=== PATIENT | male | born 1940 | race Caucasian/White ===

== ENCOUNTER 2017-12-06 09:16 | Inpatient (IN) ==
[2017-12-06 09:54] LABS: INR 1.4; Prothrombin Time 15.5 Seconds (9.4-12.1)
[2017-12-06] MEDS: 0.9 % Sodium Chloride 1,000 ML IVC SCH ×2 (10:05→17:21)
[2017-12-06] MEDS ORDERED: ISOVUE-370 200 ML INFUS..BTL IV ONE (11:38)
[2017-12-06] MEDS ORDERED: 0.9 % Sodium Chloride 1,000 ML ONE (11:38)
[2017-12-06] MEDS ORDERED: *HR* Heparin 10,000 UNIT/10 ML VIAL ONE (11:38)
[2017-12-06] MEDS ORDERED: Heparin 1,000 UNITS/500 mL 500 ML ONE (11:38)
[2017-12-06] MEDS ORDERED: Nitroglycerin 1,000 MCG/10 ML VIAL IV ONE (11:38)
--- NOTE | 2017-12-06 11:45 | Pre-Sedation Evaluation ---
Pre-sedation evaluation - Pre-sedation checklist Date of procedure: 12/06/17 Procedure: [facility] Recent Vitals: Last Vital Signs Temp 97.2 F L 12/06/17 09:53 Pulse 62 12/06/17 09:53 Resp 18 12/06/17 09:53 BP 158/85 12/06/17 09:53 Pulse Ox 96 12/06/17 09:53 H&P (including ROS) documented in medical record: No (NEEDS LOCKED) Previous reaction to sedatives/anesthetics: No Dietary Status: NPO after Midnight Airway Assessment: Patient can open mouth completely, TMJ function normal, Micrognathia (under-bite, receding chin) absent, Neck with adequate range of motion Dentition: No loose teeth or bridges Possible difficult airway: No ASA Classification *see protocol: CLASS II-Mild systemic disease Plan of Care: Pt appropriate candidate for procedure/moderate/conscious sedation , Risks/benefits of procedure/sedation discussed w/ patient/family
--- NOTE | 2017-12-06 11:46 | History & Physical Report ---
Date of Encounter: 12/06/17 Time of Encounter: 11:45 24 Hour HP Update - Instructions Instructions: If the History and Physical is less than 30 days old and was completed prior to A.M. admission and or procedure and has NOT been updated on calendar day of procedure please complete this update prior to performing procedure. - Update Patient reports changes in Medical Condition: No Changes in examination, assessment, or condition: No Changes in Medication: No Preop tests/diagnostics Reviewed: Yes Surgery Remains Indicated: Yes Consent for Planned Operative Procedure(s) Verified: Yes - Pre-Operative Checklist Preoperative Checklist Indicated: No Prophylactic Antibiotic Ordered: No Home Medications Include Beta Isai: Yes Beta Isai Taken Today (Day of Surgery): Yes Beta Isai Taken Yesterday (Day Prior to Surgery): Yes Is VTE Prophylaxis Indicated?: NO
[2017-12-06] MEDS ORDERED: *HR* Midazolam HCl 2 MG/2 ML VIAL ONE (12:03)
[2017-12-06] MEDS ORDERED: *HR* FentaNYL (PF) 100 MCG/2 ML VIAL ONE (12:04)
--- NOTE | 2017-12-06 12:42 | Discharge Summary ---
Outpatient Proc Discharge Plan - Plan Additional Instructions: RISK FACTORS: STOP SMOKING: If you smoke, STOP. Smoking or tobacco use significantly increases your risk of heart disease because nicotine causes the arteries to narrow or constrict. It also causes fats to stick to the artery. Your chances of having a heart attack are greatly increased if you continue to smoke. For more information, call the education line for smoking cessation 0-176-CPHYQZU EAT A LOW FAT/CHOLESTEROL/SODIUM DIET: This diet may help reduce your chances of having a heart attack. LIFTING: Avoid lifting anything more than 10 pounds for 5-7 days Prior to straining, laughing, sneezing and/or coughing, apply manual pressure directly over insertion site. ACTIVITY: You may walk or climb stairs as tolerated You can resume sexual activity as tolerated In general, you are encouraged to engage in a minimum of 30 minutes or more of moderate intensity physical activity, such as brisk walking, daily or at least 3 -4 times weekly BATHING Do not submerge the site into water (bath tub, hot tub, swimming pool) for 1 week. This can be a source for infection into the blood stream. You may shower after 24 hours SITE CARE: After 24 hours, you may remove the dressing and leave the site open to air. Keep the site clean and dry. Clean gently and pat dry. You can expect bruising and tenderness that gradually resolve within a week or two. Return to work as instructed per your physician Resume driving as instructed per physician Keep all scheduled follow up appointments Resume medications as instructed IMPORTANT: If prescribed a Platelet Aggregation Inhibitor such as, Plavix, Brilinta or Effient: Duration of therapy is minimum one year These medications are often used in combination with Aspirin in prevention of future heart attacks Never discontinue unless consult with your Children'S Book Author STROKE (CVA) Risk factors for a stroke are: Age, cigarette smoking, diabetes, excessive alcohol consumption, family history, high blood pressure, overweight, physical inactivity, prior stroke, heart attack, diagnosis of carotid artery stenosis or other artery disease. Warning signs: Sudden numbness or weakness of the face, arm or leg; especially on one side of the body, sudden confusion, trouble speaking or understanding, sudden trouble seeing in one or both eyes, sudden trouble walking, dizziness, loss of balance or coordination, sudden severe headache with no cause. Call 911 or go to the Emergency Room. CONGESTIVE HEART FAILURE: If you have been diagnosed with Congestive Heart Failure (CHF) and your symptoms return, make an appointment with your physician Weigh yourself daily. Notify your physician if you have a weight gain of two or more pounds in one day or five or more pounds in one week. If you experience any difficulty breathing, please call 911 BLEEDING: Although the risk of bleeding is minimal, it can happen. If you have any bleeding from the site, apply firm pressure above the puncture site for 10-15 minutes. If the bleeding does not stop, continue manual pressure and call 911 Contact your physician if: You develop a fever greater than 101 degrees Fahrenheit Your site becomes reddened or has any drainage You have an increase in pain or burning at the site or if a large knot forms at the site. If you experience chest pain, shortness of breath, dizziness, or extreme tiredness, stop the activity and rest. Please notify your physicians office if you experience any of these symptoms and they are not relieved by rest please call 911! Restart coumadin tonight if no bleeding at cardiac catheterization site. Home Medications: Amlodipine Besylate 10 mg PO 12/06/17 [History] Aspirin [Ecotrin] 325 mg PO DAILY 12/06/17 [History] Atenolol [Tenormin] 25 mg PO DAILY 12/06/17 [History] Isosorbide MONOnitrate (24 HR) [Imdur] 30 mg PO DAILY 12/06/17 [History] Lisinopril [Zestril] 20 mg PO DAILY 12/06/17 [History] Nitroglycerin [Nitrostat] 0.4 mg SL DAILY PRN 12/06/17 [History] Omeprazole [PriLOSEC] 20 mg PO DAILY 12/06/17 [History] Simvastatin [Zocor] 40 mg PO HS 12/06/17 [History] Warfarin [Coumadin] 2 mg PO 1800 12/06/17 [History]
[2017-12-06] MEDS ORDERED: *HR* Phytonadione 10 MG/ML AMPUL SQ ONE ×2 (14:02→19:45)
--- NOTE | 2017-12-06 14:09 | Cardiothoracic Consult Note ---
Date of Encounter: 12/06/17 Time of Encounter: 14:04 Assessment and Plan (1) Afib Current Visit: No Status: Acute The assessment and plan as outlined above was discussed with the patient and/or family members who expressed understanding and agreement. All questions were answered. The patient has significant left main disease with triple-vessel disease. He is a candidate for coronary artery bypass grafting. We could bypass his circumflex and LAD. The right coronary artery may or may not be bypassable. He is in chronic A. fib of unknown duration. We would attempt to perform modified Maze procedure and left atrial appendage stapling. The effectiveness of this would depend on the duration of A. fib. The patient will most likely require a permanent pacemaker in the postoperative period. The risks of surgery include , infection, bleeding, myocardial infarction, clots around the heart, renal or respiratory failure, acute or chronic graft closure, phrenic nerve injury, sternal dehiscence and recurrent or continued atrial fibrillation. The procedure, its risks, benefits and alternatives were explained and he does wish to proceed. We will tentatively schedule him for tomorrow. At this point the patient and his family have no questions. Operative consent was obtained. Qualifiers: Atrial fibrillation type: chronic Qualified Code(s): I48.2 - Chronic atrial fibrillation - History of Present Illness History of present illness: Mr. Quintana is a 77 year old male The patient is a 77-year-old gentleman who has had chest heaviness and shortness of breath with exertion. He had a positive stress test. 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 He also has a history of atrial fibrillation and takes Coumadin for this. He has been off Coumadin since Tuesday. He will require a permanent pacemaker prior to discharge. Echocardiogram done in August 2017 revealed mild to moderate mitral regurgitation, no other significant valve disease. Past medical history is noted for a stroke in 2002. This resulted in a left hemiplegia. He does walk with a walker, but has weakness in his left leg and arm. He also has some numbness and tingling in the arm and leg. Carotid duplex done in August 2017 revealed that the right carotid was 40-59%. The left carotid was 60-79%. Past medical history is also noted for hypertension and hypercholesterolemia. No history of diabetes. No recent strokes or TIA. He has no known allergies. His medications include aspirin and Coumadin. He has been off Coumadin since Tuesday. Social history. He lives in [place]. He is retired from [employer]. He used to smoke, but quit 47 years ago. Rarely drinks alcohol. Family history is positive for hypertension. Review of systems is negative for saphenous vein varicosities or strippings. Past Med Surg Social Fam HX - Past Medical History Medical history: atrial fibrillation, CVA, hyperlipidemia, hypertension, renal disease Psychiatric history: no psych history - Social History Smoking Status: Never smoker Alcohol use: none Drug use: none Medications and Allergies Amlodipine Besylate 10 mg PO 12/06/17 [History] Aspirin [Ecotrin] 325 mg PO DAILY 12/06/17 [History] Atenolol [Tenormin] 25 mg PO DAILY 12/06/17 [History] Isosorbide MONOnitrate (24 HR) [Imdur] 30 mg PO DAILY 12/06/17 [History] Lisinopril [Zestril] 20 mg PO DAILY 12/06/17 [History] Nitroglycerin [Nitrostat] 0.4 mg SL DAILY PRN 12/06/17 [History] Omeprazole [PriLOSEC] 20 mg PO DAILY 12/06/17 [History] Simvastatin [Zocor] 40 mg PO HS 12/06/17 [History] Warfarin [Coumadin] 2 mg PO 1800 12/06/17 [History] 3 Allergy/AdvReac Type Severity Reaction Status Date / Time No Known Allergies Allergy Unverified 09/21/17 10:23 All Systems Review: The remainder of the systems were reviewed and are negative Physical Examination He has bilateral redness to his eyes. He is missing his upper teeth, his lower teeth are in poor repair. Neck is supple. Trachea in the midline. No thyromegaly or carotid bruits. Lungs are clear to percussion and auscultation. Heart is in an irregular rate and rhythm. No murmurs, gallops or rubs. Abdomen is benign. No tenderness, rebound or guarding. He does have 1-2+ pitting edema over his left lower extremity. No saphenous vein varicosities or strippings. Cranial nerves intact. He does have weakness of his left leg, left arm and hand. He also has paresthesias and numbness over his left leg, left arm and hand. Results Lab Results, Last 24 hours 12/06/17 09:42 INR 1.4 Consult Discharge Plan - Plan Additional Instructions: RISK FACTORS: STOP SMOKING: If you smoke, STOP. Smoking or tobacco use significantly increases your risk of heart disease because nicotine causes the arteries to narrow or constrict. It also causes fats to stick to the artery. Your chances of having a heart attack are greatly increased if you continue to smoke. For more information, call the education line for smoking cessation 6-846-JEZFFVX EAT A LOW FAT/CHOLESTEROL/SODIUM DIET: This diet may help reduce your chances of having a heart attack. LIFTING: Avoid lifting anything more than 10 pounds for 5-7 days Prior to straining, laughing, sneezing and/or coughing, apply manual pressure directly over insertion site. ACTIVITY: You may walk or climb stairs as tolerated You can resume sexual activity as tolerated In general, you are encouraged to engage in a minimum of 30 minutes or more of moderate intensity physical activity, such as brisk walking, daily or at least 3 -4 times weekly BATHING Do not submerge the site into water (bath tub, hot tub, swimming pool) for 1 week. This can be a source for infection into the blood stream. You may shower after 24 hours SITE CARE: After 24 hours, you may remove the dressing and leave the site open to air. Keep the site clean and dry. Clean gently and pat dry. You can expect bruising and tenderness that gradually resolve within a week or two. Return to work as instructed per your physician Resume driving as instructed per physician Keep all scheduled follow up appointments Resume medications as instructed IMPORTANT: If prescribed a Platelet Aggregation Inhibitor such as, Plavix, Brilinta or Effient: Duration of therapy is minimum one year These medications are often used in combination with Aspirin in prevention of future heart attacks Never discontinue unless consult with your Medicinal Plant Picker STROKE (CVA) Risk factors for a stroke are: Age, cigarette smoking, diabetes, excessive alcohol consumption, family history, high blood pressure, overweight, physical inactivity, prior stroke, heart attack, diagnosis of carotid artery stenosis or other artery disease. Warning signs: Sudden numbness or weakness of the face, arm or leg; especially on one side of the body, sudden confusion, trouble speaking or understanding, sudden trouble seeing in one or both eyes, sudden trouble walking, dizziness, loss of balance or coordination, sudden severe headache with no cause. Call 911 or go to the Emergency Room. CONGESTIVE HEART FAILURE: If you have been diagnosed with Congestive Heart Failure (CHF) and your symptoms return, make an appointment with your physician Weigh yourself daily. Notify your physician if you have a weight gain of two or more pounds in one day or five or more pounds in one week. If you experience any difficulty breathing, please call 911 BLEEDING: Although the risk of bleeding is minimal, it can happen. If you have any bleeding from the site, apply firm pressure above the puncture site for 10-15 minutes. If the bleeding does not stop, continue manual pressure and call 911 Contact your physician if: You develop a fever greater than 101 degrees Fahrenheit Your site becomes reddened or has any drainage You have an increase in pain or burning at the site or if a large knot forms at the site. If you experience chest pain, shortness of breath, dizziness, or extreme tiredness, stop the activity and rest. Please notify your physicians office if you experience any of these symptoms and they are not relieved by rest please call 911! Restart coumadin tonight if no bleeding at cardiac catheterization site. Referrals: Kailee Keating MD [Partnered Physician] - 12/23/17 10:30 am (Follow up with Dr. Keating in the [place] office. ) George Hobbs DO [Primary Care Provider] -
[2017-12-06 17:37] LABS: Basophils # 0.1 K/mcL (0.0-0.2); Basophils % 0.9 %; Eosinophils # 0.4 K/mcL (0.0-0.6); Eosinophils % 6.3 %; Hematocrit 39.4 % (37.5-50.1); Immature Granulocytes % 0.3 % (0-4); Lymphocytes # 1.6 K/mcL (0.6-4.6); Lymphocytes % 25.6 %; Mean Corpuscular Hemoglobin 29.7 pg (28.0-33.3); Mean Corpuscular Volume 90.2 fL (83.0-100.0); Mean Platelet Volume 10.9 fL (9.4-12.4); Monocytes # 0.8 K/mcL (0.0-1.3); Monocytes % 11.9 %; Neutrophils # 3.5 K/mcL (1.6-8.9); Platelet Count 243 K/mcL (140-400); Red Blood Count 4.37 M/mcL (4.19-5.50); Red Cell Distribution Width 13.3 % (11.5-14.5)
[2017-12-06 17:42] LABS: INR 1.5; Prothrombin Time 15.8 Seconds (9.4-12.1)
[2017-12-06 17:45] LABS: Activated Partial Thrombo Time 30.4 Seconds (26.0-36.0)
[2017-12-06 17:59] LABS: BUN/Creatinine Ratio 25 (6-26); Blood Urea Nitrogen 28 mg/dL (8-23); Calcium 9.6 mg/dL (8.6-10.3); Carbon Dioxide 24 mEq/L (23-29); Chloride 106 mEq/L (98-107); Chol/HDL Ratio 2.8 (0-4.9); Cholesterol 161 mg/dL (< 200); Glucose 151 mg/dL (70-105); HDL Cholesterol 57 mg/dL (40-59); LDL Cholesterol,Calculated 92 mg/dL (0-99); Osmolality,Calculated 290 (280-300); Potassium 4.1 mEq/L (3.5-5.1); Sodium 136 mEq/L (136-145); Triglycerides 61 mg/dL (< 150); eGFR For African Americans > 60 (> 60); eGFR For Non-African Americans > 60 (> 60)
[2017-12-06] MEDS ORDERED: Chlorhexidine Rinse 15 ML MOUTHWASH MM SCH (21:00)
[2017-12-06] MEDS ORDERED: amLODIPine 5 MG TABLET PO ONE (23:18)
[2017-12-07] MEDS: 0.9 % Sodium Chloride 1,000 ML IVC SCH ×2 (03:20→17:54)
[2017-12-07] MEDS ORDERED: Lisinopril 20 MG TABLET PO ONE (04:00)
[2017-12-07 04:10] LABS: Bilirubin,Urine Negative (Negative); Blood,Urine Negative (Negative); Clarity,Urine Clear (Clear); Color,Urine Yellow (Yellow); Glucose,Urine (UA) Normal (Normal); Ketones,Urine Negative (Negative); Leukocyte Esterase,Urine Negative (Negative); Nitrite,Urine Negative (Negative); Protein,Urine Negative (Neg-Trace); Urobilinogen,Urine Normal (Normal)
[2017-12-07] MEDS ORDERED: CeFAZolin Syr 2,000MG/20 ML 2,000 MG/20 ML SYRINGE IVPB ONE (06:00)
--- NOTE | 2017-12-07 09:00 | Cardiothoracic Progress Note ---
Date of Encounter: 12/07/17 Time of Encounter: 08:59 - Assessment and plan (1) Afib Current Visit: No Status: Acute The patient is scheduled for surgery tomorrow. Operative consent was obtained. He has no questions. Qualifiers: Atrial fibrillation type: chronic Qualified Code(s): I48.2 - Chronic atrial fibrillation - Subjective Interval history: The patient had no angina or chest pain last night. He has no questions concerning tomorrow's surgery. Vital Signs, Last 4 Hours Temp Pulse Resp BP Pulse Ox 12/07/17 07:49 98.2 F 87 16 168/90 97 Clinical Data, last 8 Hours Output, Urine Amount 375 Output, Urine Amount 200 Weight 12/05/17 12/06/17 12/07/17 23:59 23:59 23:59 Weight 85.488 kg 82.4 kg Lungs are clear to percussion and auscultation. Heart is in a irregular rate and rhythm. - Labs 12/06/17 16:51 12/06/17 16:51 Lab Results, Last 24 hours 12/06/17 12/06/17 12/06/17 09:42 16:51 16:51 WBC 6.4 Hgb 13.0 Hct 39.4 Plt Count 243 INR 1.4 1.5 APTT 30.4 Sodium Potassium Chloride Carbon Dioxide BUN Creatinine Glucose Calcium 12/06/17 16:51 WBC Hgb Hct Plt Count INR APTT Sodium 136 Potassium 4.1 Chloride 106 Carbon Dioxide 24 BUN 28 H Creatinine 1.14 Glucose 151 H Calcium 9.6 Consult Discharge Plan - Plan Additional Instructions: RISK FACTORS: STOP SMOKING: If you smoke, STOP. Smoking or tobacco use significantly increases your risk of heart disease because nicotine causes the arteries to narrow or constrict. It also causes fats to stick to the artery. Your chances of having a heart attack are greatly increased if you continue to smoke. For more information, call the education line for smoking cessation 6-975-WKBEXPA EAT A LOW FAT/CHOLESTEROL/SODIUM DIET: This diet may help reduce your chances of having a heart attack. LIFTING: Avoid lifting anything more than 10 pounds for 5-7 days Prior to straining, laughing, sneezing and/or coughing, apply manual pressure directly over insertion site. ACTIVITY: You may walk or climb stairs as tolerated You can resume sexual activity as tolerated In general, you are encouraged to engage in a minimum of 30 minutes or more of moderate intensity physical activity, such as brisk walking, daily or at least 3 -4 times weekly BATHING Do not submerge the site into water (bath tub, hot tub, swimming pool) for 1 week. This can be a source for infection into the blood stream. You may shower after 24 hours SITE CARE: After 24 hours, you may remove the dressing and leave the site open to air. Keep the site clean and dry. Clean gently and pat dry. You can expect bruising and tenderness that gradually resolve within a week or two. Return to work as instructed per your physician Resume driving as instructed per physician Keep all scheduled follow up appointments Resume medications as instructed IMPORTANT: If prescribed a Platelet Aggregation Inhibitor such as, Plavix, Brilinta or Effient: Duration of therapy is minimum one year These medications are often used in combination with Aspirin in prevention of future heart attacks Never discontinue unless consult with your Piece Dye Worker STROKE (CVA) Risk factors for a stroke are: Age, cigarette smoking, diabetes, excessive alcohol consumption, family history, high blood pressure, overweight, physical inactivity, prior stroke, heart attack, diagnosis of carotid artery stenosis or other artery disease. Warning signs: Sudden numbness or weakness of the face, arm or leg; especially on one side of the body, sudden confusion, trouble speaking or understanding, sudden trouble seeing in one or both eyes, sudden trouble walking, dizziness, loss of balance or coordination, sudden severe headache with no cause. Call 911 or go to the Emergency Room. CONGESTIVE HEART FAILURE: If you have been diagnosed with Congestive Heart Failure (CHF) and your symptoms return, make an appointment with your physician Weigh yourself daily. Notify your physician if you have a weight gain of two or more pounds in one day or five or more pounds in one week. If you experience any difficulty breathing, please call 911 BLEEDING: Although the risk of bleeding is minimal, it can happen. If you have any bleeding from the site, apply firm pressure above the puncture site for 10-15 minutes. If the bleeding does not stop, continue manual pressure and call 911 Contact your physician if: You develop a fever greater than 101 degrees Fahrenheit Your site becomes reddened or has any drainage You have an increase in pain or burning at the site or if a large knot forms at the site. If you experience chest pain, shortness of breath, dizziness, or extreme tiredness, stop the activity and rest. Please notify your physicians office if you experience any of these symptoms and they are not relieved by rest please call 911! Restart coumadin tonight if no bleeding at cardiac catheterization site. Referrals: Kailee Keating MD [Partnered Physician] - 12/23/17 10:30 am (Follow up with Dr. Keating in the [place] office. ) George Hobbs DO [Primary Care Provider] -
[2017-12-07] MEDS ORDERED: *HR* Phytonadione 10 MG/ML AMPUL SQ ONE (09:03)
--- NOTE | 2017-12-07 09:08 | Anesthesia Evaluation PreOp ---
Date of Encounter: 12/08/17 Time of Encounter: 07:28 - Past History Planned Operation: CABG,modified MAZE Cardiac History: Angina, HTN, Hyperlipidemia, Arrhythmia (a-fib), Other (CAD with 100% RCA, 80% left main, 90% prox LAD, 85% Cx. PAD with carotid stenosis) Pulmonary History: Denies Any Significant HX STRATEGY INTERN History: CVA (2002 with residual left UE/LE weakness) Other Medical History: Renal (CKD) Anesthesia History: No Prior Anesthetic Complications, Past Anesthesia Alcohol Use: none Drug use: none Medications and Allergies Amlodipine Besylate 10 mg PO DAILY 12/06/17 [History] Atenolol [Tenormin] 25 mg PO DAILY 12/06/17 [History] Isosorbide MONOnitrate (24 HR) [Imdur] 30 mg PO DAILY 12/06/17 [History] Lisinopril [Zestril] 20 mg PO DAILY 12/06/17 [History] Nitroglycerin [Nitrostat] 0.4 mg SL DAILY PRN 12/06/17 [History] Omeprazole [PriLOSEC] 20 mg PO DAILY 12/06/17 [History] Simvastatin [Zocor] 40 mg PO HS 12/06/17 [History] Warfarin [Coumadin] 2 mg PO DAILY 12/06/17 [History] Aspirin [Lo-Dose Aspirin EC] 81 mg PO DAILY 12/07/17 [History] 3 Allergy/AdvReac Type Severity Reaction Status Date / Time No Known Allergies Allergy Unverified 09/21/17 10:23 - Meds/Allergy Pre-op Review Medications Reviewed: Yes Allergies Reviewed: Yes Beta Blockers on Current Med List: No Anesthesia Results - Labs 12/08/17 00:21 12/08/17 00:21 - Imaging Additional studies: cath: Impressions: There is severe three vessel coronary artery disease. The left ventricle is normal and has normal contractility EF 60% AGENT TICKETING GATE of proximal RCA. Stress test: Impression: There is a moderate intensity primarily fixed perfusion defect involving the basal-mid inferior wall with normal wall motion suggesting the presence of artifact. However, with stress, there is worsening of perfusion in the basal inferior and inferoseptum in which ischemia cannot be excluded. Pharmacologic stress ECG is non diagnostic for ischemia due to baseline non-specific ST and T changes. Patient had 7/10 chest pressure during stage I of pharmacologic stress. There is transient ischemic dilatation. Gated EF = 64%. Atrial fibrillation, HR 90 to 120's during testing. Abnormal findings communicated to ordering provider. Echo: Impressions: LVEF 50-55%. Normal LV chamber size, wall thickness and function. Indeterminate diastolic function. Normal right ventricular structure and function. Mild-moderate mitral regurgitation. Mild tricuspid regurgitation. No pulmonary hypertension. Anesthesia Exam Selected Entries 12/07/17 07:49 Temperature 98.2 F Pulse Rate 87 Respiratory Rate 16 Blood Pressure 168/90 O2 Sat by Pulse Oximetry 97 Weight: 82kg - HEENT Pupil (Motor): EOMI Mallampati: II Teeth: Missing, Edentulous (upper) Oral Opening: Greater than 3 - STRATEGY INTERN LOC: Oriented STRATEGY INTERN Motor: Normal RUE, Normal RLE, Normal Face, Deficit LUE, Deficit LLE STRATEGY INTERN Sensory: Normal: RUE, RLE, Face, Deficit: LUE, LLE - Cardiac Rhythm: Irregular (a-fib) Murmur: None - Pulmonary Breath Sounds: bilateral Clear Respiratory Effort: Symmetrical Anesthesia Assess/Plan ASA Score: 4 Modified [place] Scale for Level of Consciousness: Cooperative, oriented, and tranquil Anesthetic Plan: General Monitoring Plan: Standard Monitors, A-Line, PAC, DAWOOD Recovery Plan: ICU (discussed GA, lines, DAWOOD and blood products. Agrees to proceed)
--- NOTE | 2017-12-07 09:16 | Cardiology Progress Note ---
Date of Encounter: 12/07/17 Time of Encounter: 09:10 Assessment and Plan (1) CAD (coronary artery disease) Current Visit: Yes Status: Acute Outpatient [facility] on 12/06/17 for abnormal stress test, unstable angina. [facility] 12/06/17: severe 3v CAD, recommend CABG evaluation (see full report below). CT surgery consulted, Dr. Diaz following. Plan for CABG on 12/08/17. Continue asa, statin, nitrates, betablocker. ACEi held. Patient denies chest pain or discomfort. Follow-up with Dr. Kailee Keating as scheduled s/p discharge. Anticipate sign-off on 12/08/17, defer further mgmt to CT surgery. [facility] Report: Left Main Coronary Artery There is a 80% stenosis in the LMCA. The lesion has severe calcification noted. * Left Anterior Descending There is a 80% stenosis in the Proximal LAD. There is a 30% stenosis in the Mid LAD. There is a 50% stenosis in the 1st Diagonal. * Circumflex There is a 80% stenosis in the Proximal Circumflex. The lesion has moderate calcification noted. There is a 90% stenosis in the 1st Marginal. 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 R PDA fills via L to R collateral Qualifiers: Coronary Disease-Associated Artery/Lesion type: [place] artery [place] vs. transplanted heart: [place] heart Associated angina: with unstable angina Qualified Code(s): I25.110 - Atherosclerotic heart disease of [place] coronary artery with unstable angina pectoris (2) Afib Current Visit: No Status: Acute Hx of chronic atrial fibrillation on betablockade for rate control. Coumadin has been held in preparation for CABG. Would recommend restarting Coumadin, (goal INR 2-3), at discretion of CT surgery in the post-operative setting. Qualifiers: Atrial fibrillation type: chronic Qualified Code(s): I48.2 - Chronic atrial fibrillation (3) Essential hypertension Current Visit: Yes Status: Acute Uncontrolled this AM upon exam. Will resume home medications including nitrates, betablocker, and CCB. Hold ACEi prior to CABG. Discussion w patient/family: The assessment and plan as outlined above was discussed with the patient and/or family members who expressed understanding and agreement. All questions were answered. Thank you for involving us in the care of your patient. Please call with any questions. The patient was discussed and reviewed with Dr. Roy. Objective Vital Signs, Last 4 Hours Temp Pulse Resp BP Pulse Ox 12/07/17 07:49 98.2 F 87 16 168/90 97 Results 12/06/17 16:51 12/06/17 16:51 Lab Results 12/06/17 12/06/17 12/06/17 09:42 16:51 16:51 WBC 6.4 Hgb 13.0 Hct 39.4 Plt Count 243 INR 1.4 1.5 APTT 30.4 Sodium Potassium Chloride Carbon Dioxide BUN Creatinine Glucose Calcium 12/06/17 16:51 WBC Hgb Hct Plt Count INR APTT Sodium 136 Potassium 4.1 Chloride 106 Carbon Dioxide 24 BUN 28 H Creatinine 1.14 Glucose 151 H Calcium 9.6 Consult Discharge Plan - Plan Additional Instructions: RISK FACTORS: STOP SMOKING: If you smoke, STOP. Smoking or tobacco use significantly increases your risk of heart disease because nicotine causes the arteries to narrow or constrict. It also causes fats to stick to the artery. Your chances of having a heart attack are greatly increased if you continue to smoke. For more information, call the education line for smoking cessation 7-186-MJHJQBW EAT A LOW FAT/CHOLESTEROL/SODIUM DIET: This diet may help reduce your chances of having a heart attack. LIFTING: Avoid lifting anything more than 10 pounds for 5-7 days Prior to straining, laughing, sneezing and/or coughing, apply manual pressure directly over insertion site. ACTIVITY: You may walk or climb stairs as tolerated You can resume sexual activity as tolerated In general, you are encouraged to engage in a minimum of 30 minutes or more of moderate intensity physical activity, such as brisk walking, daily or at least 3 -4 times weekly BATHING Do not submerge the site into water (bath tub, hot tub, swimming pool) for 1 week. This can be a source for infection into the blood stream. You may shower after 24 hours SITE CARE: After 24 hours, you may remove the dressing and leave the site open to air. Keep the site clean and dry. Clean gently and pat dry. You can expect bruising and tenderness that gradually resolve within a week or two. Return to work as instructed per your physician Resume driving as instructed per physician Keep all scheduled follow up appointments Resume medications as instructed IMPORTANT: If prescribed a Platelet Aggregation Inhibitor such as, Plavix, Brilinta or Effient: Duration of therapy is minimum one year These medications are often used in combination with Aspirin in prevention of future heart attacks Never discontinue unless consult with your Montessori Preschool Teacher STROKE (CVA) Risk factors for a stroke are: Age, cigarette smoking, diabetes, excessive alcohol consumption, family history, high blood pressure, overweight, physical inactivity, prior stroke, heart attack, diagnosis of carotid artery stenosis or other artery disease. Warning signs: Sudden numbness or weakness of the face, arm or leg; especially on one side of the body, sudden confusion, trouble speaking or understanding, sudden trouble seeing in one or both eyes, sudden trouble walking, dizziness, loss of balance or coordination, sudden severe headache with no cause. Call 911 or go to the Emergency Room. CONGESTIVE HEART FAILURE: If you have been diagnosed with Congestive Heart Failure (CHF) and your symptoms return, make an appointment with your physician Weigh yourself daily. Notify your physician if you have a weight gain of two or more pounds in one day or five or more pounds in one week. If you experience any difficulty breathing, please call 911 BLEEDING: Although the risk of bleeding is minimal, it can happen. If you have any bleeding from the site, apply firm pressure above the puncture site for 10-15 minutes. If the bleeding does not stop, continue manual pressure and call 911 Contact your physician if: You develop a fever greater than 101 degrees Fahrenheit Your site becomes reddened or has any drainage You have an increase in pain or burning at the site or if a large knot forms at the site. If you experience chest pain, shortness of breath, dizziness, or extreme tiredness, stop the activity and rest. Please notify your physicians office if you experience any of these symptoms and they are not relieved by rest please call 911! Restart coumadin tonight if no bleeding at cardiac catheterization site. Referrals: Kailee Keating MD [Partnered Physician] - 12/23/17 10:30 am (Follow up with Dr. Keating in the [place] office. ) George Hobbs, [Primary Care Provider] -
[2017-12-07] MEDS ORDERED: Nitroglycerin 0.4 MG TAB.SUBL SL PRN (09:17)
[2017-12-07] MEDS: amLODIPine 5 MG TABLET PO SCH (09:41)
[2017-12-07] MEDS: Isosorbide MONOnitrate (24 HR) 30 MG TAB.ER.24H PO SCH (09:41)
[2017-12-07 11:07] LABS: INR 1.3; Prothrombin Time 13.9 Seconds (9.4-12.1)
[2017-12-07 12:14] LABS: Hemoglobin A1C 5.8 %
[2017-12-07] MEDS: Chlorhexidine Rinse 15 ML MOUTHWASH MM SCH (19:45)
[2017-12-07] MEDS ORDERED: amLODIPine 5 MG TABLET PO ONE (23:18)
[2017-12-08 00:48] LABS: Basophils # 0.1 K/mcL (0.0-0.2); Basophils % 0.8 %; Eosinophils # 0.4 K/mcL (0.0-0.6); Eosinophils % 5.2 %; Hemoglobin 13.1 g/dL (12.9-16.9); Immature Granulocytes % 0.3 % (0-4); Lymphocytes # 1.9 K/mcL (0.6-4.6); Lymphocytes % 26.5 %; Mean Corpuscular HGB Conc 34.5 g/dL (31.6-35.5); Mean Corpuscular Hemoglobin 30.7 pg (28.0-33.3); Monocytes # 0.8 K/mcL (0.0-1.3); Monocytes % 11.7 %; Platelet Count 218 K/mcL (140-400); Red Blood Count 4.27 M/mcL (4.19-5.50); Red Cell Distribution Width 13.5 % (11.5-14.5); Segmented Neutrophils % 55.5 %
[2017-12-08 00:54] LABS: INR 1.2; Prothrombin Time 12.8 Seconds (9.4-12.1)
[2017-12-08 00:57] LABS: Activated Partial Thrombo Time 28.7 Seconds (26.0-36.0)
[2017-12-08 01:18] LABS: BUN/Creatinine Ratio 21 (6-26); Blood Urea Nitrogen 22 mg/dL (8-23); Calcium 9.3 mg/dL (8.6-10.3); Carbon Dioxide 23 mEq/L (23-29); Chloride 107 mEq/L (98-107); Glucose 99 mg/dL (70-105); Osmolality,Calculated 289 (280-300); Potassium 3.8 mEq/L (3.5-5.1); Sodium 138 mEq/L (136-145); eGFR For African Americans > 60 (> 60); eGFR For Non-African Americans > 60 (> 60)
[2017-12-08] MEDS: Chlorhexidine Rinse 15 ML MOUTHWASH MM SCH ×2 (05:05→21:06)
[2017-12-08] MEDS ORDERED: Heparin 15,000 UNIT in 0.9 % Sodium Chloride 500 ML IV SCH (06:00)
[2017-12-08] MEDS ORDERED: Dextrose 50 % in Water (Vial) 30 ML, Sodium Bicarbonate 20 MEQ, Potassium Chloride 15 M... TH ONE (06:00)
[2017-12-08] MEDS ORDERED: CeFAZolin Syr 2,000MG/20 ML 2,000 MG/20 ML SYRINGE IVPB ONE (06:00)
[2017-12-08] MEDS ORDERED: Insulin Human Regular 100 UNIT in 0.9 % Sodium Chloride 100 ML IV PRN (06:00)
[2017-12-08] MEDS ORDERED: Dextrose 50 % in Water (Vial) 30 ML, Sodium Bicarbonate 20 MEQ, Lidocaine 1% 5 ML, Insu... TH SCH (06:00)
[2017-12-08] MEDS ORDERED: Nitroglycerin 25 MG/250 ML INFUS..BTL IVC ONE ×2 (06:49→08:56)
[2017-12-08] MEDS ORDERED: NiCARdipine 2.5 MG/10 ML Syringe IVPB ONE (06:49)
[2017-12-08] MEDS ORDERED: Verapamil 5 MG/2 ML VIAL ONE (06:53)
[2017-12-08] MEDS ORDERED: *HR* Rocuronium Bromide 50 MG/5 ML VIAL ONE (06:57)
[2017-12-08] MEDS ORDERED: *HR* PHENYLEPHRINE 1,000 MCG/10 ML SYRINGE IVP ONE (06:57)
[2017-12-08] MEDS ORDERED: *HR* Etomidate 20 MG/10 ML AMPUL IVP ONE (06:58)
[2017-12-08] MEDS ORDERED: Famotidine 20 MG/2 ML VIAL ONE (06:58)
[2017-12-08] MEDS ORDERED: Protamine Sulfate 250 MG/25 ML VIAL IVP ONE (06:58)
[2017-12-08] MEDS ORDERED: Tranexamic Acid 1,000 MG/10 ML VIAL ONE (06:58)
[2017-12-08] MEDS ORDERED: *HR* Midazolam HCl 5 MG/5 ML VIAL IVP ONE (07:02)
[2017-12-08] MEDS ORDERED: *HR* FentaNYL (PF) 1,000 MCG/20 ML VIAL ONE (07:03)
[2017-12-08 07:59] LABS: ABG Base Excess -4 mEq/L (-2 to 3); ABG Chloride 109 mEq/L (98-107); ABG Glucose 97 mg/dL (60-95); ABG HCO3 22 mEq/L (21-27); ABG Ionized Calcium 0.98 mmol/L (1.15-1.35); ABG Oxygen Saturation 100 % (95-98); ABG PCO2 39 mmHg (35-45); ABG PH 7.35 pH Units (7.32-7.45); ABG PO2 175 mmHg (85-104); ABG TCO2 23 mEq/L (20-26)
[2017-12-08] MEDS ORDERED: Norepinephrine 4 MG in D5% in Water 250 ML IVC PRN (08:00)
[2017-12-08] MEDS ORDERED: Albumin Human 5% 50.0 GM/1,000 ML VIAL ONE (08:57)
[2017-12-08 09:16] LABS: ABG Base Excess -6 mEq/L (-2 to 3); ABG Chloride 113 mEq/L (98-107); ABG Glucose 116 mg/dL (60-95); ABG HCO3 19 mEq/L (21-27); ABG Ionized Calcium 0.91 mmol/L (1.15-1.35); ABG Oxygen Saturation 99 % (95-98); ABG PCO2 36 mmHg (35-45); ABG PH 7.33 pH Units (7.32-7.45); ABG PO2 122 mmHg (85-104); ABG TCO2 20 mEq/L (20-26)
--- NOTE | 2017-12-08 09:38 | Anesthesia Procedures ---
Date of Encounter: 12/08/17 Time of Encounter: 07:50 Procedures: Anesthesia - Arterial Line Consent obtained: written consent Time out performed: Yes Sedation: Versed (mg): 1 Sedation: Fentanyl (mcg): 50 Supplemental Oxygen via Nasal Cannula (L/min): 2 Local Anesthetic: Lidocaine 1% Amount of Anesthetic used (mls): 1 Size (Gauge): 20 Length (inches): 5 Technique Used: sterile prep, guide wire technique, direct puncture technique Post-Procedure: line taped into place, dry sterile dressing placed Patient tolerated procedure: well, no complications Complications: none Site: Radial L (attempt x 1) - Central Line Placement Right IJ Consent obtained: written consent Time out performed: Yes Patient placed on monitor/pulse ox: Yes prep: mask, gown, gloves Central line prep: Chlorhexidine scrub Ultrasound used for placement: Yes Technique: Seldinger Lumen Inserted: Introducer Post procedure: sutured in place, good blood return, all ports aspirated, flushed, capped, sterile dressing applied Patient tolerated procedure: well, no complications Complications: none Comments: introducer placed easily. [place] passed without arrythmias, wedge approx 58cm
[2017-12-08 10:02] LABS: ABG Base Excess -1 mEq/L (-2 to 3); ABG Chloride 101 mEq/L (98-107); ABG Glucose 219 mg/dL (60-95); ABG HCO3 23 mEq/L (21-27); ABG Ionized Calcium 0.97 mmol/L (1.15-1.35); ABG Oxygen Saturation 100 % (95-98); ABG PCO2 34 mmHg (35-45); ABG PH 7.44 pH Units (7.32-7.45); ABG PO2 488 mmHg (85-104); ABG TCO2 24 mEq/L (20-26)
[2017-12-08 10:22] LABS: ABG Base Excess -1 mEq/L (-2 to 3); ABG Chloride 98 mEq/L (98-107); ABG Glucose 216 mg/dL (60-95); ABG HCO3 23 mEq/L (21-27); ABG Oxygen Saturation 100 % (95-98); ABG PCO2 34 mmHg (35-45); ABG PH 7.43 pH Units (7.32-7.45); ABG PO2 517 mmHg (85-104); ABG TCO2 24 mEq/L (20-26)
[2017-12-08 10:38] LABS: ABG Base Excess 1 mEq/L (-2 to 3); ABG Chloride 100 mEq/L (98-107); ABG Glucose 182 mg/dL (60-95); ABG HCO3 25 mEq/L (21-27); ABG Ionized Calcium 1.01 mmol/L (1.15-1.35); ABG Oxygen Saturation 100 % (95-98); ABG PCO2 38 mmHg (35-45); ABG PH 7.43 pH Units (7.32-7.45); ABG PO2 526 mmHg (85-104); ABG TCO2 26 mEq/L (20-26)
[2017-12-08] MEDS ORDERED: *HR* Amiodarone 150 MG/3 ML VIAL IVPB ONE (10:50)
[2017-12-08] MEDS ORDERED: Amiodarone Premix 360 MG/200 ML BAG IVC ONE ×2 (10:57→11:43)
[2017-12-08 11:19] LABS: ABG Base Excess -3 mEq/L (-2 to 3); ABG Chloride 105 mEq/L (98-107); ABG Glucose 123 mg/dL (60-95); ABG HCO3 22 mEq/L (21-27); ABG Ionized Calcium 1.16 mmol/L (1.15-1.35); ABG Oxygen Saturation 97 % (95-98); ABG PCO2 40 mmHg (35-45); ABG PH 7.35 pH Units (7.32-7.45); ABG PO2 93 mmHg (85-104); ABG TCO2 23 mEq/L (20-26)
[2017-12-08] MEDS ORDERED: *HR* Dextrose 50 % in Water (Syg) 50 ML SYRINGE IVP PRN (11:43)
[2017-12-08] MEDS ORDERED: Potassium Chloride 40 MEQ/200 ML BAG IVPB PRN (11:43)
[2017-12-08] MEDS ORDERED: Insulin Regular, Human 100 UNIT/ML IV PRN (11:43)
[2017-12-08] MEDS ORDERED: *HR* Promethazine 25 MG/ML VIAL IVP PRN (11:43)
[2017-12-08] MEDS ORDERED: Naloxone 0.4 MG/ML INJ IVP PRN (11:43)
[2017-12-08] MEDS ORDERED: Ondansetron 4 MG/2 ML VIAL IVP PRN (11:43)
[2017-12-08 12:05] LABS: Hematocrit 27.7 % (37.5-50.1); Immature Granulocytes % 0.4 % (0-4); Mean Corpuscular HGB Conc 33.6 g/dL (31.6-35.5)
[2017-12-08 12:06] LABS: INR 1.6
[2017-12-08 12:07] LABS: Basophils # 0.1 K/mcL (0.0-0.2); Basophils % 0.5 %; Eosinophils # 0.2 K/mcL (0.0-0.6); Hemoglobin 9.3 g/dL (12.9-16.9); Immature Platelets 2.9 % (1.1-6.1); Lymphocytes # 1.8 K/mcL (0.6-4.6); Lymphocytes % 16.6 %; Mean Corpuscular Hemoglobin 29.9 pg (28.0-33.3); Mean Corpuscular Volume 89.1 fL (83.0-100.0); Mean Platelet Volume 9.6 fL (9.4-12.4); Monocytes # 0.7 K/mcL (0.0-1.3); Monocytes % 6.4 %; Platelet Count 108 K/mcL (140-400); Red Blood Count 3.11 M/mcL (4.19-5.50); Red Cell Distribution Width 13.2 % (11.5-14.5); Segmented Neutrophils % 74.1 %
[2017-12-08 12:09] LABS: Activated Partial Thrombo Time 39.5 Seconds (26.0-36.0); Neutrophils # 7.9 K/mcL (1.6-8.9)
[2017-12-08 12:12] LABS: Prothrombin Time 17.7 Seconds (9.4-12.1)
[2017-12-08 12:20] LABS: BUN/Creatinine Ratio 16 (6-26); Blood Urea Nitrogen 15 mg/dL (8-23); Calcium 8.4 mg/dL (8.6-10.3); Carbon Dioxide 25 mEq/L (23-29); Chloride 107 mEq/L (98-107); Glucose 114 mg/dL (70-105); Magnesium 2.3 mg/dL (1.6-2.6); Osmolality,Calculated 290 (280-300); Potassium 3.4 mEq/L (3.5-5.1); Sodium 139 mEq/L (136-145); eGFR For African Americans > 60 (> 60); eGFR For Non-African Americans > 60 (> 60)
--- NOTE | 2017-12-08 12:22 | Operative Note ---
Date of procedure: 12/08/17 Was there an bookkeeping assistant present: Yes Package Crimper: Markell Isbell Estimated blood loss (cc): 500 Specimen: none Condition: critical Disposition: ICU Procedure in Detail: Preoperative diagnosis. Coronary artery disease and atrial fibrillation. Postoperative diagnosis. Same. Procedures. Coronary artery bypass grafting 2 with the left internal mammary artery to the LAD in the aorta to the obtuse marginal branch of the circumflex with saphenous vein. Also modified Maze procedure with isolation of the bilateral pulmonary veins and left atrial appendage stapling. Surgeon. Dr. Jairo Diaz. Asst. Markell Isbell. Anesthesia. Dr. Reggie Chin. The patient is a 77-year-old gentleman who had a stroke in 2002. This resulted in a left-sided hemiplegia. He walks with a walker. He presented with coronary artery disease. Cardiac catheterization revealed left main disease with triple-vessel disease. He also had atrial fibrillation of unknown duration. He has symptomatic bradycardia with a heart rate around 50 preoperatively. He will require a permanent pacemaker prior to discharge. The patient was brought to the operating room where he is prepped and draped in standard fashion. The right greater saphenous vein was harvested from the right knee to the right groin. This was done through 2 small incisions using the scope. These incisions were subsequently closed with a deep layer of 0 Vicryl and a 2-0 Vicryl subcuticular stitch. Standard median sternotomy was performed. The left internal mammary artery retractor was inserted and the left internal mammary artery was harvested in standard fashion using the Bovie electrocoagulation. The mammary retractor was removed and the standard sternal customs port director was inserted. Pericardium was opened in the midline and suspended with 2-0 silk stay sutures. A double pursestring of 20 [place] was placed in the aorta for the aortic cannulation site a pursestring of 20 [place] was placed in the right atrial appendage for the venous uptake. The patient was heparinized. The aorta was cannulated without difficulty. 2 stage venous uptake cannula was inserted through the right atrial appendage. A purse string of 4-0 silk was placed in the aorta and the cardioplegia needle was inserted through here. This was also used as an active and passive aortic vent. Patient was placed on cardio pony bypass and cooled to 35.3 degrees. We first performed the modified Maze procedure. The right superior and inferior pulmonary veins were encircled with a finger followed by a clamp and a red rubber catheter. The Medtronic bipolar device was placed in the veins were isolated using radiofrequency ablation. Next, we isolated the left superior and inferior pulmonary veins with a finger. This was followed by a clamp and a red rubber catheter. The device was placed and the veins were isolated with radiofrequency ablation. Finally, we stapled the left atrial appendage. This was done with the DEWAYNE stapler without a knife. At this point the aorta was crossclamped and a liter of antegrade cardioplegia was given. Topical cooling with iced saline slush was also done. Attention was first turned to the right coronary artery. The main right coronary artery and its posterior descending branches were too small and diffusely diseased for grafting. Attention was turned to the circumflex. The obtuse marginal branch was dissected free with the [place] blade and opened with a [place] blade and the [place] scissors. This had a lumen of 1-1/2 mm with mild diffuse disease. A standard end-to-side anastomosis was constructed using the saphenous vein in a 5-0 Prolene. At this point, the patient received an additional dose of antegrade cardioplegia. Mammary pedicle was harvested. Tonsil clamp was placed distally and was divided with the Metzenbaum scissors. Distal end was tied off with a 2-0 silk suture. Proximal end was trimmed and brought into the wound. The LAD was dissected free with the [place] blade and opened with a [place] blade and the [place] scissors. This had a lumen of 1-1/2 mm with moderate disease throughout. A standard end-to-side anastomosis was constructed using the mammary artery and a 7-0 Prolene. When this was completed, the previously placed bulldog clamp was removed. Distal anastomoses were inspected and found to be hemostatic. Cross-clamp was removed and rewarming was begun. Total cross- clamp time 34 minutes. A side-biting clamp was placed on the aorta in the cardioplegia needle was removed. A hole was made in the aorta using a [place] blade and the 4.5 mm aortic punch. A standard proximal anastomosis was constructed in end-to-side fashion using the saphenous vein in a 5-0 Prolene. When this is completed, the side-biting clamp was removed. The graft was de- aired using a #25-gauge needle and the previously placed bulldog clamp was removed. Distal anastomoses were inspected and found to be hemostatic. I did place some FloSeal around the MORSE distal anastomosis and the proximal anastomosis. A pair of atrial and ventricular pacing wires were left. The patient was paced in the DDD mode. A total of 4 chest tubes were left. A 32 right angle chest tube to the left pleural space. A 32 right angle chest tube to the pericardial well. A 40 mediastinal chest tube. The patient was weaned from bypass requiring no pressors for support. He was decannulated and the protamine was given. Hemostasis was good and the hemodynamics were good. Pericardium was loosely closed with interrupted 2-0 silk sutures. We did use platelet rich and platelet poor plasma to the sternum and subcutaneous tissues. The sternum was closed with #7 sternal wires in simple and mptzyc-di-ftuft fashion. The fascia was run with #1 Vicryl. The subcutaneous tissues with a 2- 0 Vicryl. The skin was closed with a 3-0 Vicryl subcuticular stitch. The patient tolerated the procedure well and was returned to intensive care unit in satisfactory and stable condition. Total bypass time 78 minutes. Total cross- clamp time 34 minutes. He had been cooled to 35.3 degrees.
[2017-12-08 12:29] LABS: ABG Base Excess -1 mEq/L (-2 to 3); ABG HCO3 24 mEq/L (21-27); ABG Oxygen Saturation 100 % (95-98); ABG PCO2 39 mmHg (35-45); ABG PH 7.39 pH Units (7.32-7.45); ABG PO2 172 mmHg (85-104); ABG TCO2 25 mEq/L (20-26)
[2017-12-08] MEDS: Ringers Solution, Lactated 1,000 ML IVC SCH (12:43)
[2017-12-08] MEDS: Insulin Human Regular 100 UNIT in 0.9 % Sodium Chloride 100 ML IVC SCH (15:00)
[2017-12-08 15:35] LABS: ABG Base Excess 0 mEq/L (-2 to 3); ABG HCO3 25 mEq/L (21-27); ABG Oxygen Saturation 99 % (95-98); ABG PCO2 41 mmHg (35-45); ABG PH 7.39 pH Units (7.32-7.45); ABG PO2 115 mmHg (85-104); ABG TCO2 26 mEq/L (20-26); Blood Gas PEEP 5 cm H2O; Blood Gas Respiration Rate 12; Blood Gas VT 600 cc
[2017-12-08] MEDS: CeFAZolin Premix DUPLEX 2,000 MG/50 ML BAG IVPB SCH ×2 (16:16→23:27)
[2017-12-08] MEDS: Amiodarone Premix 360 MG/200 ML BAG IVC SCH (17:01)
[2017-12-08] MEDS: *HR* FentaNYL (PF) 100 MCG/2 ML VIAL IVP PRN ×2 (17:33→23:39)
[2017-12-08] MEDS: *HR* OxyCODONE/APAP 5/325 TABLET PO PRN (17:33)
[2017-12-08] MEDS: Nitroglycerin 25 MG/250 ML INFUS..BTL IVC SCH (19:20)
[2017-12-08] MEDS: amLODIPine 5 MG TABLET PO SCH (19:41)
[2017-12-08] MEDS: Isosorbide MONOnitrate (24 HR) 30 MG TAB.ER.24H PO SCH (19:41)
[2017-12-08] MEDS: niCARdipine 40 MG/200 ML MLS IVC SCH ×2 (19:42→19:54)
[2017-12-08] MEDS: Norepinephrine 4 MG in D5% in Water 250 ML IVC SCH (19:42)
[2017-12-08 20:12] LABS: ABG Base Excess 1 mEq/L (-2 to 3); ABG HCO3 25 mEq/L (21-27); ABG Oxygen Saturation 99 % (95-98); ABG PCO2 38 mmHg (35-45); ABG PH 7.43 pH Units (7.32-7.45); ABG PO2 129 mmHg (85-104); ABG TCO2 26 mEq/L (20-26)
[2017-12-08 23:10] LABS: ABG Base Excess 2 mEq/L (-2 to 3); ABG HCO3 26 mEq/L (21-27); ABG Oxygen Saturation 99 % (95-98); ABG PCO2 39 mmHg (35-45); ABG PH 7.43 pH Units (7.32-7.45); ABG PO2 123 mmHg (85-104); ABG TCO2 27 mEq/L (20-26)
[2017-12-09] MEDS: niCARdipine 40 MG/200 ML MLS IVC SCH ×3 (00:10→17:19)
[2017-12-09] MEDS: *HR* OxyCODONE/APAP 5/325 TABLET PO PRN ×4 (02:02→11:58)
[2017-12-09] MEDS: Ringers Solution, Lactated 1,000 ML IVC SCH ×2 (02:10→14:02)
[2017-12-09] MEDS: Amiodarone Premix 360 MG/200 ML BAG IVC SCH (02:11)
[2017-12-09] MEDS: *HR* FentaNYL (PF) 100 MCG/2 ML VIAL IVP PRN (02:47)
[2017-12-09 05:15] LABS: Basophils % 0.4 %; Eosinophils % 0.1 %; Hematocrit 26.6 % (37.5-50.1); Immature Granulocytes % 0.3 % (0-4); Lymphocytes # 0.8 K/mcL (0.6-4.6); Lymphocytes % 8.9 %; Mean Corpuscular HGB Conc 33.8 g/dL (31.6-35.5); Mean Corpuscular Volume 88.7 fL (83.0-100.0); Mean Platelet Volume 10.7 fL (9.4-12.4); Monocytes # 1.3 K/mcL (0.0-1.3); Monocytes % 14.6 %; Neutrophils # 6.9 K/mcL (1.6-8.9); Platelet Count 149 K/mcL (140-400); Red Cell Distribution Width 13.6 % (11.5-14.5); Segmented Neutrophils % 75.7 %
[2017-12-09 05:24] LABS: INR 1.3; Prothrombin Time 13.6 Seconds (9.4-12.1)
[2017-12-09 05:27] LABS: Activated Partial Thrombo Time 26.8 Seconds (26.0-36.0)
[2017-12-09 05:33] LABS: Calcium 8.5 mg/dL (8.6-10.3); Magnesium 1.9 mg/dL (1.6-2.6); Potassium 3.9 mEq/L (3.5-5.1)
[2017-12-09] MEDS: Nitroglycerin 25 MG/250 ML INFUS..BTL IVC SCH ×3 (06:18→17:19)
--- NOTE | 2017-12-09 07:30 | Cardiothoracic Progress Note ---
Date of Encounter: 12/09/17 Time of Encounter: 07:28 - Assessment and plan (1) Afib Current Visit: No Status: Acute We we will discontinue the [place] catheter. I will stop the amiodarone drip at noon and placed the patient on by mouth amiodarone. His creatinine has risen to 1.7, so we will continue his IV fluids for now. Qualifiers: Atrial fibrillation type: chronic Qualified Code(s): I48.2 - Chronic atrial fibrillation - Subjective Interval history: The patient is extubated. He complains of some left hip pain which is due to an old injury. Vital Signs, Last 4 Hours Temp Pulse Resp BP Pulse Ox 12/09/17 07:00 77 16 138/57 93 12/09/17 06:00 82 18 132/57 96 12/09/17 05:00 82 16 142/65 97 12/09/17 04:06 16 96 12/09/17 04:00 98.6 F 80 12 142/64 96 Oxgyen Flow Rate Oxygen Flow Rate (LPM) 4 Clinical Data, last 8 Hours Output, Chest Tube Drainage 0 Amount [Mediastinal #1] Output, Chest Tube Drainage 0 Amount [Mediastinal #1] Output, Chest Tube Drainage 10 Amount [Mediastinal #1] Output, Chest Tube Drainage 0 Amount [Mediastinal #1] Output, Chest Tube Drainage 0 Amount [Mediastinal #1] Output, Chest Tube Drainage 0 Amount [Mediastinal #1] Output, Chest Tube Drainage 0 Amount [Mediastinal #1] Output, Chest Tube Drainage 0 Amount [Mediastinal #1] Output, Chest Tube Drainage 0 Amount [Mediastinal #2] Output, Chest Tube Drainage 0 Amount [Mediastinal #2] Output, Chest Tube Drainage 20 Amount [Mediastinal #2] Output, Chest Tube Drainage 0 Amount [Mediastinal #2] Output, Chest Tube Drainage 0 Amount [Mediastinal #2] Output, Chest Tube Drainage 15 Amount [Mediastinal #2] Output, Chest Tube Drainage 0 Amount [Mediastinal #2] Output, Chest Tube Drainage 10 Amount [Mediastinal #2] Output, Chest Tube Drainage 0 Amount [Mediastinal #3] Output, Chest Tube Drainage 0 Amount [Mediastinal #3] Output, Chest Tube Drainage 30 Amount [Mediastinal #3] Output, Chest Tube Drainage 20 Amount [Mediastinal #3] Output, Chest Tube Drainage 0 Amount [Mediastinal #3] Output, Chest Tube Drainage 10 Amount [Mediastinal #3] Output, Chest Tube Drainage 0 Amount [Mediastinal #3] Output, Chest Tube Drainage 20 Amount [Mediastinal #3] Weight 12/07/17 12/08/17 12/09/17 23:59 23:59 23:59 Weight 82.4 kg 81.5 kg Lungs are clear to percussion and auscultation. The pacemaker was turned off and the patient is in a normal sinus rhythm with a rate of 82. All incisions are healing well without signs of infection and the sternum is stable. Chest tube drainage is minimal and there is no air leak. - Labs 12/09/17 04:50 12/09/17 04:50 Lab Results, Last 24 hours 12/08/17 12/08/17 12/08/17 11:50 11:50 11:50 WBC 10.6 Hgb 9.3 L D Hct 27.7 L Plt Count 108 L D INR 1.6 APTT 39.5 H Sodium 139 Potassium 3.4 L Chloride 107 Carbon Dioxide 25 BUN 15 Creatinine 0.96 Glucose 114 H Calcium 8.4 L Magnesium 2.3 12/09/17 12/09/17 12/09/17 04:50 04:50 04:50 WBC 9.1 Hgb 9.0 L Hct 26.6 L Plt Count 149 INR 1.3 APTT 26.8 Sodium 137 Potassium 3.9 Chloride 105 Carbon Dioxide 23 BUN 21 Creatinine 1.78 H Glucose 135 H Calcium 8.5 L Magnesium 1.9 - VTE Documentation of Mechanical Device: Graduated compression elastic hosiery Consult Discharge Plan - Plan Additional Instructions: RISK FACTORS: STOP SMOKING: If you smoke, STOP. Smoking or tobacco use significantly increases your risk of heart disease because nicotine causes the arteries to narrow or constrict. It also causes fats to stick to the artery. Your chances of having a heart attack are greatly increased if you continue to smoke. For more information, call the education line for smoking cessation 7-942-TXNJQDL EAT A LOW FAT/CHOLESTEROL/SODIUM DIET: This diet may help reduce your chances of having a heart attack. LIFTING: Avoid lifting anything more than 10 pounds for 5-7 days Prior to straining, laughing, sneezing and/or coughing, apply manual pressure directly over insertion site. ACTIVITY: You may walk or climb stairs as tolerated You can resume sexual activity as tolerated In general, you are encouraged to engage in a minimum of 30 minutes or more of moderate intensity physical activity, such as brisk walking, daily or at least 3 -4 times weekly BATHING Do not submerge the site into water (bath tub, hot tub, swimming pool) for 1 week. This can be a source for infection into the blood stream. You may shower after 24 hours SITE CARE: After 24 hours, you may remove the dressing and leave the site open to air. Keep the site clean and dry. Clean gently and pat dry. You can expect bruising and tenderness that gradually resolve within a week or two. Return to work as instructed per your physician Resume driving as instructed per physician Keep all scheduled follow up appointments Resume medications as instructed IMPORTANT: If prescribed a Platelet Aggregation Inhibitor such as, Plavix, Brilinta or Effient: Duration of therapy is minimum one year These medications are often used in combination with Aspirin in prevention of future heart attacks Never discontinue unless consult with your Frame Bender STROKE (CVA) Risk factors for a stroke are: Age, cigarette smoking, diabetes, excessive alcohol consumption, family history, high blood pressure, overweight, physical inactivity, prior stroke, heart attack, diagnosis of carotid artery stenosis or other artery disease. Warning signs: Sudden numbness or weakness of the face, arm or leg; especially on one side of the body, sudden confusion, trouble speaking or understanding, sudden trouble seeing in one or both eyes, sudden trouble walking, dizziness, loss of balance or coordination, sudden severe headache with no cause. Call 911 or go to the Emergency Room. CONGESTIVE HEART FAILURE: If you have been diagnosed with Congestive Heart Failure (CHF) and your symptoms return, make an appointment with your physician Weigh yourself daily. Notify your physician if you have a weight gain of two or more pounds in one day or five or more pounds in one week. If you experience any difficulty breathing, please call 911 BLEEDING: Although the risk of bleeding is minimal, it can happen. If you have any bleeding from the site, apply firm pressure above the puncture site for 10-15 minutes. If the bleeding does not stop, continue manual pressure and call 911 Contact your physician if: You develop a fever greater than 101 degrees Fahrenheit Your site becomes reddened or has any drainage You have an increase in pain or burning at the site or if a large knot forms at the site. If you experience chest pain, shortness of breath, dizziness, or extreme tiredness, stop the activity and rest. Please notify your physicians office if you experience any of these symptoms and they are not relieved by rest please call 911! Restart coumadin tonight if no bleeding at cardiac catheterization site. Referrals: Kailee Keating MD [Partnered Physician] - 12/23/17 10:30 am (Follow up with Dr. Keating in the [place] office. ) George Hobbs DO [Primary Care Provider] -
[2017-12-09] MEDS: Isosorbide MONOnitrate (24 HR) 30 MG TAB.ER.24H PO SCH (08:31)
[2017-12-09] MEDS: *HR* Amiodarone 200 MG TABLET PO SCH ×2 (08:32→20:33)
[2017-12-09] MEDS: amLODIPine 5 MG TABLET PO SCH (08:32)
[2017-12-09] MEDS: Chlorhexidine Rinse 15 ML MOUTHWASH MM SCH ×2 (08:32→20:33)
[2017-12-09] MEDS ORDERED: Mannitol 25% vial 12.5 GM/50 ML VIAL IVP ONE (08:34)
[2017-12-09] MEDS ORDERED: Sodium Bicarbonate 50 MEQ/50 ML VIAL IVC ONE (08:34)
[2017-12-09] MEDS ORDERED: *HR* Phenylephrine 10 MG/ML VIAL IVC ONE (08:34)
[2017-12-09] MEDS ORDERED: *HR* Heparin 10,000 UNIT/10 ML VIAL IV ONE (08:34)
[2017-12-09] MEDS ORDERED: Albumin Human 25% 25 GM/100 ML IV.SOLN IV ONE (08:34)
[2017-12-09] MEDS ORDERED: *HR* Magnesium Sulfate 2 GM/50 ML PIGGYBACK IVPB ONE (08:34)
[2017-12-09] MEDS ORDERED: Lidocaine 2% Syringe 100 MG/5 ML IV ONE (08:34)
--- NOTE | 2017-12-09 10:23 | Electrocardiograph Report ---
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
[2017-12-09] MEDS ORDERED: *HR* Dextrose 50 % in Water (Syg) 50 ML SYRINGE IVP PRN (11:11)
[2017-12-09] MEDS ORDERED: Dextrose Gel 15 GM/37.5 ML TUBE PO PRN ×2 (11:11)
[2017-12-09] MEDS ORDERED: D5% in Water 1,000 ML IVC PRN (11:11)
[2017-12-09] MEDS: Insulin Human Regular 100 UNIT in 0.9 % Sodium Chloride 100 ML IVC SCH (11:54)
[2017-12-09] MEDS: Norepinephrine 4 MG in D5% in Water 250 ML IVC SCH (11:54)
[2017-12-09] MEDS: Insulin LISPRO 300 UNITS/3 ML VIAL SQ SCH ×3 (11:55→20:34)
--- NOTE | 2017-12-09 13:38 | Anesthesia Evaluation Post Op ---
Date of Encounter: 12/09/17 Time of Encounter: 13:36 - Vital Signs Vital Signs: Selected Entries 12/09/17 10:00 12/09/17 12:00 12/09/17 12:14 Temperature 98.1 F Pulse Rate 68 Respiratory Rate 12 Blood Pressure 143/56 O2 Sat by Pulse Oximetry 97 Oxygen Flow Rate (LPM) 4 Oxygen Delivery Method Nasal Cannula - Lungs Lungs: Clear Ascult./Percussion - Airway Airway: Non-obstructed - Cardiovascular Regular Rate - Mental Status Mental Status: Alert & Oriented, Answers Appropriately - Pain Pain Scale: 4 Pain Scale used: Numeric (1 - 10) - Nausea Vomiting Nausea Vomiting: Not Present - Hydration Hydration: Tolerates oral liquids, Parrish catheter (no apparent anesthesia issues post op. Off Amiodarone iv. Remains in NSR)
[2017-12-09] MEDS: *HR* Heparin 5,000 UNIT/ML VIAL SQ SCH (17:18)
--- NOTE | 2017-12-09 20:22 | Electrocardiograph Report ---
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
[2017-12-10] MEDS: niCARdipine 40 MG/200 ML MLS IVC SCH ×4 (00:43→23:36)
[2017-12-10] MEDS: Nitroglycerin 25 MG/250 ML INFUS..BTL IVC SCH ×3 (04:13→23:36)
[2017-12-10] MEDS: *HR* OxyCODONE/APAP 5/325 TABLET PO PRN ×3 (04:17→23:38)
[2017-12-10 04:48] LABS: Basophils % 0.3 %; Eosinophils % 0.2 %; Hematocrit 25.2 % (37.5-50.1); Hemoglobin 8.6 g/dL (12.9-16.9); Immature Granulocytes % 0.4 % (0-4); Lymphocytes # 1.5 K/mcL (0.6-4.6); Lymphocytes % 12.7 %; Mean Corpuscular HGB Conc 34.1 g/dL (31.6-35.5); Mean Corpuscular Hemoglobin 30.5 pg (28.0-33.3); Mean Corpuscular Volume 89.4 fL (83.0-100.0); Mean Platelet Volume 10.9 fL (9.4-12.4); Monocytes # 1.4 K/mcL (0.0-1.3); Monocytes % 11.8 %; Neutrophils # 8.7 K/mcL (1.6-8.9); Platelet Count 157 K/mcL (140-400); Red Blood Count 2.82 M/mcL (4.19-5.50); Red Cell Distribution Width 13.6 % (11.5-14.5); Segmented Neutrophils % 74.6 %
[2017-12-10 05:01] LABS: Calcium 8.3 mg/dL (8.6-10.3)
[2017-12-10] MEDS: Ringers Solution, Lactated 1,000 ML IVC SCH (05:25)
[2017-12-10] MEDS: *HR* Heparin 5,000 UNIT/ML VIAL SQ SCH ×2 (05:26→18:09)
[2017-12-10] MEDS: Chlorhexidine Rinse 15 ML MOUTHWASH MM SCH ×2 (08:19→20:22)
[2017-12-10] MEDS: Insulin LISPRO 300 UNITS/3 ML VIAL SQ SCH ×4 (08:24→19:49)
[2017-12-10] MEDS: amLODIPine 5 MG TABLET PO SCH (08:24)
[2017-12-10] MEDS: Isosorbide MONOnitrate (24 HR) 30 MG TAB.ER.24H PO SCH (08:24)
[2017-12-10] MEDS: Norepinephrine 4 MG in D5% in Water 250 ML IVC SCH (08:25)
[2017-12-10] MEDS: Insulin Human Regular 100 UNIT in 0.9 % Sodium Chloride 100 ML IVC SCH (08:25)
[2017-12-10] MEDS: *HR* Amiodarone 200 MG TABLET PO SCH ×2 (08:25→20:22)
[2017-12-10] MEDS ORDERED: 0.9 % Sodium Chloride 1,000 ML ONE (08:49)
[2017-12-10] MEDS: 0.9 % Sodium Chloride 1,000 ML IVC SCH (09:45)
--- NOTE | 2017-12-10 13:18 | Cardiothoracic Progress Note ---
Date of Encounter: 12/10/17 Time of Encounter: 13:15 - Subjective Procedure(s) Performed: Patient seen and examined. Lying in bed initially comfortable with no complaints other than some tiredness and incisional pain. Discussed with nursing at bedside events of night patient has been stable. Currently on nitroglycerin drip with vital signs stable in sinus rhythm. Atenolol was started this morning by report. Patient had history of bradycardia and plans for potential pacemaker discussed. Wires are still in place. Chest tube drainage been relatively minimal except for one chest tube therefore it was sinus at the patient up in chair before removing tubes. He was set up in chair and doing well. Discuss plans for removing chest tubes. Discuss plans for leaving the patient in the unit given concerns regarding bradycardia and starting beta de. We will leave pacing wires in place. Vital Signs, Last 4 Hours Pulse Resp BP Pulse Ox 12/10/17 12:00 73 12/10/17 11:27 16 92 12/10/17 11:00 75 20 139/71 91 12/10/17 10:00 75 24 121/40 89 Oxgyen Flow Rate Oxygen Flow Rate (LPM) 6 Clinical Data, last 8 Hours Output, Chest Tube Drainage 10 Amount [Mediastinal #1] Output, Chest Tube Drainage 20 Amount [Mediastinal #1] Output, Chest Tube Drainage 10 Amount [Mediastinal #2] Output, Chest Tube Drainage 10 Amount [Mediastinal #2] Output, Chest Tube Drainage 90 Amount [Mediastinal #3] Output, Chest Tube Drainage 100 Amount [Mediastinal #3] Weight 12/08/17 12/09/17 12/10/17 23:59 23:59 23:59 Weight 81.5 kg 87.4 kg - Physical Examination Incision: Other (Dressings clean dry and intact) Sternum: Other (Sternal wound, dressing in place, stable with cough) Chest tubes: Other (Chest tubes in place, no air leak on suction, serous drainage) Pacing Wires: In place - Labs 12/10/17 04:00 12/10/17 00:01 Lab Results, Last 24 hours 12/10/17 12/10/17 00:01 04:00 WBC 11.7 H Hgb 8.6 L Hct 25.2 L Plt Count 157 Sodium 132 L Potassium 4.0 Chloride 100 Carbon Dioxide 22 L BUN 30 H Creatinine 1.70 H Glucose 153 H Calcium 8.3 L - VTE Documentation of Mechanical Device: Graduated compression elastic hosiery Consult Discharge Plan - Plan Additional Instructions: RISK FACTORS: STOP SMOKING: If you smoke, STOP. Smoking or tobacco use significantly increases your risk of heart disease because nicotine causes the arteries to narrow or constrict. It also causes fats to stick to the artery. Your chances of having a heart attack are greatly increased if you continue to smoke. For more information, call the education line for smoking cessation 1-759-HIODDJO EAT A LOW FAT/CHOLESTEROL/SODIUM DIET: This diet may help reduce your chances of having a heart attack. LIFTING: Avoid lifting anything more than 10 pounds for 5-7 days Prior to straining, laughing, sneezing and/or coughing, apply manual pressure directly over insertion site. ACTIVITY: You may walk or climb stairs as tolerated You can resume sexual activity as tolerated In general, you are encouraged to engage in a minimum of 30 minutes or more of moderate intensity physical activity, such as brisk walking, daily or at least 3 -4 times weekly BATHING Do not submerge the site into water (bath tub, hot tub, swimming pool) for 1 week. This can be a source for infection into the blood stream. You may shower after 24 hours SITE CARE: After 24 hours, you may remove the dressing and leave the site open to air. Keep the site clean and dry. Clean gently and pat dry. You can expect bruising and tenderness that gradually resolve within a week or two. Return to work as instructed per your physician Resume driving as instructed per physician Keep all scheduled follow up appointments Resume medications as instructed IMPORTANT: If prescribed a Platelet Aggregation Inhibitor such as, Plavix, Brilinta or Effient: Duration of therapy is minimum one year These medications are often used in combination with Aspirin in prevention of future heart attacks Never discontinue unless consult with your Lens Edger STROKE (CVA) Risk factors for a stroke are: Age, cigarette smoking, diabetes, excessive alcohol consumption, family history, high blood pressure, overweight, physical inactivity, prior stroke, heart attack, diagnosis of carotid artery stenosis or other artery disease. Warning signs: Sudden numbness or weakness of the face, arm or leg; especially on one side of the body, sudden confusion, trouble speaking or understanding, sudden trouble seeing in one or both eyes, sudden trouble walking, dizziness, loss of balance or coordination, sudden severe headache with no cause. Call 911 or go to the Emergency Room. CONGESTIVE HEART FAILURE: If you have been diagnosed with Congestive Heart Failure (CHF) and your symptoms return, make an appointment with your physician Weigh yourself daily. Notify your physician if you have a weight gain of two or more pounds in one day or five or more pounds in one week. If you experience any difficulty breathing, please call 911 BLEEDING: Although the risk of bleeding is minimal, it can happen. If you have any bleeding from the site, apply firm pressure above the puncture site for 10-15 minutes. If the bleeding does not stop, continue manual pressure and call 911 Contact your physician if: You develop a fever greater than 101 degrees Fahrenheit Your site becomes reddened or has any drainage You have an increase in pain or burning at the site or if a large knot forms at the site. If you experience chest pain, shortness of breath, dizziness, or extreme tiredness, stop the activity and rest. Please notify your physicians office if you experience any of these symptoms and they are not relieved by rest please call 911! Restart coumadin tonight if no bleeding at cardiac catheterization site. Referrals: Kailee Keating MD [Partnered Physician] - 12/23/17 10:30 am (Follow up with Dr. Keating in the [place] office. ) George Hobbs DO [Primary Care Provider] -
[2017-12-11] MEDS: *HR* Heparin 5,000 UNIT/ML VIAL SQ SCH ×2 (06:17→20:51)
[2017-12-11] MEDS: Insulin LISPRO 300 UNITS/3 ML VIAL SQ SCH ×4 (07:43→22:25)
[2017-12-11] MEDS: amLODIPine 5 MG TABLET PO SCH (08:12)
[2017-12-11] MEDS: Isosorbide MONOnitrate (24 HR) 30 MG TAB.ER.24H PO SCH (08:12)
[2017-12-11] MEDS: *HR* Amiodarone 200 MG TABLET PO SCH ×2 (08:12→20:46)
[2017-12-11] MEDS: Chlorhexidine Rinse 15 ML MOUTHWASH MM SCH ×2 (08:12→20:48)
--- NOTE | 2017-12-11 08:41 | Cardiothoracic Progress Note ---
Date of Encounter: 12/11/17 Time of Encounter: 08:40 Discussion with patient/family: Discussed plan with patient and nursing to administer IV Lasix, work on coughing deep breathing, will check BMPs to determine if there is need for supplemental potassium. We will leave patient and unit work on pulmonary toilet and monitor patient's rhythm - Subjective Procedure(s) Performed: Patient seen and examined. He had his chest tubes removed yesterday and is feeling better today by his report. Nursing reports no acute events overnight however the patient has had increased oxygen requirements to. His rhythm has remained in sinus and he has had no significant episodes of bradycardia. Notably his patient wires were left in place as was felt he may need a pacemaker. He is requiring increased oxygen and is currently at 10 L high flow nasal cannula discussed with patient and the nursing importance of pulmonary toilet and we will administer 20 of IV Lasix and obtain a BMP to assess his potassium and creatinine. Notably, Rosalinda, radiology regarding chest x-ray following removal of chest tubes. Therefore a stat portable chest x-rays obtained this morning which I reviewed appears stable by my review with no evidence of pneumothorax or significant effusions. Vital Signs, Last 4 Hours Temp Pulse Resp BP Pulse Ox 12/11/17 08:15 79 20 153/68 95 12/11/17 08:13 98.3 F 12/11/17 07:49 68 12/11/17 07:43 18 95 12/11/17 07:00 68 20 136/63 97 12/11/17 06:00 72 20 141/79 95 12/11/17 05:00 80 20 155/67 94 Oxgyen Flow Rate Oxygen Flow Rate (LPM) 10 Clinical Data, last 8 Hours Output, Urine Amount 0 Output, Urine Amount 200 Weight 12/09/17 12/10/17 12/11/17 23:59 23:59 23:59 Weight 87.4 kg 88.4 kg - Physical Examination General: Other (Awake, alert, lying in bed, cooperative, no acute distress) Cardiac: Other (Sinus rhythm per telemetry) Incision: Other (Dressing in place wounds clean and dry) Sternum: Other (Sternum intact without evidence of click on cough) Chest tubes: Other (Chest tube sites, dressing intact chest tube removed yesterday) Pacing Wires: In place Lungs: Other (Breath sounds were diminished in bases with somewhat marginal inspiratory effort and faint crackles noted) - Labs 12/10/17 04:00 12/10/17 00:01 - Imaging Chest Xray: other (Chest x-ray reviewed appears stable without evidence of pneumothorax by my review) - VTE Documentation of Mechanical Device: Graduated compression elastic hosiery Consult Discharge Plan - Plan Additional Instructions: RISK FACTORS: STOP SMOKING: If you smoke, STOP. Smoking or tobacco use significantly increases your risk of heart disease because nicotine causes the arteries to narrow or constrict. It also causes fats to stick to the artery. Your chances of having a heart attack are greatly increased if you continue to smoke. For more information, call the education line for smoking cessation 4-225-EMFDMSF EAT A LOW FAT/CHOLESTEROL/SODIUM DIET: This diet may help reduce your chances of having a heart attack. LIFTING: Avoid lifting anything more than 10 pounds for 5-7 days Prior to straining, laughing, sneezing and/or coughing, apply manual pressure directly over insertion site. ACTIVITY: You may walk or climb stairs as tolerated You can resume sexual activity as tolerated In general, you are encouraged to engage in a minimum of 30 minutes or more of moderate intensity physical activity, such as brisk walking, daily or at least 3 -4 times weekly BATHING Do not submerge the site into water (bath tub, hot tub, swimming pool) for 1 week. This can be a source for infection into the blood stream. You may shower after 24 hours SITE CARE: After 24 hours, you may remove the dressing and leave the site open to air. Keep the site clean and dry. Clean gently and pat dry. You can expect bruising and tenderness that gradually resolve within a week or two. Return to work as instructed per your physician Resume driving as instructed per physician Keep all scheduled follow up appointments Resume medications as instructed IMPORTANT: If prescribed a Platelet Aggregation Inhibitor such as, Plavix, Brilinta or Effient: Duration of therapy is minimum one year These medications are often used in combination with Aspirin in prevention of future heart attacks Never discontinue unless consult with your Dealer Account Manager STROKE (CVA) Risk factors for a stroke are: Age, cigarette smoking, diabetes, excessive alcohol consumption, family history, high blood pressure, overweight, physical inactivity, prior stroke, heart attack, diagnosis of carotid artery stenosis or other artery disease. Warning signs: Sudden numbness or weakness of the face, arm or leg; especially on one side of the body, sudden confusion, trouble speaking or understanding, sudden trouble seeing in one or both eyes, sudden trouble walking, dizziness, loss of balance or coordination, sudden severe headache with no cause. Call 911 or go to the Emergency Room. CONGESTIVE HEART FAILURE: If you have been diagnosed with Congestive Heart Failure (CHF) and your symptoms return, make an appointment with your physician Weigh yourself daily. Notify your physician if you have a weight gain of two or more pounds in one day or five or more pounds in one week. If you experience any difficulty breathing, please call 911 BLEEDING: Although the risk of bleeding is minimal, it can happen. If you have any bleeding from the site, apply firm pressure above the puncture site for 10-15 minutes. If the bleeding does not stop, continue manual pressure and call 911 Contact your physician if: You develop a fever greater than 101 degrees Fahrenheit Your site becomes reddened or has any drainage You have an increase in pain or burning at the site or if a large knot forms at the site. If you experience chest pain, shortness of breath, dizziness, or extreme tiredness, stop the activity and rest. Please notify your physicians office if you experience any of these symptoms and they are not relieved by rest please call 911! Restart coumadin tonight if no bleeding at cardiac catheterization site. Referrals: Kailee Keating MD [Partnered Physician] - 12/23/17 10:30 am (Follow up with Dr. Ketaing in the [place] office. ) George Hobbs DO [Primary Care Provider] -
[2017-12-11] MEDS ORDERED: Furosemide 20 MG/2 ML VIAL IVP ONE (08:44)
--- NOTE | 2017-12-11 08:54 | Pulmonology Consult Note ---
<Deven Weber W - Last Filed: 12/11/17 09:42> Date of Encounter: 12/11/17 Medications and Allergies Amlodipine Besylate 10 mg PO DAILY 12/06/17 [History] Atenolol [Tenormin] 25 mg PO DAILY 12/06/17 [History] Isosorbide MONOnitrate (24 HR) [Imdur] 30 mg PO DAILY 12/06/17 [History] Lisinopril [Zestril] 20 mg PO DAILY 12/06/17 [History] Nitroglycerin [Nitrostat] 0.4 mg SL DAILY PRN 12/06/17 [History] Omeprazole [PriLOSEC] 20 mg PO DAILY 12/06/17 [History] Simvastatin [Zocor] 40 mg PO HS 12/06/17 [History] Warfarin [Coumadin] 2 mg PO DAILY 12/06/17 [History] Aspirin [Lo-Dose Aspirin EC] 81 mg PO DAILY 12/07/17 [History] 3 Allergy/AdvReac Type Severity Reaction Status Date / Time No Known Allergies Allergy Unverified 09/21/17 10:23 All Systems: The remainder of the systems were reviewed and are negative Physical Examination Vital Signs: Vital Signs, Last 4 Hours Temp Pulse Resp BP Pulse Ox 12/11/17 09:00 77 14 132/65 94 12/11/17 08:15 79 20 153/68 95 12/11/17 08:13 98.3 F 12/11/17 07:49 68 12/11/17 07:43 18 95 12/11/17 07:00 68 20 136/63 97 12/11/17 06:00 72 20 141/79 95 Results - Laboratory Findings CBC and BMP: 12/10/17 04:00 12/11/17 08:44 ABG ABG pH 7.43 pH Units (7.32-7.45) 12/08/17 23:07 ABG pCO2 39 mmHg (35-45) 12/08/17 23:07 ABG pO2 123 mmHg (85-104) H 12/08/17 23:07 ABG O2 Saturation 99 % (95-98) H 12/08/17 23:07 PT/INR, D-dimer PT 13.6 Seconds (9.4-12.1) H 12/09/17 04:50 Abnormal lab findings: Abnormal lab results WBC 11.7 K/mcL (4.3-11.1) H 12/10/17 04:00 RBC 2.82 M/mcL (4.19-5.50) L 12/10/17 04:00 Hgb 8.6 g/dL (12.9-16.9) L 12/10/17 04:00 Hct 25.2 % (37.5-50.1) L 12/10/17 04:00 Monocytes # 1.4 K/mcL (0.0-1.3) H 12/10/17 04:00 PT 13.6 Seconds (9.4-12.1) H 12/09/17 04:50 ABG pO2 123 mmHg (85-104) H 12/08/17 23:07 ABG Total CO2 27 mEq/L (20-26) H 12/08/17 23:07 ABG O2 Saturation 99 % (95-98) H 12/08/17 23:07 ABG Hematocrit 22.0 % (37.5-50.1) L 12/08/17 11:14 Glucose 123 mg/dL (60-95) H 12/08/17 11:14 Sodium 129 mEq/L (136-145) L 12/11/17 08:44 BUN 38 mg/dL (8-23) H 12/11/17 08:44 Creatinine 1.43 mg/dL (0.70-1.30) H 12/11/17 08:44 Est GFR ( Amer) 58 (> 60) L 12/11/17 08:44 Est GFR (Non-Af Amer) 48 (> 60) L 12/11/17 08:44 BUN/Creatinine Ratio 27 (6-26) H 12/11/17 08:44 Glucose 130 mg/dL (70-105) H 12/11/17 08:44 POC Glucose 121 (58-89) H 12/11/17 07:20 Hemoglobin A1c 5.8 % (-5.6) H 12/06/17 16:51 Calculated Osmolality 279 (280-300) L 12/11/17 08:44 Calcium 8.3 mg/dL (8.6-10.3) L 12/11/17 08:44 - Clinical Findings Intake & Output: Intake & Output 12/10/17 12/11/17 12/11/17 23:59 07:59 15:59 Intake Total 360 / 360 100 / 100 Output Total 250 / 250 200 / 200 0 / 0 Balance 110 / 110 -100 / -100 0 / 0 Weight 88.4 kg Consult Discharge Plan - Plan Additional Instructions: RISK FACTORS: STOP SMOKING: If you smoke, STOP. Smoking or tobacco use significantly increases your risk of heart disease because nicotine causes the arteries to narrow or constrict. It also causes fats to stick to the artery. Your chances of having a heart attack are greatly increased if you continue to smoke. For more information, call the education line for smoking cessation 7-472-AGSMWLT EAT A LOW FAT/CHOLESTEROL/SODIUM DIET: This diet may help reduce your chances of having a heart attack. LIFTING: Avoid lifting anything more than 10 pounds for 5-7 days Prior to straining, laughing, sneezing and/or coughing, apply manual pressure directly over insertion site. ACTIVITY: You may walk or climb stairs as tolerated You can resume sexual activity as tolerated In general, you are encouraged to engage in a minimum of 30 minutes or more of moderate intensity physical activity, such as brisk walking, daily or at least 3 -4 times weekly BATHING Do not submerge the site into water (bath tub, hot tub, swimming pool) for 1 week. This can be a source for infection into the blood stream. You may shower after 24 hours SITE CARE: After 24 hours, you may remove the dressing and leave the site open to air. Keep the site clean and dry. Clean gently and pat dry. You can expect bruising and tenderness that gradually resolve within a week or two. Return to work as instructed per your physician Resume driving as instructed per physician Keep all scheduled follow up appointments Resume medications as instructed IMPORTANT: If prescribed a Platelet Aggregation Inhibitor such as, Plavix, Brilinta or Effient: Duration of therapy is minimum one year These medications are often used in combination with Aspirin in prevention of future heart attacks Never discontinue unless consult with your Surgery Technician STROKE (CVA) Risk factors for a stroke are: Age, cigarette smoking, diabetes, excessive alcohol consumption, family history, high blood pressure, overweight, physical inactivity, prior stroke, heart attack, diagnosis of carotid artery stenosis or other artery disease. Warning signs: Sudden numbness or weakness of the face, arm or leg; especially on one side of the body, sudden confusion, trouble speaking or understanding, sudden trouble seeing in one or both eyes, sudden trouble walking, dizziness, loss of balance or coordination, sudden severe headache with no cause. Call 911 or go to the Emergency Room. CONGESTIVE HEART FAILURE: If you have been diagnosed with Congestive Heart Failure (CHF) and your symptoms return, make an appointment with your physician Weigh yourself daily. Notify your physician if you have a weight gain of two or more pounds in one day or five or more pounds in one week. If you experience any difficulty breathing, please call 911 BLEEDING: Although the risk of bleeding is minimal, it can happen. If you have any bleeding from the site, apply firm pressure above the puncture site for 10-15 minutes. If the bleeding does not stop, continue manual pressure and call 911 Contact your physician if: You develop a fever greater than 101 degrees Fahrenheit Your site becomes reddened or has any drainage You have an increase in pain or burning at the site or if a large knot forms at the site. If you experience chest pain, shortness of breath, dizziness, or extreme tiredness, stop the activity and rest. Please notify your physicians office if you experience any of these symptoms and they are not relieved by rest please call 911! Restart coumadin tonight if no bleeding at cardiac catheterization site. Referrals: Kailee Keating MD [Partnered Physician] - 12/23/17 10:30 am (Follow up with Dr. Keating in the [facility] office. ) George Hobbs DO [Primary Care Provider] - - Attending Attestation I examined this patient and my medical decision-making was reviewed with the Resident Physician. I agree with the documented findings, disposition and treatment plan as described except to the extent set forth below. We independently had [id number] contact with the patient Patient seen and examined at bedside Labs, radiology, chart personally reviewed. Management was reviewed during multidisciplinary critical care rounds. Impression: 1. Acute hypoxic respiratory failure. This is likely secondary to postoperative atelectasis leading to V/Q mismatch complicated by hydrostatic pulmonary edema cannot exclude fully possibility of pneumonia although clinically do not think this is the case. He is actually low risk category for PE based upon Wells' criteria score and given renal dysfunction and. CTA relatively ocntraindicated, s/t to BHARATI; V/Q Scan not possible today and empiric treatment with heparin also poses risk in posteroperative period if not clear to clinical indication so advise against empiric treatment. 2. Coronary artery disease status postop day 2 from CABG with modified MAZE: This is being managed by the cardiothoracic surgery team as well as cardiology appears stable chest tubes have been removed 3. ? Underlying lung disease which can be evaluated as an outpatient basis he has had work exposures and previous smoking history that would put him at risk for obstructive lung disease but at this time no clear evidence of intrinsic lung disease Recs: -Agree with gentle diuresis while closely monitoring kidney function -Send BNP and cont to trend renal function and electrolytes along with strict I/ Os -Aggressive bronchopulmonary toileting including out of bed to chair early ambulation and incentive spirometry which I have personally counseled on how to use and have recommended increased frequency and rate -Send CBC today if WBC count increased from consider empiric antimicrobial coverage after sending blood cultures and sputum culture and would further characterize underlying lung parenchyma with CT thorax (noncontrasted study) <Dudley Abdalla - Last Filed: 12/11/17 20:20> Date of Encounter: 12/11/17 Time of Encounter: 10:00 Assessment and Plan (1) Acute respiratory failure with hypoxia Current Visit: Yes Status: Acute Post operative hypoxemia requiring supplemental oxygen. No history of COPD, supplemental oxygen use at home, bronchodilators at home. Remote smoking history. Likely post-operative atelectasis. Also potentially secondary to pneumonia ( HCAP) or pulmonary edema. PE less likely: Wells PE score low. Incentive spirometry Encourage up to chair and activity as tolerated Empiric antibiotics Vancomycin Levaquin Microbiology Respiratory infectious panel pending Gently diurese as tolerated by renal function Hold on CTA chest at this time given low risk PE per Wells and elevared Cr. AM chest x-ray Continue to closely monitor. Blood culture peripheral (2) CAD (coronary artery disease) Current Visit: Yes Status: Acute Day 3 s/p CABG x2 with modified MAZE Day 5 s/p LHC Currently stable. Chest tubes removed 12/11. Followed by cardiothoracic surgery. Qualifiers: Coronary Disease-Associated Artery/Lesion type: [place] artery [place] vs. transplanted heart: [place] heart Associated angina: with unstable angina Qualified Code(s): I25.110 - Atherosclerotic heart disease of [place] coronary artery with unstable angina pectoris History of Present Illness Consult date: 12/11/17 Requesting physician: Evelio Lincoln Reason for consult: hypoxemia Chief complaint: Chest pain History of present illness: Mr. Quintana, a 77yo male, is post op day 5 C, post-op day 3 CABG x2 with modified Maze procedure. Overall, patient is doing well. He has, however required increased supplemental oxygen. Initially 2L post-op, now 10L NC. Concern for potential PE or infectious cause of the patient's marked increase in supplemental oxygen demand. On evaluation, lauryn is awake, alert, conversive, cooperative. He is in no pain. He is ssaturating well in 10L NC. No history of COPD, quit smoking 40+ years ago, does not use home supplemental oxygen or any breathing treatments. He notes the breathing treatments here in the hospital do help. He has incentive spirometry bedside; we discussed in detail its use - specifically effort and frequency. We encouraged him to sit upright in bed as well as to get up to bedside chair. Though he is recently post-op, overall patient is low risk for PE with Wells PE score of 1.5 (low risk). D-dimer would likely be elevated post-op. Given his renal function and low probability, will hold on CTA chest at this time. CXR shows no pneumotnorax. There is, however, some bibasilar atelectasis vs pneumonia. He is afebrile with no leukocytosis. Even so, he has been in the hospital 5 days now; will empirocally cover for healthcare associated pneumonia and de-escilate pending cultures. Will provide bronchodilators, encourage incentive spirometry, and encourage movement to maximize respiratory excursion. Past Med Surg Social Fam HX - Past Medical History Medical history: atrial fibrillation, CVA, hyperlipidemia, hypertension, renal disease Psychiatric history: no psych history - Social History Smoking Status: Never smoker Alcohol use: none Drug use: none All Systems: The remainder of the systems were reviewed and are negative - Constitutional Constitutional: no chills, no fatigue, no fever(s), no headache(s) - Cardiovascular Cardiovascular: dyspnea, no chest pain at rest, no irregular heart rhythm, no lightheadedness, no pedal edema - Respiratory Respiratory: no cough, no hemoptysis - Gastrointestinal Gastrointestinal: no abdominal pain, no diarrhea, no hematochezia, no melena, no nausea, no vomiting - Musculoskeletal Musculoskeletal: no back pain, no myalgias Physical Examination Vital Signs: Vital Signs, Last 4 Hours Temp Pulse Resp BP Pulse Ox 12/11/17 08:15 79 20 153/68 95 12/11/17 08:13 98.3 F 12/11/17 07:49 68 12/11/17 07:43 18 95 12/11/17 07:00 68 20 136/63 97 12/11/17 06:00 72 20 141/79 95 12/11/17 05:00 80 20 155/67 94 General appearance: no acute distress, alert Eyes: nonicteric ENT: oropharynx moist Neck: supple Effort: normal Inspection: normal Auscultation: bilateral: diminished breath sounds, wheezes (faint, scattered) Cardiovascular: regular rate and rhythm Gastrointestinal: normoactive bowel sounds, soft, non-tender, non-distended Integumentary: normal Extremities: no cyanosis, no edema, no clubbing, pink and warm, pulses normal, no ischemia or petechiae Musculoskeletal: no deformities normal mental status, non-focal exam, pupils equal and round mood appropriate Results - Laboratory Findings CBC and BMP: 12/11/17 09:51 12/11/17 08:44 ABG ABG pH 7.43 pH Units (7.32-7.45) 12/08/17 23:07 ABG pCO2 39 mmHg (35-45) 12/08/17 23:07 ABG pO2 123 mmHg (85-104) H 12/08/17 23:07 ABG O2 Saturation 99 % (95-98) H 12/08/17 23:07 PT/INR, D-dimer PT 13.6 Seconds (9.4-12.1) H 12/09/17 04:50 Abnormal lab findings: Abnormal lab results WBC 11.7 K/mcL (4.3-11.1) H 12/10/17 04:00 RBC 2.82 M/mcL (4.19-5.50) L 12/10/17 04:00 Hgb 8.6 g/dL (12.9-16.9) L 12/10/17 04:00 Hct 25.2 % (37.5-50.1) L 12/10/17 04:00 Monocytes # 1.4 K/mcL (0.0-1.3) H 12/10/17 04:00 PT 13.6 Seconds (9.4-12.1) H 12/09/17 04:50 ABG pO2 123 mmHg (85-104) H 12/08/17 23:07 ABG Total CO2 27 mEq/L (20-26) H 12/08/17 23:07 ABG O2 Saturation 99 % (95-98) H 12/08/17 23:07 ABG Hematocrit 22.0 % (37.5-50.1) L 12/08/17 11:14 Glucose 123 mg/dL (60-95) H 12/08/17 11:14 Sodium 132 mEq/L (136-145) L 12/10/17 00:01 Carbon Dioxide 22 mEq/L (23-29) L 12/10/17 00:01 BUN 30 mg/dL (8-23) H 12/10/17 00:01 Creatinine 1.70 mg/dL (0.70-1.30) H 12/10/17 00:01 Est GFR ( Amer) 47 (> 60) L 12/10/17 00:01 Est GFR (Non-Af Amer) 39 (> 60) L 12/10/17 00:01 Glucose 153 mg/dL (70-105) H 12/10/17 00:01 POC Glucose 121 (58-89) H 12/11/17 07:20 Hemoglobin A1c 5.8 % (-5.6) H 12/06/17 16:51 Calcium 8.3 mg/dL (8.6-10.3) L 12/10/17 00:01 - Clinical Findings Intake & Output: Intake & Output 12/10/17 12/11/17 12/11/17 23:59 07:59 15:59 Intake Total 360 / 360 100 / 100 Output Total 250 / 250 200 / 200 0 / 0 Balance 110 / 110 -100 / -100 0 / 0 Weight 88.4 kg
[2017-12-11 09:24] LABS: Calcium 8.3 mg/dL (8.6-10.3); Potassium 3.9 mEq/L (3.5-5.1)
[2017-12-11 10:47] LABS: Basophils % 0.3 %; Eosinophils % 0.2 %; Hematocrit 24.6 % (37.5-50.1); Hemoglobin 8.1 g/dL (12.9-16.9); Immature Granulocytes % 0.5 % (0-4); Lymphocytes # 0.8 K/mcL (0.6-4.6); Lymphocytes % 7.1 %; Mean Corpuscular HGB Conc 32.9 g/dL (31.6-35.5); Mean Corpuscular Hemoglobin 29.7 pg (28.0-33.3); Mean Corpuscular Volume 90.1 fL (83.0-100.0); Mean Platelet Volume 11.1 fL (9.4-12.4); Monocytes # 1.5 K/mcL (0.0-1.3); Monocytes % 13.3 %; Neutrophils # 8.6 K/mcL (1.6-8.9); Platelet Count 172 K/mcL (140-400); Red Blood Count 2.73 M/mcL (4.19-5.50); Red Cell Distribution Width 13.3 % (11.5-14.5); Segmented Neutrophils % 78.6 %
[2017-12-11] MEDS: Ipratropium/Albuterol Neb 3 ML IH SCH ×3 (11:49→19:35)
[2017-12-11] MEDS: *HR* OxyCODONE/APAP 5/325 TABLET PO PRN ×2 (15:46→20:47)
[2017-12-12] MEDS: Ipratropium/Albuterol Neb 3 ML IH SCH ×7 (00:33→23:50)
[2017-12-12] MEDS: *HR* OxyCODONE/APAP 5/325 TABLET PO PRN ×4 (03:32→20:21)
[2017-12-12 04:46] LABS: Basophils % 0.3 %; Eosinophils # 0.2 K/mcL (0.0-0.6); Eosinophils % 2.5 %; Hematocrit 23.2 % (37.5-50.1); Hemoglobin 7.8 g/dL (12.9-16.9); Immature Granulocytes % 0.4 % (0-4); Lymphocytes # 1.4 K/mcL (0.6-4.6); Lymphocytes % 14.8 %; Mean Corpuscular HGB Conc 33.6 g/dL (31.6-35.5); Mean Corpuscular Volume 89.2 fL (83.0-100.0); Mean Platelet Volume 10.6 fL (9.4-12.4); Monocytes # 1.3 K/mcL (0.0-1.3); Monocytes % 13.8 %; Neutrophils # 6.2 K/mcL (1.6-8.9); Platelet Count 184 K/mcL (140-400); Red Cell Distribution Width 13.3 % (11.5-14.5); Segmented Neutrophils % 68.2 %
[2017-12-12 04:52] LABS: BUN/Creatinine Ratio 29 (6-26); Blood Urea Nitrogen 36 mg/dL (8-23); Calcium 8.3 mg/dL (8.6-10.3); Carbon Dioxide 24 mEq/L (23-29); Chloride 97 mEq/L (98-107); Glucose 104 mg/dL (70-105); Osmolality,Calculated 279 (280-300); Potassium 3.4 mEq/L (3.5-5.1); Sodium 130 mEq/L (136-145); eGFR For African Americans > 60 (> 60); eGFR For Non-African Americans 56 (> 60)
[2017-12-12 05:20] LABS: ABG Base Excess 2 mEq/L (-2 to 3); ABG HCO3 25 mEq/L (21-27); ABG Oxygen Saturation 98 % (95-98); ABG PCO2 34 mmHg (35-45); ABG PH 7.48 pH Units (7.32-7.45); ABG PO2 93 mmHg (85-104); ABG TCO2 26 mEq/L (20-26)
[2017-12-12] MEDS: *HR* Heparin 5,000 UNIT/ML VIAL SQ SCH ×2 (06:52→17:45)
--- NOTE | 2017-12-12 08:01 | Cardiothoracic Progress Note ---
Date of Encounter: 12/12/17 Time of Encounter: 07:54 - Assessment and plan (1) CAD (coronary artery disease) Current Visit: Yes Status: Acute The patient is recovering well from his CABG2, modified Maze procedure, and left atrial appendage stapling. He remains in normal sinus rhythm. He did require increased supplemental oxygen for a transient hypoxic event; however, this is improving. The patient will be monitored in the ICU today to closely observe his oxygen requirements. He expresses some difficulty sleeping and Benadryl be ordered for as a hypnotic this evening. The assessment and plan as outlined above was discussed with the patient and/or family members who expressed understanding and agreement. All questions were answered. Qualifiers: Coronary Disease-Associated Artery/Lesion type: [place] artery [place] vs. transplanted heart: [place] heart Associated angina: with unstable angina Qualified Code(s): I25.110 - Atherosclerotic heart disease of [place] coronary artery with unstable angina pectoris - Subjective Procedure(s) Performed: POD#4 S/P CABG2, modified Maze procedure Interval history: The patient remained hemodynamic stable overnight. His oxygen saturation has remained adequate with high flow supplemental oxygen. He has no complaints. Vital Signs, Last 4 Hours Resp Pulse Ox 12/12/17 07:50 18 98 Oxgy[place] Flow Rate Oxygen Flow Rate (LPM) 10 Clinical Data, last 8 Hours Output, Urine Amount 325 Output, Urine Amount 150 Weight 12/10/17 12/11/17 12/12/17 23:59 23:59 23:59 Weight 87.4 kg 88.4 kg 88.6 kg - Physical Examination General: Conversant, No Apparent Distress Neck: No JVD, Normal carotid pulses Cardiac: Reg Rate and Rhythm, Normal S1 and S2, No Murmur Incision: No signs of infection, Dry/intact dressing Sternum: Stable Lungs: Normal Breath Sounds, No Wheeze, Rales, Rhonchi Neuro: Alert and responsive, No focal deficits noted Vascular: Normal capillary refill Extremities: No Clubbing, No Cyanosis, No Edema - Labs 12/12/17 04:18 12/12/17 04:18 Lab Results, Last 24 hours 12/11/17 12/11/17 12/12/17 08:44 09:51 04:18 WBC 10.9 9.1 Hgb 8.1 L 7.8 L Hct 24.6 L 23.2 L Plt Count 172 184 Sodium 129 L Potassium 3.9 Chloride 98 Carbon Dioxide 23 BUN 38 H Creatinine 1.43 H Glucose 130 H Calcium 8.3 L 12/12/17 04:18 WBC Hgb Hct Plt Count Sodium 130 L Potassium 3.4 L Chloride 97 L Carbon Dioxide 24 BUN 36 H Creatinine 1.25 Glucose 104 Calcium 8.3 L - Imaging Chest Xray: image reviewed (No pneumothorax. Small bilateral pleural effusions. Bibasilar atelectasis.) - VTE Documentation of Mechanical Device: Intermittent pneumatic compression device Consult Discharge Plan - Plan Additional Instructions: RISK FACTORS: STOP SMOKING: If you smoke, STOP. Smoking or tobacco use significantly increases your risk of heart disease because nicotine causes the arteries to narrow or constrict. It also causes fats to stick to the artery. Your chances of having a heart attack are greatly increased if you continue to smoke. For more information, call the education line for smoking cessation 7-680-XBJYXGH EAT A LOW FAT/CHOLESTEROL/SODIUM DIET: This diet may help reduce your chances of having a heart attack. LIFTING: Avoid lifting anything more than 10 pounds for 5-7 days Prior to straining, laughing, sneezing and/or coughing, apply manual pressure directly over insertion site. ACTIVITY: You may walk or climb stairs as tolerated You can resume sexual activity as tolerated In general, you are encouraged to engage in a minimum of 30 minutes or more of moderate intensity physical activity, such as brisk walking, daily or at least 3 -4 times weekly BATHING Do not submerge the site into water (bath tub, hot tub, swimming pool) for 1 week. This can be a source for infection into the blood stream. You may shower after 24 hours SITE CARE: After 24 hours, you may remove the dressing and leave the site open to air. Keep the site clean and dry. Clean gently and pat dry. You can expect bruising and tenderness that gradually resolve within a week or two. Return to work as instructed per your physician Resume driving as instructed per physician Keep all scheduled follow up appointments Resume medications as instructed IMPORTANT: If prescribed a Platelet Aggregation Inhibitor such as, Plavix, Brilinta or Effient: Duration of therapy is minimum one year These medications are often used in combination with Aspirin in prevention of future heart attacks Never discontinue unless consult with your Operator Command Support Systems STROKE (CVA) Risk factors for a stroke are: Age, cigarette smoking, diabetes, excessive alcohol consumption, family history, high blood pressure, overweight, physical inactivity, prior stroke, heart attack, diagnosis of carotid artery stenosis or other artery disease. Warning signs: Sudden numbness or weakness of the face, arm or leg; especially on one side of the body, sudden confusion, trouble speaking or understanding, sudden trouble seeing in one or both eyes, sudden trouble walking, dizziness, loss of balance or coordination, sudden severe headache with no cause. Call 911 or go to the Emergency Room. CONGESTIVE HEART FAILURE: If you have been diagnosed with Congestive Heart Failure (CHF) and your symptoms return, make an appointment with your physician Weigh yourself daily. Notify your physician if you have a weight gain of two or more pounds in one day or five or more pounds in one week. If you experience any difficulty breathing, please call 911 BLEEDING: Although the risk of bleeding is minimal, it can happen. If you have any bleeding from the site, apply firm pressure above the puncture site for 10-15 minutes. If the bleeding does not stop, continue manual pressure and call 911 Contact your physician if: You develop a fever greater than 101 degrees Fahrenheit Your site becomes reddened or has any drainage You have an increase in pain or burning at the site or if a large knot forms at the site. If you experience chest pain, shortness of breath, dizziness, or extreme tiredness, stop the activity and rest. Please notify your physicians office if you experience any of these symptoms and they are not relieved by rest please call 911! Restart coumadin tonight if no bleeding at cardiac catheterization site. Referrals: Kailee Keating MD [Partnered Physician] - 12/23/17 10:30 am (Follow up with Dr. Keating in the [place] office. ) George Hobbs DO [Primary Care Provider] -
[2017-12-12] MEDS: amLODIPine 5 MG TABLET PO SCH (08:14)
[2017-12-12] MEDS: *HR* Amiodarone 200 MG TABLET PO SCH ×2 (08:14→20:21)
[2017-12-12] MEDS: Chlorhexidine Rinse 15 ML MOUTHWASH MM SCH ×2 (08:14→20:20)
[2017-12-12] MEDS: Isosorbide MONOnitrate (24 HR) 30 MG TAB.ER.24H PO SCH (08:14)
--- NOTE | 2017-12-12 08:20 | Pulmonology Progress Note ---
<Ru Aguero - Last Filed: 12/12/17 15:49> Date of Encounter: 12/12/17 Time of Encounter: 07:50 Assessment and Plan (1) Acute respiratory failure with hypoxia Current Visit: Yes Status: Acute Interval hx: CABG 12/08 Consulted 12/11 for hypoxemia req supp O2 at 10L high flow NC Uses 2L nasal cannula at home, remote smoke hx Titrated to 6L high flow today 12/12 Likely post-op atelectasis vs PNA vs PE, less likely Plan: PE unlikely, pending venous doppler bilateral LE Continuing pulmonary toilet Mucinex, incentive spirometry, Continuing abx: vanc/levaquin (2) CAD (coronary artery disease) Current Visit: Yes Status: Acute 12/08: s/p CABG x2 with modified MAZE 12/06: s/p LHC Currently stable. Chest tubes removed 12/11. Followed by cardiothoracic surgery. Qualifiers: Coronary Disease-Associated Artery/Lesion type: [place] artery [place] vs. transplanted heart: [place] heart Associated angina: with unstable angina Qualified Code(s): I25.110 - Atherosclerotic heart disease of [place] coronary artery with unstable angina pectoris (3) DVT prophylaxis Current Visit: Yes Status: Acute SQ Heparin Subjective Principal diagnosis: acute respiratory failure with hypoxia Interval history: Patient is tolerating 6L NC and incentive spirometry. Conversant, no acute changes. Objective PUL Vital signs: Last Vital Signs Temp 97.3 F L 12/12/17 01:41 Pulse 74 12/12/17 07:53 Resp 20 12/12/17 07:53 BP 144/67 12/12/17 07:53 Pulse Ox 98 12/12/17 07:53 General appearance: no acute distress Eyes: nonicteric ENT: oropharynx moist Neck: supple Effort: normal Auscultation: bilateral: diminished breath sounds Cardiovascular: regular rate and rhythm Gastrointestinal: soft, non-distended Integumentary: normal Extremities: no cyanosis Musculoskeletal: no deformities non-focal exam affect normal Results - Laboratory Findings CBC and BMP: 12/12/17 04:18 12/12/17 04:18 ABG ABG pH 7.48 pH Units (7.32-7.45) H 12/12/17 05:15 ABG pCO2 34 mmHg (35-45) L 12/12/17 05:15 ABG pO2 93 mmHg (85-104) 12/12/17 05:15 ABG O2 Saturation 98 % (95-98) 12/12/17 05:15 PT/INR, D-dimer PT 13.6 Seconds (9.4-12.1) H 12/09/17 04:50 Abnormal lab findings: Abnormal lab results RBC 2.60 M/mcL (4.19-5.50) L 12/12/17 04:18 Hgb 7.8 g/dL (12.9-16.9) L 12/12/17 04:18 Hct 23.2 % (37.5-50.1) L 12/12/17 04:18 PT 13.6 Seconds (9.4-12.1) H 12/09/17 04:50 ABG pH 7.48 pH Units (7.32-7.45) H 12/12/17 05:15 ABG pCO2 34 mmHg (35-45) L 12/12/17 05:15 ABG Hematocrit 22.0 % (37.5-50.1) L 12/08/17 11:14 Glucose 123 mg/dL (60-95) H 12/08/17 11:14 Sodium 130 mEq/L (136-145) L 12/12/17 04:18 Potassium 3.4 mEq/L (3.5-5.1) L 12/12/17 04:18 Chloride 97 mEq/L (98-107) L 12/12/17 04:18 BUN 36 mg/dL (8-23) H 12/12/17 04:18 Est GFR (Non-Af Amer) 56 (> 60) L 12/12/17 04:18 BUN/Creatinine Ratio 29 (6-26) H 12/12/17 04:18 POC Glucose 105 (58-89) H 12/12/17 07:31 Hemoglobin A1c 5.8 % (-5.6) H 12/06/17 16:51 Calculated Osmolality 279 (280-300) L 12/12/17 04:18 Calcium 8.3 mg/dL (8.6-10.3) L 12/12/17 04:18 - Clinical Findings Intake & Output: Intake & Output 12/11/17 12/12/17 12/12/17 23:59 07:59 15:59 Output Total 475 / 475 Balance -475 / -475 Weight 88.6 kg - VTE Documentation of Mechanical Device: Intermittent pneumatic compression device Consult Discharge Plan - Plan Additional Instructions: RISK FACTORS: STOP SMOKING: If you smoke, STOP. Smoking or tobacco use significantly increases your risk of heart disease because nicotine causes the arteries to narrow or constrict. It also causes fats to stick to the artery. Your chances of having a heart attack are greatly increased if you continue to smoke. For more information, call the education line for smoking cessation 9-686-RSLALHK EAT A LOW FAT/CHOLESTEROL/SODIUM DIET: This diet may help reduce your chances of having a heart attack. LIFTING: Avoid lifting anything more than 10 pounds for 5-7 days Prior to straining, laughing, sneezing and/or coughing, apply manual pressure directly over insertion site. ACTIVITY: You may walk or climb stairs as tolerated You can resume sexual activity as tolerated In general, you are encouraged to engage in a minimum of 30 minutes or more of moderate intensity physical activity, such as brisk walking, daily or at least 3 -4 times weekly BATHING Do not submerge the site into water (bath tub, hot tub, swimming pool) for 1 week. This can be a source for infection into the blood stream. You may shower after 24 hours SITE CARE: After 24 hours, you may remove the dressing and leave the site open to air. Keep the site clean and dry. Clean gently and pat dry. You can expect bruising and tenderness that gradually resolve within a week or two. Return to work as instructed per your physician Resume driving as instructed per physician Keep all scheduled follow up appointments Resume medications as instructed IMPORTANT: If prescribed a Platelet Aggregation Inhibitor such as, Plavix, Brilinta or Effient: Duration of therapy is minimum one year These medications are often used in combination with Aspirin in prevention of future heart attacks Never discontinue unless consult with your Logging Crew Foreman STROKE (CVA) Risk factors for a stroke are: Age, cigarette smoking, diabetes, excessive alcohol consumption, family history, high blood pressure, overweight, physical inactivity, prior stroke, heart attack, diagnosis of carotid artery stenosis or other artery disease. Warning signs: Sudden numbness or weakness of the face, arm or leg; especially on one side of the body, sudden confusion, trouble speaking or understanding, sudden trouble seeing in one or both eyes, sudden trouble walking, dizziness, loss of balance or coordination, sudden severe headache with no cause. Call 911 or go to the Emergency Room. CONGESTIVE HEART FAILURE: If you have been diagnosed with Congestive Heart Failure (CHF) and your symptoms return, make an appointment with your physician Weigh yourself daily. Notify your physician if you have a weight gain of two or more pounds in one day or five or more pounds in one week. If you experience any difficulty breathing, please call 911 BLEEDING: Although the risk of bleeding is minimal, it can happen. If you have any bleeding from the site, apply firm pressure above the puncture site for 10-15 minutes. If the bleeding does not stop, continue manual pressure and call 911 Contact your physician if: You develop a fever greater than 101 degrees Fahrenheit Your site becomes reddened or has any drainage You have an increase in pain or burning at the site or if a large knot forms at the site. If you experience chest pain, shortness of breath, dizziness, or extreme tiredness, stop the activity and rest. Please notify your physicians office if you experience any of these symptoms and they are not relieved by rest please call 911! Restart coumadin tonight if no bleeding at cardiac catheterization site. Referrals: Kailee Keating MD [Partnered Physician] - 12/23/17 10:30 am (Follow up with Dr. Keating in the [place] office. ) George Hobbs DO [Primary Care Provider] - <Marci Vazquez S - Last Filed: 12/12/17 23:05> Date of Encounter: 12/12/17 Objective PUL Vital signs: Last Vital Signs Temp 97.8 F 12/12/17 19:00 Pulse 70 12/12/17 22:09 Resp 14 12/12/17 22:09 BP 146/72 12/12/17 22:09 Pulse Ox 94 12/12/17 22:09 Results - Laboratory Findings CBC and BMP: 12/12/17 04:18 12/12/17 04:18 ABG ABG pH 7.48 pH Units (7.32-7.45) H 12/12/17 05:15 ABG pCO2 34 mmHg (35-45) L 12/12/17 05:15 ABG pO2 93 mmHg (85-104) 12/12/17 05:15 ABG O2 Saturation 98 % (95-98) 12/12/17 05:15 PT/INR, D-dimer PT 13.6 Seconds (9.4-12.1) H 12/09/17 04:50 Abnormal lab findings: Abnormal lab results RBC 2.60 M/mcL (4.19-5.50) L 12/12/17 04:18 Hgb 7.8 g/dL (12.9-16.9) L 12/12/17 04:18 Hct 23.2 % (37.5-50.1) L 12/12/17 04:18 PT 13.6 Seconds (9.4-12.1) H 12/09/17 04:50 ABG pH 7.48 pH Units (7.32-7.45) H 12/12/17 05:15 ABG pCO2 34 mmHg (35-45) L 12/12/17 05:15 ABG Hematocrit 22.0 % (37.5-50.1) L 12/08/17 11:14 Glucose 123 mg/dL (60-95) H 12/08/17 11:14 Sodium 130 mEq/L (136-145) L 12/12/17 04:18 Potassium 3.4 mEq/L (3.5-5.1) L 12/12/17 04:18 Chloride 97 mEq/L (98-107) L 12/12/17 04:18 BUN 36 mg/dL (8-23) H 12/12/17 04:18 Est GFR (Non-Af Amer) 56 (> 60) L 12/12/17 04:18 BUN/Creatinine Ratio 29 (6-26) H 12/12/17 04:18 POC Glucose 122 (58-89) H 12/12/17 20:24 Hemoglobin A1c 5.8 % (-5.6) H 12/06/17 16:51 Calculated Osmolality 279 (280-300) L 12/12/17 04:18 Calcium 8.3 mg/dL (8.6-10.3) L 12/12/17 04:18 - Clinical Findings Intake & Output: Intake & Output 12/12/17 12/12/17 12/12/17 07:59 15:59 23:59 Intake Total 600 / 600 410 / 410 Output Total 475 / 475 825 / 825 725 / 725 Balance -475 / -475 -225 / -225 -315 / -315 Weight 88.6 kg 88.7 kg - Attending Attestation I saw and evaluated this patient and my medical decision-making was reviewed with the Resident Physician. I agree with the documented findings, disposition and treatment plan as described except to the extent set forth below. We independently had [id number] contact with the patient Patient seen and examined at bedside Labs, radiology, chart personally reviewed. Management was reviewed during multidisciplinary critical care rounds. 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 To continue broad spectrum antibiotics and diuresis . Cards:CAD s/p CABG hemodynamically stable hemodynamically stable will continue gentle diuresis as tolerated FEN-GI: Diet as per dietary Renal:Labs and output reviewed ID:Patient is on broad spectrum antibiotics Heme/Onc:Labs reviewed DVT scan for clots were negative but the prelim read showed some superficial DVT Endo: Glucose Monitored Integ/MSK: Skin Care per routine ICU Nursing Protocol to prevent ulcers. Lines: All lines examined without evidence of infection : Dispo: Patient has high chance of respiratory failure CODE:Full Code
[2017-12-12] MEDS: Norepinephrine 4 MG in D5% in Water 250 ML IVC SCH ×2 (08:56→12:19)
[2017-12-12] MEDS: Nitroglycerin 25 MG/250 ML INFUS..BTL IVC SCH ×5 (08:56→20:33)
[2017-12-12] MEDS: niCARdipine 40 MG/200 ML MLS IVC SCH ×6 (08:57→20:33)
[2017-12-12] MEDS: Insulin Human Regular 100 UNIT in 0.9 % Sodium Chloride 100 ML IVC SCH ×2 (08:58→12:19)
[2017-12-12] MEDS: Insulin LISPRO 300 UNITS/3 ML VIAL SQ SCH ×4 (09:00→20:32)
[2017-12-12] MEDS ORDERED: Furosemide 40 MG/4 ML VIAL IVP ONE (09:35)
[2017-12-13] MEDS: Ipratropium/Albuterol Neb 3 ML IH SCH ×6 (03:38→23:47)
[2017-12-13 03:50] LABS: Basophils % 0.4 %; Eosinophils # 0.4 K/mcL (0.0-0.6); Eosinophils % 4.5 %; Hematocrit 23.8 % (37.5-50.1); Immature Granulocytes % 0.5 % (0-4); Lymphocytes # 1.5 K/mcL (0.6-4.6); Lymphocytes % 15.8 %; Mean Corpuscular HGB Conc 33.6 g/dL (31.6-35.5); Mean Corpuscular Hemoglobin 30.4 pg (28.0-33.3); Mean Corpuscular Volume 90.5 fL (83.0-100.0); Mean Platelet Volume 9.8 fL (9.4-12.4); Monocytes # 1.5 K/mcL (0.0-1.3); Neutrophils # 5.8 K/mcL (1.6-8.9); Nucleated Red Blood Cells 0.2 /100 WBC (0); Platelet Count 229 K/mcL (140-400); Red Blood Count 2.63 M/mcL (4.19-5.50); Red Cell Distribution Width 13.2 % (11.5-14.5); Segmented Neutrophils % 62.8 %
[2017-12-13 04:15] LABS: BUN/Creatinine Ratio 32 (6-26); Blood Urea Nitrogen 37 mg/dL (8-23); Calcium 8.6 mg/dL (8.6-10.3); Carbon Dioxide 27 mEq/L (23-29); Chloride 97 mEq/L (98-107); Glucose 107 mg/dL (70-105); Osmolality,Calculated 281 (280-300); Potassium 3.6 mEq/L (3.5-5.1); Sodium 131 mEq/L (136-145); eGFR For African Americans > 60 (> 60); eGFR For Non-African Americans > 60 (> 60)
[2017-12-13] MEDS: *HR* OxyCODONE/APAP 5/325 TABLET PO PRN ×5 (04:41→23:22)
[2017-12-13] MEDS: *HR* Heparin 5,000 UNIT/ML VIAL SQ SCH ×2 (06:08→18:09)
--- NOTE | 2017-12-13 07:39 | Pulmonology Progress Note ---
<Ru Aguero - Last Filed: 12/13/17 11:09> Date of Encounter: 12/13/17 Time of Encounter: 07:30 Assessment and Plan (1) Acute respiratory failure with hypoxia Current Visit: Yes Status: Acute Interval hx: CABG 12/08 Consulted 12/11 for hypoxemia req supp O2 at 10L high flow NC Uses 2L nasal cannula at home, remote smoke hx Titrated to 6L high flow since 12/12 Likely post-op atelectasis vs PNA vs PE, less likely Plan: PE unlikely, 12/12 venous doppler bilateral LE shows svt, pt is heparanized SQ Continuing pulmonary toilet Mucinex, incentive spirometry Continuing diuresis based on fluid balance (maintaining mild negative) (2) CAD (coronary artery disease) Current Visit: Yes Status: Acute 12/08: s/p CABG x2 with modified MAZE 12/06: s/p LHC Currently stable. Chest tubes removed 12/11. Followed by cardiothoracic surgery. Qualifiers: Coronary Disease-Associated Artery/Lesion type: [place] artery [place] vs. transplanted heart: [place] heart Associated angina: with unstable angina Qualified Code(s): I25.110 - Atherosclerotic heart disease of [place] coronary artery with unstable angina pectoris (3) DVT prophylaxis Current Visit: Yes Status: Acute SQ Heparin Subjective Principal diagnosis: acute respiratory failure with hypoxia Interval history: Patient is tolerating 6L NC and incentive spirometry. Conversant, no acute changes. Baseline needs assistance going from chair to bed. Objective PUL Vital signs: Last Vital Signs Temp 97.8 F 12/13/17 04:01 Pulse 75 12/13/17 06:06 Resp 16 12/13/17 07:27 BP 146/72 12/13/17 06:06 Pulse Ox 96 12/13/17 07:27 General appearance: no acute distress Eyes: nonicteric ENT: oropharynx moist Neck: supple Effort: normal Auscultation: bilateral: diminished breath sounds Cardiovascular: regular rate and rhythm Gastrointestinal: soft, non-distended Integumentary: normal Extremities: no cyanosis Musculoskeletal: no deformities non-focal exam affect normal Results - Laboratory Findings CBC and BMP: 12/13/17 03:45 12/13/17 03:45 ABG ABG pH 7.48 pH Units (7.32-7.45) H 12/12/17 05:15 ABG pCO2 34 mmHg (35-45) L 12/12/17 05:15 ABG pO2 93 mmHg (85-104) 12/12/17 05:15 ABG O2 Saturation 98 % (95-98) 12/12/17 05:15 PT/INR, D-dimer PT 13.6 Seconds (9.4-12.1) H 12/09/17 04:50 Abnormal lab findings: Abnormal lab results RBC 2.63 M/mcL (4.19-5.50) L 12/13/17 03:45 Hgb 8.0 g/dL (12.9-16.9) L 12/13/17 03:45 Hct 23.8 % (37.5-50.1) L 12/13/17 03:45 Monocytes # 1.5 K/mcL (0.0-1.3) H 12/13/17 03:45 Nucleated RBCs/100 WBC 0.2 /100 WBC (0) H 12/13/17 03:45 PT 13.6 Seconds (9.4-12.1) H 12/09/17 04:50 ABG pH 7.48 pH Units (7.32-7.45) H 12/12/17 05:15 ABG pCO2 34 mmHg (35-45) L 12/12/17 05:15 ABG Hematocrit 22.0 % (37.5-50.1) L 12/08/17 11:14 Glucose 123 mg/dL (60-95) H 12/08/17 11:14 Sodium 131 mEq/L (136-145) L 12/13/17 03:45 Chloride 97 mEq/L (98-107) L 12/13/17 03:45 BUN 37 mg/dL (8-23) H 12/13/17 03:45 BUN/Creatinine Ratio 32 (6-26) H 12/13/17 03:45 Glucose 107 mg/dL (70-105) H 12/13/17 03:45 POC Glucose 122 (58-89) H 12/12/17 20:24 Hemoglobin A1c 5.8 % (-5.6) H 12/06/17 16:51 - Clinical Findings Intake & Output: Intake & Output 12/12/17 12/12/17 12/13/17 15:59 23:59 07:59 Intake Total 600 / 600 410 / 410 50 / 50 Output Total 825 / 825 725 / 725 100 / 100 Balance -225 / -225 -315 / -315 -50 / -50 Weight 88.7 kg - VTE Documentation of Mechanical Device: Graduated compression elastic hosiery Consult Discharge Plan - Plan Additional Instructions: RISK FACTORS: STOP SMOKING: If you smoke, STOP. Smoking or tobacco use significantly increases your risk of heart disease because nicotine causes the arteries to narrow or constrict. It also causes fats to stick to the artery. Your chances of having a heart attack are greatly increased if you continue to smoke. For more information, call the education line for smoking cessation 5-255-ZYRXJJJ EAT A LOW FAT/CHOLESTEROL/SODIUM DIET: This diet may help reduce your chances of having a heart attack. LIFTING: Avoid lifting anything more than 10 pounds for 5-7 days Prior to straining, laughing, sneezing and/or coughing, apply manual pressure directly over insertion site. ACTIVITY: You may walk or climb stairs as tolerated You can resume sexual activity as tolerated In general, you are encouraged to engage in a minimum of 30 minutes or more of moderate intensity physical activity, such as brisk walking, daily or at least 3 -4 times weekly BATHING Do not submerge the site into water (bath tub, hot tub, swimming pool) for 1 week. This can be a source for infection into the blood stream. You may shower after 24 hours SITE CARE: After 24 hours, you may remove the dressing and leave the site open to air. Keep the site clean and dry. Clean gently and pat dry. You can expect bruising and tenderness that gradually resolve within a week or two. Return to work as instructed per your physician Resume driving as instructed per physician Keep all scheduled follow up appointments Resume medications as instructed IMPORTANT: If prescribed a Platelet Aggregation Inhibitor such as, Plavix, Brilinta or Effient: Duration of therapy is minimum one year These medications are often used in combination with Aspirin in prevention of future heart attacks Never discontinue unless consult with your Press Operator Carbon Blocks STROKE (CVA) Risk factors for a stroke are: Age, cigarette smoking, diabetes, excessive alcohol consumption, family history, high blood pressure, overweight, physical inactivity, prior stroke, heart attack, diagnosis of carotid artery stenosis or other artery disease. Warning signs: Sudden numbness or weakness of the face, arm or leg; especially on one side of the body, sudden confusion, trouble speaking or understanding, sudden trouble seeing in one or both eyes, sudden trouble walking, dizziness, loss of balance or coordination, sudden severe headache with no cause. Call 911 or go to the Emergency Room. CONGESTIVE HEART FAILURE: If you have been diagnosed with Congestive Heart Failure (CHF) and your symptoms return, make an appointment with your physician Weigh yourself daily. Notify your physician if you have a weight gain of two or more pounds in one day or five or more pounds in one week. If you experience any difficulty breathing, please call 911 BLEEDING: Although the risk of bleeding is minimal, it can happen. If you have any bleeding from the site, apply firm pressure above the puncture site for 10-15 minutes. If the bleeding does not stop, continue manual pressure and call 911 Contact your physician if: You develop a fever greater than 101 degrees Fahrenheit Your site becomes reddened or has any drainage You have an increase in pain or burning at the site or if a large knot forms at the site. If you experience chest pain, shortness of breath, dizziness, or extreme tiredness, stop the activity and rest. Please notify your physicians office if you experience any of these symptoms and they are not relieved by rest please call 911! Restart coumadin tonight if no bleeding at cardiac catheterization site. Referrals: Kailee Keating MD [Partnered Physician] - 12/23/17 10:30 am (Follow up with Dr. Keating in the [place] office. ) George Hobbs DO [Primary Care Provider] - <Marci Vazquez - Last Filed: 12/13/17 22:29> Date of Encounter: 12/13/17 Objective PUL Vital signs: Last Vital Signs Temp 98.3 F 12/13/17 20:27 Pulse 72 12/13/17 21:00 Resp 16 12/13/17 21:00 BP 118/63 12/13/17 21:00 Pulse Ox 94 12/13/17 21:00 Results - Laboratory Findings CBC and BMP: 12/13/17 03:45 12/13/17 03:45 ABG ABG pH 7.48 pH Units (7.32-7.45) H 12/12/17 05:15 ABG pCO2 34 mmHg (35-45) L 12/12/17 05:15 ABG pO2 93 mmHg (85-104) 12/12/17 05:15 ABG O2 Saturation 98 % (95-98) 12/12/17 05:15 PT/INR, D-dimer PT 13.6 Seconds (9.4-12.1) H 12/09/17 04:50 Abnormal lab findings: Abnormal lab results RBC 2.63 M/mcL (4.19-5.50) L 12/13/17 03:45 Hgb 8.0 g/dL (12.9-16.9) L 12/13/17 03:45 Hct 23.8 % (37.5-50.1) L 12/13/17 03:45 Monocytes # 1.5 K/mcL (0.0-1.3) H 12/13/17 03:45 Nucleated RBCs/100 WBC 0.2 /100 WBC (0) H 12/13/17 03:45 PT 13.6 Seconds (9.4-12.1) H 12/09/17 04:50 ABG pH 7.48 pH Units (7.32-7.45) H 12/12/17 05:15 ABG pCO2 34 mmHg (35-45) L 12/12/17 05:15 ABG Hematocrit 22.0 % (37.5-50.1) L 12/08/17 11:14 Glucose 123 mg/dL (60-95) H 12/08/17 11:14 Sodium 131 mEq/L (136-145) L 12/13/17 03:45 Chloride 97 mEq/L (98-107) L 12/13/17 03:45 BUN 37 mg/dL (8-23) H 12/13/17 03:45 BUN/Creatinine Ratio 32 (6-26) H 12/13/17 03:45 Glucose 107 mg/dL (70-105) H 12/13/17 03:45 POC Glucose 115 (58-89) H 12/13/17 19:51 Hemoglobin A1c 5.8 % (-5.6) H 12/06/17 16:51 - Clinical Findings Intake & Output: Intake & Output 12/13/17 12/13/17 12/13/17 07:59 15:59 23:59 Intake Total 50 / 50 1080 / 1080 Output Total 100 / 100 1125 / 1125 Balance -50 / -50 -45 / -45 - Attending Attestation - Attending Attestation I saw and evaluated this patient and my medical decision-making was reviewed with the Resident Physician. I agree with the documented findings, disposition and treatment plan as described except to the extent set forth below. We independently had [id number] contact with the patient Patient seen and examined at bedside Labs, radiology, chart personally reviewed. Management was reviewed during multidisciplinary critical care rounds. 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 To continue broad spectrum antibiotics and diuresis . 3/6 Patient Oxygen requirements are coming down the left side good air entry good diuresis . Cards:CAD s/p CABG hemodynamically stable will continue gentle diuresis as tolerated FEN-GI: Diet as per dietary Renal:Labs and output reviewed ID:Patient is on broad spectrum antibiotics Heme/Onc:Labs reviewed DVT scan for clots were negative but the prelim read showed some superficial DVT Endo: Glucose Monitored Integ/MSK: Skin Care per routine ICU Nursing Protocol to prevent ulcers. Lines: All lines examined without evidence of infection Dispo: Patient has high chance of respiratory failure CODE:Full Code
[2017-12-13] MEDS: Insulin LISPRO 300 UNITS/3 ML VIAL SQ SCH ×4 (08:37→23:22)
[2017-12-13] MEDS: *HR* Amiodarone 200 MG TABLET PO SCH ×2 (08:39→20:32)
[2017-12-13] MEDS: amLODIPine 5 MG TABLET PO SCH (08:39)
[2017-12-13] MEDS: Isosorbide MONOnitrate (24 HR) 30 MG TAB.ER.24H PO SCH (08:39)
[2017-12-13] MEDS: Chlorhexidine Rinse 15 ML MOUTHWASH MM SCH ×2 (08:40→20:32)
--- NOTE | 2017-12-13 09:01 | Cardiothoracic Progress Note ---
Date of Encounter: 12/13/17 Time of Encounter: 08:57 - Assessment and plan (1) CAD (coronary artery disease) Current Visit: Yes Status: Acute The patient is recovering well from his CABG2, modified Maze procedure, and left atrial appendage stapling. He remains in normal sinus rhythm. His supplemental oxygen requirement is decreasing with improved oxygen saturations. The patient will be monitored in the ICU today to closely observe his oxygen requirements. He was able to sleep for approximately 6 hours last night after taking Benadryl. The assessment and plan as outlined above was discussed with the patient and/or family members who expressed understanding and agreement. All questions were answered. Qualifiers: Coronary Disease-Associated Artery/Lesion type: [place] artery [place] vs. transplanted heart: [place] heart Associated angina: with unstable angina Qualified Code(s): I25.110 - Atherosclerotic heart disease of [place] coronary artery with unstable angina pectoris - Subjective Procedure(s) Performed: POD#5 S/P CABG2, modified Maze procedure Interval history: The patient remained hemodynamic stable overnight. His oxygen saturation has remained adequate with supplemental oxygen. He has no complaints. Vital Signs, Last 4 Hours Pulse Resp BP Pulse Ox 12/13/17 08:00 74 18 151/68 96 12/13/17 07:27 16 96 12/13/17 07:00 69 20 156/73 97 12/13/17 06:06 75 19 146/72 97 12/13/17 05:00 74 17 143/68 95 Oxgyen Flow Rate Oxygen Flow Rate (LPM) 6 Clinical Data, last 8 Hours Output, Urine Amount 100 Weight 12/11/17 12/12/17 12/13/17 23:59 23:59 23:59 Weight 88.4 kg 88.7 kg - Physical Examination General: Conversant, No Apparent Distress Neck: No JVD, Normal carotid pulses Cardiac: Reg Rate and Rhythm, Normal S1 and S2, No Murmur Incision: No signs of infection, Dry/intact dressing Sternum: Stable Lungs: Normal Breath Sounds, No Wheeze, Rales, Rhonchi Neuro: Alert and responsive, No focal deficits noted Vascular: Normal capillary refill Extremities: No Clubbing, No Cyanosis, No Edema - Labs 12/13/17 03:45 12/13/17 03:45 Lab Results, Last 24 hours 12/13/17 12/13/17 03:45 03:45 WBC 9.3 Hgb 8.0 L Hct 23.8 L Plt Count 229 Sodium 131 L Potassium 3.6 Chloride 97 L Carbon Dioxide 27 BUN 37 H Creatinine 1.17 Glucose 107 H Calcium 8.6 - Imaging Chest Xray: image reviewed (No pneumothorax. Small left pleural effusion, unchanged. Proved aeration and left lung cifuentes.) - VTE Documentation of Mechanical Device: Graduated compression elastic hosiery Consult Discharge Plan - Plan Additional Instructions: RISK FACTORS: STOP SMOKING: If you smoke, STOP. Smoking or tobacco use significantly increases your risk of heart disease because nicotine causes the arteries to narrow or constrict. It also causes fats to stick to the artery. Your chances of having a heart attack are greatly increased if you continue to smoke. For more information, call the education line for smoking cessation 2-249-IVUALQK EAT A LOW FAT/CHOLESTEROL/SODIUM DIET: This diet may help reduce your chances of having a heart attack. LIFTING: Avoid lifting anything more than 10 pounds for 5-7 days Prior to straining, laughing, sneezing and/or coughing, apply manual pressure directly over insertion site. ACTIVITY: You may walk or climb stairs as tolerated You can resume sexual activity as tolerated In general, you are encouraged to engage in a minimum of 30 minutes or more of moderate intensity physical activity, such as brisk walking, daily or at least 3 -4 times weekly BATHING Do not submerge the site into water (bath tub, hot tub, swimming pool) for 1 week. This can be a source for infection into the blood stream. You may shower after 24 hours SITE CARE: After 24 hours, you may remove the dressing and leave the site open to air. Keep the site clean and dry. Clean gently and pat dry. You can expect bruising and tenderness that gradually resolve within a week or two. Return to work as instructed per your physician Resume driving as instructed per physician Keep all scheduled follow up appointments Resume medications as instructed IMPORTANT: If prescribed a Platelet Aggregation Inhibitor such as, Plavix, Brilinta or Effient: Duration of therapy is minimum one year These medications are often used in combination with Aspirin in prevention of future heart attacks Never discontinue unless consult with your Car Ferry Captain STROKE (CVA) Risk factors for a stroke are: Age, cigarette smoking, diabetes, excessive alcohol consumption, family history, high blood pressure, overweight, physical inactivity, prior stroke, heart attack, diagnosis of carotid artery stenosis or other artery disease. Warning signs: Sudden numbness or weakness of the face, arm or leg; especially on one side of the body, sudden confusion, trouble speaking or understanding, sudden trouble seeing in one or both eyes, sudden trouble walking, dizziness, loss of balance or coordination, sudden severe headache with no cause. Call 911 or go to the Emergency Room. CONGESTIVE HEART FAILURE: If you have been diagnosed with Congestive Heart Failure (CHF) and your symptoms return, make an appointment with your physician Weigh yourself daily. Notify your physician if you have a weight gain of two or more pounds in one day or five or more pounds in one week. If you experience any difficulty breathing, please call 911 BLEEDING: Although the risk of bleeding is minimal, it can happen. If you have any bleeding from the site, apply firm pressure above the puncture site for 10-15 minutes. If the bleeding does not stop, continue manual pressure and call 911 Contact your physician if: You develop a fever greater than 101 degrees Fahrenheit Your site becomes reddened or has any drainage You have an increase in pain or burning at the site or if a large knot forms at the site. If you experience chest pain, shortness of breath, dizziness, or extreme tiredness, stop the activity and rest. Please notify your physicians office if you experience any of these symptoms and they are not relieved by rest please call 911! Restart coumadin tonight if no bleeding at cardiac catheterization site. Referrals: Kailee Keating MD [Partnered Physician] - 12/23/17 10:30 am (Follow up with Dr. Keating in the [place] office. ) George Hobbs DO [Primary Care Provider] -
[2017-12-13] MEDS ORDERED: Furosemide 40 MG/4 ML VIAL IVP ONE (09:41)
[2017-12-13] MEDS: niCARdipine 40 MG/200 ML MLS IVC SCH ×3 (12:55→23:23)
[2017-12-13] MEDS: Norepinephrine 4 MG in D5% in Water 250 ML IVC SCH (12:55)
[2017-12-13] MEDS: Nitroglycerin 25 MG/250 ML INFUS..BTL IVC SCH ×2 (16:22→23:22)
[2017-12-14] MEDS: *HR* OxyCODONE/APAP 5/325 TABLET PO PRN ×3 (03:24→22:38)
[2017-12-14] MEDS: Ipratropium/Albuterol Neb 3 ML IH SCH ×6 (03:54→23:15)
[2017-12-14 04:01] LABS: Basophils # 0.1 K/mcL (0.0-0.2); Basophils % 0.6 %; Eosinophils # 0.5 K/mcL (0.0-0.6); Eosinophils % 5.4 %; Hematocrit 23.3 % (37.5-50.1); Hemoglobin 7.7 g/dL (12.9-16.9); Immature Granulocytes % 0.4 % (0-4); Lymphocytes # 1.8 K/mcL (0.6-4.6); Mean Corpuscular Volume 90.7 fL (83.0-100.0); Mean Platelet Volume 10.2 fL (9.4-12.4); Monocytes # 1.4 K/mcL (0.0-1.3); Monocytes % 15.6 %; Neutrophils # 5.2 K/mcL (1.6-8.9); Platelet Count 273 K/mcL (140-400); Red Blood Count 2.57 M/mcL (4.19-5.50); Red Cell Distribution Width 13.3 % (11.5-14.5)
[2017-12-14 04:15] LABS: BUN/Creatinine Ratio 31 (6-26); Blood Urea Nitrogen 37 mg/dL (8-23); Calcium 8.5 mg/dL (8.6-10.3); Carbon Dioxide 25 mEq/L (23-29); Chloride 97 mEq/L (98-107); Glucose 102 mg/dL (70-105); Osmolality,Calculated 279 (280-300); Potassium 3.5 mEq/L (3.5-5.1); Sodium 130 mEq/L (136-145); eGFR For African Americans > 60 (> 60); eGFR For Non-African Americans 58 (> 60)
[2017-12-14] MEDS: *HR* Heparin 5,000 UNIT/ML VIAL SQ SCH ×2 (05:32→17:19)
--- NOTE | 2017-12-14 08:13 | Cardiothoracic Progress Note ---
Date of Encounter: 12/14/17 Time of Encounter: 08:11 - Assessment and plan (1) CAD (coronary artery disease) Current Visit: Yes Status: Acute The patient is recovering well from his CABG2, modified Maze procedure, and left atrial appendage stapling. He remains in normal sinus rhythm and will not require permanent pacemaker placement at this time. His supplemental oxygen requirement is decreasing with improved oxygen saturations. He will be transferred to the stepdown unit when a bed is available. The assessment and plan as outlined above was discussed with the patient and/or family members who expressed understanding and agreement. All questions were answered. Qualifiers: Coronary Disease-Associated Artery/Lesion type: [place] artery [place] vs. transplanted heart: [place] heart Associated angina: with unstable angina Qualified Code(s): I25.110 - Atherosclerotic heart disease of [place] coronary artery with unstable angina pectoris - Subjective Procedure(s) Performed: POD#6 S/P CABG2, modified Maze procedure Interval history: The patient remained hemodynamic stable overnight. He has no complaints. Vital Signs, Last 4 Hours Temp Pulse Resp BP Pulse Ox 12/14/17 07:44 98.5 F 12/14/17 06:00 68 18 138/102 94 12/14/17 05:00 69 18 121/70 96 Oxgyen Flow Rate Oxygen Flow Rate (LPM) 4 Weight 12/12/17 12/13/17 12/14/17 23:59 23:59 23:59 Weight 88.7 kg 88.2 kg - Physical Examination General: Conversant, No Apparent Distress Neck: No JVD, Normal carotid pulses Cardiac: Reg Rate and Rhythm, Normal S1 and S2, No Murmur Incision: No signs of infection, Dry/intact dressing Sternum: Stable Pacing Wires: In place Lungs: Normal Breath Sounds, No Wheeze, Rales, Rhonchi Neuro: Alert and responsive, No focal deficits noted Vascular: Normal capillary refill Extremities: No Clubbing, No Cyanosis, No Edema - Labs 12/14/17 03:20 12/14/17 03:20 Lab Results, Last 24 hours 12/14/17 12/14/17 03:20 03:20 WBC 9.0 Hgb 7.7 L Hct 23.3 L Plt Count 273 Sodium 130 L Potassium 3.5 Chloride 97 L Carbon Dioxide 25 BUN 37 H Creatinine 1.20 Glucose 102 Calcium 8.5 L - VTE Documentation of Mechanical Device: Graduated compression elastic hosiery Consult Discharge Plan - Plan Additional Instructions: RISK FACTORS: STOP SMOKING: If you smoke, STOP. Smoking or tobacco use significantly increases your risk of heart disease because nicotine causes the arteries to narrow or constrict. It also causes fats to stick to the artery. Your chances of having a heart attack are greatly increased if you continue to smoke. For more information, call the education line for smoking cessation 2-093-NHQYWTC EAT A LOW FAT/CHOLESTEROL/SODIUM DIET: This diet may help reduce your chances of having a heart attack. LIFTING: Avoid lifting anything more than 10 pounds for 5-7 days Prior to straining, laughing, sneezing and/or coughing, apply manual pressure directly over insertion site. ACTIVITY: You may walk or climb stairs as tolerated You can resume sexual activity as tolerated In general, you are encouraged to engage in a minimum of 30 minutes or more of moderate intensity physical activity, such as brisk walking, daily or at least 3 -4 times weekly BATHING Do not submerge the site into water (bath tub, hot tub, swimming pool) for 1 week. This can be a source for infection into the blood stream. You may shower after 24 hours SITE CARE: After 24 hours, you may remove the dressing and leave the site open to air. Keep the site clean and dry. Clean gently and pat dry. You can expect bruising and tenderness that gradually resolve within a week or two. Return to work as instructed per your physician Resume driving as instructed per physician Keep all scheduled follow up appointments Resume medications as instructed IMPORTANT: If prescribed a Platelet Aggregation Inhibitor such as, Plavix, Brilinta or Effient: Duration of therapy is minimum one year These medications are often used in combination with Aspirin in prevention of future heart attacks Never discontinue unless consult with your Coder STROKE (CVA) Risk factors for a stroke are: Age, cigarette smoking, diabetes, excessive alcohol consumption, family history, high blood pressure, overweight, physical inactivity, prior stroke, heart attack, diagnosis of carotid artery stenosis or other artery disease. Warning signs: Sudden numbness or weakness of the face, arm or leg; especially on one side of the body, sudden confusion, trouble speaking or understanding, sudden trouble seeing in one or both eyes, sudden trouble walking, dizziness, loss of balance or coordination, sudden severe headache with no cause. Call 911 or go to the Emergency Room. CONGESTIVE HEART FAILURE: If you have been diagnosed with Congestive Heart Failure (CHF) and your symptoms return, make an appointment with your physician Weigh yourself daily. Notify your physician if you have a weight gain of two or more pounds in one day or five or more pounds in one week. If you experience any difficulty breathing, please call 911 BLEEDING: Although the risk of bleeding is minimal, it can happen. If you have any bleeding from the site, apply firm pressure above the puncture site for 10-15 minutes. If the bleeding does not stop, continue manual pressure and call 911 Contact your physician if: You develop a fever greater than 101 degrees Fahrenheit Your site becomes reddened or has any drainage You have an increase in pain or burning at the site or if a large knot forms at the site. If you experience chest pain, shortness of breath, dizziness, or extreme tiredness, stop the activity and rest. Please notify your physicians office if you experience any of these symptoms and they are not relieved by rest please call 911! Restart coumadin tonight if no bleeding at cardiac catheterization site. Referrals: Kailee Keating MD [Partnered Physician] - 12/23/17 10:30 am (Follow up with Dr. Keating in the [place] office. ) George Hobbs DO [Primary Care Provider] -
[2017-12-14] MEDS: Insulin LISPRO 300 UNITS/3 ML VIAL SQ SCH ×3 (08:20→16:52)
[2017-12-14] MEDS: Chlorhexidine Rinse 15 ML MOUTHWASH MM SCH ×2 (08:24→20:48)
[2017-12-14] MEDS: *HR* Amiodarone 200 MG TABLET PO SCH ×2 (08:24→20:47)
[2017-12-14] MEDS: Isosorbide MONOnitrate (24 HR) 30 MG TAB.ER.24H PO SCH (08:24)
[2017-12-14] MEDS: amLODIPine 5 MG TABLET PO SCH (08:24)
--- NOTE | 2017-12-14 08:54 | Pulmonology Progress Note ---
<Ru Aguero - Last Filed: 12/14/17 11:51> Date of Encounter: 12/14/17 Time of Encounter: 08:00 Assessment and Plan (1) Acute respiratory failure with hypoxia Current Visit: Yes Status: Acute Interval hx: CABG 12/08 Consulted 12/11 for hypoxemia req supp O2 at 10L high flow NC Uses 2L nasal cannula at home, remote smoke hx Titrated to 6L high flow 12/12; down to 4L Likely post-op atelectasis vs PNA vs PE, less likely Plan: PE unlikely, 12/12 venous doppler bilateral LE shows svt, pt is heparanized SQ Continuing pulmonary toilet Mucinex, incentive spirometry Holding off on diuresis today 12/14; will have fluid restriction to 1.5L Patient being transfers to step-down per CT; pulmonary to sign-off, continuing to encourage incentive spirometry in setting of post-op atelectasis. (2) CAD (coronary artery disease) Current Visit: Yes Status: Acute 12/08: s/p CABG x2 with modified MAZE 12/06: s/p LHC Currently stable. Chest tubes removed 12/11. Followed by cardiothoracic surgery. Qualifiers: Coronary Disease-Associated Artery/Lesion type: [place] artery [place] vs. transplanted heart: [place] heart Associated angina: with unstable angina Qualified Code(s): I25.110 - Atherosclerotic heart disease of [place] coronary artery with unstable angina pectoris (3) DVT prophylaxis Current Visit: Yes Status: Acute SQ Heparin Subjective Principal diagnosis: acute respiratory failure with hypoxia Interval history: Patient is demonstrating continued improvement. No complaints. Objective PUL Vital signs: Last Vital Signs Temp 98.5 F 12/14/17 07:44 Pulse 68 12/14/17 06:00 Resp 18 12/14/17 06:00 BP 138/102 12/14/17 06:00 Pulse Ox 94 12/14/17 06:00 General appearance: no acute distress Eyes: nonicteric ENT: oropharynx moist Neck: supple Auscultation: bilateral: clear Cardiovascular: regular rate and rhythm Gastrointestinal: soft, non-tender Extremities: no cyanosis Musculoskeletal: no deformities Gait: poor gait (baseline) Results - Laboratory Findings CBC and BMP: 12/14/17 03:20 12/14/17 03:20 ABG ABG pH 7.48 pH Units (7.32-7.45) H 12/12/17 05:15 ABG pCO2 34 mmHg (35-45) L 12/12/17 05:15 ABG pO2 93 mmHg (85-104) 12/12/17 05:15 ABG O2 Saturation 98 % (95-98) 12/12/17 05:15 PT/INR, D-dimer PT 13.6 Seconds (9.4-12.1) H 12/09/17 04:50 Abnormal lab findings: Abnormal lab results RBC 2.57 M/mcL (4.19-5.50) L 12/14/17 03:20 Hgb 7.7 g/dL (12.9-16.9) L 12/14/17 03:20 Hct 23.3 % (37.5-50.1) L 12/14/17 03:20 Monocytes # 1.4 K/mcL (0.0-1.3) H 12/14/17 03:20 Nucleated RBCs/100 WBC 0.2 /100 WBC (0) H 12/13/17 03:45 PT 13.6 Seconds (9.4-12.1) H 12/09/17 04:50 ABG pH 7.48 pH Units (7.32-7.45) H 12/12/17 05:15 ABG pCO2 34 mmHg (35-45) L 12/12/17 05:15 ABG Hematocrit 22.0 % (37.5-50.1) L 12/08/17 11:14 Glucose 123 mg/dL (60-95) H 12/08/17 11:14 Sodium 130 mEq/L (136-145) L 12/14/17 03:20 Chloride 97 mEq/L (98-107) L 12/14/17 03:20 BUN 37 mg/dL (8-23) H 12/14/17 03:20 Est GFR (Non-Af Amer) 58 (> 60) L 12/14/17 03:20 BUN/Creatinine Ratio 31 (6-26) H 12/14/17 03:20 POC Glucose 116 (58-89) H 12/14/17 07:14 Hemoglobin A1c 5.8 % (-5.6) H 12/06/17 16:51 Calculated Osmolality 279 (280-300) L 12/14/17 03:20 Calcium 8.5 mg/dL (8.6-10.3) L 12/14/17 03:20 - Clinical Findings Intake & Output: Intake & Output 12/13/17 12/14/17 12/14/17 23:59 07:59 15:59 Output Total 200 / 200 Balance -200 / -200 Weight 88.2 kg - VTE Documentation of Mechanical Device: Graduated compression elastic hosiery Consult Discharge Plan - Plan Additional Instructions: RISK FACTORS: STOP SMOKING: If you smoke, STOP. Smoking or tobacco use significantly increases your risk of heart disease because nicotine causes the arteries to narrow or constrict. It also causes fats to stick to the artery. Your chances of having a heart attack are greatly increased if you continue to smoke. For more information, call the education line for smoking cessation 3-241-MRQZMCH EAT A LOW FAT/CHOLESTEROL/SODIUM DIET: This diet may help reduce your chances of having a heart attack. LIFTING: Avoid lifting anything more than 10 pounds for 5-7 days Prior to straining, laughing, sneezing and/or coughing, apply manual pressure directly over insertion site. ACTIVITY: You may walk or climb stairs as tolerated You can resume sexual activity as tolerated In general, you are encouraged to engage in a minimum of 30 minutes or more of moderate intensity physical activity, such as brisk walking, daily or at least 3 -4 times weekly BATHING Do not submerge the site into water (bath tub, hot tub, swimming pool) for 1 week. This can be a source for infection into the blood stream. You may shower after 24 hours SITE CARE: After 24 hours, you may remove the dressing and leave the site open to air. Keep the site clean and dry. Clean gently and pat dry. You can expect bruising and tenderness that gradually resolve within a week or two. Return to work as instructed per your physician Resume driving as instructed per physician Keep all scheduled follow up appointments Resume medications as instructed IMPORTANT: If prescribed a Platelet Aggregation Inhibitor such as, Plavix, Brilinta or Effient: Duration of therapy is minimum one year These medications are often used in combination with Aspirin in prevention of future heart attacks Never discontinue unless consult with your Freezer Assistant STROKE (CVA) Risk factors for a stroke are: Age, cigarette smoking, diabetes, excessive alcohol consumption, family history, high blood pressure, overweight, physical inactivity, prior stroke, heart attack, diagnosis of carotid artery stenosis or other artery disease. Warning signs: Sudden numbness or weakness of the face, arm or leg; especially on one side of the body, sudden confusion, trouble speaking or understanding, sudden trouble seeing in one or both eyes, sudden trouble walking, dizziness, loss of balance or coordination, sudden severe headache with no cause. Call 911 or go to the Emergency Room. CONGESTIVE HEART FAILURE: If you have been diagnosed with Congestive Heart Failure (CHF) and your symptoms return, make an appointment with your physician Weigh yourself daily. Notify your physician if you have a weight gain of two or more pounds in one day or five or more pounds in one week. If you experience any difficulty breathing, please call 911 BLEEDING: Although the risk of bleeding is minimal, it can happen. If you have any bleeding from the site, apply firm pressure above the puncture site for 10-15 minutes. If the bleeding does not stop, continue manual pressure and call 911 Contact your physician if: You develop a fever greater than 101 degrees Fahrenheit Your site becomes reddened or has any drainage You have an increase in pain or burning at the site or if a large knot forms at the site. If you experience chest pain, shortness of breath, dizziness, or extreme tiredness, stop the activity and rest. Please notify your physicians office if you experience any of these symptoms and they are not relieved by rest please call 911! Restart coumadin tonight if no bleeding at cardiac catheterization site. Referrals: Kailee Keating MD [Partnered Physician] - 12/23/17 10:30 am (Follow up with Dr. Keating in the [place] office. ) Yanira Mathias CNP [Advanced Practice Nurse] - 12/21/17 1:00 am Jairo Diaz MD [Partnered Physician] - 01/05/18 1:15 am <Marci Vazquez - Last Filed: 12/14/17 20:59> Date of Encounter: 12/14/17 Objective PUL Vital signs: Last Vital Signs Temp 97.9 F 12/14/17 19:03 Pulse 83 12/14/17 19:03 Resp 20 12/14/17 20:19 BP 115/61 12/14/17 20:19 Pulse Ox 94 12/14/17 20:19 Results - Laboratory Findings CBC and BMP: 12/14/17 03:20 12/14/17 03:20 ABG ABG pH 7.48 pH Units (7.32-7.45) H 12/12/17 05:15 ABG pCO2 34 mmHg (35-45) L 12/12/17 05:15 ABG pO2 93 mmHg (85-104) 12/12/17 05:15 ABG O2 Saturation 98 % (95-98) 12/12/17 05:15 PT/INR, D-dimer PT 13.6 Seconds (9.4-12.1) H 12/09/17 04:50 Abnormal lab findings: Abnormal lab results RBC 2.57 M/mcL (4.19-5.50) L 12/14/17 03:20 Hgb 7.7 g/dL (12.9-16.9) L 12/14/17 03:20 Hct 23.3 % (37.5-50.1) L 12/14/17 03:20 Monocytes # 1.4 K/mcL (0.0-1.3) H 12/14/17 03:20 Nucleated RBCs/100 WBC 0.2 /100 WBC (0) H 12/13/17 03:45 PT 13.6 Seconds (9.4-12.1) H 12/09/17 04:50 ABG pH 7.48 pH Units (7.32-7.45) H 12/12/17 05:15 ABG pCO2 34 mmHg (35-45) L 12/12/17 05:15 ABG Hematocrit 22.0 % (37.5-50.1) L 12/08/17 11:14 Glucose 123 mg/dL (60-95) H 12/08/17 11:14 Sodium 130 mEq/L (136-145) L 12/14/17 03:20 Chloride 97 mEq/L (98-107) L 12/14/17 03:20 BUN 37 mg/dL (8-23) H 12/14/17 03:20 Est GFR (Non-Af Amer) 58 (> 60) L 12/14/17 03:20 BUN/Creatinine Ratio 31 (6-26) H 12/14/17 03:20 POC Glucose 147 (58-89) H 12/14/17 11:17 Hemoglobin A1c 5.8 % (-5.6) H 12/06/17 16:51 Calculated Osmolality 279 (280-300) L 12/14/17 03:20 Calcium 8.5 mg/dL (8.6-10.3) L 12/14/17 03:20 - Clinical Findings Intake & Output: Intake & Output 12/14/17 12/14/17 12/14/17 07:59 15:59 23:59 Intake Total 480 / 480 200 / 200 Output Total 0 / 0 180 / 180 Balance 480 / 480 20 / 20 Weight 88.2 kg - Attending Attestation - Attending Attestation I saw and evaluated this patient and my medical decision-making was reviewed with the Resident Physician. I agree with the documented findings, disposition and treatment plan as described except to the extent set forth below. We independently had [id number] contact with the patient Patient seen and examined at bedside Labs, radiology, chart personally reviewed. Management was reviewed during multidisciplinary critical care rounds. LANDSCAPE ACCOUNT MANAGER:Patient is conscious oriented x 3 . Pulm: Patient has V/Q mismatch requiring O2 supplementation much better to continue with incentive spirometry 3/6 Patient Oxygen requirements are coming down the left side good air entry good diuresis . Cards:CAD s/p CABG hemodynamically stable patient is nearing euvolemia FEN-GI: Diet as per dietary Renal:Labs and output reviewed ID:No active issues Heme/Onc:Labs reviewed DVT scan for clots were negative but the prelim read showed some superficial DVT Endo: Glucose Monitored Integ/MSK: Skin Care per routine ICU Nursing Protocol to prevent ulcers. Lines: All lines examined without evidence of infection Dispo: Patient is for step down transfer . CODE:Full Code
[2017-12-14] MEDS ORDERED: Sulfamethoxazole/Trimeth Oral Soln 400-80mg/10 ML UDC PO SCH (09:00)
[2017-12-14] MEDS: Nitroglycerin 25 MG/250 ML INFUS..BTL IVC SCH (10:09)
[2017-12-14] MEDS: Norepinephrine 4 MG in D5% in Water 250 ML IVC SCH (10:09)
[2017-12-14] MEDS: niCARdipine 40 MG/200 ML MLS IVC SCH (10:09)
[2017-12-14] MEDS ORDERED: Dextrose Gel 15 GM/37.5 ML TUBE PO PRN ×2 (10:18)
[2017-12-14] MEDS ORDERED: *HR* Dextrose 50 % in Water (Syg) 50 ML SYRINGE IVP PRN (10:18)
[2017-12-14] MEDS ORDERED: Naloxone 0.4 MG/ML INJ IVP PRN (10:18)
[2017-12-14] MEDS ORDERED: Lisinopril 20 MG TABLET PO SCH (10:18)
[2017-12-14] MEDS ORDERED: *HR* OxyCODONE/APAP 5/325 TABLET PO PRN (10:18)
[2017-12-14] MEDS ORDERED: Ondansetron 4 MG/2 ML VIAL IVP PRN (10:18)
[2017-12-14] MEDS ORDERED: Insulin Regular, Human 100 UNIT/ML IV PRN (10:18)
[2017-12-14] MEDS ORDERED: Nitroglycerin 0.4 MG TAB.SUBL SL PRN (10:18)
[2017-12-14] MEDS: Aspirin Enteric Coated 81 MG Tablet PO SCH (11:07)
[2017-12-14] MEDS ORDERED: Insulin LISPRO 300 UNITS/3 ML VIAL SQ SCH (21:00)
[2017-12-15] MEDS: Ipratropium/Albuterol Neb 3 ML IH SCH ×6 (04:31→23:29)
[2017-12-15] MEDS: *HR* Heparin 5,000 UNIT/ML VIAL SQ SCH ×2 (05:54→17:15)
--- NOTE | 2017-12-15 07:13 | Cardiothoracic Progress Note ---
Date of Encounter: 12/15/17 Time of Encounter: 07:11 - Assessment and plan (1) CAD (coronary artery disease) Current Visit: Yes Status: Acute The patient is recovering well from his CABG2, modified Maze procedure, and left atrial appendage stapling. His heart rhythm deteriorated to atrial fibrillation last evening. He will continue with his amiodarone and beta de medical management for his atrial fibrillation. His supplemental oxygen requirement is decreasing with improved oxygen saturations. He will be transferred to the stepdown unit when a bed is available. The assessment and plan as outlined above was discussed with the patient and/or family members who expressed understanding and agreement. All questions were answered. Qualifiers: Coronary Disease-Associated Artery/Lesion type: [place] artery [place] vs. transplanted heart: [place] heart Associated angina: with unstable angina Qualified Code(s): I25.110 - Atherosclerotic heart disease of [place] coronary artery with unstable angina pectoris - Subjective Procedure(s) Performed: POD#7 S/P CABG2, modified Maze procedure Interval history: The patient remained hemodynamic stable overnight. He has no complaints. Vital Signs, Last 4 Hours Temp Pulse Resp BP Pulse Ox 12/15/17 04:37 98.1 F 79 21 103/59 94 12/15/17 04:32 17 91 Oxgyen Flow Rate Oxygen Flow Rate (LPM) 3 Weight 12/13/17 12/14/17 12/15/17 23:59 23:59 23:59 Weight 88.2 kg - Physical Examination General: Conversant, No Apparent Distress Neck: No JVD, Normal carotid pulses Cardiac: Normal S1 and S2, No Murmur, Other (Irregular rate and rhythm (atrial fibrillation)) Incision: No signs of infection, Dry/intact dressing Sternum: Stable Pacing Wires: In place Lungs: Normal Breath Sounds, No Wheeze, Rales, Rhonchi Neuro: Alert and responsive, No focal deficits noted Vascular: Normal capillary refill Musculoskeletal: No Chest Wall Tenderness Extremities: No Clubbing, No Cyanosis, No Edema - Labs 12/14/17 03:20 12/14/17 03:20 - VTE Documentation of Mechanical Device: Graduated compression elastic hosiery Consult Discharge Plan - Plan Additional Instructions: RISK FACTORS: STOP SMOKING: If you smoke, STOP. Smoking or tobacco use significantly increases your risk of heart disease because nicotine causes the arteries to narrow or constrict. It also causes fats to stick to the artery. Your chances of having a heart attack are greatly increased if you continue to smoke. For more information, call the education line for smoking cessation 2-540-HGYFFRA EAT A LOW FAT/CHOLESTEROL/SODIUM DIET: This diet may help reduce your chances of having a heart attack. LIFTING: Avoid lifting anything more than 10 pounds for 5-7 days Prior to straining, laughing, sneezing and/or coughing, apply manual pressure directly over insertion site. ACTIVITY: You may walk or climb stairs as tolerated You can resume sexual activity as tolerated In general, you are encouraged to engage in a minimum of 30 minutes or more of moderate intensity physical activity, such as brisk walking, daily or at least 3 -4 times weekly BATHING Do not submerge the site into water (bath tub, hot tub, swimming pool) for 1 week. This can be a source for infection into the blood stream. You may shower after 24 hours SITE CARE: After 24 hours, you may remove the dressing and leave the site open to air. Keep the site clean and dry. Clean gently and pat dry. You can expect bruising and tenderness that gradually resolve within a week or two. Return to work as instructed per your physician Resume driving as instructed per physician Keep all scheduled follow up appointments Resume medications as instructed IMPORTANT: If prescribed a Platelet Aggregation Inhibitor such as, Plavix, Brilinta or Effient: Duration of therapy is minimum one year These medications are often used in combination with Aspirin in prevention of future heart attacks Never discontinue unless consult with your Professor Of Counseling STROKE (CVA) Risk factors for a stroke are: Age, cigarette smoking, diabetes, excessive alcohol consumption, family history, high blood pressure, overweight, physical inactivity, prior stroke, heart attack, diagnosis of carotid artery stenosis or other artery disease. Warning signs: Sudden numbness or weakness of the face, arm or leg; especially on one side of the body, sudden confusion, trouble speaking or understanding, sudden trouble seeing in one or both eyes, sudden trouble walking, dizziness, loss of balance or coordination, sudden severe headache with no cause. Call 911 or go to the Emergency Room. CONGESTIVE HEART FAILURE: If you have been diagnosed with Congestive Heart Failure (CHF) and your symptoms return, make an appointment with your physician Weigh yourself daily. Notify your physician if you have a weight gain of two or more pounds in one day or five or more pounds in one week. If you experience any difficulty breathing, please call 911 BLEEDING: Although the risk of bleeding is minimal, it can happen. If you have any bleeding from the site, apply firm pressure above the puncture site for 10-15 minutes. If the bleeding does not stop, continue manual pressure and call 911 Contact your physician if: You develop a fever greater than 101 degrees Fahrenheit Your site becomes reddened or has any drainage You have an increase in pain or burning at the site or if a large knot forms at the site. If you experience chest pain, shortness of breath, dizziness, or extreme tiredness, stop the activity and rest. Please notify your physicians office if you experience any of these symptoms and they are not relieved by rest please call 911! Restart coumadin tonight if no bleeding at cardiac catheterization site. Referrals: Kailee Keating MD [Partnered Physician] - 12/23/17 10:30 am (Follow up with Dr. Keating in the [place] office. ) Yanira Mathias CNP [Advanced Practice Nurse] - 12/21/17 1:00 am Jairo Diaz MD [Partnered Physician] - 01/05/18 1:15 am
[2017-12-15] MEDS: Aspirin Enteric Coated 81 MG Tablet PO SCH (08:04)
[2017-12-15] MEDS: *HR* Amiodarone 200 MG TABLET PO SCH ×2 (08:04→19:59)
[2017-12-15] MEDS: Chlorhexidine Rinse 15 ML MOUTHWASH MM SCH ×2 (08:04→20:00)
[2017-12-15] MEDS: amLODIPine 5 MG TABLET PO SCH (08:05)
[2017-12-15] MEDS: Insulin LISPRO 300 UNITS/3 ML VIAL SQ SCH ×2 (08:06→11:25)
[2017-12-15] MEDS ORDERED: amLODIPine 5 MG TABLET PO SCH (09:00)
[2017-12-15] MEDS: *HR* OxyCODONE/APAP 5/325 TABLET PO PRN ×3 (09:39→22:46)
[2017-12-16] MEDS: Ipratropium/Albuterol Neb 3 ML IH SCH ×5 (03:43→20:19)
[2017-12-16] MEDS: *HR* Heparin 5,000 UNIT/ML VIAL SQ SCH ×2 (06:14→17:12)
[2017-12-16] MEDS: amLODIPine 5 MG TABLET PO SCH (08:23)
[2017-12-16] MEDS: Aspirin Enteric Coated 81 MG Tablet PO SCH (08:23)
[2017-12-16] MEDS: *HR* Amiodarone 200 MG TABLET PO SCH ×2 (08:24→20:41)
[2017-12-16] MEDS: Chlorhexidine Rinse 15 ML MOUTHWASH MM SCH ×2 (08:24→20:41)
--- NOTE | 2017-12-16 09:32 | Cardiothoracic Progress Note ---
Date of Encounter: 12/16/17 Time of Encounter: 09:30 - Assessment and plan (1) CAD (coronary artery disease) Current Visit: Yes Status: Acute The patient is recovering well from his CABG2, modified Maze procedure, and left atrial appendage stapling. He remains in atrial fibrillation with a controlled rate. He will continue with his amiodarone and beta de medical management for his atrial fibrillation. His supplemental oxygen requirement is decreasing with improved oxygen saturations. He began ambulating in the room yesterday, though he states that he has very weak. I believe that the patient will require temporary inpatient rehabilitation as a bridge to home. The assessment and plan as outlined above was discussed with the patient and/or family members who expressed understanding and agreement. All questions were answered. Qualifiers: Coronary Disease-Associated Artery/Lesion type: [place] artery [place] vs. transplanted heart: [place] heart Associated angina: with unstable angina Qualified Code(s): I25.110 - Atherosclerotic heart disease of [place] coronary artery with unstable angina pectoris - Subjective Procedure(s) Performed: POD#8 S/P CABG2, modified Maze procedure Interval history: The patient remained hemodynamic stable overnight. He has no complaints. Vital Signs, Last 4 Hours Temp Pulse Resp BP Pulse Ox 12/16/17 08:27 82 12/16/17 07:32 18 93 12/16/17 07:06 97.9 F 87 20 100/65 92 Oxgyen Flow Rate Oxygen Flow Rate (LPM) 2 Clinical Data, last 8 Hours Output, Urine Amount 125 Weight 12/14/17 12/15/17 12/16/17 23:59 23:59 23:59 Weight 88.2 kg 87.5 kg - Physical Examination General: Conversant, No Apparent Distress Neck: No JVD, Normal carotid pulses Cardiac: Normal S1 and S2, No Murmur, Other (Irregular rate and rhythm (atrial fibrillation)) Incision: No signs of infection, Dry/intact dressing Sternum: Stable Pacing Wires: In place Lungs: Normal Breath Sounds, No Wheeze, Rales, Rhonchi Neuro: Alert and responsive, No focal deficits noted Vascular: Normal capillary refill Musculoskeletal: No Chest Wall Tenderness Extremities: No Clubbing, No Cyanosis, No Edema - Labs 12/14/17 03:20 12/14/17 03:20 - VTE Documentation of Mechanical Device: Graduated compression elastic hosiery Consult Discharge Plan - Plan Additional Instructions: RISK FACTORS: STOP SMOKING: If you smoke, STOP. Smoking or tobacco use significantly increases your risk of heart disease because nicotine causes the arteries to narrow or constrict. It also causes fats to stick to the artery. Your chances of having a heart attack are greatly increased if you continue to smoke. For more information, call the education line for smoking cessation 5-845-ANMDHVQ EAT A LOW FAT/CHOLESTEROL/SODIUM DIET: This diet may help reduce your chances of having a heart attack. LIFTING: Avoid lifting anything more than 10 pounds for 5-7 days Prior to straining, laughing, sneezing and/or coughing, apply manual pressure directly over insertion site. ACTIVITY: You may walk or climb stairs as tolerated You can resume sexual activity as tolerated In general, you are encouraged to engage in a minimum of 30 minutes or more of moderate intensity physical activity, such as brisk walking, daily or at least 3 -4 times weekly BATHING Do not submerge the site into water (bath tub, hot tub, swimming pool) for 1 week. This can be a source for infection into the blood stream. You may shower after 24 hours SITE CARE: After 24 hours, you may remove the dressing and leave the site open to air. Keep the site clean and dry. Clean gently and pat dry. You can expect bruising and tenderness that gradually resolve within a week or two. Return to work as instructed per your physician Resume driving as instructed per physician Keep all scheduled follow up appointments Resume medications as instructed IMPORTANT: If prescribed a Platelet Aggregation Inhibitor such as, Plavix, Brilinta or Effient: Duration of therapy is minimum one year These medications are often used in combination with Aspirin in prevention of future heart attacks Never discontinue unless consult with your Communication Consultant STROKE (CVA) Risk factors for a stroke are: Age, cigarette smoking, diabetes, excessive alcohol consumption, family history, high blood pressure, overweight, physical inactivity, prior stroke, heart attack, diagnosis of carotid artery stenosis or other artery disease. Warning signs: Sudden numbness or weakness of the face, arm or leg; especially on one side of the body, sudden confusion, trouble speaking or understanding, sudden trouble seeing in one or both eyes, sudden trouble walking, dizziness, loss of balance or coordination, sudden severe headache with no cause. Call 911 or go to the Emergency Room. CONGESTIVE HEART FAILURE: If you have been diagnosed with Congestive Heart Failure (CHF) and your symptoms return, make an appointment with your physician Weigh yourself daily. Notify your physician if you have a weight gain of two or more pounds in one day or five or more pounds in one week. If you experience any difficulty breathing, please call 911 BLEEDING: Although the risk of bleeding is minimal, it can happen. If you have any bleeding from the site, apply firm pressure above the puncture site for 10-15 minutes. If the bleeding does not stop, continue manual pressure and call 911 Contact your physician if: You develop a fever greater than 101 degrees Fahrenheit Your site becomes reddened or has any drainage You have an increase in pain or burning at the site or if a large knot forms at the site. If you experience chest pain, shortness of breath, dizziness, or extreme tiredness, stop the activity and rest. Please notify your physicians office if you experience any of these symptoms and they are not relieved by rest please call 911! Restart coumadin tonight if no bleeding at cardiac catheterization site. Referrals: Kailee Keating MD [Partnered Physician] - 12/23/17 10:30 am (Follow up with Dr. Keating in the [place] office. ) Yanira Mathias CNP [Advanced Practice Nurse] - 12/21/17 1:00 am Jairo Diaz MD [Partnered Physician] - 01/05/18 1:15 am
[2017-12-16] MEDS: *HR* OxyCODONE/APAP 5/325 TABLET PO PRN ×3 (10:37→22:42)
[2017-12-17] MEDS: Ipratropium/Albuterol Neb 3 ML IH SCH ×7 (00:18→23:54)
[2017-12-17] MEDS: *HR* Heparin 5,000 UNIT/ML VIAL SQ SCH ×2 (04:53→17:13)
[2017-12-17] MEDS: *HR* OxyCODONE/APAP 5/325 TABLET PO PRN ×3 (06:11→22:24)
[2017-12-17] MEDS: amLODIPine 5 MG TABLET PO SCH (07:39)
[2017-12-17] MEDS: Aspirin Enteric Coated 81 MG Tablet PO SCH (07:40)
[2017-12-17] MEDS: Chlorhexidine Rinse 15 ML MOUTHWASH MM SCH ×2 (07:40→20:29)
[2017-12-17] MEDS: *HR* Amiodarone 200 MG TABLET PO SCH ×2 (07:40→20:29)
--- NOTE | 2017-12-17 09:00 | Cardiothoracic Progress Note ---
Date of Encounter: 12/17/17 Time of Encounter: 08:58 - Assessment and plan (1) CAD (coronary artery disease) Current Visit: Yes Status: Acute The patient is recovering well from his CABG2, modified Maze procedure, and left atrial appendage stapling. He remains in atrial fibrillation with a controlled rate. He will continue with his amiodarone and beta de medical management for his atrial fibrillation. He ambulated in the room yesterday, though he states that he has very weak. Will be discharged to an inpatient rehabilitation as a bridge to home on Tuesday or Tuesday next week. The assessment and plan as outlined above was discussed with the patient and/or family members who expressed understanding and agreement. All questions were answered. Qualifiers: Coronary Disease-Associated Artery/Lesion type: [place] artery [place] vs. transplanted heart: [place] heart Associated angina: with unstable angina Qualified Code(s): I25.110 - Atherosclerotic heart disease of [place] coronary artery with unstable angina pectoris - Subjective Procedure(s) Performed: POD#9 S/P CABG2, modified Maze procedure Interval history: The patient remained hemodynamically stable overnight. He has no complaints. Vital Signs, Last 4 Hours Temp Pulse Resp BP Pulse Ox 12/17/17 08:15 18 94 12/17/17 07:35 95 12/17/17 07:00 98.1 F 81 17 130/64 90 Oxgyen Flow Rate Oxygen Flow Rate (LPM) 2 Clinical Data, last 8 Hours Output, Urine Amount 100 Output, Urine Amount 80 Output, Urine Amount 150 Weight 12/15/17 12/16/17 12/17/17 23:59 23:59 23:59 Weight 87.5 kg 88 kg - Physical Examination General: Conversant, No Apparent Distress Neck: No JVD, Normal carotid pulses Cardiac: Normal S1 and S2, No Murmur, Other (Irregular rate and rhythm (atrial fibrillation)) Incision: No signs of infection, Dry/intact dressing Sternum: Stable Lungs: Normal Breath Sounds Neuro: Alert and responsive, No focal deficits noted Vascular: Normal capillary refill Musculoskeletal: No Chest Wall Tenderness Extremities: No Clubbing, No Cyanosis, No Edema - Labs 12/14/17 03:20 12/14/17 03:20 - VTE Documentation of Mechanical Device: Graduated compression elastic hosiery Consult Discharge Plan - Plan Additional Instructions: RISK FACTORS: STOP SMOKING: If you smoke, STOP. Smoking or tobacco use significantly increases your risk of heart disease because nicotine causes the arteries to narrow or constrict. It also causes fats to stick to the artery. Your chances of having a heart attack are greatly increased if you continue to smoke. For more information, call the education line for smoking cessation 9-214-JIURGXK EAT A LOW FAT/CHOLESTEROL/SODIUM DIET: This diet may help reduce your chances of having a heart attack. LIFTING: Avoid lifting anything more than 10 pounds for 5-7 days Prior to straining, laughing, sneezing and/or coughing, apply manual pressure directly over insertion site. ACTIVITY: You may walk or climb stairs as tolerated You can resume sexual activity as tolerated In general, you are encouraged to engage in a minimum of 30 minutes or more of moderate intensity physical activity, such as brisk walking, daily or at least 3 -4 times weekly BATHING Do not submerge the site into water (bath tub, hot tub, swimming pool) for 1 week. This can be a source for infection into the blood stream. You may shower after 24 hours SITE CARE: After 24 hours, you may remove the dressing and leave the site open to air. Keep the site clean and dry. Clean gently and pat dry. You can expect bruising and tenderness that gradually resolve within a week or two. Return to work as instructed per your physician Resume driving as instructed per physician Keep all scheduled follow up appointments Resume medications as instructed IMPORTANT: If prescribed a Platelet Aggregation Inhibitor such as, Plavix, Brilinta or Effient: Duration of therapy is minimum one year These medications are often used in combination with Aspirin in prevention of future heart attacks Never discontinue unless consult with your Welt Stitch Cleaner STROKE (CVA) Risk factors for a stroke are: Age, cigarette smoking, diabetes, excessive alcohol consumption, family history, high blood pressure, overweight, physical inactivity, prior stroke, heart attack, diagnosis of carotid artery stenosis or other artery disease. Warning signs: Sudden numbness or weakness of the face, arm or leg; especially on one side of the body, sudden confusion, trouble speaking or understanding, sudden trouble seeing in one or both eyes, sudden trouble walking, dizziness, loss of balance or coordination, sudden severe headache with no cause. Call 911 or go to the Emergency Room. CONGESTIVE HEART FAILURE: If you have been diagnosed with Congestive Heart Failure (CHF) and your symptoms return, make an appointment with your physician Weigh yourself daily. Notify your physician if you have a weight gain of two or more pounds in one day or five or more pounds in one week. If you experience any difficulty breathing, please call 911 BLEEDING: Although the risk of bleeding is minimal, it can happen. If you have any bleeding from the site, apply firm pressure above the puncture site for 10-15 minutes. If the bleeding does not stop, continue manual pressure and call 911 Contact your physician if: You develop a fever greater than 101 degrees Fahrenheit Your site becomes reddened or has any drainage You have an increase in pain or burning at the site or if a large knot forms at the site. If you experience chest pain, shortness of breath, dizziness, or extreme tiredness, stop the activity and rest. Please notify your physicians office if you experience any of these symptoms and they are not relieved by rest please call 911! Restart coumadin tonight if no bleeding at cardiac catheterization site. Referrals: Kailee Keating MD [Partnered Physician] - 12/23/17 10:30 am (Follow up with Dr. Keating in the [place] office. ) Yanira Mathias CNP [Advanced Practice Nurse] - 12/21/17 1:00 am Jairo Diaz MD [Partnered Physician] - 01/05/18 1:15 am
[2017-12-17] MEDS: *HR* Warfarin 2 MG TABLET PO SCH (17:12)
[2017-12-18] MEDS: *HR* OxyCODONE/APAP 5/325 TABLET PO PRN ×2 (03:35→20:04)
[2017-12-18] MEDS: Ipratropium/Albuterol Neb 3 ML IH SCH ×5 (03:54→20:24)
[2017-12-18] MEDS: *HR* Heparin 5,000 UNIT/ML VIAL SQ SCH ×2 (05:28→17:15)
[2017-12-18 06:01] LABS: INR 1.1; Prothrombin Time 12.2 Seconds (9.4-12.1)
[2017-12-18] MEDS ORDERED: MOM Conc 10 ML UD.LIQ PO PRN (07:18)
--- NOTE | 2017-12-18 07:41 | Cardiothoracic Progress Note ---
Date of Encounter: 12/18/17 Time of Encounter: 07:39 - Assessment and plan (1) CAD (coronary artery disease) Current Visit: Yes Status: Acute The patient is recovering well from his CABG2, modified Maze procedure, and left atrial appendage stapling. He remains in atrial fibrillation with a controlled rate. He will continue with his amiodarone and beta de medical management for his atrial fibrillation. He ambulated in the room yesterday, though he states that he has very weak. Will be discharged to an inpatient rehabilitation as a bridge to home on Tuesday or Tuesday this week. The assessment and plan as outlined above was discussed with the patient and/or family members who expressed understanding and agreement. All questions were answered. Qualifiers: Coronary Disease-Associated Artery/Lesion type: [place] artery [place] vs. transplanted heart: [place] heart Associated angina: with unstable angina Qualified Code(s): I25.110 - Atherosclerotic heart disease of [place] coronary artery with unstable angina pectoris - Subjective Procedure(s) Performed: POD#10 S/P CABG2, modified Maze procedure Interval history: The patient remained hemodynamically stable overnight. He has no complaints. Vital Signs, Last 4 Hours Temp Pulse Resp BP Pulse Ox 12/18/17 07:24 97.6 F 78 18 100/69 97 12/18/17 03:55 18 93 Oxgyen Flow Rate Oxygen Flow Rate (LPM) 2 Weight 12/16/17 12/17/17 12/19/17 23:59 23:59 00:59 Weight 87.5 kg 88 kg 89.1 kg - Physical Examination General: Conversant, No Apparent Distress Neck: No JVD, Normal carotid pulses Cardiac: Normal S1 and S2, No Murmur, Other (Irregular rate and rhythm (atrial fibrillation)) Incision: No signs of infection, Dry/intact dressing Sternum: Stable Lungs: Normal Breath Sounds Neuro: Alert and responsive, No focal deficits noted Vascular: Normal capillary refill Musculoskeletal: No Chest Wall Tenderness Extremities: No Clubbing, No Cyanosis, No Edema - Labs 12/14/17 03:20 12/14/17 03:20 Lab Results, Last 24 hours 12/18/17 04:00 INR 1.1 - VTE Documentation of Mechanical Device: Graduated compression elastic hosiery Consult Discharge Plan - Plan Additional Instructions: RISK FACTORS: STOP SMOKING: If you smoke, STOP. Smoking or tobacco use significantly increases your risk of heart disease because nicotine causes the arteries to narrow or constrict. It also causes fats to stick to the artery. Your chances of having a heart attack are greatly increased if you continue to smoke. For more information, call the education line for smoking cessation 3-313-WQNFSNA EAT A LOW FAT/CHOLESTEROL/SODIUM DIET: This diet may help reduce your chances of having a heart attack. LIFTING: Avoid lifting anything more than 10 pounds for 5-7 days Prior to straining, laughing, sneezing and/or coughing, apply manual pressure directly over insertion site. ACTIVITY: You may walk or climb stairs as tolerated You can resume sexual activity as tolerated In general, you are encouraged to engage in a minimum of 30 minutes or more of moderate intensity physical activity, such as brisk walking, daily or at least 3 -4 times weekly BATHING Do not submerge the site into water (bath tub, hot tub, swimming pool) for 1 week. This can be a source for infection into the blood stream. You may shower after 24 hours SITE CARE: After 24 hours, you may remove the dressing and leave the site open to air. Keep the site clean and dry. Clean gently and pat dry. You can expect bruising and tenderness that gradually resolve within a week or two. Return to work as instructed per your physician Resume driving as instructed per physician Keep all scheduled follow up appointments Resume medications as instructed IMPORTANT: If prescribed a Platelet Aggregation Inhibitor such as, Plavix, Brilinta or Effient: Duration of therapy is minimum one year These medications are often used in combination with Aspirin in prevention of future heart attacks Never discontinue unless consult with your Meat Specialist STROKE (CVA) Risk factors for a stroke are: Age, cigarette smoking, diabetes, excessive alcohol consumption, family history, high blood pressure, overweight, physical inactivity, prior stroke, heart attack, diagnosis of carotid artery stenosis or other artery disease. Warning signs: Sudden numbness or weakness of the face, arm or leg; especially on one side of the body, sudden confusion, trouble speaking or understanding, sudden trouble seeing in one or both eyes, sudden trouble walking, dizziness, loss of balance or coordination, sudden severe headache with no cause. Call 911 or go to the Emergency Room. CONGESTIVE HEART FAILURE: If you have been diagnosed with Congestive Heart Failure (CHF) and your symptoms return, make an appointment with your physician Weigh yourself daily. Notify your physician if you have a weight gain of two or more pounds in one day or five or more pounds in one week. If you experience any difficulty breathing, please call 911 BLEEDING: Although the risk of bleeding is minimal, it can happen. If you have any bleeding from the site, apply firm pressure above the puncture site for 10-15 minutes. If the bleeding does not stop, continue manual pressure and call 911 Contact your physician if: You develop a fever greater than 101 degrees Fahrenheit Your site becomes reddened or has any drainage You have an increase in pain or burning at the site or if a large knot forms at the site. If you experience chest pain, shortness of breath, dizziness, or extreme tiredness, stop the activity and rest. Please notify your physicians office if you experience any of these symptoms and they are not relieved by rest please call 911! Restart coumadin tonight if no bleeding at cardiac catheterization site. Referrals: Kailee Keating MD [Partnered Physician] - 12/23/17 10:30 am (Follow up with Dr. Keating in the [place] office. ) Yanira Mathias CNP [Advanced Practice Nurse] - 12/21/17 1:00 am Jairo Diaz MD [Partnered Physician] - 01/05/18 1:15 am
[2017-12-18] MEDS: Aspirin Enteric Coated 81 MG Tablet PO SCH (08:14)
[2017-12-18] MEDS: amLODIPine 5 MG TABLET PO SCH (08:14)
[2017-12-18] MEDS: *HR* Amiodarone 200 MG TABLET PO SCH ×2 (08:14→20:54)
[2017-12-18] MEDS: Chlorhexidine Rinse 15 ML MOUTHWASH MM SCH ×2 (08:14→20:55)
[2017-12-18] MEDS: *HR* Warfarin 2 MG TABLET PO SCH (17:15)
[2017-12-18 17:57] LABS: Bilirubin,Urine Small (Negative); Blood,Urine Negative (Negative); Clarity,Urine Clear (Clear); Color,Urine Dark Yellow (Yellow); Glucose,Urine (UA) Normal (Normal); Ketones,Urine Negative (Negative); Leukocyte Esterase,Urine Negative (Negative); Nitrite,Urine Negative (Negative); PH,Urine 5.5 pH Units (5.0-8.0); Protein,Urine Trace mg/dL (Neg-Trace); Specific Gravity,Urine 1.024 (1.010-1.025); Urobilinogen,Urine Normal (Normal)
[2017-12-18 17:59] LABS: Bacteria,Urine None Seen per hpf (None-Few); Hyaline Casts,Urine None Seen per lpf (None-Few); Squamous Epithelial Cell,Urine Many per lpf (None-Few); WBC,Urine 0-3 per hpf (0-3)
[2017-12-18 18:38] LABS: Basophils # 0.1 K/mcL (0.0-0.2); Basophils % 0.5 %; Eosinophils # 0.1 K/mcL (0.0-0.6); Eosinophils % 1.3 %; Hematocrit 23.5 % (37.5-50.1); Hemoglobin 7.7 g/dL (12.9-16.9); Immature Granulocytes % 0.7 % (0-4); Lymphocytes # 1.1 K/mcL (0.6-4.6); Lymphocytes % 11.4 %; Mean Corpuscular HGB Conc 32.8 g/dL (31.6-35.5); Mean Corpuscular Hemoglobin 29.6 pg (28.0-33.3); Mean Corpuscular Volume 90.4 fL (83.0-100.0); Mean Platelet Volume 9.3 fL (9.4-12.4); Monocytes # 0.9 K/mcL (0.0-1.3); Monocytes % 9.2 %; Neutrophils # 7.7 K/mcL (1.6-8.9); Platelet Count 450 K/mcL (140-400); Red Cell Distribution Width 13.6 % (11.5-14.5); Segmented Neutrophils % 76.9 %
[2017-12-18 19:01] LABS: Albumin 3.4 g/dL (3.5-5.7); Albumin/Globulin Ratio 1.2 (1.1-2.2); Bilirubin,Total 0.9 mg/dL (0.3-1.0); Calcium 8.6 mg/dL (8.6-10.3); Globulin 2.8 g/dL (2.4-3.5); Potassium 4.6 mEq/L (3.5-5.1); Total Protein 6.2 g/dL (6.4-8.9)
--- NOTE | 2017-12-18 20:30 | Internal Medicine Consult Note ---
Date of Encounter: 12/18/17 Time of Encounter: 19:50 - Assessment and Plan (1) Acute metabolic encephalopathy Current Visit: Yes Status: Acute Assessment and plan: 1. Minimize sedating medications, although he's only on Percocet and taking it minimally. 2. I requested nursing staff keep blinds open and allow natural daylight through during daylight hours and lights/TV off during night hours. 3. Try to avoid night time awakenings unless absolutely necessary. 4. Will order CXR and KUB to evaluate lungs and abdominal findings. Suspect distension secondary to constipation and/or ileus. (2) Obstructive uropathy Current Visit: Yes Status: Acute Assessment and plan: 1. Will place Parrish and monitor I/O closely. 2. Will order Renal Ultrasound be done in the morning. 3. Will order PSA. 4. May need to consult Urology this admission as well. (3) Acute renal failure Current Visit: Yes Status: Acute Assessment and plan: 1. Likely due to dehydration and urinary retention/obstruction. 2. Will hydrate with IVF overnight, monitor renal function, and consult nephrology. 3. Discussed with Dr. Tobias. Qualifiers: Acute renal failure type: unspecified Qualified Code(s): N17.9 - Acute kidney failure, unspecified Internal Medicine - CN: HPI - Data of Consult Consult date: 12/18/17 Requesting Physician: Gonzalez Zhao - Consult Narrative Reason for consult: altered mental status History of present illness: Mr. Quintana is a 77 year old male who is several days postop from coronary artery bypass grafting. We were asked to see patient in consultation for concerns of altered mental status. We requested some labs be drawn and then I saw him shortly thereafter. Upon my assessment of the patient in his room, he is somnolent but easily arousable. He seems a little groggy, but he is oriented 3. He was able to answer all my questions appropriately. He looks intravascularly dry and complained of constipation and difficulty with urination. Per nursing report, he was just straight cathed for urine and had over one thousand milliliters of urine output with 1 straight catheterization. He also had his first bowel movement today in 11 days. He states he feels much better after urinating and defecating. He's had no fevers, no vomiting, and obviously no diarrhea. He states he has had some difficulty urinating since his surgery. Prior to surgery, he has never had any difficulty urinating and denies any prostate problems. His labs indicate acute renal failure and hyponatremia. He is not on any diuretics. He also has had very little oral intake lately according to nursing staff. I called Dr. Zhao and discussed the case with him. I recommend placing a Parrish catheter tonight, hydrating him with IV fluids, holding his lisinopril for now, and consulting nephrology for ongoing assistance regarding his kidney failure. Additionally, I would like to order chest x-ray and KUB to evaluate his lungs and possible ileus. Dr. Zhao was in agreement with my medical recommendations. Of note, his lung exam is fairly benign and negative and his abdominal exam shows some mild abdominal distention and hyperactive bowel sounds. After I discussed with Dr. Zhao, I called Dr. Tobias from nephrology requesting consultation with him as well. Past Med Surg Social Fam HX - Past Medical History Attestation: Yes The following information was validated with the patient. Source: patient, old records reviewed Medical history: atrial fibrillation, CVA, hyperlipidemia, hypertension, renal disease Psychiatric history: no psych history - Past Surgical History Surgical History: coronary bypass (CABG) - Social History Smoking Status: Never smoker Alcohol use: none Drug use: none Current living situation: Home Activity Level: Independent ambulation - Family History Mother History Unknown: Yes Father History Unknown: Yes - Constitutional Constitutional: no chills, no fever(s), no night sweats - EENT Eyes: no blurry vision, no change in vision Ears: no ear pain, no tinnitus Nose, mouth and throat: no nasal congestion, no sore throat - Cardiovascular Cardiovascular ROS IM: no chest pain, no dyspnea Additional comments: + typical post-op pain, otherwise negative - Respiratory Respiratory: no cough, no dyspnea, no hemoptysis, no chest congestion, no excessive phlegm production - Gastrointestinal Gastrointestinal: bloating, constipation, no hematemesis, no hematochezia, no melena, no nausea, no vomiting - Genitourinary Genitourinary ROS male: difficulty urinating, no dysuria, no flank pain, no hematuria - Musculoskeletal Musculoskeletal ROS IM: no arthralgias, no back pain - Integumentary Integumentary IM: no rash, no jaundice - Neurological Neurological ROS: confusion, no dizziness, no focal weakness, no frequent falls , no headache(s) - Psychiatric Psychiatric: confusion, no anxiety, no depression - Endocrine Endocrine IM: no polydipsia, no polyuria - Allergic/Immunologic Allergic/Immunologic: no GI upset with certain foods Internal Medicine - CN: Meds Amlodipine Besylate 10 mg PO DAILY 12/06/17 [History] Atenolol [Tenormin] 25 mg PO DAILY 12/06/17 [History] Isosorbide MONOnitrate (24 HR) [Imdur] 30 mg PO DAILY 12/06/17 [History] Lisinopril [Zestril] 20 mg PO DAILY 12/06/17 [History] Nitroglycerin [Nitrostat] 0.4 mg SL DAILY PRN 12/06/17 [History] Omeprazole [PriLOSEC] 20 mg PO DAILY 12/06/17 [History] Simvastatin [Zocor] 40 mg PO HS 12/06/17 [History] Warfarin [Coumadin] 2 mg PO DAILY 12/06/17 [History] Aspirin [Lo-Dose Aspirin EC] 81 mg PO DAILY 12/07/17 [History] 3 Allergy/AdvReac Type Severity Reaction Status Date / Time No Known Allergies Allergy Unverified 09/21/17 10:23 Internal Medicine - CN: Exam - Constitutional Vitals: Temp Pulse Resp BP Pulse Ox 97.8 F 95 20 103/53 93 12/18/17 19:16 12/18/17 19:16 12/18/17 19:16 12/18/17 19:16 12/18/17 19:16 General appearance IM: Present: cooperative, A&O X 3, pleasant, no acute distress, answers questions appropriately Exam: looks dry/dehydrated - Head Head exam: Present: normal inspection - Eye Eye exam: Present: EOMI, normal appearance, PERRL. Absent: scleral icterus Pupils: Present: normal accommodation - ENT ENT exam: Present: mucous membranes dry, normal exam - Neck Neck exam general surgery: Present: full ROM, supple. Absent: lymphadenopathy, tenderness - Respiratory Respiratory exam: Present: chest wall tenderness (post-op pain), CTAB (other than rare scattered rhonchi, lungs are clear), rhonchi. Absent: accessory muscle use, rales, respiratory distress, wheezes - Cardiovascular Cardiovascular exam IM: Present: distant heart sounds, +S1, +S2. Absent: diastolic murmur, systolic murmur - GI/Abdominal GI/Abdominal exam IM: Present: distended, hyperactive bowel sounds, soft. Absent: hepatomegaly, mass, splenomegaly, tenderness - Extremities Exam Extremities exam IM: Present: normal capillary refill, warm, radial pulses palpable and symmetrical. Absent: calf tenderness, joint swelling, pedal edema , tenderness - Back Exam Back exam: Absent: CVA tenderness (L), CVA tenderness (R) - Neurological Exam Neurological exam: Present: alert, CN II-XII intact, oriented X3, no focal deficits - Psychiatric Psychiatric exam: Present: normal affect, normal mood - Skin Skin exam IM: Present: dry, warm Internal Medicine - CN: Reslt - Labs CBC & Chem 7: 12/18/17 18:25 12/18/17 18:25 Labs: Short CBC 12/18/17 Range/Units 18:25 WBC 10.0 (4.3-11.1) K/mcL Hgb 7.7 L (12.9-16.9) g/dL Hct 23.5 L (37.5-50.1) % Plt Count 450 H D (140-400) K/mcL Neutrophils # 7.7 (1.6-8.9) K/mcL BMP 12/18/17 18:25 Sodium 123 L Potassium 4.6 Chloride 91 L Carbon Dioxide 22 L BUN 48 H Creatinine 2.10 H Glucose 109 H Calcium 8.6 Liver Function 12/18/17 Range/Units 18:25 Total Bilirubin 0.9 (0.3-1.0) mg/dL AST 21 (13-39) Units/L ALT 15 (7-52) Units/L Alkaline Phosphatase 100 (34-104) Units/L Albumin 3.4 L (3.5-5.7) g/dL Urine 12/18/17 Range/Units 17:45 Urine Color Dark Yellow (Yellow) Urine Clarity Clear (Clear) Urine pH 5.5 (5.0-8.0) pH Units Ur Specific Lotus 1.024 (1.010-1.025) Urine Protein Trace (Neg-Trace) mg/dL Urine Glucose (UA) Normal (Normal) mg/dL - ABG Interpretation ABG results: ABG ABG pH 7.48 pH Units (7.32-7.45) H 12/12/17 05:15 ABG pCO2 34 mmHg (35-45) L 12/12/17 05:15 ABG pO2 93 mmHg (85-104) 12/12/17 05:15 ABG O2 Saturation 98 % (95-98) 12/12/17 05:15 PT/INR, D-dimer PT 12.2 Seconds (9.4-12.1) H 12/18/17 04:00 Consult Discharge Plan - Plan Additional Instructions: RISK FACTORS: STOP SMOKING: If you smoke, STOP. Smoking or tobacco use significantly increases your risk of heart disease because nicotine causes the arteries to narrow or constrict. It also causes fats to stick to the artery. Your chances of having a heart attack are greatly increased if you continue to smoke. For more information, call the education line for smoking cessation 7-260-YNHDJCL EAT A LOW FAT/CHOLESTEROL/SODIUM DIET: This diet may help reduce your chances of having a heart attack. LIFTING: Avoid lifting anything more than 10 pounds for 5-7 days Prior to straining, laughing, sneezing and/or coughing, apply manual pressure directly over insertion site. ACTIVITY: You may walk or climb stairs as tolerated You can resume sexual activity as tolerated In general, you are encouraged to engage in a minimum of 30 minutes or more of moderate intensity physical activity, such as brisk walking, daily or at least 3 -4 times weekly BATHING Do not submerge the site into water (bath tub, hot tub, swimming pool) for 1 week. This can be a source for infection into the blood stream. You may shower after 24 hours SITE CARE: After 24 hours, you may remove the dressing and leave the site open to air. Keep the site clean and dry. Clean gently and pat dry. You can expect bruising and tenderness that gradually resolve within a week or two. Return to work as instructed per your physician Resume driving as instructed per physician Keep all scheduled follow up appointments Resume medications as instructed IMPORTANT: If prescribed a Platelet Aggregation Inhibitor such as, Plavix, Brilinta or Effient: Duration of therapy is minimum one year These medications are often used in combination with Aspirin in prevention of future heart attacks Never discontinue unless consult with your Three Dimensional Map Modeler STROKE (CVA) Risk factors for a stroke are: Age, cigarette smoking, diabetes, excessive alcohol consumption, family history, high blood pressure, overweight, physical inactivity, prior stroke, heart attack, diagnosis of carotid artery stenosis or other artery disease. Warning signs: Sudden numbness or weakness of the face, arm or leg; especially on one side of the body, sudden confusion, trouble speaking or understanding, sudden trouble seeing in one or both eyes, sudden trouble walking, dizziness, loss of balance or coordination, sudden severe headache with no cause. Call 911 or go to the Emergency Room. CONGESTIVE HEART FAILURE: If you have been diagnosed with Congestive Heart Failure (CHF) and your symptoms return, make an appointment with your physician Weigh yourself daily. Notify your physician if you have a weight gain of two or more pounds in one day or five or more pounds in one week. If you experience any difficulty breathing, please call 911 BLEEDING: Although the risk of bleeding is minimal, it can happen. If you have any bleeding from the site, apply firm pressure above the puncture site for 10-15 minutes. If the bleeding does not stop, continue manual pressure and call 911 Contact your physician if: You develop a fever greater than 101 degrees Fahrenheit Your site becomes reddened or has any drainage You have an increase in pain or burning at the site or if a large knot forms at the site. If you experience chest pain, shortness of breath, dizziness, or extreme tiredness, stop the activity and rest. Please notify your physicians office if you experience any of these symptoms and they are not relieved by rest please call 911! Restart coumadin tonight if no bleeding at cardiac catheterization site. Referrals: Kailee Keating MD [Partnered Physician] - 12/23/17 10:30 am (Follow up with Dr. Keating in the [place] office. ) Yanira Mathias CNP [Advanced Practice Nurse] - 12/21/17 1:00 am Jairo Diaz MD [Partnered Physician] - 01/05/18 1:15 am
[2017-12-18] MEDS: 0.9 % Sodium Chloride 1,000 ML IVC SCH (20:59)
[2017-12-19] MEDS: Ipratropium/Albuterol Neb 3 ML IH SCH ×7 (00:03→23:59)
[2017-12-19] MEDS: *HR* OxyCODONE/APAP 5/325 TABLET PO PRN ×4 (00:11→22:38)
[2017-12-19 04:22] LABS: Albumin 3.3 g/dL (3.5-5.7); Albumin/Globulin Ratio 1.3 (1.1-2.2); Bilirubin,Total 0.8 mg/dL (0.3-1.0); Calcium 8.4 mg/dL (8.6-10.3); Globulin 2.5 g/dL (2.4-3.5); Magnesium 2.8 mg/dL (1.6-2.6); Potassium 4.4 mEq/L (3.5-5.1); Total Protein 5.8 g/dL (6.4-8.9)
[2017-12-19] MEDS: *HR* Heparin 5,000 UNIT/ML VIAL SQ SCH ×2 (05:50→16:16)
[2017-12-19] MEDS: 0.9 % Sodium Chloride 1,000 ML IVC SCH ×2 (06:46→16:20)
--- NOTE | 2017-12-19 07:45 | Cardiothoracic Progress Note ---
Date of Encounter: 12/19/17 Time of Encounter: 07:43 - Assessment and plan (1) CAD (coronary artery disease) Current Visit: Yes Status: Acute The patient is recovering well from his CABG2, modified Maze procedure, and left atrial appendage stapling. He remains in atrial fibrillation with a controlled rate. He will continue with his amiodarone and beta de medical management for his atrial fibrillation. He ambulated in the room yesterday, though he states that he has very weak. The patient was discovered to have urinary retention and abnormal renal function last evening. Both nephrology and urology been consulted to help manage the patient's bladder/renal function. The assessment and plan as outlined above was discussed with the patient and/or family members who expressed understanding and agreement. All questions were answered. Qualifiers: Coronary Disease-Associated Artery/Lesion type: [place] artery [place] vs. transplanted heart: [place] heart Associated angina: with unstable angina Qualified Code(s): I25.110 - Atherosclerotic heart disease of [place] coronary artery with unstable angina pectoris - Subjective Procedure(s) Performed: POD#11 S/P CABG2, modified Maze procedure Interval history: The patient remained hemodynamically stable overnight. He has no complaints. Vital Signs, Last 4 Hours Temp Pulse Resp BP Pulse Ox 12/19/17 07:22 20 92 12/19/17 07:09 98.7 F 68 20 115/65 92 12/19/17 04:14 18 94 12/19/17 03:54 98 F 81 18 105/66 93 Oxgyen Flow Rate Oxygen Flow Rate (LPM) 2 Weight 12/17/17 12/18/17 12/19/17 22:59 23:59 23:59 Weight 90.4 kg - Physical Examination General: Conversant, No Apparent Distress Neck: No JVD, Normal carotid pulses Cardiac: Normal S1 and S2, No Murmur, Other (Irregular rate and rhythm (atrial fibrillation)) Incision: No signs of infection, Dry/intact dressing Sternum: Stable Lungs: Normal Breath Sounds, No Wheeze, Rales, Rhonchi Neuro: Alert and responsive, No focal deficits noted Vascular: Normal capillary refill Abdomen: Soft, Non-tender Musculoskeletal: No Chest Wall Tenderness Extremities: No Clubbing, No Cyanosis, No Edema - Labs 12/18/17 18:25 12/19/17 03:43 Lab Results, Last 24 hours 12/18/17 12/18/1718 18:25 18:25 03:43 WBC 10.0 Hgb 7.7 L Hct 23.5 L Plt Count 450 H D Sodium 123 L 123 L Potassium 4.6 4.4 Chloride 91 L 93 L Carbon Dioxide 22 L 21 L BUN 48 H 50 H Creatinine 2.10 H 2.07 H Glucose 109 H 98 Calcium 8.6 8.4 L Magnesium 2.8 H Total Bilirubin 0.9 0.8 AST 21 20 ALT 15 14 Alkaline Phosphatase 100 91 - VTE Documentation of Mechanical Device: Graduated compression elastic hosiery Consult Discharge Plan - Plan Additional Instructions: RISK FACTORS: STOP SMOKING: If you smoke, STOP. Smoking or tobacco use significantly increases your risk of heart disease because nicotine causes the arteries to narrow or constrict. It also causes fats to stick to the artery. Your chances of having a heart attack are greatly increased if you continue to smoke. For more information, call the education line for smoking cessation 1-441-EXXSLQW EAT A LOW FAT/CHOLESTEROL/SODIUM DIET: This diet may help reduce your chances of having a heart attack. LIFTING: Avoid lifting anything more than 10 pounds for 5-7 days Prior to straining, laughing, sneezing and/or coughing, apply manual pressure directly over insertion site. ACTIVITY: You may walk or climb stairs as tolerated You can resume sexual activity as tolerated In general, you are encouraged to engage in a minimum of 30 minutes or more of moderate intensity physical activity, such as brisk walking, daily or at least 3 -4 times weekly BATHING Do not submerge the site into water (bath tub, hot tub, swimming pool) for 1 week. This can be a source for infection into the blood stream. You may shower after 24 hours SITE CARE: After 24 hours, you may remove the dressing and leave the site open to air. Keep the site clean and dry. Clean gently and pat dry. You can expect bruising and tenderness that gradually resolve within a week or two. Return to work as instructed per your physician Resume driving as instructed per physician Keep all scheduled follow up appointments Resume medications as instructed IMPORTANT: If prescribed a Platelet Aggregation Inhibitor such as, Plavix, Brilinta or Effient: Duration of therapy is minimum one year These medications are often used in combination with Aspirin in prevention of future heart attacks Never discontinue unless consult with your Handle Maker STROKE (CVA) Risk factors for a stroke are: Age, cigarette smoking, diabetes, excessive alcohol consumption, family history, high blood pressure, overweight, physical inactivity, prior stroke, heart attack, diagnosis of carotid artery stenosis or other artery disease. Warning signs: Sudden numbness or weakness of the face, arm or leg; especially on one side of the body, sudden confusion, trouble speaking or understanding, sudden trouble seeing in one or both eyes, sudden trouble walking, dizziness, loss of balance or coordination, sudden severe headache with no cause. Call 911 or go to the Emergency Room. CONGESTIVE HEART FAILURE: If you have been diagnosed with Congestive Heart Failure (CHF) and your symptoms return, make an appointment with your physician Weigh yourself daily. Notify your physician if you have a weight gain of two or more pounds in one day or five or more pounds in one week. If you experience any difficulty breathing, please call 911 BLEEDING: Although the risk of bleeding is minimal, it can happen. If you have any bleeding from the site, apply firm pressure above the puncture site for 10-15 minutes. If the bleeding does not stop, continue manual pressure and call 911 Contact your physician if: You develop a fever greater than 101 degrees Fahrenheit Your site becomes reddened or has any drainage You have an increase in pain or burning at the site or if a large knot forms at the site. If you experience chest pain, shortness of breath, dizziness, or extreme tiredness, stop the activity and rest. Please notify your physicians office if you experience any of these symptoms and they are not relieved by rest please call 911! Restart coumadin tonight if no bleeding at cardiac catheterization site. Referrals: Kailee Keating MD [Partnered Physician] - 12/23/17 10:30 am (Follow up with Dr. Keating in the [place] office. ) Yanira Mathias CNP [Advanced Practice Nurse] - 12/21/17 1:00 am Jairo Diaz MD [Partnered Physician] - 01/05/18 1:15 am
[2017-12-19] MEDS: *HR* Amiodarone 200 MG TABLET PO SCH ×2 (08:05→20:28)
[2017-12-19] MEDS: Aspirin Enteric Coated 81 MG Tablet PO SCH (08:05)
[2017-12-19] MEDS: amLODIPine 5 MG TABLET PO SCH (08:05)
[2017-12-19] MEDS: Chlorhexidine Rinse 15 ML MOUTHWASH MM SCH ×2 (08:06→20:28)
--- NOTE | 2017-12-19 08:10 | Nephrology Consult Note ---
Date of Encounter: 12/19/17 Time of Encounter: 08:07 Assessment and Plan (1) Acute renal failure Current Visit: Yes Status: Acute Patient has a clinical picture of acute kidney injury along with hyponatremia. This could be related to volume depletion from poor oral intake in the postoperative period. This could also be related to urinary retention. Parrish catheter has been placed. The patient is been placed on IV fluids. Renal ultrasound will be done. We will monitor the patient's renal function. The lisinopril has been discontinued. The patient's blood pressure somewhat on the low side. If it remains low I would suggest discontinuing the amlodipine as well. Nephrotoxins should be avoided. Qualifiers: Acute renal failure type: unspecified Qualified Code(s): N17.9 - Acute kidney failure, unspecified (2) Urinary retention Current Visit: Yes Status: Acute (3) Hyponatremia Current Visit: Yes Status: Acute (4) CAD (coronary artery disease) Current Visit: Yes Status: Acute Qualifiers: Coronary Disease-Associated Artery/Lesion type: [place] artery [place] vs. transplanted heart: [place] heart Associated angina: with unstable angina Qualified Code(s): I25.110 - Atherosclerotic heart disease of [place] coronary artery with unstable angina pectoris (5) Afib Current Visit: No Status: Acute Qualifiers: Atrial fibrillation type: chronic Qualified Code(s): I48.2 - Chronic atrial fibrillation History of Present Illness - History of Present Illness This is a 77-year-old male who originally was admitted on December 07. Patient presented with complaints of chest pain and shortness of breath. He had a positive stress test. The patient underwent a cardiac catheterization on December 06. That catheterization showed left main disease as well as severe three-vessel disease. Ejection fraction was 60%. Patient underwent coronary artery bypass surgery as well as a modified maze procedure on December 08. More recently the patient had some lab work done for some mental status changes. He was noted to have acute kidney injury as well as hyponatremia. He also was noted to have urinary retention. Reportedly a Parrish catheter was placed and 1000 mL of urine was drained. The patient's serum creatinine here in the hospital is ranged from 0.9-1.70 then back down to 1.20 and more recently 2.10. [facility] his creatinine ranges from 1.4-1.7. Patient denies any previous history of renal disease however. He does have a history of hypertension as well as A. fib CVA and hyperlipidemia. He does admit to some difficulty in emptying his bladder at times. He had been taking nonsteroidal anti-inflammatory agents but was told to stop about 5 years ago. He has had gross hematuria in the past but not recently. He is only had one urinary tract infection that he can recall. There is no history of renal stone disease. He says here in the hospital he has not been eating or drinking much since he has not had much of an appetite. The patient denies any nausea vomiting or diarrhea. The patient was placed on IV fluids overnight. Past Med Surg Social Fam HX - Past Medical History Medical history: atrial fibrillation, CVA, hyperlipidemia, hypertension, renal disease Psychiatric history: no psych history - Past Surgical History Surgical History: coronary bypass (CABG) - Social History Smoking Status: Never smoker Alcohol use: none Drug use: none - Family History Mother History Unknown: Yes Father History Unknown: Yes Medications and Allergies Amlodipine Besylate 10 mg PO DAILY 12/06/17 [History] Atenolol [Tenormin] 25 mg PO DAILY 12/06/17 [History] Isosorbide MONOnitrate (24 HR) [Imdur] 30 mg PO DAILY 12/06/17 [History] Lisinopril [Zestril] 20 mg PO DAILY 12/06/17 [History] Nitroglycerin [Nitrostat] 0.4 mg SL DAILY PRN 12/06/17 [History] Omeprazole [PriLOSEC] 20 mg PO DAILY 12/06/17 [History] Simvastatin [Zocor] 40 mg PO HS 12/06/17 [History] Warfarin [Coumadin] 2 mg PO DAILY 12/06/17 [History] Aspirin [Lo-Dose Aspirin EC] 81 mg PO DAILY 12/07/17 [History] 3 Allergy/AdvReac Type Severity Reaction Status Date / Time No Known Allergies Allergy Unverified 09/21/17 10:23 Review of Systems Constitutional: weakness Eyes: bilateral: blurred vision (patient denies), diplopia (patient denies) Nose, mouth and throat: no dizziness, no headache(s) Cardiovascular: as per HPI, chest pain at rest, chest pain with activity, dyspnea on exertion, rapid heart rate Respiratory: dyspnea, dyspnea on exertion Gastrointestinal: no abdominal pain, no change in bowel habits Genitourinary Male: as per HPI, difficulty urinating, hematuria Musculoskeletal: no muscle weakness, no numbness Integumentary: no hirsutism, no striae Neurological: as per HPI, weakness Psychiatric: no depression, no difficulty concentrating Endocrine: as per HPI Hematologic/Lymphatic: no easy bruising, no lymphadenopathy Exam - Vital Signs Vital signs: Initial Vital Signs Temp Pulse Resp BP Pulse Ox 97.2 F L 62 18 158/85 96 12/06/17 09:53 12/06/17 09:53 12/06/17 09:53 12/06/17 09:53 12/06/17 09:53 Vital Signs - Last 8 Hours Temp Pulse Resp BP Pulse Ox 12/19/17 07:22 20 92 12/19/17 07:09 98.7 F 68 20 115/65 92 12/19/17 04:14 18 94 12/19/17 03:54 98 F 81 18 105/66 93 Intake and Output 12/18/17 12/19/17 12/19/17 23:59 07:59 15:59 Intake Total 500 / 500 1000 / 1000 Output Total 1225 / 1225 150 / 150 Balance -725 / -725 850 / 850 Intake: IV Fluids 1000 / 1000 0.9 % Sodium Chloride 1,000 ML 1000 / 1000 @ 100 mls/hr IVC .Q10H NOELLE Rx#: [id number] Oral 500 / 500 Output: Urine 100 / 100 Straight Cath 1000 / 1000 Catheter 125 / 125 150 / 150 Other: Stool Size Moderate Stool Consistency formed Stool Color Brown # Bowel Movements 1 Weight 90.4 kg Patient Weight 12/19/17 23:59 Weight 90.4 kg - General Appearance Exam: Patient is alert and oriented. He is in no acute distress. Blood pressure 111/ 65. Urine output is 1.2 L over the past 24 hours. Lungs diminished breath sounds otherwise clear. Heart irregular rate and rhythm consistent with atrial fibrillation. Abdomen shows normal bowel sounds or bruits masses or megaly or tenderness. Lower actually show some mild A she will be swelling more prominent on the left compared to the right. A Parrish catheter is in place. Results - Lab Results 12/18/17 18:25 12/19/17 03:43 Most recent lab results ABG pH 7.48 pH Units (7.32-7.45) H 12/12/17 05:15 ABG pCO2 34 mmHg (35-45) L 12/12/17 05:15 ABG pO2 93 mmHg (85-104) 12/12/17 05:15 ABG HCO3 25 mEq/L (21-27) 12/12/17 05:15 ABG O2 Saturation 98 % (95-98) 12/12/17 05:15 Calcium 8.4 mg/dL (8.6-10.3) L 12/19/17 03:43 Magnesium 2.8 mg/dL (1.6-2.6) H 12/19/17 03:43 Consult Discharge Plan - Plan Additional Instructions: RISK FACTORS: STOP SMOKING: If you smoke, STOP. Smoking or tobacco use significantly increases your risk of heart disease because nicotine causes the arteries to narrow or constrict. It also causes fats to stick to the artery. Your chances of having a heart attack are greatly increased if you continue to smoke. For more information, call the education line for smoking cessation 1-602-UECNLOV EAT A LOW FAT/CHOLESTEROL/SODIUM DIET: This diet may help reduce your chances of having a heart attack. LIFTING: Avoid lifting anything more than 10 pounds for 5-7 days Prior to straining, laughing, sneezing and/or coughing, apply manual pressure directly over insertion site. ACTIVITY: You may walk or climb stairs as tolerated You can resume sexual activity as tolerated In general, you are encouraged to engage in a minimum of 30 minutes or more of moderate intensity physical activity, such as brisk walking, daily or at least 3 -4 times weekly BATHING Do not submerge the site into water (bath tub, hot tub, swimming pool) for 1 week. This can be a source for infection into the blood stream. You may shower after 24 hours SITE CARE: After 24 hours, you may remove the dressing and leave the site open to air. Keep the site clean and dry. Clean gently and pat dry. You can expect bruising and tenderness that gradually resolve within a week or two. Return to work as instructed per your physician Resume driving as instructed per physician Keep all scheduled follow up appointments Resume medications as instructed IMPORTANT: If prescribed a Platelet Aggregation Inhibitor such as, Plavix, Brilinta or Effient: Duration of therapy is minimum one year These medications are often used in combination with Aspirin in prevention of future heart attacks Never discontinue unless consult with your Water Registrar STROKE (CVA) Risk factors for a stroke are: Age, cigarette smoking, diabetes, excessive alcohol consumption, family history, high blood pressure, overweight, physical inactivity, prior stroke, heart attack, diagnosis of carotid artery stenosis or other artery disease. Warning signs: Sudden numbness or weakness of the face, arm or leg; especially on one side of the body, sudden confusion, trouble speaking or understanding, sudden trouble seeing in one or both eyes, sudden trouble walking, dizziness, loss of balance or coordination, sudden severe headache with no cause. Call 911 or go to the Emergency Room. CONGESTIVE HEART FAILURE: If you have been diagnosed with Congestive Heart Failure (CHF) and your symptoms return, make an appointment with your physician Weigh yourself daily. Notify your physician if you have a weight gain of two or more pounds in one day or five or more pounds in one week. If you experience any difficulty breathing, please call 911 BLEEDING: Although the risk of bleeding is minimal, it can happen. If you have any bleeding from the site, apply firm pressure above the puncture site for 10-15 minutes. If the bleeding does not stop, continue manual pressure and call 911 Contact your physician if: You develop a fever greater than 101 degrees Fahrenheit Your site becomes reddened or has any drainage You have an increase in pain or burning at the site or if a large knot forms at the site. If you experience chest pain, shortness of breath, dizziness, or extreme tiredness, stop the activity and rest. Please notify your physicians office if you experience any of these symptoms and they are not relieved by rest please call 911! Restart coumadin tonight if no bleeding at cardiac catheterization site. Referrals: Kailee Keating MD [Partnered Physician] - 12/23/17 10:30 am (Follow up with Dr. eKating in the [place] office. ) Yanira Mathias CNP [Advanced Practice Nurse] - 12/21/17 1:00 am Jairo Diaz MD [Partnered Physician] - 01/05/18 1:15 am
[2017-12-19 09:23] LABS: INR 1.3; Prothrombin Time 13.8 Seconds (9.4-12.1)
[2017-12-19 09:27] LABS: Albumin 3.1 g/dL (3.5-5.7); Albumin/Globulin Ratio 1.1 (1.1-2.2); Bilirubin,Total 0.8 mg/dL (0.3-1.0); Calcium 8.3 mg/dL (8.6-10.3); Globulin 2.7 g/dL (2.4-3.5); Potassium 4.4 mEq/L (3.5-5.1); Total Protein 5.8 g/dL (6.4-8.9)
--- NOTE | 2017-12-19 09:27 | Internal Med Progress Note ---
<Isidro Horner - Last Filed: 12/19/17 10:56> Date of Encounter: 12/19/17 Time of Encounter: 09:25 - Assessment and plan (1) Acute metabolic encephalopathy Current Visit: Yes Status: Acute Assessment and plan: Acute metabolic encephalopathy- AAOx3. Patient is speaking appropriately. Patient afebrile, urinalysis not revealing signs of infection. Chest X-ray not showing evidence of pneumonia. Continue with keeping blind open during the day. Patient currently on benadryl and oxycodone which could be contributing to the altered mental status. Obstructive uropathy- still awaiting results from Renal Ultrasound. Possible urology consult. Acute renal failure- Nephrology following, Improving with IV hydration at .9% NS 100 mls/ hour. Creatinine now 1.98, continue to monitor BUN, creatinine Hyponatremia- has improved from 123 to 126. Continue to monitor sodium. Will obtain TSH, uric acid, urine sodium, urine osmolality. Thrombocytosis- platelets at 450. New onset. Probably reactive after surgery. Do not suspect an infectious or malignant cause at this time as patient is afebrile. Check platelets tomorrow. (2) Obstructive uropathy Current Visit: Yes Status: Acute (3) Acute renal failure Current Visit: Yes Status: Acute Qualifiers: Acute renal failure type: unspecified Qualified Code(s): N17.9 - Acute kidney failure, unspecified (4) Hyponatremia Current Visit: Yes Status: Acute (5) Thrombocytosis Current Visit: Yes Status: Acute - Time Spent With Patient 25 - 35 minutes - Subjective Interval history: Consulted secondary to concerns for altered mental status. Patient states that he is feeling well. States he had a bowel movement last night. States his abdomen is not as firm as it was. - Constitutional Vitals: Temp Pulse Resp BP Pulse Ox 98.7 F 68 20 115/65 92 12/19/17 07:09 12/19/17 07:09 12/19/17 07:22 12/19/17 07:09 12/19/17 07:22 General appearance: Present: cooperative, A&O X 3, pleasant, no acute distress, answers questions appropriately - Head Head exam: Present: atraumatic - ENT ENT exam: Present: normal exam - Respiratory Respiratory exam: Present: CTAB. Absent: accessory muscle use - Cardiovascular Cardiovascular exam: Present: irregular rhythm, RRR. Absent: JVD - GI/Abdominal GI/Abdominal exam: Present: firm. Absent: distended, guarding - Incison Incision: Present: clean and dry. Absent: purulent - Neurological Exam Neurological exam: Present: alert, oriented X3, no focal deficits. Absent: altered - Skin Skin exam: Absent: petechiae Internal Medicine: Result - Labs CBC & Chem 7: 12/18/17 18:25 12/19/17 08:50 Labs: Short CBC 12/18/17 Range/Units 18:25 WBC 10.0 (4.3-11.1) K/mcL Hgb 7.7 L (12.9-16.9) g/dL Hct 23.5 L (37.5-50.1) % Plt Count 450 H D (140-400) K/mcL Neutrophils # 7.7 (1.6-8.9) K/mcL BMP 12/18/17 12/19/17 18:25 03:43 Sodium 123 L 123 L Potassium 4.6 4.4 Chloride 91 L 93 L Carbon Dioxide 22 L 21 L BUN 48 H 50 H Creatinine 2.10 H 2.07 H Glucose 109 H 98 Calcium 8.6 8.4 L Liver Function 12/18/17 12/19/17 Range/Units 18:25 03:43 Total Bilirubin 0.9 0.8 (0.3-1.0) mg/dL AST 21 20 (13-39) Units/L ALT 15 14 (7-52) Units/L Alkaline Phosphatase 100 91 (34-104) Units/L Albumin 3.4 L 3.3 L (3.5-5.7) g/dL Urine 12/18/17 Range/Units 17:45 Urine Color Dark Yellow (Yellow) Urine Clarity Clear (Clear) Urine pH 5.5 (5.0-8.0) pH Units Ur Specific [place] 1.024 (1.010-1.025) Urine Protein Trace (Neg-Trace) mg/dL Urine Glucose (UA) Normal (Normal) mg/dL - ABG Interpretation ABG results: ABG ABG pH 7.48 pH Units (7.32-7.45) H 12/12/17 05:15 ABG pCO2 34 mmHg (35-45) L 12/12/17 05:15 ABG pO2 93 mmHg (85-104) 12/12/17 05:15 ABG O2 Saturation 98 % (95-98) 12/12/17 05:15 PT/INR, D-dimer PT 13.8 Seconds (9.4-12.1) H 12/19/17 08:50 - Impressions Impressions Chest X-Ray 12/18/17 20:23 IMPRESSION: Mild bibasilar atelectasis. D/ / Orion Washington MD / Orion Washington MD Interpreting Provider: Orion Washington MD X-Ray 12/18/17 20:23 IMPRESSION: Moderate colonic distention is favored to be related to ileus rather than distal obstruction. D/ / Pablo Stauffer MD / Pablo Stauffer MD Interpreting Provider: Pablo Stauffer MD - VTE Documentation of Mechanical Device: Graduated compression elastic hosiery Consult Discharge Plan - Plan Additional Instructions: RISK FACTORS: STOP SMOKING: If you smoke, STOP. Smoking or tobacco use significantly increases your risk of heart disease because nicotine causes the arteries to narrow or constrict. It also causes fats to stick to the artery. Your chances of having a heart attack are greatly increased if you continue to smoke. For more information, call the education line for smoking cessation 0-845-DKPZKYB EAT A LOW FAT/CHOLESTEROL/SODIUM DIET: This diet may help reduce your chances of having a heart attack. LIFTING: Avoid lifting anything more than 10 pounds for 5-7 days Prior to straining, laughing, sneezing and/or coughing, apply manual pressure directly over insertion site. ACTIVITY: You may walk or climb stairs as tolerated You can resume sexual activity as tolerated In general, you are encouraged to engage in a minimum of 30 minutes or more of moderate intensity physical activity, such as brisk walking, daily or at least 3 -4 times weekly BATHING Do not submerge the site into water (bath tub, hot tub, swimming pool) for 1 week. This can be a source for infection into the blood stream. You may shower after 24 hours SITE CARE: After 24 hours, you may remove the dressing and leave the site open to air. Keep the site clean and dry. Clean gently and pat dry. You can expect bruising and tenderness that gradually resolve within a week or two. Return to work as instructed per your physician Resume driving as instructed per physician Keep all scheduled follow up appointments Resume medications as instructed IMPORTANT: If prescribed a Platelet Aggregation Inhibitor such as, Plavix, Brilinta or Effient: Duration of therapy is minimum one year These medications are often used in combination with Aspirin in prevention of future heart attacks Never discontinue unless consult with your [employer] Functional [employer]st STROKE (CVA) Risk factors for a stroke are: Age, cigarette smoking, diabetes, excessive alcohol consumption, family history, high blood pressure, overweight, physical inactivity, prior stroke, heart attack, diagnosis of carotid artery stenosis or other artery disease. Warning signs: Sudden numbness or weakness of the face, arm or leg; especially on one side of the body, sudden confusion, trouble speaking or understanding, sudden trouble seeing in one or both eyes, sudden trouble walking, dizziness, loss of balance or coordination, sudden severe headache with no cause. Call 911 or go to the Emergency Room. CONGESTIVE HEART FAILURE: If you have been diagnosed with Congestive Heart Failure (CHF) and your symptoms return, make an appointment with your physician Weigh yourself daily. Notify your physician if you have a weight gain of two or more pounds in one day or five or more pounds in one week. If you experience any difficulty breathing, please call 911 BLEEDING: Although the risk of bleeding is minimal, it can happen. If you have any bleeding from the site, apply firm pressure above the puncture site for 10-15 minutes. If the bleeding does not stop, continue manual pressure and call 911 Contact your physician if: You develop a fever greater than 101 degrees Fahrenheit Your site becomes reddened or has any drainage You have an increase in pain or burning at the site or if a large knot forms at the site. If you experience chest pain, shortness of breath, dizziness, or extreme tiredness, stop the activity and rest. Please notify your physicians office if you experience any of these symptoms and they are not relieved by rest please call 911! Restart coumadin tonight if no bleeding at cardiac catheterization site. Referrals: Jerome Tobias, [Non-Partnered Physician] - (spoke with Dr. Tobias's office and they will call the patient at home with an appointment) Kailee Keating MD [Partnered Physician] - 12/23/17 10:30 am (Follow up with Dr. Keating in the [place] office. ) Yanira Mathias CNP [Advanced Practice Nurse] - 12/27/17 1:00 am Jairo Diaz MD [Partnered Physician] - 01/05/18 1:15 am Nestor Sagastume MD [Partnered Physician] - 12/26/17 7:45 am <Augustin Zazueta H - Last Filed: 12/19/17 11:29> Date of Encounter: 12/19/17 - Constitutional Vitals: Temp Pulse Resp BP Pulse Ox 97.7 F 67 18 95/57 100 12/19/17 11:04 12/19/17 11:04 12/19/17 11:04 12/19/17 11:04 12/19/17 11:04 Internal Medicine: Result - Labs CBC & Chem 7: 12/18/17 18:25 12/19/17 08:50 Labs: Short CBC 12/18/17 Range/Units 18:25 WBC 10.0 (4.3-11.1) K/mcL Hgb 7.7 L (12.9-16.9) g/dL Hct 23.5 L (37.5-50.1) % Plt Count 450 H D (140-400) K/mcL Neutrophils # 7.7 (1.6-8.9) K/mcL BMP 12/18/17 12/19/17 12/19/17 18:25 03:43 08:50 Sodium 123 L 123 L 126 L Potassium 4.6 4.4 4.4 Chloride 91 L 93 L 94 L Carbon Dioxide 22 L 21 L 20 L BUN 48 H 50 H 49 H Creatinine 2.10 H 2.07 H 1.98 H Glucose 109 H 98 105 Calcium 8.6 8.4 L 8.3 L Liver Function 12/18/17 12/19/17 12/19/17 Range/Units 18:25 03:43 08:50 Total Bilirubin 0.9 0.8 0.8 (0.3-1.0) mg/dL AST 21 20 21 (13-39) Units/L ALT 15 14 16 (7-52) Units/L Alkaline Phosphatase 100 91 93 (34-104) Units/L Albumin 3.4 L 3.3 L 3.1 L (3.5-5.7) g/dL Urine 12/18/17 Range/Units 17:45 Urine Color Dark Yellow (Yellow) Urine Clarity Clear (Clear) Urine pH 5.5 (5.0-8.0) pH Units Ur Specific [place] 1.024 (1.010-1.025) Urine Protein Trace (Neg-Trace) mg/dL Urine Glucose (UA) Normal (Normal) mg/dL - ABG Interpretation ABG results: ABG ABG pH 7.48 pH Units (7.32-7.45) H 12/12/17 05:15 ABG pCO2 34 mmHg (35-45) L 12/12/17 05:15 ABG pO2 93 mmHg (85-104) 12/12/17 05:15 ABG O2 Saturation 98 % (95-98) 12/12/17 05:15 PT/INR, D-dimer PT 13.8 Seconds (9.4-12.1) H 12/19/17 08:50 - Impressions Impressions Chest X-Ray 12/18/17 20:23 IMPRESSION: Mild bibasilar atelectasis. D/ / Orion Washington MD / Orion Washington MD Interpreting Provider: Orion Washington MD X-Ray 12/18/17 20:23 IMPRESSION: Moderate colonic distention is favored to be related to ileus rather than distal obstruction. D/ / Pablo Stauffer MD / Pablo Stauffer MD Interpreting Provider: Pablo Stauffer MD - Attending Attestation Acute and metabolic encephalopathy, unclear etiology, consider narcotics as a source Hyponatremia, appears to be hypovolemic Await lab work History of chronic kidney disease stage III I examined this patient and my medical decision-making was reviewed with the Resident Physician. I agree with the documented findings, disposition and treatment plan as described except to the extent set forth below.
[2017-12-19] MEDS: *HR* Warfarin 2 MG TABLET PO SCH (16:16)
[2017-12-20] MEDS: Ipratropium/Albuterol Neb 3 ML IH SCH ×5 (04:16→19:58)
[2017-12-20 05:11] LABS: Basophils % 0.4 %; Eosinophils # 0.1 K/mcL (0.0-0.6); Eosinophils % 1.3 %; Hematocrit 22.1 % (37.5-50.1); Hemoglobin 7.2 g/dL (12.9-16.9); Immature Granulocytes % 0.4 % (0-4); Lymphocytes # 1.1 K/mcL (0.6-4.6); Lymphocytes % 10.5 %; Mean Corpuscular HGB Conc 32.6 g/dL (31.6-35.5); Mean Corpuscular Hemoglobin 29.8 pg (28.0-33.3); Mean Corpuscular Volume 91.3 fL (83.0-100.0); Mean Platelet Volume 9.8 fL (9.4-12.4); Monocytes # 1.2 K/mcL (0.0-1.3); Monocytes % 11.2 %; Nucleated Red Blood Cells 0.2 /100 WBC (0); Platelet Count 484 K/mcL (140-400); Red Blood Count 2.42 M/mcL (4.19-5.50); Segmented Neutrophils % 76.2 %
[2017-12-20 05:17] LABS: INR 1.4
[2017-12-20 05:22] LABS: Albumin 3.2 g/dL (3.5-5.7); Albumin/Globulin Ratio 1.1 (1.1-2.2); Bilirubin,Total 0.8 mg/dL (0.3-1.0); Calcium 8.2 mg/dL (8.6-10.3); Globulin 2.8 g/dL (2.4-3.5); Potassium 4.5 mEq/L (3.5-5.1)
[2017-12-20] MEDS: *HR* Heparin 5,000 UNIT/ML VIAL SQ SCH (05:38)
--- NOTE | 2017-12-20 07:09 | Cardiothoracic Progress Note ---
Date of Encounter: 12/20/17 Time of Encounter: 07:07 - Assessment and plan (1) CAD (coronary artery disease) Current Visit: Yes Status: Acute The patient is recovering well from his CABG2, modified Maze procedure, and left atrial appendage stapling. He remains in atrial fibrillation with a controlled rate. He will continue with his amiodarone and beta de medical management for his atrial fibrillation. He ambulated in the room yesterday, though he states that he has very weak. The patient was discovered to have urinary retention and abnormal renal function last evening. Both nephrology and urology been consulted to help manage the patient's bladder/renal function. The assessment and plan as outlined above was discussed with the patient and/or family members who expressed understanding and agreement. All questions were answered. Qualifiers: Coronary Disease-Associated Artery/Lesion type: council artery [place] vs. transplanted heart: council heart Associated angina: with unstable angina Qualified Code(s): I25.110 - Atherosclerotic heart disease of council coronary artery with unstable angina pectoris - Subjective Procedure(s) Performed: POD#12 S/P CABG2, modified Maze procedure Interval history: The patient remained hemodynamically stable overnight. He has no complaints. Vital Signs, Last 4 Hours Temp Pulse Resp BP Pulse Ox 12/20/17 04:17 97.7 F 59 16 131/68 97 Oxgyen Flow Rate Oxygen Flow Rate (LPM) 4 Weight 12/18/17 12/19/17 12/20/17 23:59 23:59 23:59 Weight 90.4 kg 89.7 kg - Physical Examination General: Conversant, No Apparent Distress Neck: No JVD, Normal carotid pulses Cardiac: Normal S1 and S2, No Murmur, Other (Irregular rate and rhythm (atrial fibrillation)) Incision: No signs of infection, Dry/intact dressing Sternum: Stable Lungs: Normal Breath Sounds, No Wheeze, Rales, Rhonchi Neuro: Alert and responsive, No focal deficits noted Vascular: Normal capillary refill Musculoskeletal: No Chest Wall Tenderness Extremities: No Clubbing, No Cyanosis, No Edema - Labs 12/20/17 04:16 12/20/17 04:16 Lab Results, Last 24 hours 12/19/17 12/19/17 12/20/17 08:50 08:50 04:16 WBC 10.5 Hgb 7.2 L Hct 22.1 L Plt Count 484 H INR 1.3 Sodium 126 L Potassium 4.4 Chloride 94 L Carbon Dioxide 20 L BUN 49 H Creatinine 1.98 H Glucose 105 Calcium 8.3 L Total Bilirubin 0.8 AST 21 ALT 16 Alkaline Phosphatase 93 TSH 12/20/17 12/20/17 12/20/17 04:16 04:16 04:16 WBC Hgb Hct Plt Count INR 1.4 Sodium 123 L Potassium 4.5 Chloride 93 L Carbon Dioxide 20 L BUN 55 H Creatinine 2.17 H Glucose 102 Calcium 8.2 L Total Bilirubin 0.8 AST 19 ALT 14 Alkaline Phosphatase 90 TSH 5.156 - VTE Documentation of Mechanical Device: Graduated compression elastic hosiery Consult Discharge Plan - Plan Additional Instructions: RISK FACTORS: STOP SMOKING: If you smoke, STOP. Smoking or tobacco use significantly increases your risk of heart disease because nicotine causes the arteries to narrow or constrict. It also causes fats to stick to the artery. Your chances of having a heart attack are greatly increased if you continue to smoke. For more information, call the education line for smoking cessation 4-476-XLQVACZ EAT A LOW FAT/CHOLESTEROL/SODIUM DIET: This diet may help reduce your chances of having a heart attack. LIFTING: Avoid lifting anything more than 10 pounds for 5-7 days Prior to straining, laughing, sneezing and/or coughing, apply manual pressure directly over insertion site. ACTIVITY: You may walk or climb stairs as tolerated You can resume sexual activity as tolerated In general, you are encouraged to engage in a minimum of 30 minutes or more of moderate intensity physical activity, such as brisk walking, daily or at least 3 -4 times weekly BATHING Do not submerge the site into water (bath tub, hot tub, swimming pool) for 1 week. This can be a source for infection into the blood stream. You may shower after 24 hours SITE CARE: After 24 hours, you may remove the dressing and leave the site open to air. Keep the site clean and dry. Clean gently and pat dry. You can expect bruising and tenderness that gradually resolve within a week or two. Return to work as instructed per your physician Resume driving as instructed per physician Keep all scheduled follow up appointments Resume medications as instructed IMPORTANT: If prescribed a Platelet Aggregation Inhibitor such as, Plavix, Brilinta or Effient: Duration of therapy is minimum one year These medications are often used in combination with Aspirin in prevention of future heart attacks Never discontinue unless consult with your Rehabilitation Services Aide STROKE (CVA) Risk factors for a stroke are: Age, cigarette smoking, diabetes, excessive alcohol consumption, family history, high blood pressure, overweight, physical inactivity, prior stroke, heart attack, diagnosis of carotid artery stenosis or other artery disease. Warning signs: Sudden numbness or weakness of the face, arm or leg; especially on one side of the body, sudden confusion, trouble speaking or understanding, sudden trouble seeing in one or both eyes, sudden trouble walking, dizziness, loss of balance or coordination, sudden severe headache with no cause. Call 911 or go to the Emergency Room. CONGESTIVE HEART FAILURE: If you have been diagnosed with Congestive Heart Failure (CHF) and your symptoms return, make an appointment with your physician Weigh yourself daily. Notify your physician if you have a weight gain of two or more pounds in one day or five or more pounds in one week. If you experience any difficulty breathing, please call 911 BLEEDING: Although the risk of bleeding is minimal, it can happen. If you have any bleeding from the site, apply firm pressure above the puncture site for 10-15 minutes. If the bleeding does not stop, continue manual pressure and call 911 Contact your physician if: You develop a fever greater than 101 degrees Fahrenheit Your site becomes reddened or has any drainage You have an increase in pain or burning at the site or if a large knot forms at the site. If you experience chest pain, shortness of breath, dizziness, or extreme tiredness, stop the activity and rest. Please notify your physicians office if you experience any of these symptoms and they are not relieved by rest please call 911! Restart coumadin tonight if no bleeding at cardiac catheterization site. Referrals: Jerome Tobias DO [Non-Partnered Physician] - (spoke with Dr. Tobias's office and they will call the patient at home with an appointment) Kailee Keating MD [Partnered Physician] - 12/23/17 10:30 am (Follow up with Dr. Keating in the [place] office. ) Yanira Mathias [employer] [Advanced Practice Nurse] - (Patient is going to [facility] no PCP appointment needed) Jairo Diaz MD [Partnered Physician] - 01/05/18 1:15 am Nestor Sagastume MD [Partnered Physician] - 12/26/17 7:45 am
--- NOTE | 2017-12-20 07:42 | Urology - Consult Note ---
Date of Encounter: 12/20/17 Time of Encounter: 07:40 - Assessment and Plan (1) Obstructive uropathy Current Visit: Yes Status: Acute Assessment and plan: pt had significant residual urine volume at time of cath placement. unsure if this is a chronic issue or acute after CABG. I recommend starting tamsulosin if his blood pressure will allow. If issues with hypo-tension I recommend not giving tamsulosin until the patient is more stable.. Keep cath in place for now as he needs at least one week to allow his bladder to regain elasticity and provide best chance to pass voiding trial. renal insufficiency is likely multifactorial including anemia, acute illness, obstructive from recent large postvoid residual. ultrasound showed no hydronephrosis indicating no urgent need for ureteral stents. Keep cath in place until renal function starts to improve and is more stable. It is okay if he is discharged with the Parrish catheter in place Urology CN:JUAN JOSÉ Consult date: 12/20/17 Reason for consult Urology: Other History of present illness: new pt to the urology service. CABG ~ one week ago. bladder scan on 12/18 > 999cc. cath placed with return on 1000cc (per nursing notes) Cr is elevated and renal ultrasound completed. Baseline renal function is normal. Creatinine has been around 2. Patient admits to increasing hesitancy prior to his CABG indicating he likely had underlying BPH prior to admission to the hospital. Unremarkable ultrasound of the kidneys and urinary bladder. Past Med Surg Social Fam HX - Past Medical History Medical history: atrial fibrillation, CVA, hyperlipidemia, hypertension, renal disease Psychiatric history: no psych history - Past Surgical History Surgical History: coronary bypass (CABG) - Social History Smoking Status: Never smoker Alcohol use: none Drug use: none - Family History Mother History Unknown: Yes Father History Unknown: Yes Medications and Allergies Amlodipine Besylate 10 mg PO DAILY 12/06/17 [History] Atenolol [Tenormin] 25 mg PO DAILY 12/06/17 [History] Isosorbide MONOnitrate (24 HR) [Imdur] 30 mg PO DAILY 12/06/17 [History] Lisinopril [Zestril] 20 mg PO DAILY 12/06/17 [History] Nitroglycerin [Nitrostat] 0.4 mg SL DAILY PRN 12/06/17 [History] Omeprazole [PriLOSEC] 20 mg PO DAILY 12/06/17 [History] Simvastatin [Zocor] 40 mg PO HS 12/06/17 [History] Warfarin [Coumadin] 2 mg PO DAILY 12/06/17 [History] Aspirin [Lo-Dose Aspirin EC] 81 mg PO DAILY 12/07/17 [History] 3 Allergy/AdvReac Type Severity Reaction Status Date / Time No Known Allergies Allergy Unverified 09/21/17 10:23 Review of Systems - Constitutional fatigue, no chills, no fever(s) - EENT Nose, mouth and throat: dry mouth, no dizziness - Cardiovascular dyspnea - Respiratory cough - Gastrointestinal no abdominal pain, no nausea - Genitourinary no hematuria - Musculoskeletal back pain - Integumentary no erythema - Neurological no confusion - Psychiatric no anxiety - Hematologic/Lymphatic no easy bleeding - Allergic/Immunologic no throat swelling Exam Initial Vital Signs Temp Pulse Resp BP Pulse Ox 97.2 F L 62 18 158/85 96 12/06/17 09:53 12/06/17 09:53 12/06/17 09:53 12/06/17 09:53 12/06/17 09:53 - General physical appearance Present: no distress, chronically ill - Eyes Present: PERRL, conjunctiva is clear - ENT Present: normal nares, no hearing loss - Neck Present: no masses, no lymphadenopathy - Respiratory Present: other (Actively coughing productive) - Cardiovascular Cardiovascular exam IM: RRR - Abdomen Abdomen: Present: soft. Absent: tender, masses, suprapubic tenderness - Integumentary Present: no rash, no growths - Neurologic Present: normal coordination. Absent: disoriented, confused - Additional Findings Parrish catheter in place draining clear urine Urology Results - Labs 12/20/17 04:16 12/20/17 04:16 Abnormal lab results RBC 2.42 M/mcL (4.19-5.50) L 12/20/17 04:16 Hgb 7.2 g/dL (12.9-16.9) L 12/20/17 04:16 Hct 22.1 % (37.5-50.1) L 12/20/17 04:16 Plt Count 484 K/mcL (140-400) H 12/20/17 04:16 Nucleated RBCs/100 WBC 0.2 /100 WBC (0) H 12/20/17 04:16 PT 15.0 Seconds (9.4-12.1) H 12/20/17 04:16 ABG pH 7.48 pH Units (7.32-7.45) H 12/12/17 05:15 ABG pCO2 34 mmHg (35-45) L 12/12/17 05:15 ABG Hematocrit 22.0 % (37.5-50.1) L 12/08/17 11:14 Glucose 123 mg/dL (60-95) H 12/08/17 11:14 Sodium 123 mEq/L (136-145) L 12/20/17 04:16 Chloride 93 mEq/L (98-107) L 12/20/17 04:16 Carbon Dioxide 20 mEq/L (23-29) L 12/20/17 04:16 BUN 55 mg/dL (8-23) H 12/20/17 04:16 Creatinine 2.17 mg/dL (0.70-1.30) H 12/20/17 04:16 Est GFR ( Amer) 36 (> 60) L 12/20/17 04:16 Est GFR (Non-Af Amer) 29 (> 60) L 12/20/17 04:16 POC Glucose 109 (58-89) H 12/17/17 07:02 Hemoglobin A1c 5.8 % (-5.6) H 12/06/17 16:51 Calculated Osmolality 271 (280-300) L 12/20/17 04:16 Calcium 8.2 mg/dL (8.6-10.3) L 12/20/17 04:16 Magnesium 2.8 mg/dL (1.6-2.6) H 12/19/17 03:43 Serum Total Protein 6.0 g/dL (6.4-8.9) L 12/20/17 04:16 Albumin 3.2 g/dL (3.5-5.7) L 12/20/17 04:16 Urine Bilirubin Small (Negative) H 12/18/17 17:45 Urine Microscopic RBC 5-15 per hpf (0-3) H 12/18/17 17:45 Ur Squamous Epith Cells Many per lpf (None-Few) H 12/18/17 17:45 Diabetes panel 12/19/17 12/20/17 Range/Units 08:50 04:16 Sodium 126 L 123 L (136-145) mEq/L Potassium 4.4 4.5 (3.5-5.1) mEq/L Chloride 94 L 93 L (98-107) mEq/L Carbon Dioxide 20 L 20 L (23-29) mEq/L BUN 49 H 55 H (8-23) mg/dL Creatinine 1.98 H 2.17 H (0.70-1.30) mg/dL Glucose 105 102 (70-105) mg/dL Calcium 8.3 L 8.2 L (8.6-10.3) mg/dL AST 21 19 (13-39) Units/L ALT 16 14 (7-52) Units/L Alkaline Phosphatase 93 90 (34-104) Units/L Albumin 3.1 L 3.2 L (3.5-5.7) g/dL Thyroid panel 12/20/17 Range/Units 04:16 TSH 5.156 (0.340-5.600) mcIU/mL Calcium panel 12/19/17 12/20/17 Range/Units 08:50 04:16 Calcium 8.3 L 8.2 L (8.6-10.3) mg/dL Albumin 3.1 L 3.2 L (3.5-5.7) g/dL Pituitary panel 12/19/17 12/20/17 12/20/17 Range/Units 08:50 04:16 04:16 Sodium 126 L 123 L (136-145) mEq/L Potassium 4.4 4.5 (3.5-5.1) mEq/L Chloride 94 L 93 L (98-107) mEq/L Carbon Dioxide 20 L 20 L (23-29) mEq/L BUN 49 H 55 H (8-23) mg/dL Creatinine 1.98 H 2.17 H (0.70-1.30) mg/dL Glucose 105 102 (70-105) mg/dL Calcium 8.3 L 8.2 L (8.6-10.3) mg/dL TSH 5.156 (0.340-5.600) mcIU/mL Adrenal panel 12/19/17 12/20/17 Range/Units 08:50 04:16 Sodium 126 L 123 L (136-145) mEq/L Potassium 4.4 4.5 (3.5-5.1) mEq/L Chloride 94 L 93 L (98-107) mEq/L Carbon Dioxide 20 L 20 L (23-29) mEq/L BUN 49 H 55 H (8-23) mg/dL Creatinine 1.98 H 2.17 H (0.70-1.30) mg/dL Glucose 105 102 (70-105) mg/dL Calcium 8.3 L 8.2 L (8.6-10.3) mg/dL Total Bilirubin 0.8 0.8 (0.3-1.0) mg/dL AST 21 19 (13-39) Units/L ALT 16 14 (7-52) Units/L Alkaline Phosphatase 93 90 (34-104) Units/L Albumin 3.1 L 3.2 L (3.5-5.7) g/dL All other labs normal. Consult Discharge Plan - Plan Additional Instructions: RISK FACTORS: STOP SMOKING: If you smoke, STOP. Smoking or tobacco use significantly increases your risk of heart disease because nicotine causes the arteries to narrow or constrict. It also causes fats to stick to the artery. Your chances of having a heart attack are greatly increased if you continue to smoke. For more information, call the education line for smoking cessation 6-969-EPWDKNX EAT A LOW FAT/CHOLESTEROL/SODIUM DIET: This diet may help reduce your chances of having a heart attack. LIFTING: Avoid lifting anything more than 10 pounds for 5-7 days Prior to straining, laughing, sneezing and/or coughing, apply manual pressure directly over insertion site. ACTIVITY: You may walk or climb stairs as tolerated You can resume sexual activity as tolerated In general, you are encouraged to engage in a minimum of 30 minutes or more of moderate intensity physical activity, such as brisk walking, daily or at least 3 -4 times weekly BATHING Do not submerge the site into water (bath tub, hot tub, swimming pool) for 1 week. This can be a source for infection into the blood stream. You may shower after 24 hours SITE CARE: After 24 hours, you may remove the dressing and leave the site open to air. Keep the site clean and dry. Clean gently and pat dry. You can expect bruising and tenderness that gradually resolve within a week or two. Return to work as instructed per your physician Resume driving as instructed per physician Keep all scheduled follow up appointments Resume medications as instructed IMPORTANT: If prescribed a Platelet Aggregation Inhibitor such as, Plavix, Brilinta or Effient: Duration of therapy is minimum one year These medications are often used in combination with Aspirin in prevention of future heart attacks Never discontinue unless consult with your Press Hand STROKE (CVA) Risk factors for a stroke are: Age, cigarette smoking, diabetes, excessive alcohol consumption, family history, high blood pressure, overweight, physical inactivity, prior stroke, heart attack, diagnosis of carotid artery stenosis or other artery disease. Warning signs: Sudden numbness or weakness of the face, arm or leg; especially on one side of the body, sudden confusion, trouble speaking or understanding, sudden trouble seeing in one or both eyes, sudden trouble walking, dizziness, loss of balance or coordination, sudden severe headache with no cause. Call 911 or go to the Emergency Room. CONGESTIVE HEART FAILURE: If you have been diagnosed with Congestive Heart Failure (CHF) and your symptoms return, make an appointment with your physician Weigh yourself daily. Notify your physician if you have a weight gain of two or more pounds in one day or five or more pounds in one week. If you experience any difficulty breathing, please call 911 BLEEDING: Although the risk of bleeding is minimal, it can happen. If you have any bleeding from the site, apply firm pressure above the puncture site for 10-15 minutes. If the bleeding does not stop, continue manual pressure and call 911 Contact your physician if: You develop a fever greater than 101 degrees Fahrenheit Your site becomes reddened or has any drainage You have an increase in pain or burning at the site or if a large knot forms at the site. If you experience chest pain, shortness of breath, dizziness, or extreme tiredness, stop the activity and rest. Please notify your physicians office if you experience any of these symptoms and they are not relieved by rest please call 911! Restart coumadin tonight if no bleeding at cardiac catheterization site. Referrals: Jerome Tobias DO [Non-Partnered Physician] - (spoke with Dr. Tobias's office and they will call the patient at home with an appointment) Kailee Keating MD [Partnered Physician] - 12/23/17 10:30 am (Follow up with Dr. Keating in the [place] office. ) Yanira Mathias BOILER/CHILLER TECHNICIAN [Advanced Practice Nurse] - (Patient is going to [facility] no PCP appointment needed) Jairo Diaz MD [Partnered Physician] - 01/05/18 1:15 am Nestor Sagastume MD [Partnered Physician] - 12/26/17 7:45 am
[2017-12-20] MEDS: *HR* Amiodarone 200 MG TABLET PO SCH (08:04)
[2017-12-20] MEDS: Chlorhexidine Rinse 15 ML MOUTHWASH MM SCH ×2 (08:04→20:42)
[2017-12-20] MEDS: amLODIPine 5 MG TABLET PO SCH (08:04)
[2017-12-20] MEDS: Aspirin Enteric Coated 81 MG Tablet PO SCH (08:04)
[2017-12-20] MEDS ORDERED: Furosemide 40 MG/4 ML VIAL IVP ONE ×2 (08:11→09:51)
--- NOTE | 2017-12-20 08:11 | Nephrology Progress Note ---
Date of Encounter: 12/20/17 Time of Encounter: 08:10 - Assessment and Plan (1) Acute renal failure Current Visit: Yes Status: Acute The patient appears volume overloaded. His maintenance IV as been discontinued. I am going to give him a dose of Lasix. A chest x-ray has been ordered. Qualifiers: Acute renal failure type: unspecified Qualified Code(s): N17.9 - Acute kidney failure, unspecified (2) Urinary retention Current Visit: Yes Status: Acute (3) Hyponatremia Current Visit: Yes Status: Acute (4) CAD (coronary artery disease) Current Visit: Yes Status: Acute Qualifiers: Coronary Disease-Associated Artery/Lesion type: [place] artery [place] vs. transplanted heart: [place] heart Associated angina: with unstable angina Qualified Code(s): I25.110 - Atherosclerotic heart disease of [place] coronary artery with unstable angina pectoris (5) Afib Current Visit: No Status: Acute Qualifiers: Atrial fibrillation type: chronic Qualified Code(s): I48.2 - Chronic atrial fibrillation Subjective Principal diagnosis: acute respiratory failure with hypoxia Interval history: The patient appears more short of breath. He has more rhonchi on lung exam. He is starting to develop worsening peripheral edema. Urine output is only 630 mL. Creatinine remains at 2.17 and sodium remains low. Objective - Vital Signs Vital signs: Vital Signs Temp Pulse Resp BP Pulse Ox 12/20/17 07:31 22 89 12/20/17 07:26 98.4 F 74 18 98/69 91 12/20/17 04:17 97.7 F 59 16 131/68 97 12/20/17 00:00 20 93 12/19/17 23:58 98.6 F 65 19 98/74 90 12/19/17 20:46 17 94 12/19/17 18:39 97.9 F 81 18 118/89 93 12/19/17 16:40 97.7 F 70 15 105/59 94 12/19/17 15:55 18 93 12/19/17 15:45 97.6 F 72 18 105/50 94 12/19/17 12:20 97.7 F 67 18 95/57 93 12/19/17 11:04 97.7 F 67 18 95/57 100 12/19/17 11:02 20 95 Intake and Output 12/19/17 12/20/17 12/20/17 23:59 07:59 15:59 Intake Total 1512 / 1512 Output Total 80 / 80 280 / 280 Balance 1432 / 1432 -280 / -280 Intake: IV Fluids 151 / 1512 0.9 % Sodium Chloride 1,000 ML 151 / 1512 @ 100 mls/hr IVC .Q10H [facility] Rx#: [id number] Output: Catheter 80 / 80 280 / 280 Other: Meal Dinner Percent of Meal Consumed 0% Weight 89.7 kg Patient Weight 12/20/17 23:59 Weight 89.7 kg - General Appearance Exam: Patient is alert. He appears more dyspneic. Lungs bilateral rhonchi. Heart regular rate and rhythm. Abdomen appears distended.. There is 1-2+ lower extremity swelling. - Lab 12/20/17 04:16 12/20/17 04:16 Most recent lab results ABG pH 7.48 pH Units (7.32-7.45) H 12/12/17 05:15 ABG pCO2 34 mmHg (35-45) L 12/12/17 05:15 ABG pO2 93 mmHg (85-104) 12/12/17 05:15 ABG HCO3 25 mEq/L (21-27) 12/12/17 05:15 ABG O2 Saturation 98 % (95-98) 12/12/17 05:15 Calcium 8.2 mg/dL (8.6-10.3) L 12/20/17 04:16 Magnesium 2.8 mg/dL (1.6-2.6) H 12/19/17 03:43 Urine Sodium 19.9 mEq/L 12/19/17 15:45 - VTE Documentation of Mechanical Device: Graduated compression elastic hosiery Consult Discharge Plan - Plan Additional Instructions: RISK FACTORS: STOP SMOKING: If you smoke, STOP. Smoking or tobacco use significantly increases your risk of heart disease because nicotine causes the arteries to narrow or constrict. It also causes fats to stick to the artery. Your chances of having a heart attack are greatly increased if you continue to smoke. For more information, call the education line for smoking cessation 4-589-YDXJATY EAT A LOW FAT/CHOLESTEROL/SODIUM DIET: This diet may help reduce your chances of having a heart attack. LIFTING: Avoid lifting anything more than 10 pounds for 5-7 days Prior to straining, laughing, sneezing and/or coughing, apply manual pressure directly over insertion site. ACTIVITY: You may walk or climb stairs as tolerated You can resume sexual activity as tolerated In general, you are encouraged to engage in a minimum of 30 minutes or more of moderate intensity physical activity, such as brisk walking, daily or at least 3 -4 times weekly BATHING Do not submerge the site into water (bath tub, hot tub, swimming pool) for 1 week. This can be a source for infection into the blood stream. You may shower after 24 hours SITE CARE: After 24 hours, you may remove the dressing and leave the site open to air. Keep the site clean and dry. Clean gently and pat dry. You can expect bruising and tenderness that gradually resolve within a week or two. Return to work as instructed per your physician Resume driving as instructed per physician Keep all scheduled follow up appointments Resume medications as instructed IMPORTANT: If prescribed a Platelet Aggregation Inhibitor such as, Plavix, Brilinta or Effient: Duration of therapy is minimum one year These medications are often used in combination with Aspirin in prevention of future heart attacks Never discontinue unless consult with your [employer] Packing Machine Feeder STROKE (CVA) Risk factors for a stroke are: Age, cigarette smoking, diabetes, excessive alcohol consumption, family history, high blood pressure, overweight, physical inactivity, prior stroke, heart attack, diagnosis of carotid artery stenosis or other artery disease. Warning signs: Sudden numbness or weakness of the face, arm or leg; especially on one side of the body, sudden confusion, trouble speaking or understanding, sudden trouble seeing in one or both eyes, sudden trouble walking, dizziness, loss of balance or coordination, sudden severe headache with no cause. Call 911 or go to the Emergency Room. CONGESTIVE HEART FAILURE: If you have been diagnosed with Congestive Heart Failure (CHF) and your symptoms return, make an appointment with your physician Weigh yourself daily. Notify your physician if you have a weight gain of two or more pounds in one day or five or more pounds in one week. If you experience any difficulty breathing, please call 911 BLEEDING: Although the risk of bleeding is minimal, it can happen. If you have any bleeding from the site, apply firm pressure above the puncture site for 10-15 minutes. If the bleeding does not stop, continue manual pressure and call 911 Contact your physician if: You develop a fever greater than 101 degrees Fahrenheit Your site becomes reddened or has any drainage You have an increase in pain or burning at the site or if a large knot forms at the site. If you experience chest pain, shortness of breath, dizziness, or extreme tiredness, stop the activity and rest. Please notify your physicians office if you experience any of these symptoms and they are not relieved by rest please call 911! Restart coumadin tonight if no bleeding at cardiac catheterization site. Referrals: Jerome Tobias DO [Non-Partnered Physician] - (spoke with Dr. Tobias's office and they will call the patient at home with an appointment) Kailee Keating MD [Partnered Physician] - 12/23/17 10:30 am (Follow up with Dr. Keating in the [place] office. ) Yanira Mathias, PARKING ANALYST [Advanced Practice Nurse] - (Patient is going to [facility] no PCP appointment needed) Jairo Diaz MD [Partnered Physician] - 01/05/18 1:15 am Nestor Sagastume MD [Partnered Physician] - 12/26/17 7:45 am
[2017-12-20 09:24] LABS: Uric Acid 11.2 mg/dL (2.3-7.6)
--- NOTE | 2017-12-20 10:01 | Event Note ---
Date of Encounter: 12/20/17 Time of Encounter: 09:59 The patient is somewhat somnolent. I will give him 1 unit of packed red blood cells for a hemoglobin of 7.2. He does have total body edema and so I will follow this with Lasix 40 mg IV. He has a history of an old stroke in 2002 and cardiac disease. I will stop his subcutaneous heparin as he is back on Coumadin and his INR is rising. We did staple his left atrial appendage. We will recheck lab tomorrow morning. Hopefully, his creatinine will improve with the addition of the Parrish drainage in the packed red blood cell. This would help us to remove his total body salt and fluid overload. He is afebrile and his white blood cell count is normal.
[2017-12-20] MEDS ORDERED: 0.9 % Sodium Chloride 250 ML ONE (10:46)
[2017-12-20] MEDS: *HR* OxyCODONE/APAP 5/325 TABLET PO PRN ×2 (12:02→21:57)
--- NOTE | 2017-12-20 13:24 | Internal Med Progress Note ---
<Isidro Horner - Last Filed: 12/20/17 15:27> Date of Encounter: 12/20/17 Time of Encounter: 13:20 - Assessment and plan (1) Acute metabolic encephalopathy Current Visit: Yes Status: Resolved Assessment and plan: Acute metabolic encephalopathy: Patient alert and oriented 3. Normal mental status according to . States that patient appears slightly more somnolent at times, but attributes this to the pain medication use as he has never been on narcotics before. We will continue to monitor. Volume overload: Clinically, patient appears to be more volume overloaded. Has rales and rhonchi on lung exam. More abdominal firmness as well and creatinine has again worsened slightly to 2.17. Chest x-ray reveals left pleural effusion. Patient requiring oxygen via nasal cannula. Volume overload probably multifactorial in nature. Patient is +3 L since admission to the hospital. He has only put out 80 mL of urine in the last 24 hours. Has known chronic kidney disease, received a significant operation, is anemic, has issues with obstructive uropathy. Nephrology administered Lasix and has stopped maintenance fluids. Patient's anemia is being addressed by receiving 1 unit of packed red blood cells as hemoglobin was 7.2 today. - obtain an ABG -continue Lasix as recommended by nephrology. -monitor Is/Os - monitor Hb - stop amylodipine as BP has been on the lower end. Chronic kidney disease stage III: Managed per nephrology. Creatinine has increased slightly to 2.17. They administered Lasix 40 mg twice. Hyponatremia: Was 126 is 123 today after continuous administration of 100 mL of 0.9% normal saline per hour. Urine osmolality is high at 410. Urine sodium is low at 19.9. Thrombocytosis: Patient's platelets have slightly increased to 484. Patient still afebrile and not revealing any signs of infection at this time. Continue to monitor. Obstructive uropathy: Urology as recommended continuous Parrish catheter placement. Recommended possible administration of tamsulosin when patient's clinical condition improves as this can cause orthostatic hypotension. We will keep Parrish catheter placed, monitor ins and outs. (2) CKD (chronic kidney disease) stage 3, GFR 30-59 ml/min Current Visit: Yes Status: Acute (3) Hyponatremia Current Visit: Yes Status: Acute (4) Thrombocytosis Current Visit: Yes Status: Acute (5) Obstructive uropathy Current Visit: Yes Status: Acute - Subjective Interval history: Patient states that he is having abdominal pain. Reports not having a bowel movement last night or today. Experiencing shortness of breath. states that he does not appear to be altered. However, she states that he appears to be somnolent. States that her has never been on any pain medications before. Nephrology is giving patient Lasix as he appears very volume overloaded today. Chest x-ray reveals pleural effusion. Urology plans to keep Parrish catheter in place at this time. No maria to remove it. Dr. Sagastume stated that tamsulosin may help, but would recommend careful consideration prior to administration as it may cause orthostatic hypotension. - Constitutional Vitals: Temp Pulse Resp BP Pulse Ox 98.2 F 81 16 108/65 94 12/20/17 13:00 12/20/17 13:00 12/20/17 13:00 12/20/17 13:00 12/20/17 13:00 General appearance: Present: cooperative, A&O X 3, pleasant, no acute distress, answers questions appropriately Exam: Patient on nasal cannula, appearing more short of breath. - Respiratory Additional comments: Diffuse rales and rhonchi throughout. - Cardiovascular Cardiovascular exam: Present: irregular rhythm, +S1, +S2 - GI/Abdominal GI/Abdominal exam: Present: firm. Absent: guarding, no peritoneal signs - Extremities Exam Extremities exam: Present: pedal edema (1+ but normal according to ) Internal Medicine: Result - Labs CBC & Chem 7: 12/20/17 04:16 12/20/17 04:16 Labs: Short CBC 12/20/17 Range/Units 04:16 WBC 10.5 (4.3-11.1) K/mcL Hgb 7.2 L (12.9-16.9) g/dL Hct 22.1 L (37.5-50.1) % Plt Count 484 H (140-400) K/mcL Neutrophils # 8.0 (1.6-8.9) K/mcL BMP 12/20/17 04:16 Sodium 123 L Potassium 4.5 Chloride 93 L Carbon Dioxide 20 L BUN 55 H Creatinine 2.17 H Glucose 102 Calcium 8.2 L Liver Function 12/20/17 Range/Units 04:16 Total Bilirubin 0.8 (0.3-1.0) mg/dL AST 19 (13-39) Units/L ALT 14 (7-52) Units/L Alkaline Phosphatase 90 (34-104) Units/L Albumin 3.2 L (3.5-5.7) g/dL - ABG Interpretation ABG results: ABG ABG pH 7.48 pH Units (7.32-7.45) H 12/12/17 05:15 ABG pCO2 34 mmHg (35-45) L 12/12/17 05:15 ABG pO2 93 mmHg (85-104) 12/12/17 05:15 ABG O2 Saturation 98 % (95-98) 12/12/17 05:15 PT/INR, D-dimer PT 15.0 Seconds (9.4-12.1) H 12/20/17 04:16 - Impressions Impressions Retroperitoneum Ultrasound 12/19/17 17:30 IMPRESSION: Unremarkable ultrasound of the kidneys and urinary bladder. D/ / Jeff Corona MD / Jeff Corona MD Interpreting Provider: Jeff Corona MD Chest X-Ray 12/20/17 07:47 IMPRESSION: Bibasilar atelectasis with small left pleural effusion. D/ / 12/20/2017 09:03:56 Terry Zuñiga MD / [email or web address] Interpreting Provider: Terry Zuñiga MD - VTE Documentation of Mechanical Device: Graduated compression elastic hosiery Consult Discharge Plan - Plan Additional Instructions: RISK FACTORS: STOP SMOKING: If you smoke, STOP. Smoking or tobacco use significantly increases your risk of heart disease because nicotine causes the arteries to narrow or constrict. It also causes fats to stick to the artery. Your chances of having a heart attack are greatly increased if you continue to smoke. For more information, call the education line for smoking cessation 2-027-GENHYBH EAT A LOW FAT/CHOLESTEROL/SODIUM DIET: This diet may help reduce your chances of having a heart attack. LIFTING: Avoid lifting anything more than 10 pounds for 5-7 days Prior to straining, laughing, sneezing and/or coughing, apply manual pressure directly over insertion site. ACTIVITY: You may walk or climb stairs as tolerated You can resume sexual activity as tolerated In general, you are encouraged to engage in a minimum of 30 minutes or more of moderate intensity physical activity, such as brisk walking, daily or at least 3 -4 times weekly BATHING Do not submerge the site into water (bath tub, hot tub, swimming pool) for 1 week. This can be a source for infection into the blood stream. You may shower after 24 hours SITE CARE: After 24 hours, you may remove the dressing and leave the site open to air. Keep the site clean and dry. Clean gently and pat dry. You can expect bruising and tenderness that gradually resolve within a week or two. Return to work as instructed per your physician Resume driving as instructed per physician Keep all scheduled follow up appointments Resume medications as instructed IMPORTANT: If prescribed a Platelet Aggregation Inhibitor such as, Plavix, Brilinta or Effient: Duration of therapy is minimum one year These medications are often used in combination with Aspirin in prevention of future heart attacks Never discontinue unless consult with your Steel Handler STROKE (CVA) Risk factors for a stroke are: Age, cigarette smoking, diabetes, excessive alcohol consumption, family history, high blood pressure, overweight, physical inactivity, prior stroke, heart attack, diagnosis of carotid artery stenosis or other artery disease. Warning signs: Sudden numbness or weakness of the face, arm or leg; especially on one side of the body, sudden confusion, trouble speaking or understanding, sudden trouble seeing in one or both eyes, sudden trouble walking, dizziness, loss of balance or coordination, sudden severe headache with no cause. Call 911 or go to the Emergency Room. CONGESTIVE HEART FAILURE: If you have been diagnosed with Congestive Heart Failure (CHF) and your symptoms return, make an appointment with your physician Weigh yourself daily. Notify your physician if you have a weight gain of two or more pounds in one day or five or more pounds in one week. If you experience any difficulty breathing, please call 911 BLEEDING: Although the risk of bleeding is minimal, it can happen. If you have any bleeding from the site, apply firm pressure above the puncture site for 10-15 minutes. If the bleeding does not stop, continue manual pressure and call 911 Contact your physician if: You develop a fever greater than 101 degrees Fahrenheit Your site becomes reddened or has any drainage You have an increase in pain or burning at the site or if a large knot forms at the site. If you experience chest pain, shortness of breath, dizziness, or extreme tiredness, stop the activity and rest. Please notify your physicians office if you experience any of these symptoms and they are not relieved by rest please call 911! Restart coumadin tonight if no bleeding at cardiac catheterization site. Referrals: Jerome Tobias DO [Non-Partnered Physician] - (spoke with Dr. Tobias's office and they will call the patient at home with an appointment) Kailee Keating MD [Partnered Physician] - 12/23/17 10:30 am (Follow up with Dr. Keating in the [place] office. ) Yanira Mathias, WEB CONSULTANT [Advanced Practice Nurse] - (Patient is [facility] no PCP appointment needed) Jairo Diaz MD [Partnered Physician] - 01/05/18 1:15 am Nestor Sagastume MD [Partnered Physician] - 12/26/17 7:45 am <Augustin Zazueta H - Last Filed: 12/20/17 16:26> Date of Encounter: 12/20/17 - Assessment and plan (1) Acute metabolic encephalopathy Current Visit: Yes Status: Resolved (2) CKD (chronic kidney disease) stage 3, GFR 30-59 ml/min Current Visit: Yes Status: Acute (3) Hyponatremia Current Visit: Yes Status: Acute (4) Thrombocytosis Current Visit: Yes Status: Acute (5) Obstructive uropathy Current Visit: Yes Status: Acute - Constitutional Vitals: Temp Pulse Resp BP Pulse Ox 98.0 F 77 18 109/83 89 12/20/17 16:18 12/20/17 16:18 12/20/17 16:18 12/20/17 16:18 12/20/17 16:18 Internal Medicine: Result - Labs CBC & Chem 7: 12/20/17 04:16 12/20/17 04:16 Labs: Short CBC 12/20/17 Range/Units 04:16 WBC 10.5 (4.3-11.1) K/mcL Hgb 7.2 L (12.9-16.9) g/dL Hct 22.1 L (37.5-50.1) % Plt Count 484 H (140-400) K/mcL Neutrophils # 8.0 (1.6-8.9) K/mcL BMP 12/20/17 04:16 Sodium 123 L Potassium 4.5 Chloride 93 L Carbon Dioxide 20 L BUN 55 H Creatinine 2.17 H Glucose 102 Calcium 8.2 L Liver Function 12/20/17 Range/Units 04:16 Total Bilirubin 0.8 (0.3-1.0) mg/dL AST 19 (13-39) Units/L ALT 14 (7-52) Units/L Alkaline Phosphatase 90 (34-104) Units/L Albumin 3.2 L (3.5-5.7) g/dL - ABG Interpretation ABG results: ABG ABG pH 7.48 pH Units (7.32-7.45) H 12/12/17 05:15 ABG pCO2 34 mmHg (35-45) L 12/12/17 05:15 ABG pO2 93 mmHg (85-104) 12/12/17 05:15 ABG O2 Saturation 98 % (95-98) 12/12/17 05:15 PT/INR, D-dimer PT 15.0 Seconds (9.4-12.1) H 12/20/17 04:16 - Impressions Impressions Retroperitoneum Ultrasound 12/19/17 17:30 IMPRESSION: Unremarkable ultrasound of the kidneys and urinary bladder. D/ / Jeff Corona MD / Jeff Corona MD Interpreting Provider: Jeff Corona MD Chest X-Ray 12/20/17 07:47 IMPRESSION: Bibasilar atelectasis with small left pleural effusion. D/ / 12/20/2017 09:03:56 Terry Zuñiga MD / [email or web address] Interpreting Provider: Terry Zuñiga MD - Attending Attestation Acute and metabolic encephalopathy, unclear etiology, consider narcotics as a source Hyponatremia , volume overloaded Acute blood loss anemia due to surgery transfuse 1 unti of RBCs, Lasix IV check ABG, consider CPAP History of chronic kidney disease stage III I examined this patient and my medical decision-making was reviewed with the Resident Physician. I agree with the documented findings, disposition and treatment plan as described except to the extent set forth below.
[2017-12-20] MEDS ORDERED: MOM Conc 10 ML UD.LIQ PO ONE (15:08)
[2017-12-20] MEDS: *HR* Warfarin 2 MG TABLET PO SCH (18:19)
[2017-12-20 21:16] LABS: ABG Base Excess -4 mEq/L (-2 to 3); ABG HCO3 20 mEq/L (21-27); ABG Oxygen Saturation 96 % (95-98); ABG PCO2 27 mmHg (35-45); ABG PH 7.47 pH Units (7.32-7.45); ABG PO2 72 mmHg (85-104); ABG TCO2 20 mEq/L (20-26)
[2017-12-21] MEDS: Ipratropium/Albuterol Neb 3 ML IH SCH ×7 (00:22→23:01)
[2017-12-21 04:40] LABS: Basophils % 0.2 %; Eosinophils # 0.1 K/mcL (0.0-0.6); Eosinophils % 1.2 %; Hematocrit 24.7 % (37.5-50.1); Hemoglobin 8.2 g/dL (12.9-16.9); Immature Granulocytes % 0.6 % (0-4); Lymphocytes # 0.8 K/mcL (0.6-4.6); Lymphocytes % 7.7 %; Mean Corpuscular HGB Conc 33.2 g/dL (31.6-35.5); Mean Corpuscular Hemoglobin 29.5 pg (28.0-33.3); Mean Corpuscular Volume 88.8 fL (83.0-100.0); Mean Platelet Volume 9.3 fL (9.4-12.4); Monocytes # 1.2 K/mcL (0.0-1.3); Monocytes % 10.8 %; Neutrophils # 8.7 K/mcL (1.6-8.9); Platelet Count 470 K/mcL (140-400); Red Blood Count 2.78 M/mcL (4.19-5.50); Red Cell Distribution Width 14.1 % (11.5-14.5); Segmented Neutrophils % 79.5 %
[2017-12-21 04:50] LABS: INR 1.6; Prothrombin Time 17.4 Seconds (9.4-12.1)
[2017-12-21 04:55] LABS: Albumin/Globulin Ratio 1.1 (1.1-2.2); Calcium 8.5 mg/dL (8.6-10.3); Globulin 2.7 g/dL (2.4-3.5); Potassium 4.3 mEq/L (3.5-5.1); Total Protein 5.7 g/dL (6.4-8.9)
[2017-12-21] MEDS ORDERED: Saliva Stimulant 100ml BOTTLE PO PRN (08:11)
[2017-12-21] MEDS: *HR* Amiodarone 200 MG TABLET PO SCH (08:18)
[2017-12-21] MEDS: Aspirin Enteric Coated 81 MG Tablet PO SCH (08:18)
--- NOTE | 2017-12-21 08:18 | Nephrology Progress Note ---
Date of Encounter: 12/21/17 Time of Encounter: 08:17 - Assessment and Plan (1) Acute renal failure Current Visit: Yes Status: Acute The patient has acute kidney injury likely related to urinary retention. A Parrish catheter is in place. His serum creatinine is slightly better. He appears to be less volume overloaded but still has some peripheral edema. The patient is going to receive another 40 mg of IV Lasix today. Qualifiers: Acute renal failure type: unspecified Qualified Code(s): N17.9 - Acute kidney failure, unspecified (2) Urinary retention Current Visit: Yes Status: Acute (3) Hyponatremia Current Visit: Yes Status: Acute (4) CAD (coronary artery disease) Current Visit: Yes Status: Acute Qualifiers: Coronary Disease-Associated Artery/Lesion type: [place] artery [place] vs. transplanted heart: [place] heart Associated angina: with unstable angina Qualified Code(s): I25.110 - Atherosclerotic heart disease of [place] coronary artery with unstable angina pectoris (5) Afib Current Visit: No Status: Acute Qualifiers: Atrial fibrillation type: chronic Qualified Code(s): I48.2 - Chronic atrial fibrillation Subjective Principal diagnosis: acute respiratory failure with hypoxia Interval history: The patient is complaining of a sore throat. He appears to have less labored breathing. Serum creatinine is slightly better. Urine output is increased compared to the previous day. Objective - Vital Signs Vital signs: Vital Signs Temp Pulse Resp BP Pulse Ox 12/21/17 07:39 16 93 12/21/17 07:07 99.5 F 79 16 116/62 93 12/21/17 04:35 24 92 12/21/17 04:20 98.2 F 76 16 111/70 91 12/21/17 00:22 20 90 12/20/17 22:55 97.8 F 76 17 111/56 93 12/20/17 20:00 24 90 12/20/17 19:23 97.8 F 76 18 127/72 12/20/17 16:18 98.0 F 77 18 109/83 89 12/20/17 15:52 18 88 12/20/17 14:00 98.0 F 79 18 112/42 92 12/20/17 13:00 98.2 F 81 16 108/65 94 12/20/17 12:45 97.4 F L 70 18 112/88 92 12/20/17 12:30 98.2 F 81 16 108/65 94 12/20/17 11:08 99.2 F 90 16 99/76 94 12/20/17 10:57 20 89 Intake and Output 12/20/17 12/21/17 12/21/17 23:59 07:59 15:59 Intake Total 315 / 315 Output Total 920 / 920 440 / 440 Balance -605 / -605 -440 / -440 Intake: Blood Product 315 / 315 Rbcs Leuko Poor As-1 Unit 315 / 315 [id number] Output: Catheter 920 / 920 440 / 440 Other: Weight 93.4 kg Patient Weight 12/21/17 23:59 Weight 93.4 kg - General Appearance Exam: Patient is alert and oriented. He is in no acute distress. Lungs coarse breath sounds otherwise clear. No rhonchi today. Heart irregular rate and rhythm. Abdomen is benign. There is some mild lower extremity swelling. - Lab 12/21/17 04:00 12/21/17 04:00 Most recent lab results ABG pH 7.47 pH Units (7.32-7.45) H 12/20/17 21:12 ABG pCO2 27 mmHg (35-45) L 12/20/17 21:12 ABG pO2 72 mmHg (85-104) L 12/20/17 21:12 ABG HCO3 20 mEq/L (21-27) L 12/20/17 21:12 ABG O2 Saturation 96 % (95-98) 12/20/17 21:12 Calcium 8.5 mg/dL (8.6-10.3) L 12/21/17 04:00 Magnesium 2.8 mg/dL (1.6-2.6) H 12/19/17 03:43 Urine Sodium 19.9 mEq/L 12/19/17 15:45 - VTE Documentation of Mechanical Device: Graduated compression elastic hosiery Consult Discharge Plan - Plan Additional Instructions: RISK FACTORS: STOP SMOKING: If you smoke, STOP. Smoking or tobacco use significantly increases your risk of heart disease because nicotine causes the arteries to narrow or constrict. It also causes fats to stick to the artery. Your chances of having a heart attack are greatly increased if you continue to smoke. For more information, call the education line for smoking cessation [id number]-[id number] EAT A LOW FAT/CHOLESTEROL/SODIUM DIET: This diet may help reduce your chances of having a heart attack. LIFTING: Avoid lifting anything more than 10 pounds for 5-7 days Prior to straining, laughing, sneezing and/or coughing, apply manual pressure directly over insertion site. ACTIVITY: You may walk or climb stairs as tolerated You can resume sexual activity as tolerated In general, you are encouraged to engage in a minimum of 30 minutes or more of moderate intensity physical activity, such as brisk walking, daily or at least 3 -4 times weekly BATHING Do not submerge the site into water (bath tub, hot tub, swimming pool) for 1 week. This can be a source for infection into the blood stream. You may shower after 24 hours SITE CARE: After 24 hours, you may remove the dressing and leave the site open to air. Keep the site clean and dry. Clean gently and pat dry. You can expect bruising and tenderness that gradually resolve within a week or two. Return to work as instructed per your physician Resume driving as instructed per physician Keep all scheduled follow up appointments Resume medications as instructed IMPORTANT: If prescribed a Platelet Aggregation Inhibitor such as, Plavix, Brilinta or Effient: Duration of therapy is minimum one year These medications are often used in combination with Aspirin in prevention of future heart attacks Never discontinue unless consult with your Call Worker STROKE (CVA) Risk factors for a stroke are: Age, cigarette smoking, diabetes, excessive alcohol consumption, family history, high blood pressure, overweight, physical inactivity, prior stroke, heart attack, diagnosis of carotid artery stenosis or other artery disease. Warning signs: Sudden numbness or weakness of the face, arm or leg; especially on one side of the body, sudden confusion, trouble speaking or understanding, sudden trouble seeing in one or both eyes, sudden trouble walking, dizziness, loss of balance or coordination, sudden severe headache with no cause. Call 911 or go to the Emergency Room. CONGESTIVE HEART FAILURE: If you have been diagnosed with Congestive Heart Failure (CHF) and your symptoms return, make an appointment with your physician Weigh yourself daily. Notify your physician if you have a weight gain of two or more pounds in one day or five or more pounds in one week. If you experience any difficulty breathing, please call 911 BLEEDING: Although the risk of bleeding is minimal, it can happen. If you have any bleeding from the site, apply firm pressure above the puncture site for 10-15 minutes. If the bleeding does not stop, continue manual pressure and call 911 Contact your physician if: You develop a fever greater than 101 degrees Fahrenheit Your site becomes reddened or has any drainage You have an increase in pain or burning at the site or if a large knot forms at the site. If you experience chest pain, shortness of breath, dizziness, or extreme tiredness, stop the activity and rest. Please notify your physicians office if you experience any of these symptoms and they are not relieved by rest please call 911! Restart coumadin tonight if no bleeding at cardiac catheterization site. Referrals: Jerome Tobias DO [Non-Partnered Physician] - (spoke with Dr. Tobias's office and they will call the patient at home with an appointment) Kailee Keating MD [Partnered Physician] - 12/23/17 10:30 am (Follow up with Dr. Keating in the [place] office. ) Yanira Mathias, RANGE MANAGER [Advanced Practice Nurse] - (Patient is going to [facility] no PCP appointment needed) Jairo Diaz MD [Partnered Physician] - 01/05/18 1:15 am Nestor Sagastume MD [Partnered Physician] - 12/26/17 7:45 am
[2017-12-21] MEDS: Chlorhexidine Rinse 15 ML MOUTHWASH MM SCH ×2 (08:19→20:28)
[2017-12-21] MEDS: *HR* OxyCODONE/APAP 5/325 TABLET PO PRN ×2 (08:21→20:28)
--- NOTE | 2017-12-21 08:32 | Cardiothoracic Progress Note ---
Date of Encounter: 12/21/17 Time of Encounter: 08:30 - Assessment and plan (1) Afib Current Visit: No Status: Acute The patient has the usual, expected acute postoperative blood loss anemia. He received 1 unit of packed red blood cells yesterday. Creatinine is improved. We will order one dose of Lasix for today. We will order mouthwash for his sore throat which may be secondary to dry mouth with oxygen therapy. Qualifiers: Atrial fibrillation type: chronic Qualified Code(s): I48.2 - Chronic atrial fibrillation - Subjective Interval history: The patient complains of a sore, dry throat. Vital Signs, Last 4 Hours Temp Pulse Resp BP Pulse Ox 12/21/17 07:39 16 93 12/21/17 07:07 99.5 F 79 16 116/62 93 12/21/17 04:35 24 92 Oxgyen Flow Rate Oxygen Flow Rate (LPM) 8 Weight 12/19/17 12/20/17 12/21/17 23:59 23:59 23:59 Weight 90.4 kg 89.7 kg 93.4 kg Lungs are clear to percussion and auscultation. Heart is in atrial fibrillation with a heart rate in the 80s. His incision is healing well without signs of infection and the sternum is stable. I see no evidence of thrush when the patient opens his mouth and sticks his tongue out. - Labs 12/21/17 04:00 12/21/17 04:00 Lab Results, Last 24 hours 12/20/17 12/21/17 12/21/17 04:16 04:00 04:00 WBC 10.9 Hgb 8.2 L Hct 24.7 L Plt Count 470 H INR 1.6 Sodium 123 L Potassium 4.5 Chloride 93 L Carbon Dioxide 20 L BUN 55 H Creatinine 2.17 H Glucose 102 Calcium 8.2 L Total Bilirubin 0.8 AST 19 ALT 14 Alkaline Phosphatase 90 12/21/17 04:00 WBC Hgb Hct Plt Count INR Sodium 124 L Potassium 4.3 Chloride 94 L Carbon Dioxide 20 L BUN 53 H Creatinine 2.01 H Glucose 106 H Calcium 8.5 L Total Bilirubin 1.0 AST 18 ALT 13 Alkaline Phosphatase 97 - VTE Documentation of Mechanical Device: Graduated compression elastic hosiery Consult Discharge Plan - Plan Additional Instructions: RISK FACTORS: STOP SMOKING: If you smoke, STOP. Smoking or tobacco use significantly increases your risk of heart disease because nicotine causes the arteries to narrow or constrict. It also causes fats to stick to the artery. Your chances of having a heart attack are greatly increased if you continue to smoke. For more information, call the education line for smoking cessation 6-555-ZFKLDNV EAT A LOW FAT/CHOLESTEROL/SODIUM DIET: This diet may help reduce your chances of having a heart attack. LIFTING: Avoid lifting anything more than 10 pounds for 5-7 days Prior to straining, laughing, sneezing and/or coughing, apply manual pressure directly over insertion site. ACTIVITY: You may walk or climb stairs as tolerated You can resume sexual activity as tolerated In general, you are encouraged to engage in a minimum of 30 minutes or more of moderate intensity physical activity, such as brisk walking, daily or at least 3 -4 times weekly BATHING Do not submerge the site into water (bath tub, hot tub, swimming pool) for 1 week. This can be a source for infection into the blood stream. You may shower after 24 hours SITE CARE: After 24 hours, you may remove the dressing and leave the site open to air. Keep the site clean and dry. Clean gently and pat dry. You can expect bruising and tenderness that gradually resolve within a week or two. Return to work as instructed per your physician Resume driving as instructed per physician Keep all scheduled follow up appointments Resume medications as instructed IMPORTANT: If prescribed a Platelet Aggregation Inhibitor such as, Plavix, Brilinta or Effient: Duration of therapy is minimum one year These medications are often used in combination with Aspirin in prevention of future heart attacks Never discontinue unless consult with your Vocational Rehabilitation Supervisor STROKE (CVA) Risk factors for a stroke are: Age, cigarette smoking, diabetes, excessive alcohol consumption, family history, high blood pressure, overweight, physical inactivity, prior stroke, heart attack, diagnosis of carotid artery stenosis or other artery disease. Warning signs: Sudden numbness or weakness of the face, arm or leg; especially on one side of the body, sudden confusion, trouble speaking or understanding, sudden trouble seeing in one or both eyes, sudden trouble walking, dizziness, loss of balance or coordination, sudden severe headache with no cause. Call 911 or go to the Emergency Room. CONGESTIVE HEART FAILURE: If you have been diagnosed with Congestive Heart Failure (CHF) and your symptoms return, make an appointment with your physician Weigh yourself daily. Notify your physician if you have a weight gain of two or more pounds in one day or five or more pounds in one week. If you experience any difficulty breathing, please call 911 BLEEDING: Although the risk of bleeding is minimal, it can happen. If you have any bleeding from the site, apply firm pressure above the puncture site for 10-15 minutes. If the bleeding does not stop, continue manual pressure and call 911 Contact your physician if: You develop a fever greater than 101 degrees Fahrenheit Your site becomes reddened or has any drainage You have an increase in pain or burning at the site or if a large knot forms at the site. If you experience chest pain, shortness of breath, dizziness, or extreme tiredness, stop the activity and rest. Please notify your physicians office if you experience any of these symptoms and they are not relieved by rest please call 911! Restart coumadin tonight if no bleeding at cardiac catheterization site. Referrals: Jerome Tobias DO [Non-Partnered Physician] - (spoke with Dr. Tobias's office and they will call the patient at home with an appointment) Kailee Keating MD [Partnered Physician] - 12/23/17 10:30 am (Follow up with Dr. Keating in the [place] office. ) Yanira Mathias, PAINTER RAILROAD CAR [Advanced Practice Nurse] - (Patient is going to [facility] no PCP appointment needed) Jairo Diaz MD [Partnered Physician] - 01/05/18 1:15 am Nestor Sagastume MD [Partnered Physician] - 12/26/17 7:45 am
[2017-12-21] MEDS ORDERED: Furosemide 40 MG/4 ML VIAL IVP ONE (08:35)
--- NOTE | 2017-12-21 09:34 | Internal Med Progress Note ---
<Isidro Horner - Last Filed: 12/21/17 11:59> Date of Encounter: 12/21/17 Time of Encounter: 10:37 - Assessment and plan (1) Acute respiratory failure with hypoxia Current Visit: Yes Status: Acute Assessment and plan: Secondary to volume overload. Clinically, patient is improving. He still experiences shortness of breath, but lung exam reveals improved lung sounds from yesterday. Still has some rales, and abdominal firmness. Arterial blood gas from yesterday reveals respiratory alkalosis with hypoxia. Patient's oxygen saturation currently 93% on 8 L of oxygen via oxy mask. Patient was diuresed with Lasix administration of 40 mg IV twice yesterday. Patient had good urine output. Patient's fluid balance is negative 400 mL. For the hospital stay. We will continue supportive care at this time. Keep patient on fluid restriction. (2) CKD (chronic kidney disease) stage 3, GFR 30-59 ml/min Current Visit: Yes Status: Acute Assessment and plan: Patient's kidney function is stable at this time and has slightly improved from yesterday. Continue per nephrology (3) Hyponatremia Current Visit: Yes Status: Acute Assessment and plan: Patient has sodium of 124. This is about the same as yesterday. -Start salt tablet administration while maintaining fluid restriction. (4) Afib Current Visit: No Status: Acute Assessment and plan: Managed per cardiothoracic team. Qualifiers: Atrial fibrillation type: chronic Qualified Code(s): I48.2 - Chronic atrial fibrillation (5) DVT prophylaxis Current Visit: Yes Status: Acute Assessment and plan: Currently on Coumadin for atrial fibrillation. - Subjective Interval history: Patient reports still having some shortness of breath after administration of 40 mg of Lasix twice yesterday. He does however, state that he feels a lot better than he did. Patient no longer complaining of the abdominal pain. Did not have a bowel movement last night after administration of milk of magnesia. Patient was evaluated by nephrology and the cardiothoracic team. They will administer 40 mg Lasix IV today. - Constitutional Vitals: Temp Pulse Resp BP Pulse Ox 99.5 F 79 16 116/62 93 12/21/17 07:07 12/21/17 07:07 12/21/17 07:39 12/21/17 07:07 12/21/17 07:39 General appearance: Present: cooperative, A&O X 3, pleasant, no acute distress, answers questions appropriately - Respiratory Respiratory exam: Present: rales (Lungs sounds are much improved from yesterday. Still on oxygen mask). Absent: accessory muscle use, respiratory distress Internal Medicine: Result - Labs CBC & Chem 7: 12/21/17 04:00 12/21/17 04:00 Labs: Short CBC 12/21/17 Range/Units 04:00 WBC 10.9 (4.3-11.1) K/mcL Hgb 8.2 L (12.9-16.9) g/dL Hct 24.7 L (37.5-50.1) % Plt Count 470 H (140-400) K/mcL Neutrophils # 8.7 (1.6-8.9) K/mcL BMP 12/21/17 04:00 Sodium 124 L Potassium 4.3 Chloride 94 L Carbon Dioxide 20 L BUN 53 H Creatinine 2.01 H Glucose 106 H Calcium 8.5 L Liver Function 12/21/17 Range/Units 04:00 Total Bilirubin 1.0 (0.3-1.0) mg/dL AST 18 (13-39) Units/L ALT 13 (7-52) Units/L Alkaline Phosphatase 97 (34-104) Units/L Albumin 3.0 L (3.5-5.7) g/dL - ABG Interpretation ABG results: ABG ABG pH 7.47 pH Units (7.32-7.45) H 12/20/17 21:12 ABG pCO2 27 mmHg (35-45) L 12/20/17 21:12 ABG pO2 72 mmHg (85-104) L 12/20/17 21:12 ABG O2 Saturation 96 % (95-98) 12/20/17 21:12 PT/INR, D-dimer PT 17.4 Seconds (9.4-12.1) H 12/21/17 04:00 - Impressions Impressions Chest X-Ray 12/20/17 07:47 IMPRESSION: Bibasilar atelectasis with small left pleural effusion. D/ / 12/20/2017 09:03:56 Terry Zuñiga MD / humera Interpreting Provider: Terry Zuñiga MD - VTE Documentation of Mechanical Device: Graduated compression elastic hosiery Consult Discharge Plan - Plan Additional Instructions: RISK FACTORS: STOP SMOKING: If you smoke, STOP. Smoking or tobacco use significantly increases your risk of heart disease because nicotine causes the arteries to narrow or constrict. It also causes fats to stick to the artery. Your chances of having a heart attack are greatly increased if you continue to smoke. For more information, call the education line for smoking cessation 2-052-NZNKPZA EAT A LOW FAT/CHOLESTEROL/SODIUM DIET: This diet may help reduce your chances of having a heart attack. LIFTING: Avoid lifting anything more than 10 pounds for 5-7 days Prior to straining, laughing, sneezing and/or coughing, apply manual pressure directly over insertion site. ACTIVITY: You may walk or climb stairs as tolerated You can resume sexual activity as tolerated In general, you are encouraged to engage in a minimum of 30 minutes or more of moderate intensity physical activity, such as brisk walking, daily or at least 3 -4 times weekly BATHING Do not submerge the site into water (bath tub, hot tub, swimming pool) for 1 week. This can be a source for infection into the blood stream. You may shower after 24 hours SITE CARE: After 24 hours, you may remove the dressing and leave the site open to air. Keep the site clean and dry. Clean gently and pat dry. You can expect bruising and tenderness that gradually resolve within a week or two. Return to work as instructed per your physician Resume driving as instructed per physician Keep all scheduled follow up appointments Resume medications as instructed IMPORTANT: If prescribed a Platelet Aggregation Inhibitor such as, Plavix, Brilinta or Effient: Duration of therapy is minimum one year These medications are often used in combination with Aspirin in prevention of future heart attacks Never discontinue unless consult with your Superintendent Board Mill STROKE (CVA) Risk factors for a stroke are: Age, cigarette smoking, diabetes, excessive alcohol consumption, family history, high blood pressure, overweight, physical inactivity, prior stroke, heart attack, diagnosis of carotid artery stenosis or other artery disease. Warning signs: Sudden numbness or weakness of the face, arm or leg; especially on one side of the body, sudden confusion, trouble speaking or understanding, sudden trouble seeing in one or both eyes, sudden trouble walking, dizziness, loss of balance or coordination, sudden severe headache with no cause. Call 911 or go to the Emergency Room. CONGESTIVE HEART FAILURE: If you have been diagnosed with Congestive Heart Failure (CHF) and your symptoms return, make an appointment with your physician Weigh yourself daily. Notify your physician if you have a weight gain of two or more pounds in one day or five or more pounds in one week. If you experience any difficulty breathing, please call 911 BLEEDING: Although the risk of bleeding is minimal, it can happen. If you have any bleeding from the site, apply firm pressure above the puncture site for 10-15 minutes. If the bleeding does not stop, continue manual pressure and call 911 Contact your physician if: You develop a fever greater than 101 degrees Fahrenheit Your site becomes reddened or has any drainage You have an increase in pain or burning at the site or if a large knot forms at the site. If you experience chest pain, shortness of breath, dizziness, or extreme tiredness, stop the activity and rest. Please notify your physicians office if you experience any of these symptoms and they are not relieved by rest please call 911! Restart coumadin tonight if no bleeding at cardiac catheterization site. Referrals: Jerome Tobias DO [Non-Partnered Physician] - (spoke with Dr. Tobias's office and they will call the patient at home with an appointment) Kailee Keating MD [Partnered Physician] - 12/23/17 10:30 am (Follow up with Dr. Keating in the [place] office. ) Yanira Mathias, PACKAGING DESIGNER [Advanced Practice Nurse] - (Patient is going to [facility] no PCP appointment needed) Jairo Diaz MD [Partnered Physician] - 01/05/18 1:15 am Nestor Sagastume MD [Partnered Physician] - 12/26/17 7:45 am <Augustin Zazueta - Last Filed: 12/21/17 15:44> Date of Encounter: 12/21/17 - Assessment and plan (1) Acute respiratory failure with hypoxia Current Visit: Yes Status: Acute (2) CKD (chronic kidney disease) stage 3, GFR 30-59 ml/min Current Visit: Yes Status: Acute (3) Hyponatremia Current Visit: Yes Status: Acute (4) Afib Current Visit: No Status: Acute Qualifiers: Atrial fibrillation type: chronic Qualified Code(s): I48.2 - Chronic atrial fibrillation (5) DVT prophylaxis Current Visit: Yes Status: Acute - Constitutional Vitals: Temp Pulse Resp BP Pulse Ox 99.1 F 75 18 100/66 91 12/21/17 11:11 12/21/17 11:11 12/21/17 11:34 12/21/17 11:11 12/21/17 11:34 Internal Medicine: Result - Labs CBC & Chem 7: 12/21/17 04:00 12/21/17 04:00 Labs: Short CBC 12/21/17 Range/Units 04:00 WBC 10.9 (4.3-11.1) K/mcL Hgb 8.2 L (12.9-16.9) g/dL Hct 24.7 L (37.5-50.1) % Plt Count 470 H (140-400) K/mcL Neutrophils # 8.7 (1.6-8.9) K/mcL BMP 12/21/17 04:00 Sodium 124 L Potassium 4.3 Chloride 94 L Carbon Dioxide 20 L BUN 53 H Creatinine 2.01 H Glucose 106 H Calcium 8.5 L Liver Function 12/21/17 Range/Units 04:00 Total Bilirubin 1.0 (0.3-1.0) mg/dL AST 18 (13-39) Units/L ALT 13 (7-52) Units/L Alkaline Phosphatase 97 (34-104) Units/L Albumin 3.0 L (3.5-5.7) g/dL - ABG Interpretation ABG results: ABG ABG pH 7.47 pH Units (7.32-7.45) H 12/20/17 21:12 ABG pCO2 27 mmHg (35-45) L 12/20/17 21:12 ABG pO2 72 mmHg (85-104) L 12/20/17 21:12 ABG O2 Saturation 96 % (95-98) 12/20/17 21:12 PT/INR, D-dimer PT 17.4 Seconds (9.4-12.1) H 12/21/17 04:00 - Attending Attestation Acute and metabolic encephalopathy likely secondary to hypoxia, may avoid narcotics CRX , small left pleural effusion Hyponatremia due to volume overload and poor oral intake may continue diuresis, may try lasix 40 mg in am and 20 mg in the afternoon Acute blood loss anemia due to surgery transfused 1 unti of RBCs consider CPAP History of chronic kidney disease stage III I examined this patient and my medical decision-making was reviewed with the Resident Physician. I agree with the documented findings, disposition and treatment plan as described except to the extent set forth below.
[2017-12-21] MEDS ORDERED: Furosemide 20 MG TABLET PO SCH (15:45)
[2017-12-21] MEDS: Furosemide 20 MG TABLET PO SCH (17:52)
[2017-12-21] MEDS: *HR* Warfarin 2 MG TABLET PO SCH (17:52)
[2017-12-22 01:00] LABS: Basophils % 0.3 %; Eosinophils # 0.1 K/mcL (0.0-0.6); Eosinophils % 1.5 %; Hematocrit 23.7 % (37.5-50.1); Hemoglobin 7.9 g/dL (12.9-16.9); Immature Granulocytes % 0.3 % (0-4); Lymphocytes # 0.8 K/mcL (0.6-4.6); Mean Corpuscular HGB Conc 33.3 g/dL (31.6-35.5); Mean Corpuscular Hemoglobin 29.7 pg (28.0-33.3); Mean Corpuscular Volume 89.1 fL (83.0-100.0); Mean Platelet Volume 9.1 fL (9.4-12.4); Monocytes # 0.9 K/mcL (0.0-1.3); Monocytes % 10.2 %; Neutrophils # 7.3 K/mcL (1.6-8.9); Platelet Count 422 K/mcL (140-400); Red Blood Count 2.66 M/mcL (4.19-5.50); Segmented Neutrophils % 78.7 %
[2017-12-22 01:23] LABS: Albumin/Globulin Ratio 1.1 (1.1-2.2); Bilirubin,Total 0.7 mg/dL (0.3-1.0); Calcium 8.4 mg/dL (8.6-10.3); Globulin 2.7 g/dL (2.4-3.5); Potassium 4.5 mEq/L (3.5-5.1); Total Protein 5.7 g/dL (6.4-8.9)
[2017-12-22] MEDS: Ipratropium/Albuterol Neb 3 ML IH SCH ×6 (04:25→23:57)
[2017-12-22] MEDS: Chlorhexidine Rinse 15 ML MOUTHWASH MM SCH ×2 (08:31→20:34)
[2017-12-22] MEDS: Aspirin Enteric Coated 81 MG Tablet PO SCH (08:31)
[2017-12-22] MEDS: Furosemide 40 MG TABLET PO SCH (08:31)
[2017-12-22] MEDS: *HR* Amiodarone 200 MG TABLET PO SCH (08:31)
--- NOTE | 2017-12-22 09:43 | Cardiothoracic Progress Note ---
Date of Encounter: 12/22/17 Time of Encounter: 09:40 - Assessment and plan (1) Afib Current Visit: No Status: Acute The patient is on laxatives. I did stress that he should take less narcotics and use Tylenol for pain to allow his bowels to recover. I will check a portable KUB. I will give the patient 1 unit packed red blood cells for hemoglobin of 7.9 and because of his history of stroke in the past and cardiac disease. Qualifiers: Atrial fibrillation type: chronic Qualified Code(s): I48.2 - Chronic atrial fibrillation - Subjective Interval history: The patient states that his sore throat is better. He has been doing a fair amount of sitting up and gaining strength. Vital Signs, Last 4 Hours Temp Pulse Resp BP Pulse Ox 12/22/17 08:48 80 12/22/17 08:35 95 12/22/17 08:12 16 90 12/22/17 07:26 99.0 F 86 16 117/66 94 Oxgyen Flow Rate Oxygen Flow Rate (LPM) 6 Weight 12/20/17 12/21/17 12/22/17 23:59 23:59 23:59 Weight 89.7 kg 93.4 kg Lungs are clear to percussion and auscultation. Heart is in an irregular rate and rhythm. All incisions are healing well without signs of infection and the sternum is stable. Abdomen is distended with positive bowel sounds. The patient has not had a bowel movement in 3 days. - Labs 12/22/17 00:49 12/22/17 00:49 Lab Results, Last 24 hours 12/22/17 12/22/17 00:49 00:49 WBC 9.2 Hgb 7.9 L Hct 23.7 L Plt Count 422 H Sodium 124 L Potassium 4.5 Chloride 96 L Carbon Dioxide 19 L BUN 50 H Creatinine 1.64 H Glucose 118 H Calcium 8.4 L Total Bilirubin 0.7 AST 19 ALT 14 Alkaline Phosphatase 111 H - VTE Documentation of Mechanical Device: Graduated compression elastic hosiery Consult Discharge Plan - Plan Additional Instructions: RISK FACTORS: STOP SMOKING: If you smoke, STOP. Smoking or tobacco use significantly increases your risk of heart disease because nicotine causes the arteries to narrow or constrict. It also causes fats to stick to the artery. Your chances of having a heart attack are greatly increased if you continue to smoke. For more information, call the education line for smoking cessation 9-917-WQERDNS EAT A LOW FAT/CHOLESTEROL/SODIUM DIET: This diet may help reduce your chances of having a heart attack. LIFTING: Avoid lifting anything more than 10 pounds for 5-7 days Prior to straining, laughing, sneezing and/or coughing, apply manual pressure directly over insertion site. ACTIVITY: You may walk or climb stairs as tolerated You can resume sexual activity as tolerated In general, you are encouraged to engage in a minimum of 30 minutes or more of moderate intensity physical activity, such as brisk walking, daily or at least 3 -4 times weekly BATHING Do not submerge the site into water (bath tub, hot tub, swimming pool) for 1 week. This can be a source for infection into the blood stream. You may shower after 24 hours SITE CARE: After 24 hours, you may remove the dressing and leave the site open to air. Keep the site clean and dry. Clean gently and pat dry. You can expect bruising and tenderness that gradually resolve within a week or two. Return to work as instructed per your physician Resume driving as instructed per physician Keep all scheduled follow up appointments Resume medications as instructed IMPORTANT: If prescribed a Platelet Aggregation Inhibitor such as, Plavix, Brilinta or Effient: Duration of therapy is minimum one year These medications are often used in combination with Aspirin in prevention of future heart attacks Never discontinue unless consult with your Saddle Mechanic STROKE (CVA) Risk factors for a stroke are: Age, cigarette smoking, diabetes, excessive alcohol consumption, family history, high blood pressure, overweight, physical inactivity, prior stroke, heart attack, diagnosis of carotid artery stenosis or other artery disease. Warning signs: Sudden numbness or weakness of the face, arm or leg; especially on one side of the body, sudden confusion, trouble speaking or understanding, sudden trouble seeing in one or both eyes, sudden trouble walking, dizziness, loss of balance or coordination, sudden severe headache with no cause. Call 911 or go to the Emergency Room. CONGESTIVE HEART FAILURE: If you have been diagnosed with Congestive Heart Failure (CHF) and your symptoms return, make an appointment with your physician Weigh yourself daily. Notify your physician if you have a weight gain of two or more pounds in one day or five or more pounds in one week. If you experience any difficulty breathing, please call 911 BLEEDING: Although the risk of bleeding is minimal, it can happen. If you have any bleeding from the site, apply firm pressure above the puncture site for 10-15 minutes. If the bleeding does not stop, continue manual pressure and call 911 Contact your physician if: You develop a fever greater than 101 degrees Fahrenheit Your site becomes reddened or has any drainage You have an increase in pain or burning at the site or if a large knot forms at the site. If you experience chest pain, shortness of breath, dizziness, or extreme tiredness, stop the activity and rest. Please notify your physicians office if you experience any of these symptoms and they are not relieved by rest please call 911! Restart coumadin tonight if no bleeding at cardiac catheterization site. Referrals: Jerome Tobias DO [Non-Partnered Physician] - (spoke with Dr. Tobias's office and they will call the patient at home with an appointment) Kailee Keating MD [Partnered Physician] - 12/23/17 10:30 am (Follow up with Dr. Keating in the [place] office. ) Yanira Mathias, MOLDER SWEEP [Advanced Practice Nurse] - (Patient is going to [facility] no PCP appointment needed) Jairo Diaz MD [Partnered Physician] - 01/05/18 1:15 am Nestor Sagastume MD [Partnered Physician] - 12/26/17 7:45 am
[2017-12-22] MEDS ORDERED: Acetaminophen 325 MG TABLET PO PRN (09:47)
[2017-12-22] MEDS ORDERED: 0.9 % Sodium Chloride 250 ML ONE (10:14)
--- NOTE | 2017-12-22 10:21 | Nephrology Progress Note ---
Date of Encounter: 12/22/17 Time of Encounter: 10:00 - Assessment and Plan (1) Acute renal failure Current Visit: Yes Status: Acute S/P CABG. BHARATI most likely related to urinary retention. Parrish cath in place. Documented urine output 1440cc. NA remains low, 124. Renal fct improving. Creat 1.64. Accurate I&O's, avoid nephrotoxins. Qualifiers: Acute renal failure type: unspecified Qualified Code(s): N17.9 - Acute kidney failure, unspecified Subjective Principal diagnosis: acute respiratory failure with hypoxia Interval history: Resting quietly in bed. States feeling stronger daily. No new complaints. States appetite improving. Objective - Vital Signs Vital signs: Vital Signs Temp Pulse Resp BP Pulse Ox 12/22/17 08:48 80 12/22/17 08:35 95 12/22/17 08:12 16 90 12/22/17 07:26 99.0 F 86 16 117/66 94 12/22/17 05:00 87 12/22/17 04:28 20 91 12/22/17 01:42 98.3 F 68 16 109/82 92 12/22/17 01:25 68 12/21/17 23:02 16 96 12/21/17 21:16 98.3 F 83 16 111/71 96 12/21/17 20:00 78 12/21/17 19:42 14 95 12/21/17 17:01 91 12/21/17 16:28 20 88 12/21/17 15:56 99.3 F 76 16 110/73 12/21/17 11:34 18 91 12/21/17 11:11 99.1 F 75 18 100/66 90 Intake and Output 12/21/17 12/22/17 12/22/17 23:59 07:59 15:59 Intake Total 640 / 640 200 / 200 360 / 360 Output Total 400 / 400 1000 / 1000 Balance 240 / 240 -800 / -800 360 / 360 Intake: Oral 640 / 640 200 / 200 360 / 360 Output: Catheter 400 / 400 1000 / 1000 Other: Meal Dinner Breakfast Percent of Meal Consumed 75% 95% - General Appearance General appearance: Present: well-developed, well-nourished, appears started age EENT: Present: mucous membranes moist Neck: Present: no JVD Respiratory: Present: clear Cardiology: Present: edema, regular rate, regular rhythm Additional Comments: trace pitting LE Gastrointestinal: Present: normoactive bowel sounds, no tenderness Integumentary: Present: warm and dry Neurologic: Present: alert and oriented x3 - Lab 12/22/17 00:49 12/22/17 00:49 Most recent lab results ABG pH 7.47 pH Units (7.32-7.45) H 12/20/17 21:12 ABG pCO2 27 mmHg (35-45) L 12/20/17 21:12 ABG pO2 72 mmHg (85-104) L 12/20/17 21:12 ABG HCO3 20 mEq/L (21-27) L 12/20/17 21:12 ABG O2 Saturation 96 % (95-98) 12/20/17 21:12 Calcium 8.4 mg/dL (8.6-10.3) L 12/22/17 00:49 Magnesium 2.8 mg/dL (1.6-2.6) H 12/19/17 03:43 Urine Sodium 19.9 mEq/L 12/19/17 15:45 - VTE Documentation of Mechanical Device: Graduated compression elastic hosiery Consult Discharge Plan - Plan Additional Instructions: RISK FACTORS: STOP SMOKING: If you smoke, STOP. Smoking or tobacco use significantly increases your risk of heart disease because nicotine causes the arteries to narrow or constrict. It also causes fats to stick to the artery. Your chances of having a heart attack are greatly increased if you continue to smoke. For more information, call the education line for smoking cessation 0-237-RWBEZVX EAT A LOW FAT/CHOLESTEROL/SODIUM DIET: This diet may help reduce your chances of having a heart attack. LIFTING: Avoid lifting anything more than 10 pounds for 5-7 days Prior to straining, laughing, sneezing and/or coughing, apply manual pressure directly over insertion site. ACTIVITY: You may walk or climb stairs as tolerated You can resume sexual activity as tolerated In general, you are encouraged to engage in a minimum of 30 minutes or more of moderate intensity physical activity, such as brisk walking, daily or at least 3 -4 times weekly BATHING Do not submerge the site into water (bath tub, hot tub, swimming pool) for 1 week. This can be a source for infection into the blood stream. You may shower after 24 hours SITE CARE: After 24 hours, you may remove the dressing and leave the site open to air. Keep the site clean and dry. Clean gently and pat dry. You can expect bruising and tenderness that gradually resolve within a week or two. Return to work as instructed per your physician Resume driving as instructed per physician Keep all scheduled follow up appointments Resume medications as instructed IMPORTANT: If prescribed a Platelet Aggregation Inhibitor such as, Plavix, Brilinta or Effient: Duration of therapy is minimum one year These medications are often used in combination with Aspirin in prevention of future heart attacks Never discontinue unless consult with your Gold Beater STROKE (CVA) Risk factors for a stroke are: Age, cigarette smoking, diabetes, excessive alcohol consumption, family history, high blood pressure, overweight, physical inactivity, prior stroke, heart attack, diagnosis of carotid artery stenosis or other artery disease. Warning signs: Sudden numbness or weakness of the face, arm or leg; especially on one side of the body, sudden confusion, trouble speaking or understanding, sudden trouble seeing in one or both eyes, sudden trouble walking, dizziness, loss of balance or coordination, sudden severe headache with no cause. Call 911 or go to the Emergency Room. CONGESTIVE HEART FAILURE: If you have been diagnosed with Congestive Heart Failure (CHF) and your symptoms return, make an appointment with your physician Weigh yourself daily. Notify your physician if you have a weight gain of two or more pounds in one day or five or more pounds in one week. If you experience any difficulty breathing, please call 911 BLEEDING: Although the risk of bleeding is minimal, it can happen. If you have any bleeding from the site, apply firm pressure above the puncture site for 10-15 minutes. If the bleeding does not stop, continue manual pressure and call 911 Contact your physician if: You develop a fever greater than 101 degrees Fahrenheit Your site becomes reddened or has any drainage You have an increase in pain or burning at the site or if a large knot forms at the site. If you experience chest pain, shortness of breath, dizziness, or extreme tiredness, stop the activity and rest. Please notify your physicians office if you experience any of these symptoms and they are not relieved by rest please call 911! Restart coumadin tonight if no bleeding at cardiac catheterization site. Referrals: Jerome Tobias, DO [Non-Partnered Physician] - (spoke with Dr. Tobias's office and they will call the patient at home with an appointment) Kailee Keating MD [Partnered Physician] - 12/23/17 10:30 am (Follow up with Dr. Keating in the [place] office. ) Yanira Mathias, SAP BW ARCHITECT [Advanced Practice Nurse] - (Patient is going to [facility] no PCP appointment needed) Jairo Diaz MD [Partnered Physician] - 01/05/18 1:15 am Nestor Sagastume MD [Partnered Physician] - 12/26/17 7:45 am
--- NOTE | 2017-12-22 10:33 | Internal Med Progress Note ---
<Isidro Horner - Last Filed: 12/22/17 11:14> Date of Encounter: 12/22/17 Time of Encounter: 10:27 - Assessment and plan (1) Acute respiratory failure with hypoxia Current Visit: Yes Status: Acute Assessment and plan: Patient alert and oriented 3, mentating well, still on 8 L of oxygen via oxygen mask. Reporting that he is feeling slightly improved from yesterday. Does not appear to be in any acute respiratory distress. Continue to monitor. Titrate oxygen as tolerated to keep oxygen saturation of 93%. (2) CKD (chronic kidney disease) stage 3, GFR 30-59 ml/min Current Visit: Yes Status: Acute Assessment and plan: Creatinine has improved significantly from the last couple days. No creatinine is 1.64. Continue to monitor. (3) Hyponatremia Current Visit: Yes Status: Acute Assessment and plan: Sodium today is 124. Same as yesterday. Will start administering 1 g sodium chloride tablet twice daily. Continue to monitor sodium. Concern for worsening inflammation of the bowel which will cause worsening constipation and decreased absorption if we are too aggressive with sodium administration at this time. (4) Afib Current Visit: No Status: Acute Assessment and plan: Continue current medications as atrial fibrillation is under rate control. Qualifiers: Atrial fibrillation type: chronic Qualified Code(s): I48.2 - Chronic atrial fibrillation (5) DVT prophylaxis Current Visit: Yes Status: Acute Assessment and plan: Is currently therapeutic on warfarin - Subjective Interval history: Patient states that his shortness of breath has improved slightly since yesterday. Having abdominal pain. Patient has not had a bowel movement in 3 days. Sodium is still low at 124. Renal function has improved. With creatinine of 1.64. Thrombocytosis is also improved with platelets of 422 from 470. Hemoglobin 7.9 and was 8.2 yesterday. Patient denies any fevers. No fevers recorded. - Constitutional Vitals: Temp Pulse Resp BP Pulse Ox 99.0 F 80 16 117/66 95 12/22/17 07:26 12/22/17 08:48 12/22/17 08:12 12/22/17 07:26 12/22/17 08:35 General appearance: Present: cooperative, A&O X 3, pleasant, no acute distress, answers questions appropriately - Head Head exam: Present: atraumatic - Respiratory Respiratory exam: Present: CTAB. Absent: accessory muscle use - Cardiovascular Cardiovascular exam: Present: irregular rhythm Additional comments: Sternotomy incision looks clean, no active bleeding, no erythema. - GI/Abdominal GI/Abdominal exam: Present: firm, tenderness (Mild epigastric tenderness to palpation). Absent: guarding, no peritoneal signs - Extremities Exam Extremities exam: Present: pedal edema (Mild 1+) - Incison Comments: Incision on chest clean, dry, intact, no erythema, no. No drainage. Internal Medicine: Result - Labs CBC & Chem 7: 12/22/17 00:49 12/22/17 00:49 Labs: Short CBC 12/22/17 Range/Units 00:49 WBC 9.2 (4.3-11.1) K/mcL Hgb 7.9 L (12.9-16.9) g/dL Hct 23.7 L (37.5-50.1) % Plt Count 422 H (140-400) K/mcL Neutrophils # 7.3 (1.6-8.9) K/mcL BMP 12/22/17 00:49 Sodium 124 L Potassium 4.5 Chloride 96 L Carbon Dioxide 19 L BUN 50 H Creatinine 1.64 H Glucose 118 H Calcium 8.4 L Liver Function 12/22/17 Range/Units 00:49 Total Bilirubin 0.7 (0.3-1.0) mg/dL AST 19 (13-39) Units/L ALT 14 (7-52) Units/L Alkaline Phosphatase 111 H (34-104) Units/L Albumin 3.0 L (3.5-5.7) g/dL - ABG Interpretation ABG results: ABG ABG pH 7.47 pH Units (7.32-7.45) H 12/20/17 21:12 ABG pCO2 27 mmHg (35-45) L 12/20/17 21:12 ABG pO2 72 mmHg (85-104) L 12/20/17 21:12 ABG O2 Saturation 96 % (95-98) 12/20/17 21:12 PT/INR, D-dimer PT 17.4 Seconds (9.4-12.1) H 12/21/17 04:00 - VTE Documentation of Mechanical Device: Graduated compression elastic hosiery Consult Discharge Plan - Plan Additional Instructions: RISK FACTORS: STOP SMOKING: If you smoke, STOP. Smoking or tobacco use significantly increases your risk of heart disease because nicotine causes the arteries to narrow or constrict. It also causes fats to stick to the artery. Your chances of having a heart attack are greatly increased if you continue to smoke. For more information, call the education line for smoking cessation 0-012-FXWRFZE EAT A LOW FAT/CHOLESTEROL/SODIUM DIET: This diet may help reduce your chances of having a heart attack. LIFTING: Avoid lifting anything more than 10 pounds for 5-7 days Prior to straining, laughing, sneezing and/or coughing, apply manual pressure directly over insertion site. ACTIVITY: You may walk or climb stairs as tolerated You can resume sexual activity as tolerated In general, you are encouraged to engage in a minimum of 30 minutes or more of moderate intensity physical activity, such as brisk walking, daily or at least 3 -4 times weekly BATHING Do not submerge the site into water (bath tub, hot tub, swimming pool) for 1 week. This can be a source for infection into the blood stream. You may shower after 24 hours SITE CARE: After 24 hours, you may remove the dressing and leave the site open to air. Keep the site clean and dry. Clean gently and pat dry. You can expect bruising and tenderness that gradually resolve within a week or two. Return to work as instructed per your physician Resume driving as instructed per physician Keep all scheduled follow up appointments Resume medications as instructed IMPORTANT: If prescribed a Platelet Aggregation Inhibitor such as, Plavix, Brilinta or Effient: Duration of therapy is minimum one year These medications are often used in combination with Aspirin in prevention of future heart attacks Never discontinue unless consult with your Numerical Control Operator STROKE (CVA) Risk factors for a stroke are: Age, cigarette smoking, diabetes, excessive alcohol consumption, family history, high blood pressure, overweight, physical inactivity, prior stroke, heart attack, diagnosis of carotid artery stenosis or other artery disease. Warning signs: Sudden numbness or weakness of the face, arm or leg; especially on one side of the body, sudden confusion, trouble speaking or understanding, sudden trouble seeing in one or both eyes, sudden trouble walking, dizziness, loss of balance or coordination, sudden severe headache with no cause. Call 911 or go to the Emergency Room. CONGESTIVE HEART FAILURE: If you have been diagnosed with Congestive Heart Failure (CHF) and your symptoms return, make an appointment with your physician Weigh yourself daily. Notify your physician if you have a weight gain of two or more pounds in one day or five or more pounds in one week. If you experience any difficulty breathing, please call 911 BLEEDING: Although the risk of bleeding is minimal, it can happen. If you have any bleeding from the site, apply firm pressure above the puncture site for 10-15 minutes. If the bleeding does not stop, continue manual pressure and call 911 Contact your physician if: You develop a fever greater than 101 degrees Fahrenheit Your site becomes reddened or has any drainage You have an increase in pain or burning at the site or if a large knot forms at the site. If you experience chest pain, shortness of breath, dizziness, or extreme tiredness, stop the activity and rest. Please notify your physicians office if you experience any of these symptoms and they are not relieved by rest please call 911! Restart coumadin tonight if no bleeding at cardiac catheterization site. Referrals: Jerome Tobias DO [Non-Partnered Physician] - (spoke with Dr. Tobias's office and they will call the patient at home with an appointment) Kailee Keating MD [Partnered Physician] - 12/23/17 10:30 am (Follow up with Dr. Keating in the [place] office. ) Yanira Mathias, NOTE TELLER [Advanced Practice Nurse] - (Patient is going to [facility] no PCP appointment needed) Jairo Diaz MD [Partnered Physician] - 01/05/18 1:15 am Nestor Sagastume MD [Partnered Physician] - 12/26/17 7:45 am <Augustin Zazueta - Last Filed: 12/22/17 12:44> Date of Encounter: 12/22/17 - Assessment and plan (1) Acute respiratory failure with hypoxia Current Visit: Yes Status: Acute (2) CKD (chronic kidney disease) stage 3, GFR 30-59 ml/min Current Visit: Yes Status: Acute (3) Hyponatremia Current Visit: Yes Status: Acute (4) Afib Current Visit: No Status: Acute Qualifiers: Atrial fibrillation type: chronic Qualified Code(s): I48.2 - Chronic atrial fibrillation (5) DVT prophylaxis Current Visit: Yes Status: Acute - Constitutional Vitals: Temp Pulse Resp BP Pulse Ox 97.8 F 103 17 105/89 99 12/22/17 11:24 12/22/17 11:24 12/22/17 11:24 12/22/17 11:24 12/22/17 11:24 Internal Medicine: Result - Labs CBC & Chem 7: 12/22/17 00:49 12/22/17 00:49 Labs: Short CBC 12/22/17 Range/Units 00:49 WBC 9.2 (4.3-11.1) K/mcL Hgb 7.9 L (12.9-16.9) g/dL Hct 23.7 L (37.5-50.1) % Plt Count 422 H (140-400) K/mcL Neutrophils # 7.3 (1.6-8.9) K/mcL BMP 12/22/17 00:49 Sodium 124 L Potassium 4.5 Chloride 96 L Carbon Dioxide 19 L BUN 50 H Creatinine 1.64 H Glucose 118 H Calcium 8.4 L Liver Function 12/22/17 Range/Units 00:49 Total Bilirubin 0.7 (0.3-1.0) mg/dL AST 19 (13-39) Units/L ALT 14 (7-52) Units/L Alkaline Phosphatase 111 H (34-104) Units/L Albumin 3.0 L (3.5-5.7) g/dL - ABG Interpretation ABG results: ABG ABG pH 7.47 pH Units (7.32-7.45) H 12/20/17 21:12 ABG pCO2 27 mmHg (35-45) L 12/20/17 21:12 ABG pO2 72 mmHg (85-104) L 12/20/17 21:12 ABG O2 Saturation 96 % (95-98) 12/20/17 21:12 PT/INR, D-dimer PT 17.4 Seconds (9.4-12.1) H 12/21/17 04:00 - Impressions Impressions Chest X-Ray 12/22/17 09:45 IMPRESSION: 1. Stable mild left pleural effusion and bilateral lower lobe atelectasis. 2. Stable adynamic ileus. D/ / 12/22/2017 10:29:35 Gray Parmar MD / Stephie Rivas Interpreting Provider: Gray Parmar MD X-Ray 12/22/17 09:46 IMPRESSION: 1. Stable mild left pleural effusion and bilateral lower lobe atelectasis. 2. Stable adynamic ileus. D/ / 12/22/2017 10:29:35 Gray Parmar MD / Stephie Rivas Interpreting Provider: Gray Parmar MD - Attending Attestation Acute and metabolic encephalopathy likely secondary to hypoxia, may avoid narcotics CRX , small left pleural effusion Hyponatremia due to volume overload and poor oral intake, start salt tablets may continue diuresis with lasix 40 mg in am and 20 mg in the afternoon Acute blood loss anemia due to surgery transfused 1 unti of RBCs consider CPAP History of chronic kidney disease stage III I examined this patient and my medical decision-making was reviewed with the Resident Physician. I agree with the documented findings, disposition and treatment plan as described except to the extent set forth below.
[2017-12-22] MEDS: Furosemide 20 MG TABLET PO SCH (17:31)
[2017-12-22] MEDS: *HR* Warfarin 2 MG TABLET PO SCH (17:31)
[2017-12-23] MEDS: Ipratropium/Albuterol Neb 3 ML IH SCH ×5 (03:50→20:28)
[2017-12-23 04:10] LABS: Basophils % 0.3 %; Eosinophils # 0.1 K/mcL (0.0-0.6); Eosinophils % 1.4 %; Hematocrit 27.3 % (37.5-50.1); Immature Granulocytes % 0.3 % (0-4); Lymphocytes # 0.8 K/mcL (0.6-4.6); Lymphocytes % 9.2 %; Mean Corpuscular Hemoglobin 29.1 pg (28.0-33.3); Mean Corpuscular Volume 88.3 fL (83.0-100.0); Mean Platelet Volume 9.1 fL (9.4-12.4); Monocytes # 1.2 K/mcL (0.0-1.3); Monocytes % 13.4 %; Neutrophils # 6.9 K/mcL (1.6-8.9); Nucleated Red Blood Cells 0.2 /100 WBC (0); Platelet Count 476 K/mcL (140-400); Red Blood Count 3.09 M/mcL (4.19-5.50); Red Cell Distribution Width 14.2 % (11.5-14.5); Segmented Neutrophils % 75.4 %
[2017-12-23 04:13] LABS: INR 1.8; Prothrombin Time 19.7 Seconds (9.4-12.1)
[2017-12-23 04:29] LABS: BUN/Creatinine Ratio 29 (6-26); Blood Urea Nitrogen 37 mg/dL (8-23); Calcium 8.5 mg/dL (8.6-10.3); Carbon Dioxide 21 mEq/L (23-29); Chloride 96 mEq/L (98-107); Glucose 110 mg/dL (70-105); Osmolality,Calculated 271 (280-300); Potassium 4.5 mEq/L (3.5-5.1); Sodium 126 mEq/L (136-145); eGFR For African Americans > 60 (> 60); eGFR For Non-African Americans 55 (> 60)
[2017-12-23] MEDS: Furosemide 40 MG TABLET PO SCH (07:35)
[2017-12-23] MEDS: *HR* Amiodarone 200 MG TABLET PO SCH (07:35)
[2017-12-23] MEDS: Chlorhexidine Rinse 15 ML MOUTHWASH MM SCH ×2 (07:36→20:13)
[2017-12-23] MEDS: Aspirin Enteric Coated 81 MG Tablet PO SCH (07:36)
--- NOTE | 2017-12-23 09:08 | Cardiothoracic Progress Note ---
Date of Encounter: 12/23/17 Time of Encounter: 09:05 - Assessment and plan (1) Afib Current Visit: No Status: Acute Creatinine and sodium continue to improve. I will stop the patient's narcotics to allow his ileus to continue to resolve. We will attempt to wean the patient' s inspired oxygen as tolerated. Qualifiers: Atrial fibrillation type: chronic Qualified Code(s): I48.2 - Chronic atrial fibrillation - Subjective Interval history: The patient continues to gain strength. He did have a normal bowel movement this morning. Vital Signs, Last 4 Hours Temp Pulse Resp BP Pulse Ox 12/23/17 07:43 86 12/23/17 07:32 16 97 12/23/17 06:55 97.9 F 95 20 121/80 91 Oxgyen Flow Rate Oxygen Flow Rate (LPM) 5 Clinical Data, last 8 Hours Output, Urine Amount 500 Weight 12/21/17 12/22/17 12/23/17 23:59 23:59 23:59 Weight 93.4 kg 92.8 kg Lungs are clear to percussion and auscultation. Heart is in an atrial fibrillation with a controlled rate. All incisions are healing well without signs of infection and the sternum is stable. Chest x-ray done yesterday revealed atelectasis and a small pleural effusion. KUB revealed ileus. - Labs 12/23/17 03:34 12/23/17 03:34 Lab Results, Last 24 hours 12/23/17 12/23/17 12/23/17 03:34 03:34 03:34 WBC 9.1 Hgb 9.0 L Hct 27.3 L Plt Count 476 H INR 1.8 Sodium 126 L Potassium 4.5 Chloride 96 L Carbon Dioxide 21 L BUN 37 H Creatinine 1.27 Glucose 110 H Calcium 8.5 L - VTE Documentation of Mechanical Device: Graduated compression elastic hosiery Consult Discharge Plan - Plan Additional Instructions: RISK FACTORS: STOP SMOKING: If you smoke, STOP. Smoking or tobacco use significantly increases your risk of heart disease because nicotine causes the arteries to narrow or constrict. It also causes fats to stick to the artery. Your chances of having a heart attack are greatly increased if you continue to smoke. For more information, call the education line for smoking cessation 8-329-MSBOLUZ EAT A LOW FAT/CHOLESTEROL/SODIUM DIET: This diet may help reduce your chances of having a heart attack. LIFTING: Avoid lifting anything more than 10 pounds for 5-7 days Prior to straining, laughing, sneezing and/or coughing, apply manual pressure directly over insertion site. ACTIVITY: You may walk or climb stairs as tolerated You can resume sexual activity as tolerated In general, you are encouraged to engage in a minimum of 30 minutes or more of moderate intensity physical activity, such as brisk walking, daily or at least 3 -4 times weekly BATHING Do not submerge the site into water (bath tub, hot tub, swimming pool) for 1 week. This can be a source for infection into the blood stream. You may shower after 24 hours SITE CARE: After 24 hours, you may remove the dressing and leave the site open to air. Keep the site clean and dry. Clean gently and pat dry. You can expect bruising and tenderness that gradually resolve within a week or two. Return to work as instructed per your physician Resume driving as instructed per physician Keep all scheduled follow up appointments Resume medications as instructed IMPORTANT: If prescribed a Platelet Aggregation Inhibitor such as, Plavix, Brilinta or Effient: Duration of therapy is minimum one year These medications are often used in combination with Aspirin in prevention of future heart attacks Never discontinue unless consult with your Manager Concrete STROKE (CVA) Risk factors for a stroke are: Age, cigarette smoking, diabetes, excessive alcohol consumption, family history, high blood pressure, overweight, physical inactivity, prior stroke, heart attack, diagnosis of carotid artery stenosis or other artery disease. Warning signs: Sudden numbness or weakness of the face, arm or leg; especially on one side of the body, sudden confusion, trouble speaking or understanding, sudden trouble seeing in one or both eyes, sudden trouble walking, dizziness, loss of balance or coordination, sudden severe headache with no cause. Call 911 or go to the Emergency Room. CONGESTIVE HEART FAILURE: If you have been diagnosed with Congestive Heart Failure (CHF) and your symptoms return, make an appointment with your physician Weigh yourself daily. Notify your physician if you have a weight gain of two or more pounds in one day or five or more pounds in one week. If you experience any difficulty breathing, please call 911 BLEEDING: Although the risk of bleeding is minimal, it can happen. If you have any bleeding from the site, apply firm pressure above the puncture site for 10-15 minutes. If the bleeding does not stop, continue manual pressure and call 911 Contact your physician if: You develop a fever greater than 101 degrees Fahrenheit Your site becomes reddened or has any drainage You have an increase in pain or burning at the site or if a large knot forms at the site. If you experience chest pain, shortness of breath, dizziness, or extreme tiredness, stop the activity and rest. Please notify your physicians office if you experience any of these symptoms and they are not relieved by rest please call 911! Restart coumadin tonight if no bleeding at cardiac catheterization site. Referrals: Jerome Tobias DO [Non-Partnered Physician] - (spoke with Dr. Tobias's office and they will call the patient at home with an appointment) Kailee Keating MD [Partnered Physician] - 12/23/17 10:30 am (Follow up with Dr. Keating in the [place] office. ) Yanira Mathias, TANNING SOLUTION MAKER [Advanced Practice Nurse] - (Patient is going to [facility] no PCP appointment needed) Jairo Diaz MD [Partnered Physician] - 01/05/18 1:15 am Nestor Sagastume MD [Partnered Physician] - 12/26/17 7:45 am
--- NOTE | 2017-12-23 09:15 | Internal Med Progress Note ---
<Isidro Horner - Last Filed: 12/23/17 13:31> Date of Encounter: 12/23/17 Time of Encounter: 09:15 - Assessment and plan (1) Acute respiratory failure with hypoxia Current Visit: Yes Status: Acute Assessment and plan: Patient oxygen saturation is 93% on 5 L of oxygen via nasal cannula. Patient was complaining about pain in his nose. He has been provided humidified oxygen to assist. Continue weaning oxygen as tolerated keeping oxygen saturation 93% or above. Patient not oxygen dependent. Chest x-ray was obtained reveals pleural effusion. Continue diuresis as tolerated. Suspect improving kidney function with Parrish catheter in place will help with the fluid overload. (2) CKD (chronic kidney disease) stage 3, GFR 30-59 ml/min Current Visit: Yes Status: Acute Assessment and plan: Creatinine is currently 1.27. This has improved significantly. (3) Hyponatremia Current Visit: Yes Status: Acute Assessment and plan: Currently on salt tablets. Taking 1 g twice daily. Sodium has improved to 126. Continue the salt tablets and continue monitoring sodium. (4) Afib Current Visit: No Status: Acute Assessment and plan: Currently rate controlled. Qualifiers: Atrial fibrillation type: chronic Qualified Code(s): I48.2 - Chronic atrial fibrillation (5) DVT prophylaxis Current Visit: Yes Status: Acute Assessment and plan: On warfarin. - Subjective Interval history: Patient states that his shortness of breath has improved slightly since yesterday. States that his nose hurts. Currently on humidified oxygen. Still hyponatremic, but sodium has improved to 126 after administration of salt tablets. Renal function has improved. With creatinine of creatinine currently 1.27. Hemoglobin 9.0. Patient denies any fevers. No fevers recorded. - Constitutional Vitals: Temp Pulse Resp BP Pulse Ox 97.9 F 86 16 121/80 97 12/23/17 06:55 12/23/17 07:43 12/23/17 07:32 12/23/17 06:55 12/23/17 07:32 General appearance: Present: cooperative, A&O X 3, pleasant, no acute distress, answers questions appropriately - Head Head exam: Present: atraumatic - Respiratory Respiratory exam: Present: CTAB Additional comments: Oxygen saturation 93% on 5 L via nasal cannula. - Cardiovascular Cardiovascular exam: Present: irregular rhythm. Absent: JVD - GI/Abdominal GI/Abdominal exam: Present: firm. Absent: rebound, rigid, tenderness - Extremities Exam Extremities exam: Present: pedal edema (1+) - Neurological Exam Neurological exam: Present: oriented X3 Internal Medicine: Result - Labs CBC & Chem 7: 12/23/17 03:34 12/23/17 03:34 Labs: Short CBC 12/23/17 Range/Units 03:34 WBC 9.1 (4.3-11.1) K/mcL Hgb 9.0 L (12.9-16.9) g/dL Hct 27.3 L (37.5-50.1) % Plt Count 476 H (140-400) K/mcL Neutrophils # 6.9 (1.6-8.9) K/mcL BMP 12/23/17 03:34 Sodium 126 L Potassium 4.5 Chloride 96 L Carbon Dioxide 21 L BUN 37 H Creatinine 1.27 Glucose 110 H Calcium 8.5 L - ABG Interpretation ABG results: ABG ABG pH 7.47 pH Units (7.32-7.45) H 12/20/17 21:12 ABG pCO2 27 mmHg (35-45) L 12/20/17 21:12 ABG pO2 72 mmHg (85-104) L 12/20/17 21:12 ABG O2 Saturation 96 % (95-98) 12/20/17 21:12 PT/INR, D-dimer PT 19.7 Seconds (9.4-12.1) H 12/23/17 03:34 - Impressions Impressions Chest X-Ray 12/22/17 09:45 IMPRESSION: 1. Stable mild left pleural effusion and bilateral lower lobe atelectasis. 2. Stable adynamic ileus. D/ / 12/22/2017 10:29:35 Gray Parmar MD / Stephie Rivas Interpreting Provider: Gray Parmar MD X-Ray 12/22/17 09:46 IMPRESSION: 1. Stable mild left pleural effusion and bilateral lower lobe atelectasis. 2. Stable adynamic ileus. D/ / 12/22/2017 10:29:35 Gray Parmar MD / Stephie Rivas Interpreting Provider: Gray Parmar MD - VTE Documentation of Mechanical Device: Graduated compression elastic hosiery Consult Discharge Plan - Plan Additional Instructions: RISK FACTORS: STOP SMOKING: If you smoke, STOP. Smoking or tobacco use significantly increases your risk of heart disease because nicotine causes the arteries to narrow or constrict. It also causes fats to stick to the artery. Your chances of having a heart attack are greatly increased if you continue to smoke. For more information, call the education line for smoking cessation 3-151-YVUVXQO EAT A LOW FAT/CHOLESTEROL/SODIUM DIET: This diet may help reduce your chances of having a heart attack. LIFTING: Avoid lifting anything more than 10 pounds for 5-7 days Prior to straining, laughing, sneezing and/or coughing, apply manual pressure directly over insertion site. ACTIVITY: You may walk or climb stairs as tolerated You can resume sexual activity as tolerated In general, you are encouraged to engage in a minimum of 30 minutes or more of moderate intensity physical activity, such as brisk walking, daily or at least 3 -4 times weekly BATHING Do not submerge the site into water (bath tub, hot tub, swimming pool) for 1 week. This can be a source for infection into the blood stream. You may shower after 24 hours SITE CARE: After 24 hours, you may remove the dressing and leave the site open to air. Keep the site clean and dry. Clean gently and pat dry. You can expect bruising and tenderness that gradually resolve within a week or two. Return to work as instructed per your physician Resume driving as instructed per physician Keep all scheduled follow up appointments Resume medications as instructed IMPORTANT: If prescribed a Platelet Aggregation Inhibitor such as, Plavix, Brilinta or Effient: Duration of therapy is minimum one year These medications are often used in combination with Aspirin in prevention of future heart attacks Never discontinue unless consult with your Metal Inspector STROKE (CVA) Risk factors for a stroke are: Age, cigarette smoking, diabetes, excessive alcohol consumption, family history, high blood pressure, overweight, physical inactivity, prior stroke, heart attack, diagnosis of carotid artery stenosis or other artery disease. Warning signs: Sudden numbness or weakness of the face, arm or leg; especially on one side of the body, sudden confusion, trouble speaking or understanding, sudden trouble seeing in one or both eyes, sudden trouble walking, dizziness, loss of balance or coordination, sudden severe headache with no cause. Call 911 or go to the Emergency Room. CONGESTIVE HEART FAILURE: If you have been diagnosed with Congestive Heart Failure (CHF) and your symptoms return, make an appointment with your physician Weigh yourself daily. Notify your physician if you have a weight gain of two or more pounds in one day or five or more pounds in one week. If you experience any difficulty breathing, please call 911 BLEEDING: Although the risk of bleeding is minimal, it can happen. If you have any bleeding from the site, apply firm pressure above the puncture site for 10-15 minutes. If the bleeding does not stop, continue manual pressure and call 911 Contact your physician if: You develop a fever greater than 101 degrees Fahrenheit Your site becomes reddened or has any drainage You have an increase in pain or burning at the site or if a large knot forms at the site. If you experience chest pain, shortness of breath, dizziness, or extreme tiredness, stop the activity and rest. Please notify your physicians office if you experience any of these symptoms and they are not relieved by rest please call 911! Restart coumadin tonight if no bleeding at cardiac catheterization site. Referrals: Jerome Tobias DO [Non-Partnered Physician] - (spoke with Dr. Tobias's office and they will call the patient at home with an appointment) Kailee Keating MD [Partnered Physician] - (office will call patient with follow up appointment) Yanira Mathias CNP [Advanced Practice Nurse] - (Patient is going to [facility] no PCP appointment needed) Jairo Diaz MD [Partnered Physician] - 01/05/18 1:15 am Nestor Sagastume MD [Partnered Physician] - 01/02/18 7:45 am <Augustin Zazueta - Last Filed: 12/23/17 15:38> Date of Encounter: 12/23/17 - Assessment and plan (1) Acute respiratory failure with hypoxia Current Visit: Yes Status: Acute (2) CKD (chronic kidney disease) stage 3, GFR 30-59 ml/min Current Visit: Yes Status: Acute (3) Hyponatremia Current Visit: Yes Status: Acute (4) Afib Current Visit: No Status: Acute Qualifiers: Atrial fibrillation type: chronic Qualified Code(s): I48.2 - Chronic atrial fibrillation (5) DVT prophylaxis Current Visit: Yes Status: Acute - Constitutional Vitals: Temp Pulse Resp BP Pulse Ox 98.9 F 91 18 134/68 93 12/23/17 11:29 12/23/17 11:29 12/23/17 11:37 12/23/17 11:29 12/23/17 11:37 Internal Medicine: Result - Labs CBC & Chem 7: 12/23/17 03:34 12/23/17 03:34 Labs: Short CBC 12/23/17 Range/Units 03:34 WBC 9.1 (4.3-11.1) K/mcL Hgb 9.0 L (12.9-16.9) g/dL Hct 27.3 L (37.5-50.1) % Plt Count 476 H (140-400) K/mcL Neutrophils # 6.9 (1.6-8.9) K/mcL BMP 12/23/17 03:34 Sodium 126 L Potassium 4.5 Chloride 96 L Carbon Dioxide 21 L BUN 37 H Creatinine 1.27 Glucose 110 H Calcium 8.5 L - ABG Interpretation ABG results: ABG ABG pH 7.47 pH Units (7.32-7.45) H 12/20/17 21:12 ABG pCO2 27 mmHg (35-45) L 12/20/17 21:12 ABG pO2 72 mmHg (85-104) L 12/20/17 21:12 ABG O2 Saturation 96 % (95-98) 12/20/17 21:12 PT/INR, D-dimer PT 19.7 Seconds (9.4-12.1) H 12/23/17 03:34 - Attending Attestation Acute and metabolic encephalopathy likely secondary to hypoxia, may avoid narcotics CRX , small left pleural effusion Hyponatremia due to volume overload and poor oral intake, continue salt tablets may continue diuresis with lasix 40 mg in am and 20 mg in the afternoon Acute blood loss anemia due to surgery transfused 1 unti of RBCs consider CPAP History of chronic kidney disease stage III I examined this patient and my medical decision-making was reviewed with the Resident Physician. I agree with the documented findings, disposition and treatment plan as described except to the extent set forth below.
--- NOTE | 2017-12-23 09:31 | Nephrology Progress Note ---
Date of Encounter: 12/23/17 Time of Encounter: 09:00 - Assessment and Plan (1) Acute renal failure Current Visit: Yes Status: Acute S/P CABG. BHARATI most likely related to urinary retention. Parrish cath in place. Documented urine output 2630cc. NA slowly improving, 126. Renal fct improving. Creat 1.27. Accurate I&O's, avoid nephrotoxins. Qualifiers: Acute renal failure type: unspecified Qualified Code(s): N17.9 - Acute kidney failure, unspecified Subjective Principal diagnosis: acute respiratory failure with hypoxia Interval history: Sitting up in chair, eating breakfast. No new complaints. Objective - Vital Signs Vital signs: Vital Signs Temp Pulse Resp BP Pulse Ox 12/23/17 07:43 86 12/23/17 07:32 16 97 12/23/17 06:55 97.9 F 95 20 121/80 91 12/23/17 04:10 98.3 F 94 21 138/70 97 12/23/17 03:52 14 93 12/22/17 23:59 16 95 12/22/17 23:09 98.2 F 81 18 122/61 97 12/22/17 20:17 18 93 12/22/17 19:30 98.2 F 77 19 126/72 91 12/22/17 16:35 98.0 F 90 20 120/61 95 12/22/17 15:56 18 95 12/22/17 15:00 89 12/22/17 13:37 98.0 F 94 20 139/47 95 12/22/17 11:24 97.8 F 103 17 105/89 99 12/22/17 11:08 16 93 12/22/17 11:00 84 12/22/17 10:55 98.0 F 83 20 132/64 98 12/22/17 10:42 95 12/22/17 10:40 97.4 F L 88 20 122/66 97 Intake and Output 12/22/17 12/23/17 12/23/17 23:59 07:59 15:59 Intake Total 120 / 120 Output Total 1330 / 1330 500 / 500 Balance -1210 / -1210 -500 / -500 Intake: Oral 120 / 120 Output: Urine 500 / 500 Catheter 1330 / 1330 Urethral (Parrish) 180 / 180 Other: Stool Size Copious Stool Consistency soft Stool Characteristics Normal for Patient Stool Color Brown # Bowel Movements 1 Weight 92.8 kg Patient Weight 12/23/17 23:59 Weight 92.8 kg - General Appearance General appearance: Present: well-developed, well-nourished, appears started age EENT: Present: mucous membranes moist Neck: Present: no JVD Respiratory: Present: clear Cardiology: Present: edema, regular rate, regular rhythm Additional Comments: mild pitting edema LE Gastrointestinal: Present: normoactive bowel sounds, no tenderness Integumentary: Present: warm and dry Neurologic: Present: alert and oriented x3 - Lab 12/23/17 03:34 12/23/17 03:34 Most recent lab results ABG pH 7.47 pH Units (7.32-7.45) H 12/20/17 21:12 ABG pCO2 27 mmHg (35-45) L 12/20/17 21:12 ABG pO2 72 mmHg (85-104) L 12/20/17 21:12 ABG HCO3 20 mEq/L (21-27) L 12/20/17 21:12 ABG O2 Saturation 96 % (95-98) 12/20/17 21:12 Calcium 8.5 mg/dL (8.6-10.3) L 12/23/17 03:34 Magnesium 2.8 mg/dL (1.6-2.6) H 12/19/17 03:43 Urine Sodium 19.9 mEq/L 12/19/17 15:45 - VTE Documentation of Mechanical Device: Graduated compression elastic hosiery Consult Discharge Plan - Plan Additional Instructions: RISK FACTORS: STOP SMOKING: If you smoke, STOP. Smoking or tobacco use significantly increases your risk of heart disease because nicotine causes the arteries to narrow or constrict. It also causes fats to stick to the artery. Your chances of having a heart attack are greatly increased if you continue to smoke. For more information, call the education line for smoking cessation 2-432-GFWUEQB EAT A LOW FAT/CHOLESTEROL/SODIUM DIET: This diet may help reduce your chances of having a heart attack. LIFTING: Avoid lifting anything more than 10 pounds for 5-7 days Prior to straining, laughing, sneezing and/or coughing, apply manual pressure directly over insertion site. ACTIVITY: You may walk or climb stairs as tolerated You can resume sexual activity as tolerated In general, you are encouraged to engage in a minimum of 30 minutes or more of moderate intensity physical activity, such as brisk walking, daily or at least 3 -4 times weekly BATHING Do not submerge the site into water (bath tub, hot tub, swimming pool) for 1 week. This can be a source for infection into the blood stream. You may shower after 24 hours SITE CARE: After 24 hours, you may remove the dressing and leave the site open to air. Keep the site clean and dry. Clean gently and pat dry. You can expect bruising and tenderness that gradually resolve within a week or two. Return to work as instructed per your physician Resume driving as instructed per physician Keep all scheduled follow up appointments Resume medications as instructed IMPORTANT: If prescribed a Platelet Aggregation Inhibitor such as, Plavix, Brilinta or Effient: Duration of therapy is minimum one year These medications are often used in combination with Aspirin in prevention of future heart attacks Never discontinue unless consult with your Salesperson Wigs STROKE (CVA) Risk factors for a stroke are: Age, cigarette smoking, diabetes, excessive alcohol consumption, family history, high blood pressure, overweight, physical inactivity, prior stroke, heart attack, diagnosis of carotid artery stenosis or other artery disease. Warning signs: Sudden numbness or weakness of the face, arm or leg; especially on one side of the body, sudden confusion, trouble speaking or understanding, sudden trouble seeing in one or both eyes, sudden trouble walking, dizziness, loss of balance or coordination, sudden severe headache with no cause. Call 911 or go to the Emergency Room. CONGESTIVE HEART FAILURE: If you have been diagnosed with Congestive Heart Failure (CHF) and your symptoms return, make an appointment with your physician Weigh yourself daily. Notify your physician if you have a weight gain of two or more pounds in one day or five or more pounds in one week. If you experience any difficulty breathing, please call 911 BLEEDING: Although the risk of bleeding is minimal, it can happen. If you have any bleeding from the site, apply firm pressure above the puncture site for 10-15 minutes. If the bleeding does not stop, continue manual pressure and call 911 Contact your physician if: You develop a fever greater than 101 degrees Fahrenheit Your site becomes reddened or has any drainage You have an increase in pain or burning at the site or if a large knot forms at the site. If you experience chest pain, shortness of breath, dizziness, or extreme tiredness, stop the activity and rest. Please notify your physicians office if you experience any of these symptoms and they are not relieved by rest please call 911! Restart coumadin tonight if no bleeding at cardiac catheterization site. Referrals: Jerome Tobias DO [Non-Partnered Physician] - (spoke with Dr. Tobias's office and they will call the patient at home with an appointment) Kailee Keating MD [Partnered Physician] - 12/23/17 10:30 am (Follow up with Dr. Keating in the [place] office. ) Yanira Mathias, WET POUR SUPERVISOR [Advanced Practice Nurse] - (Patient is going to [facility] no PCP appointment needed) Jairo Diaz MD [Partnered Physician] - 01/05/18 1:15 am Nestor Sagastume MD [Partnered Physician] - 12/26/17 7:45 am
[2017-12-23] MEDS: *HR* Warfarin 2 MG TABLET PO SCH (17:02)
[2017-12-23] MEDS: Furosemide 20 MG TABLET PO SCH (17:03)
[2017-12-24] MEDS: Ipratropium/Albuterol Neb 3 ML IH SCH ×7 (00:35→23:17)
[2017-12-24 03:59] LABS: Basophils % 0.5 %; Eosinophils # 0.2 K/mcL (0.0-0.6); Eosinophils % 1.8 %; Hematocrit 27.3 % (37.5-50.1); Hemoglobin 9.2 g/dL (12.9-16.9); Immature Granulocytes % 0.4 % (0-4); Lymphocytes # 0.8 K/mcL (0.6-4.6); Lymphocytes % 9.4 %; Mean Corpuscular HGB Conc 33.7 g/dL (31.6-35.5); Mean Corpuscular Hemoglobin 29.4 pg (28.0-33.3); Mean Corpuscular Volume 87.2 fL (83.0-100.0); Mean Platelet Volume 8.9 fL (9.4-12.4); Monocytes # 1.3 K/mcL (0.0-1.3); Monocytes % 15.4 %; Neutrophils # 6.2 K/mcL (1.6-8.9); Platelet Count 444 K/mcL (140-400); Red Blood Count 3.13 M/mcL (4.19-5.50); Red Cell Distribution Width 14.2 % (11.5-14.5); Segmented Neutrophils % 72.5 %
[2017-12-24 04:05] LABS: Prothrombin Time 22.3 Seconds (9.4-12.1)
[2017-12-24 04:21] LABS: BUN/Creatinine Ratio 23 (6-26); Blood Urea Nitrogen 26 mg/dL (8-23); Calcium 8.6 mg/dL (8.6-10.3); Carbon Dioxide 22 mEq/L (23-29); Chloride 96 mEq/L (98-107); Glucose 116 mg/dL (70-105); Osmolality,Calculated 268 (280-300); Sodium 126 mEq/L (136-145); eGFR For African Americans > 60 (> 60); eGFR For Non-African Americans > 60 (> 60)
[2017-12-24] MEDS: Aspirin Enteric Coated 81 MG Tablet PO SCH (07:43)
[2017-12-24] MEDS: *HR* Amiodarone 200 MG TABLET PO SCH (07:43)
[2017-12-24] MEDS: Furosemide 40 MG TABLET PO SCH (07:43)
[2017-12-24] MEDS: Chlorhexidine Rinse 15 ML MOUTHWASH MM SCH ×2 (07:43→21:25)
--- NOTE | 2017-12-24 08:31 | Cardiothoracic Progress Note ---
Date of Encounter: 12/24/17 Time of Encounter: 08:28 - Assessment and plan (1) Afib Current Visit: No Status: Acute The patient's creatinine continues to improve. He is requiring less inspired oxygen. His INR is therapeutic. Hopefully, he can be discharged to an extended care facility early next week. Qualifiers: Atrial fibrillation type: chronic Qualified Code(s): I48.2 - Chronic atrial fibrillation - Subjective Interval history: The patient continues to improve. He had another bowel movement. Vital Signs, Last 4 Hours Temp Pulse Resp BP Pulse Ox 12/24/17 08:06 16 95 12/24/17 07:48 106 12/24/17 07:01 98.0 F 91 18 126/74 94 Oxgyen Flow Rate Oxygen Flow Rate (LPM) 3 Weight 12/22/17 12/23/17 12/24/17 23:59 23:59 23:59 Weight 92.8 kg Lungs are clear to percussion and auscultation. Heart is in an irregular rate and rhythm. He is in atrial fibrillation with a controlled ventricular rate. All incisions are healing well without signs of infection and his sternum is stable. - Labs 12/24/17 03:30 12/24/17 03:30 Lab Results, Last 24 hours 12/24/17 12/24/17 12/24/17 03:30 03:30 03:30 WBC 8.5 Hgb 9.2 L Hct 27.3 L Plt Count 444 H INR 2.0 Sodium 126 L Potassium 4.0 Chloride 96 L Carbon Dioxide 22 L BUN 26 H Creatinine 1.12 Glucose 116 H Calcium 8.6 - VTE Documentation of Mechanical Device: Graduated compression elastic hosiery Consult Discharge Plan - Plan Additional Instructions: RISK FACTORS: STOP SMOKING: If you smoke, STOP. Smoking or tobacco use significantly increases your risk of heart disease because nicotine causes the arteries to narrow or constrict. It also causes fats to stick to the artery. Your chances of having a heart attack are greatly increased if you continue to smoke. For more information, call the education line for smoking cessation 9-613-NYFVWLO EAT A LOW FAT/CHOLESTEROL/SODIUM DIET: This diet may help reduce your chances of having a heart attack. LIFTING: Avoid lifting anything more than 10 pounds for 5-7 days Prior to straining, laughing, sneezing and/or coughing, apply manual pressure directly over insertion site. ACTIVITY: You may walk or climb stairs as tolerated You can resume sexual activity as tolerated In general, you are encouraged to engage in a minimum of 30 minutes or more of moderate intensity physical activity, such as brisk walking, daily or at least 3 -4 times weekly BATHING Do not submerge the site into water (bath tub, hot tub, swimming pool) for 1 week. This can be a source for infection into the blood stream. You may shower after 24 hours SITE CARE: After 24 hours, you may remove the dressing and leave the site open to air. Keep the site clean and dry. Clean gently and pat dry. You can expect bruising and tenderness that gradually resolve within a week or two. Return to work as instructed per your physician Resume driving as instructed per physician Keep all scheduled follow up appointments Resume medications as instructed IMPORTANT: If prescribed a Platelet Aggregation Inhibitor such as, Plavix, Brilinta or Effient: Duration of therapy is minimum one year These medications are often used in combination with Aspirin in prevention of future heart attacks Never discontinue unless consult with your Cork Wirer STROKE (CVA) Risk factors for a stroke are: Age, cigarette smoking, diabetes, excessive alcohol consumption, family history, high blood pressure, overweight, physical inactivity, prior stroke, heart attack, diagnosis of carotid artery stenosis or other artery disease. Warning signs: Sudden numbness or weakness of the face, arm or leg; especially on one side of the body, sudden confusion, trouble speaking or understanding, sudden trouble seeing in one or both eyes, sudden trouble walking, dizziness, loss of balance or coordination, sudden severe headache with no cause. Call 911 or go to the Emergency Room. CONGESTIVE HEART FAILURE: If you have been diagnosed with Congestive Heart Failure (CHF) and your symptoms return, make an appointment with your physician Weigh yourself daily. Notify your physician if you have a weight gain of two or more pounds in one day or five or more pounds in one week. If you experience any difficulty breathing, please call 911 BLEEDING: Although the risk of bleeding is minimal, it can happen. If you have any bleeding from the site, apply firm pressure above the puncture site for 10-15 minutes. If the bleeding does not stop, continue manual pressure and call 911 Contact your physician if: You develop a fever greater than 101 degrees Fahrenheit Your site becomes reddened or has any drainage You have an increase in pain or burning at the site or if a large knot forms at the site. If you experience chest pain, shortness of breath, dizziness, or extreme tiredness, stop the activity and rest. Please notify your physicians office if you experience any of these symptoms and they are not relieved by rest please call 911! Restart coumadin tonight if no bleeding at cardiac catheterization site. Referrals: Jerome Tobias DO [Non-Partnered Physician] - (spoke with Dr. Tobias's office and they will call the patient at home with an appointment) Kailee Keating MD [Partnered Physician] - (office will call patient with follow up appointment) Yanira Mathias CNP [Advanced Practice Nurse] - (Patient is going to [facility] no PCP appointment needed) Jairo Diaz MD [Partnered Physician] - 01/05/18 1:15 am Nestor Sagastume MD [Partnered Physician] - 01/02/18 7:45 am
--- NOTE | 2017-12-24 09:04 | Nephrology Progress Note ---
Date of Encounter: 12/24/17 Time of Encounter: 08:40 - Assessment and Plan (1) Acute renal failure Current Visit: Yes Status: Acute S/P CABG. BHARATI most likely related to urinary retention. Parrish cath in place. Documented urine output 2400cc. NA slowly improving, 126. Renal fct improved. Creat 1.12, gfr > 60. Will sign off, call again if needed. Qualifiers: Acute renal failure type: unspecified Qualified Code(s): N17.9 - Acute kidney failure, unspecified Subjective Principal diagnosis: acute respiratory failure with hypoxia Interval history: Sitting up in chair, eating breakfast. No new complaints. Objective - Vital Signs Vital signs: Vital Signs Temp Pulse Resp BP Pulse Ox 12/24/17 08:06 16 95 12/24/17 07:48 106 12/24/17 07:01 98.0 F 91 18 126/74 94 12/24/17 04:25 98.4 F 117 21 137/68 97 12/24/17 03:32 17 92 12/24/17 00:35 18 93 12/23/17 23:36 97.5 F L 89 20 137/68 96 12/23/17 20:28 20 93 12/23/17 19:00 98.5 F 83 18 139/62 95 12/23/17 16:17 97.6 F 80 20 125/87 98 12/23/17 16:14 18 94 12/23/17 11:37 18 93 12/23/17 11:29 98.9 F 91 20 134/68 94 Intake and Output 12/23/17 12/24/17 12/24/17 23:59 07:59 15:59 Output Total 1900 / 1900 400 / 400 Balance -1900 / -1900 -400 / -400 Output: Urine 1700 / 1700 Catheter 200 / 200 400 / 400 Other: Stool Size Copious Stool Consistency soft Stool Characteristics Normal for Patient Stool Color Brown # Bowel Movements 2 - General Appearance General appearance: Present: well-developed, well-nourished, appears started age EENT: Present: mucous membranes moist Neck: Present: no JVD Respiratory: Present: clear Cardiology: Present: edema, regular rate, regular rhythm Additional Comments: trace pitting LE Gastrointestinal: Present: normoactive bowel sounds Integumentary: Present: no rash Neurologic: Present: alert and oriented x3 - Lab 03/17/18 03:30 12/24/17 03:30 Most recent lab results ABG pH 7.47 pH Units (7.32-7.45) H 12/20/17 21:12 ABG pCO2 27 mmHg (35-45) L 12/20/17 21:12 ABG pO2 72 mmHg (85-104) L 12/20/17 21:12 ABG HCO3 20 mEq/L (21-27) L 12/20/17 21:12 ABG O2 Saturation 96 % (95-98) 12/20/17 21:12 Calcium 8.6 mg/dL (8.6-10.3) 12/24/17 03:30 Magnesium 2.8 mg/dL (1.6-2.6) H 12/19/17 03:43 Urine Sodium 19.9 mEq/L 12/19/17 15:45 - VTE Documentation of Mechanical Device: Graduated compression elastic hosiery Consult Discharge Plan - Plan Additional Instructions: RISK FACTORS: STOP SMOKING: If you smoke, STOP. Smoking or tobacco use significantly increases your risk of heart disease because nicotine causes the arteries to narrow or constrict. It also causes fats to stick to the artery. Your chances of having a heart attack are greatly increased if you continue to smoke. For more information, call the education line for smoking cessation 5-767-HURVPOY EAT A LOW FAT/CHOLESTEROL/SODIUM DIET: This diet may help reduce your chances of having a heart attack. LIFTING: Avoid lifting anything more than 10 pounds for 5-7 days Prior to straining, laughing, sneezing and/or coughing, apply manual pressure directly over insertion site. ACTIVITY: You may walk or climb stairs as tolerated You can resume sexual activity as tolerated In general, you are encouraged to engage in a minimum of 30 minutes or more of moderate intensity physical activity, such as brisk walking, daily or at least 3 -4 times weekly BATHING Do not submerge the site into water (bath tub, hot tub, swimming pool) for 1 week. This can be a source for infection into the blood stream. You may shower after 24 hours SITE CARE: After 24 hours, you may remove the dressing and leave the site open to air. Keep the site clean and dry. Clean gently and pat dry. You can expect bruising and tenderness that gradually resolve within a week or two. Return to work as instructed per your physician Resume driving as instructed per physician Keep all scheduled follow up appointments Resume medications as instructed IMPORTANT: If prescribed a Platelet Aggregation Inhibitor such as, Plavix, Brilinta or Effient: Duration of therapy is minimum one year These medications are often used in combination with Aspirin in prevention of future heart attacks Never discontinue unless consult with your Stamping [employer] STROKE (CVA) Risk factors for a stroke are: Age, cigarette smoking, diabetes, excessive alcohol consumption, family history, high blood pressure, overweight, physical inactivity, prior stroke, heart attack, diagnosis of carotid artery stenosis or other artery disease. Warning signs: Sudden numbness or weakness of the face, arm or leg; especially on one side of the body, sudden confusion, trouble speaking or understanding, sudden trouble seeing in one or both eyes, sudden trouble walking, dizziness, loss of balance or coordination, sudden severe headache with no cause. Call 911 or go to the Emergency Room. CONGESTIVE HEART FAILURE: If you have been diagnosed with Congestive Heart Failure (CHF) and your symptoms return, make an appointment with your physician Weigh yourself daily. Notify your physician if you have a weight gain of two or more pounds in one day or five or more pounds in one week. If you experience any difficulty breathing, please call 911 BLEEDING: Although the risk of bleeding is minimal, it can happen. If you have any bleeding from the site, apply firm pressure above the puncture site for 10-15 minutes. If the bleeding does not stop, continue manual pressure and call 911 Contact your physician if: You develop a fever greater than 101 degrees Fahrenheit Your site becomes reddened or has any drainage You have an increase in pain or burning at the site or if a large knot forms at the site. If you experience chest pain, shortness of breath, dizziness, or extreme tiredness, stop the activity and rest. Please notify your physicians office if you experience any of these symptoms and they are not relieved by rest please call 911! Restart coumadin tonight if no bleeding at cardiac catheterization site. Referrals: Jerome Tobias DO [Non-Partnered Physician] - (spoke with Dr. Tobias's office and they will call the patient at home with an appointment) Kailee Keating MD [Partnered Physician] - (office will call patient with follow up appointment) Yanira Mathias CNP [Advanced Practice Nurse] - (Patient is going to [facility] no PCP appointment needed) Jairo Diaz MD [Partnered Physician] - 01/05/18 1:15 am Nestor Sagastume MD [Partnered Physician] - 01/02/18 7:45 am
--- NOTE | 2017-12-24 09:26 | Internal Med Progress Note ---
<Fernandez Hernández - Last Filed: 12/24/17 09:23> Date of Encounter: 12/24/17 Time of Encounter: 09:23 - Assessment and plan (1) Acute respiratory failure with hypoxia Current Visit: Yes Status: Acute Assessment and plan: improving decreasing O2 requirements down to 3 L O2. (2) Hyponatremia Current Visit: Yes Status: Acute Assessment and plan: Stable at 126. Continue salt tablets. Continue cardiac diet. (3) CKD (chronic kidney disease) stage 3, GFR 30-59 ml/min Current Visit: Yes Status: Acute Assessment and plan: Patient renal function back to baseline. Strict I's and O's. Continue Lasix. (4) Afib Current Visit: Yes Status: Acute Assessment and plan: Patient has rate controlled. Anticoagulated with warfarin. Qualifiers: Atrial fibrillation type: chronic Qualified Code(s): I48.2 - Chronic atrial fibrillation (5) DVT prophylaxis Current Visit: Yes Status: Acute Assessment and plan: Warfarin - Subjective Interval history: Reports he has not slept well because of constant interruptions throughout the night. Patient denies headache, chest pain, palpitaitons, abdominal pain, N/V/D melena , hematochezia. SOB improving. LE swelling noted, has compression stockings on. - Constitutional Vitals: Temp Pulse Resp BP Pulse Ox 98.0 F 106 16 126/74 95 12/24/17 07:01 12/24/17 07:48 12/24/17 08:06 12/24/17 07:01 12/24/17 08:06 General appearance: Present: cooperative, A&O X 3, pleasant, no acute distress, answers questions appropriately - Other Additional findings: General: Pleasant without distress HEENT: Moist mucous membranes Heart: Irregularly irregular rhythm. Chest: Midline surgical incision intact without drainage Lungs: Clear to auscultation bilaterally Abdomen: Soft nontender, nondistended positive bowel sounds Skin: warm and dry Extremities: 1+ pedal edema. Neuro: Alert oriented 3. Vascular: Pedal and radial pulses 2 out of 4 Internal Medicine: Result - Labs CBC & Chem 7: 12/24/17 03:30 12/24/17 03:30 Labs: Short CBC 12/24/17 Range/Units 03:30 WBC 8.5 (4.3-11.1) K/mcL Hgb 9.2 L (12.9-16.9) g/dL Hct 27.3 L (37.5-50.1) % Plt Count 444 H (140-400) K/mcL Neutrophils # 6.2 (1.6-8.9) K/mcL BMP 12/24/17 03:30 Sodium 126 L Potassium 4.0 Chloride 96 L Carbon Dioxide 22 L BUN 26 H Creatinine 1.12 Glucose 116 H Calcium 8.6 - ABG Interpretation ABG results: ABG ABG pH 7.47 pH Units (7.32-7.45) H 12/20/17 21:12 ABG pCO2 27 mmHg (35-45) L 12/20/17 21:12 ABG pO2 72 mmHg (85-104) L 12/20/17 21:12 ABG O2 Saturation 96 % (95-98) 12/20/17 21:12 PT/INR, D-dimer PT 22.3 Seconds (9.4-12.1) H 12/24/17 03:30 - VTE Documentation of Mechanical Device: Graduated compression elastic hosiery Consult Discharge Plan - Plan Additional Instructions: RISK FACTORS: STOP SMOKING: If you smoke, STOP. Smoking or tobacco use significantly increases your risk of heart disease because nicotine causes the arteries to narrow or constrict. It also causes fats to stick to the artery. Your chances of having a heart attack are greatly increased if you continue to smoke. For more information, call the education line for smoking cessation 9-023-NEINMFM EAT A LOW FAT/CHOLESTEROL/SODIUM DIET: This diet may help reduce your chances of having a heart attack. LIFTING: Avoid lifting anything more than 10 pounds for 5-7 days Prior to straining, laughing, sneezing and/or coughing, apply manual pressure directly over insertion site. ACTIVITY: You may walk or climb stairs as tolerated You can resume sexual activity as tolerated In general, you are encouraged to engage in a minimum of 30 minutes or more of moderate intensity physical activity, such as brisk walking, daily or at least 3 -4 times weekly BATHING Do not submerge the site into water (bath tub, hot tub, swimming pool) for 1 week. This can be a source for infection into the blood stream. You may shower after 24 hours SITE CARE: After 24 hours, you may remove the dressing and leave the site open to air. Keep the site clean and dry. Clean gently and pat dry. You can expect bruising and tenderness that gradually resolve within a week or two. Return to work as instructed per your physician Resume driving as instructed per physician Keep all scheduled follow up appointments Resume medications as instructed IMPORTANT: If prescribed a Platelet Aggregation Inhibitor such as, Plavix, Brilinta or Effient: Duration of therapy is minimum one year These medications are often used in combination with Aspirin in prevention of future heart attacks Never discontinue unless consult with your Obstetrics Specialist STROKE (CVA) Risk factors for a stroke are: Age, cigarette smoking, diabetes, excessive alcohol consumption, family history, high blood pressure, overweight, physical inactivity, prior stroke, heart attack, diagnosis of carotid artery stenosis or other artery disease. Warning signs: Sudden numbness or weakness of the face, arm or leg; especially on one side of the body, sudden confusion, trouble speaking or understanding, sudden trouble seeing in one or both eyes, sudden trouble walking, dizziness, loss of balance or coordination, sudden severe headache with no cause. Call 911 or go to the Emergency Room. CONGESTIVE HEART FAILURE: If you have been diagnosed with Congestive Heart Failure (CHF) and your symptoms return, make an appointment with your physician Weigh yourself daily. Notify your physician if you have a weight gain of two or more pounds in one day or five or more pounds in one week. If you experience any difficulty breathing, please call 911 BLEEDING: Although the risk of bleeding is minimal, it can happen. If you have any bleeding from the site, apply firm pressure above the puncture site for 10-15 minutes. If the bleeding does not stop, continue manual pressure and call 911 Contact your physician if: You develop a fever greater than 101 degrees Fahrenheit Your site becomes reddened or has any drainage You have an increase in pain or burning at the site or if a large knot forms at the site. If you experience chest pain, shortness of breath, dizziness, or extreme tiredness, stop the activity and rest. Please notify your physicians office if you experience any of these symptoms and they are not relieved by rest please call 911! Restart coumadin tonight if no bleeding at cardiac catheterization site. Referrals: Jerome Tobias DO [Non-Partnered Physician] - (spoke with Dr. Tobias's office and they will call the patient at home with an appointment) Kailee Keating MD [Partnered Physician] - (office will call patient with follow up appointment) Yanira Mathias CNP [Advanced Practice Nurse] - (Patient is going to [facility] no PCP appointment needed) Jairo Diaz MD [Partnered Physician] - 01/05/18 1:15 am Nestor Sagastume MD [Partnered Physician] - 01/02/18 7:45 am <Joaquin Loya - Last Filed: 12/24/17 13:49> Date of Encounter: 12/24/17 Time of Encounter: 09:30 - Assessment and plan (1) Acute respiratory failure with hypoxia Current Visit: Yes Status: Acute (2) Acute blood loss anemia Current Visit: Yes Status: Acute (3) Afib Current Visit: Yes Status: Acute Qualifiers: Atrial fibrillation type: chronic Qualified Code(s): I48.2 - Chronic atrial fibrillation (4) CAD (coronary artery disease) Current Visit: Yes Status: Acute Qualifiers: Coronary Disease-Associated Artery/Lesion type: [place] artery [place] vs. transplanted heart: [place] heart Associated angina: with unstable angina Qualified Code(s): I25.110 - Atherosclerotic heart disease of [place] coronary artery with unstable angina pectoris (5) CKD (chronic kidney disease) stage 3, GFR 30-59 ml/min Current Visit: Yes Status: Acute (6) Essential hypertension Current Visit: Yes Status: Acute (7) Hyponatremia Current Visit: Yes Status: Acute - Constitutional Vitals: Temp Pulse Resp BP Pulse Ox 97.6 F 99 20 130/82 96 12/24/17 11:11 12/24/17 11:11 12/24/17 11:45 12/24/17 11:11 12/24/17 11:45 Internal Medicine: Result - Labs CBC & Chem 7: 12/24/17 03:30 12/24/17 03:30 Labs: Short CBC 12/24/17 Range/Units 03:30 WBC 8.5 (4.3-11.1) K/mcL Hgb 9.2 L (12.9-16.9) g/dL Hct 27.3 L (37.5-50.1) % Plt Count 444 H (140-400) K/mcL Neutrophils # 6.2 (1.6-8.9) K/mcL BMP 12/24/17 03:30 Sodium 126 L Potassium 4.0 Chloride 96 L Carbon Dioxide 22 L BUN 26 H Creatinine 1.12 Glucose 116 H Calcium 8.6 - ABG Interpretation ABG results: ABG ABG pH 7.47 pH Units (7.32-7.45) H 12/20/17 21:12 ABG pCO2 27 mmHg (35-45) L 12/20/17 21:12 ABG pO2 72 mmHg (85-104) L 12/20/17 21:12 ABG O2 Saturation 96 % (95-98) 12/20/17 21:12 PT/INR, D-dimer PT 22.3 Seconds (9.4-12.1) H 12/24/17 03:30 - Attending Attestation I examined this patient and my medical decision-making was reviewed with the Resident Physician, Fernandez Hernández. I agree with the documented findings, disposition and treatment plan as described with any changes as documented below. Patient continues to improve. On 3 L nasal cannula at this time. Feels better overall. Denies any new complaints. On examination, patient is awake and alert. Sitting up in chair. Comfortable. Hemoglobin 9.2 today. INR is 2. Creatinine 1.12. Continue current management. Wean FiO2 as tolerated. We will transition Lasix to oral regimen. Monitor renal function closely. Continue salt tablets. Sodium 126 today. Continue Coumadin.
[2017-12-24] MEDS: Furosemide 20 MG TABLET PO SCH (16:52)
[2017-12-24] MEDS: *HR* Warfarin 2 MG TABLET PO SCH (16:52)
[2017-12-25 03:33] LABS: Basophils # 0.1 K/mcL (0.0-0.2); Basophils % 0.7 %; Eosinophils # 0.2 K/mcL (0.0-0.6); Eosinophils % 2.6 %; Hematocrit 27.6 % (37.5-50.1); Immature Granulocytes % 0.2 % (0-4); Lymphocytes # 1.1 K/mcL (0.6-4.6); Lymphocytes % 11.9 %; Mean Corpuscular HGB Conc 32.6 g/dL (31.6-35.5); Mean Corpuscular Hemoglobin 28.8 pg (28.0-33.3); Mean Corpuscular Volume 88.5 fL (83.0-100.0); Monocytes # 1.2 K/mcL (0.0-1.3); Monocytes % 13.3 %; Neutrophils # 6.4 K/mcL (1.6-8.9); Platelet Count 474 K/mcL (140-400); Red Blood Count 3.12 M/mcL (4.19-5.50); Red Cell Distribution Width 13.7 % (11.5-14.5); Segmented Neutrophils % 71.3 %
[2017-12-25] MEDS: Ipratropium/Albuterol Neb 3 ML IH SCH ×6 (03:40→23:57)
[2017-12-25 03:54] LABS: BUN/Creatinine Ratio 20 (6-26); Blood Urea Nitrogen 21 mg/dL (8-23); Calcium 8.5 mg/dL (8.6-10.3); Carbon Dioxide 21 mEq/L (23-29); Chloride 95 mEq/L (98-107); Glucose 113 mg/dL (70-105); Osmolality,Calculated 266 (280-300); Potassium 4.2 mEq/L (3.5-5.1); Sodium 126 mEq/L (136-145); eGFR For African Americans > 60 (> 60); eGFR For Non-African Americans > 60 (> 60)
[2017-12-25] MEDS: Chlorhexidine Rinse 15 ML MOUTHWASH MM SCH ×2 (07:14→21:49)
[2017-12-25] MEDS: *HR* Amiodarone 200 MG TABLET PO SCH (07:15)
[2017-12-25] MEDS: Aspirin Enteric Coated 81 MG Tablet PO SCH (07:15)
[2017-12-25] MEDS: Furosemide 40 MG TABLET PO SCH (07:15)
--- NOTE | 2017-12-25 08:30 | Internal Med Progress Note ---
<Fernandez Hernández - Last Filed: 12/25/17 08:28> Date of Encounter: 12/25/17 Time of Encounter: 08:28 - Assessment and plan (1) Acute respiratory failure with hypoxia Current Visit: Yes Status: Acute Assessment and plan: improving decreasing O2 requirements down to 2 L O2. (2) Hyponatremia Current Visit: Yes Status: Acute Assessment and plan: Stable at 126. Continue salt tablets. Continue cardiac diet Will improve once diuretics are decreased. (3) CKD (chronic kidney disease) stage 3, GFR 30-59 ml/min Current Visit: Yes Status: Acute Assessment and plan: Patient renal function back to baseline. still has 2+ pedal edema. Continue duresis. Has Parrish which patient will go home with unit he follows up with urology outpatient for urinary retention. Patient is net negative for first time since admission. Strict I's and O's. Continue Lasix. Patient is net negative for first time since admission. (4) Afib Current Visit: Yes Status: Acute Assessment and plan: Patient has rate controlled. Anticoagulated with warfarin. Qualifiers: Atrial fibrillation type: chronic Qualified Code(s): I48.2 - Chronic atrial fibrillation (5) DVT prophylaxis Current Visit: Yes Status: Acute Assessment and plan: Warfarin - Subjective Interval history: No acute events overnight. Patient denies any pain. Patient denies headache, chest pain, palpitaitons, abdominal pain, N/V/D melena , hematochezia. SOB improving. Continues to have lower extremity swelling. - Constitutional Vitals: Temp Pulse Resp BP Pulse Ox 98.1 F 106 20 128/61 98 12/25/17 06:50 12/25/17 07:20 12/25/17 07:25 12/25/17 06:50 12/25/17 07:25 General appearance: Present: cooperative, A&O X 3, pleasant, no acute distress, answers questions appropriately - Other Additional findings: General: Pleasant without distress HEENT: Moist mucous membrane Heart: Irregularly irregular rhythm Lungs: Clear to auscultation bilaterally Abdomen: Soft nontender, nondistended positive bowel sounds Skin: warm and dry Extremities: 2+ pedal edema bilaterally Neuro: Alert and oriented to self Vascular: Pedal and radial pulses 2 out of 4 Internal Medicine: Result - Labs CBC & Chem 7: 12/25/17 03:05 12/25/17 03:05 Labs: Short CBC 12/25/17 Range/Units 03:05 WBC 9.0 (4.3-11.1) K/mcL Hgb 9.0 L (12.9-16.9) g/dL Hct 27.6 L (37.5-50.1) % Plt Count 474 H (140-400) K/mcL Neutrophils # 6.4 (1.6-8.9) K/mcL BMP 12/25/17 03:05 Sodium 126 L Potassium 4.2 Chloride 95 L Carbon Dioxide 21 L BUN 21 Creatinine 1.06 Glucose 113 H Calcium 8.5 L - ABG Interpretation ABG results: ABG ABG pH 7.47 pH Units (7.32-7.45) H 12/20/17 21:12 ABG pCO2 27 mmHg (35-45) L 12/20/17 21:12 ABG pO2 72 mmHg (85-104) L 12/20/17 21:12 ABG O2 Saturation 96 % (95-98) 12/20/17 21:12 PT/INR, D-dimer PT 22.3 Seconds (9.4-12.1) H 12/24/17 03:30 - VTE Documentation of Mechanical Device: Graduated compression elastic hosiery Consult Discharge Plan - Plan Additional Instructions: RISK FACTORS: STOP SMOKING: If you smoke, STOP. Smoking or tobacco use significantly increases your risk of heart disease because nicotine causes the arteries to narrow or constrict. It also causes fats to stick to the artery. Your chances of having a heart attack are greatly increased if you continue to smoke. For more information, call the education line for smoking cessation 3-287-WULFUZK EAT A LOW FAT/CHOLESTEROL/SODIUM DIET: This diet may help reduce your chances of having a heart attack. LIFTING: Avoid lifting anything more than 10 pounds for 5-7 days Prior to straining, laughing, sneezing and/or coughing, apply manual pressure directly over insertion site. ACTIVITY: You may walk or climb stairs as tolerated You can resume sexual activity as tolerated In general, you are encouraged to engage in a minimum of 30 minutes or more of moderate intensity physical activity, such as brisk walking, daily or at least 3 -4 times weekly BATHING Do not submerge the site into water (bath tub, hot tub, swimming pool) for 1 week. This can be a source for infection into the blood stream. You may shower after 24 hours SITE CARE: After 24 hours, you may remove the dressing and leave the site open to air. Keep the site clean and dry. Clean gently and pat dry. You can expect bruising and tenderness that gradually resolve within a week or two. Return to work as instructed per your physician Resume driving as instructed per physician Keep all scheduled follow up appointments Resume medications as instructed IMPORTANT: If prescribed a Platelet Aggregation Inhibitor such as, Plavix, Brilinta or Effient: Duration of therapy is minimum one year These medications are often used in combination with Aspirin in prevention of future heart attacks Never discontinue unless consult with your Selenium Plant Operator STROKE (CVA) Risk factors for a stroke are: Age, cigarette smoking, diabetes, excessive alcohol consumption, family history, high blood pressure, overweight, physical inactivity, prior stroke, heart attack, diagnosis of carotid artery stenosis or other artery disease. Warning signs: Sudden numbness or weakness of the face, arm or leg; especially on one side of the body, sudden confusion, trouble speaking or understanding, sudden trouble seeing in one or both eyes, sudden trouble walking, dizziness, loss of balance or coordination, sudden severe headache with no cause. Call 911 or go to the Emergency Room. CONGESTIVE HEART FAILURE: If you have been diagnosed with Congestive Heart Failure (CHF) and your symptoms return, make an appointment with your physician Weigh yourself daily. Notify your physician if you have a weight gain of two or more pounds in one day or five or more pounds in one week. If you experience any difficulty breathing, please call 911 BLEEDING: Although the risk of bleeding is minimal, it can happen. If you have any bleeding from the site, apply firm pressure above the puncture site for 10-15 minutes. If the bleeding does not stop, continue manual pressure and call 911 Contact your physician if: You develop a fever greater than 101 degrees Fahrenheit Your site becomes reddened or has any drainage You have an increase in pain or burning at the site or if a large knot forms at the site. If you experience chest pain, shortness of breath, dizziness, or extreme tiredness, stop the activity and rest. Please notify your physicians office if you experience any of these symptoms and they are not relieved by rest please call 911! Restart coumadin tonight if no bleeding at cardiac catheterization site. Referrals: Jerome Tobias DO [Non-Partnered Physician] - (spoke with Dr. Tobias's office and they will call the patient at home with an appointment) Kailee Keating MD [Partnered Physician] - (office will call patient with follow up appointment) Yanira Mathias CNP [Advanced Practice Nurse] - (Patient is going to [facility] no PCP appointment needed) Jairo Diaz MD [Partnered Physician] - 01/05/18 1:15 am Nestor Sagastume MD [Partnered Physician] - 01/02/18 7:45 am <Joaquin Loya - Last Filed: 12/25/17 13:17> Date of Encounter: 12/25/17 Time of Encounter: 10:00 - Assessment and plan (1) Acute respiratory failure with hypoxia Current Visit: Yes Status: Acute (2) Acute blood loss anemia Current Visit: Yes Status: Acute (3) Afib Current Visit: Yes Status: Acute Qualifiers: Atrial fibrillation type: chronic Qualified Code(s): I48.2 - Chronic atrial fibrillation (4) CAD (coronary artery disease) Current Visit: Yes Status: Acute Qualifiers: Coronary Disease-Associated Artery/Lesion type: [place] artery [place] vs. transplanted heart: [place] heart Associated angina: with unstable angina Qualified Code(s): I25.110 - Atherosclerotic heart disease of [place] coronary artery with unstable angina pectoris (5) CKD (chronic kidney disease) stage 3, GFR 30-59 ml/min Current Visit: Yes Status: Acute (6) Essential hypertension Current Visit: Yes Status: Acute (7) Hyponatremia Current Visit: Yes Status: Acute - Constitutional Vitals: Temp Pulse Resp BP Pulse Ox 98.1 F 90 20 124/94 92 12/25/17 11:07 12/25/17 11:07 12/25/17 11:07 12/25/17 11:07 12/25/17 11:07 Internal Medicine: Result - Labs CBC & Chem 7: 12/25/17 03:05 12/25/17 03:05 Labs: Short CBC 12/25/17 Range/Units 03:05 WBC 9.0 (4.3-11.1) K/mcL Hgb 9.0 L (12.9-16.9) g/dL Hct 27.6 L (37.5-50.1) % Plt Count 474 H (140-400) K/mcL Neutrophils # 6.4 (1.6-8.9) K/mcL BMP 12/25/17 03:05 Sodium 126 L Potassium 4.2 Chloride 95 L Carbon Dioxide 21 L BUN 21 Creatinine 1.06 Glucose 113 H Calcium 8.5 L - ABG Interpretation ABG results: ABG ABG pH 7.47 pH Units (7.32-7.45) H 12/20/17 21:12 ABG pCO2 27 mmHg (35-45) L 12/20/17 21:12 ABG pO2 72 mmHg (85-104) L 12/20/17 21:12 ABG O2 Saturation 96 % (95-98) 12/20/17 21:12 PT/INR, D-dimer PT 22.3 Seconds (9.4-12.1) H 12/24/17 03:30 - Attending Attestation I examined this patient and my medical decision-making was reviewed with the Resident Physician, Fernandez Hernández. I agree with the documented findings, disposition and treatment plan as described with any changes as documented below. Patient continues to do well. Denies any complaints at this time. Did ambulate with the help of nursing staff in his room today. No chest pain. On 1 L nasal cannula currently. We will continue to wean off. Renal function back to baseline. Continue oral Lasix. Remains hyponatremic but stable. On anticoagulation with Coumadin for A. fib.
--- NOTE | 2017-12-25 09:19 | Cardiothoracic Progress Note ---
Date of Encounter: 12/25/17 Time of Encounter: :17 - Assessment and plan (1) Afib Current Visit: Yes Status: Acute Creatinine continues to improve. His inspired oxygen requirements continued to improve. I will add back Tenormin for rate control. Hopefully, he can be discharged to a rehabilitation facility on Tuesday. Qualifiers: Atrial fibrillation type: chronic Qualified Code(s): I48.2 - Chronic atrial fibrillation - Subjective Interval history: The patient continues to feel better. He is having multiple bowel movements. Vital Signs, Last 4 Hours Temp Pulse Resp BP Pulse Ox 12/25/17 07:25 20 98 12/25/17 07:20 106 12/25/17 06:50 98.1 F 94 20 128/61 95 12/25/17 05:30 94 Oxgyen Flow Rate Oxygen Flow Rate (LPM) 2 Weight 12/23/17 12/24/17 12/25/17 23:59 23:59 23:59 Weight 92.8 kg 90.6 kg Lungs are clear to percussion and auscultation. Heart is in an irregular rate and rhythm with a heart rate of 100. All incisions are healing well without signs of infection and the sternum is stable. - Labs 12/25/17 03:05 12/25/17 03:05 Lab Results, Last 24 hours 12/25/17 12/25/17 03:05 03:05 WBC 9.0 Hgb 9.0 L Hct 27.6 L Plt Count 474 H Sodium 126 L Potassium 4.2 Chloride 95 L Carbon Dioxide 21 L BUN 21 Creatinine 1.06 Glucose 113 H Calcium 8.5 L - VTE Documentation of Mechanical Device: Graduated compression elastic hosiery Consult Discharge Plan - Plan Additional Instructions: RISK FACTORS: STOP SMOKING: If you smoke, STOP. Smoking or tobacco use significantly increases your risk of heart disease because nicotine causes the arteries to narrow or constrict. It also causes fats to stick to the artery. Your chances of having a heart attack are greatly increased if you continue to smoke. For more information, call the education line for smoking cessation 7-642-SOHGWDF EAT A LOW FAT/CHOLESTEROL/SODIUM DIET: This diet may help reduce your chances of having a heart attack. LIFTING: Avoid lifting anything more than 10 pounds for 5-7 days Prior to straining, laughing, sneezing and/or coughing, apply manual pressure directly over insertion site. ACTIVITY: You may walk or climb stairs as tolerated You can resume sexual activity as tolerated In general, you are encouraged to engage in a minimum of 30 minutes or more of moderate intensity physical activity, such as brisk walking, daily or at least 3 -4 times weekly BATHING Do not submerge the site into water (bath tub, hot tub, swimming pool) for 1 week. This can be a source for infection into the blood stream. You may shower after 24 hours SITE CARE: After 24 hours, you may remove the dressing and leave the site open to air. Keep the site clean and dry. Clean gently and pat dry. You can expect bruising and tenderness that gradually resolve within a week or two. Return to work as instructed per your physician Resume driving as instructed per physician Keep all scheduled follow up appointments Resume medications as instructed IMPORTANT: If prescribed a Platelet Aggregation Inhibitor such as, Plavix, Brilinta or Effient: Duration of therapy is minimum one year These medications are often used in combination with Aspirin in prevention of future heart attacks Never discontinue unless consult with your Weigher And Crusher STROKE (CVA) Risk factors for a stroke are: Age, cigarette smoking, diabetes, excessive alcohol consumption, family history, high blood pressure, overweight, physical inactivity, prior stroke, heart attack, diagnosis of carotid artery stenosis or other artery disease. Warning signs: Sudden numbness or weakness of the face, arm or leg; especially on one side of the body, sudden confusion, trouble speaking or understanding, sudden trouble seeing in one or both eyes, sudden trouble walking, dizziness, loss of balance or coordination, sudden severe headache with no cause. Call 911 or go to the Emergency Room. CONGESTIVE HEART FAILURE: If you have been diagnosed with Congestive Heart Failure (CHF) and your symptoms return, make an appointment with your physician Weigh yourself daily. Notify your physician if you have a weight gain of two or more pounds in one day or five or more pounds in one week. If you experience any difficulty breathing, please call 911 BLEEDING: Although the risk of bleeding is minimal, it can happen. If you have any bleeding from the site, apply firm pressure above the puncture site for 10-15 minutes. If the bleeding does not stop, continue manual pressure and call 911 Contact your physician if: You develop a fever greater than 101 degrees Fahrenheit Your site becomes reddened or has any drainage You have an increase in pain or burning at the site or if a large knot forms at the site. If you experience chest pain, shortness of breath, dizziness, or extreme tiredness, stop the activity and rest. Please notify your physicians office if you experience any of these symptoms and they are not relieved by rest please call 911! Restart coumadin tonight if no bleeding at cardiac catheterization site. Referrals: Jerome Tobias DO [Non-Partnered Physician] - (spoke with Dr. Tobias's office and they will call the patient at home with an appointment) Kailee Keating MD [Partnered Physician] - (office will call patient with follow up appointment) Yanira Mathias CNP [Advanced Practice Nurse] - (Patient is going to [facility] no PCP appointment needed) Jairo Diaz MD [Partnered Physician] - 01/05/18 1:15 am Nestor Sagastume MD [Partnered Physician] - 01/02/18 7:45 am
[2017-12-25] MEDS: *HR* Warfarin 2 MG TABLET PO SCH (16:48)
[2017-12-25] MEDS: Furosemide 20 MG TABLET PO SCH (16:48)
[2017-12-26 04:17] LABS: Basophils # 0.1 K/mcL (0.0-0.2); Basophils % 0.6 %; Eosinophils # 0.2 K/mcL (0.0-0.6); Eosinophils % 2.4 %; Hematocrit 28.1 % (37.5-50.1); Hemoglobin 9.4 g/dL (12.9-16.9); Immature Granulocytes % 0.2 % (0-4); Lymphocytes # 1.2 K/mcL (0.6-4.6); Lymphocytes % 14.2 %; Mean Corpuscular HGB Conc 33.5 g/dL (31.6-35.5); Mean Corpuscular Hemoglobin 29.4 pg (28.0-33.3); Mean Corpuscular Volume 87.8 fL (83.0-100.0); Mean Platelet Volume 9.4 fL (9.4-12.4); Monocytes # 1.1 K/mcL (0.0-1.3); Monocytes % 13.2 %; Neutrophils # 5.8 K/mcL (1.6-8.9); Platelet Count 464 K/mcL (140-400); Red Cell Distribution Width 13.6 % (11.5-14.5); Segmented Neutrophils % 69.4 %
[2017-12-26 04:19] LABS: INR 2.1; Prothrombin Time 22.9 Seconds (9.4-12.1)
[2017-12-26 04:37] LABS: BUN/Creatinine Ratio 20 (6-26); Blood Urea Nitrogen 21 mg/dL (8-23); Calcium 8.6 mg/dL (8.6-10.3); Carbon Dioxide 20 mEq/L (23-29); Chloride 95 mEq/L (98-107); Glucose 105 mg/dL (70-105); Osmolality,Calculated 265 (280-300); Potassium 4.3 mEq/L (3.5-5.1); Sodium 126 mEq/L (136-145); eGFR For African Americans > 60 (> 60); eGFR For Non-African Americans > 60 (> 60)
[2017-12-26] MEDS: Ipratropium/Albuterol Neb 3 ML IH SCH ×6 (04:44→23:31)
[2017-12-26] MEDS: *HR* Amiodarone 200 MG TABLET PO SCH (07:41)
[2017-12-26] MEDS: Aspirin Enteric Coated 81 MG Tablet PO SCH (07:41)
[2017-12-26] MEDS: Furosemide 40 MG TABLET PO SCH (07:41)
[2017-12-26] MEDS: Chlorhexidine Rinse 15 ML MOUTHWASH MM SCH ×2 (07:41→20:55)
--- NOTE | 2017-12-26 08:46 | Internal Med Progress Note ---
<Isidro Horner - Last Filed: 12/26/17 08:44> Date of Encounter: 12/26/17 Time of Encounter: 08:45 - Assessment and plan (1) Acute respiratory failure with hypoxia Current Visit: Yes Status: Acute Assessment and plan: Patient has improved. Oxygen saturation is currently 94% on 2 L continue weaning as tolerated. Maintain oxygen saturation of 93% or greater. Continue monitoring as patient does not have oxygen at home and may require some for short period of time outpatient. Chest x-ray reveals improvement of the left pleural effusion. (2) CKD (chronic kidney disease) stage 3, GFR 30-59 ml/min Current Visit: Yes Status: Acute Assessment and plan: Creatinine is significantly improved. It is currently 1.05. (3) Hyponatremia Current Visit: Yes Status: Acute Assessment and plan: Patient continues to remain hyponatremic with a sodium of 126. He is receiving salt tablets. However, patient is still on Lasix orally for diuresis as he still has a pleural effusion. Currently on 40 mg in the morning orally and 20 in the evening mg orally. This is probably contributing to his continued hyponatremia. (4) Afib Current Visit: Yes Status: Acute Assessment and plan: Rate is controlled on current medications. Qualifiers: Atrial fibrillation type: chronic Qualified Code(s): I48.2 - Chronic atrial fibrillation (5) DVT prophylaxis Current Visit: Yes Status: Acute Assessment and plan: On warfarin. - Subjective Interval history: Patient states that he is doing well other than being tired. He states that his shortness of breath has improved a lot. No other complaints at this time. - Constitutional Vitals: Temp Pulse Resp BP Pulse Ox 98.3 F 72 16 134/73 94 12/26/17 06:54 12/26/17 07:35 12/26/17 08:09 12/26/17 06:54 12/26/17 08:09 General appearance: Present: cooperative, A&O X 3, pleasant, no acute distress, answers questions appropriately - Head Head exam: Present: atraumatic - Respiratory Respiratory exam: Present: CTAB. Absent: rales, respiratory distress - Cardiovascular Cardiovascular exam: Present: irregular rhythm. Absent: JVD - GI/Abdominal GI/Abdominal exam: Absent: distended, rigid, no peritoneal signs - Neurological Exam Neurological exam: Present: alert, CN II-XII intact, oriented X3 Internal Medicine: Result - Labs CBC & Chem 7: 12/26/17 03:02 12/26/17 03:02 Labs: Short CBC 12/26/17 Range/Units 03:02 WBC 8.4 (4.3-11.1) K/mcL Hgb 9.4 L (12.9-16.9) g/dL Hct 28.1 L (37.5-50.1) % Plt Count 464 H (140-400) K/mcL Neutrophils # 5.8 (1.6-8.9) K/mcL BMP 12/26/17 03:02 Sodium 126 L Potassium 4.3 Chloride 95 L Carbon Dioxide 20 L BUN 21 Creatinine 1.05 Glucose 105 Calcium 8.6 - ABG Interpretation ABG results: ABG ABG pH 7.47 pH Units (7.32-7.45) H 12/20/17 21:12 ABG pCO2 27 mmHg (35-45) L 12/20/17 21:12 ABG pO2 72 mmHg (85-104) L 12/20/17 21:12 ABG O2 Saturation 96 % (95-98) 12/20/17 21:12 PT/INR, D-dimer PT 22.9 Seconds (9.4-12.1) H 12/26/17 03:02 - Impressions Impressions Chest X-Ray 12/26/17 00:01 IMPRESSION: Bibasilar atelectasis, with mild improvement in the interval. Small left pleural effusion, decreased in the interval. D/ / Blake Mcguire MD / Blake Mcguire MD Interpreting Provider: Blake Mcguire MD - VTE Documentation of Mechanical Device: Graduated compression elastic hosiery Consult Discharge Plan - Plan Additional Instructions: RISK FACTORS: STOP SMOKING: If you smoke, STOP. Smoking or tobacco use significantly increases your risk of heart disease because nicotine causes the arteries to narrow or constrict. It also causes fats to stick to the artery. Your chances of having a heart attack are greatly increased if you continue to smoke. For more information, call the education line for smoking cessation 8-607-HFNRKWN EAT A LOW FAT/CHOLESTEROL/SODIUM DIET: This diet may help reduce your chances of having a heart attack. LIFTING: Avoid lifting anything more than 10 pounds for 5-7 days Prior to straining, laughing, sneezing and/or coughing, apply manual pressure directly over insertion site. ACTIVITY: You may walk or climb stairs as tolerated You can resume sexual activity as tolerated In general, you are encouraged to engage in a minimum of 30 minutes or more of moderate intensity physical activity, such as brisk walking, daily or at least 3 -4 times weekly BATHING Do not submerge the site into water (bath tub, hot tub, swimming pool) for 1 week. This can be a source for infection into the blood stream. You may shower after 24 hours SITE CARE: After 24 hours, you may remove the dressing and leave the site open to air. Keep the site clean and dry. Clean gently and pat dry. You can expect bruising and tenderness that gradually resolve within a week or two. Return to work as instructed per your physician Resume driving as instructed per physician Keep all scheduled follow up appointments Resume medications as instructed IMPORTANT: If prescribed a Platelet Aggregation Inhibitor such as, Plavix, Brilinta or Effient: Duration of therapy is minimum one year These medications are often used in combination with Aspirin in prevention of future heart attacks Never discontinue unless consult with your Wool Fleece Grader STROKE (CVA) Risk factors for a stroke are: Age, cigarette smoking, diabetes, excessive alcohol consumption, family history, high blood pressure, overweight, physical inactivity, prior stroke, heart attack, diagnosis of carotid artery stenosis or other artery disease. Warning signs: Sudden numbness or weakness of the face, arm or leg; especially on one side of the body, sudden confusion, trouble speaking or understanding, sudden trouble seeing in one or both eyes, sudden trouble walking, dizziness, loss of balance or coordination, sudden severe headache with no cause. Call 911 or go to the Emergency Room. CONGESTIVE HEART FAILURE: If you have been diagnosed with Congestive Heart Failure (CHF) and your symptoms return, make an appointment with your physician Weigh yourself daily. Notify your physician if you have a weight gain of two or more pounds in one day or five or more pounds in one week. If you experience any difficulty breathing, please call 911 BLEEDING: Although the risk of bleeding is minimal, it can happen. If you have any bleeding from the site, apply firm pressure above the puncture site for 10-15 minutes. If the bleeding does not stop, continue manual pressure and call 911 Contact your physician if: You develop a fever greater than 101 degrees Fahrenheit Your site becomes reddened or has any drainage You have an increase in pain or burning at the site or if a large knot forms at the site. If you experience chest pain, shortness of breath, dizziness, or extreme tiredness, stop the activity and rest. Please notify your physicians office if you experience any of these symptoms and they are not relieved by rest please call 911! Restart coumadin tonight if no bleeding at cardiac catheterization site. Referrals: Jerome Tobias DO [Non-Partnered Physician] - (spoke with Dr. Tobias's office and they will call the patient at home with an appointment) Kailee Keating MD [Partnered Physician] - (office will call patient with follow up appointment) Yanira Mathias CNP [Advanced Practice Nurse] - (Patient is going to [facility] no PCP appointment needed) Jairo Diaz MD [Partnered Physician] - 01/05/18 1:15 am Nestor Sagastume MD [Partnered Physician] - 01/02/18 7:45 am <Augustin Zazueta - Last Filed: 12/26/17 10:39> Date of Encounter: 12/26/17 - Assessment and plan (1) Acute respiratory failure with hypoxia Current Visit: Yes Status: Acute (2) CKD (chronic kidney disease) stage 3, GFR 30-59 ml/min Current Visit: Yes Status: Acute (3) Hyponatremia Current Visit: Yes Status: Acute (4) Afib Current Visit: Yes Status: Acute Qualifiers: Atrial fibrillation type: chronic Qualified Code(s): I48.2 - Chronic atrial fibrillation (5) DVT prophylaxis Current Visit: Yes Status: Acute - Constitutional Vitals: Temp Pulse Resp BP Pulse Ox 98.3 F 72 16 134/73 94 12/26/17 06:54 12/26/17 07:35 12/26/17 08:09 12/26/17 06:54 12/26/17 08:09 Internal Medicine: Result - Labs CBC & Chem 7: 12/26/17 03:02 12/26/17 03:02 Labs: Short CBC 12/26/17 Range/Units 03:02 WBC 8.4 (4.3-11.1) K/mcL Hgb 9.4 L (12.9-16.9) g/dL Hct 28.1 L (37.5-50.1) % Plt Count 464 H (140-400) K/mcL Neutrophils # 5.8 (1.6-8.9) K/mcL BMP 12/26/17 03:02 Sodium 126 L Potassium 4.3 Chloride 95 L Carbon Dioxide 20 L BUN 21 Creatinine 1.05 Glucose 105 Calcium 8.6 - ABG Interpretation ABG results: ABG ABG pH 7.47 pH Units (7.32-7.45) H 12/20/17 21:12 ABG pCO2 27 mmHg (35-45) L 12/20/17 21:12 ABG pO2 72 mmHg (85-104) L 12/20/17 21:12 ABG O2 Saturation 96 % (95-98) 12/20/17 21:12 PT/INR, D-dimer PT 22.9 Seconds (9.4-12.1) H 12/26/17 03:02 - Impressions Impressions Chest X-Ray 12/26/17 00:01 IMPRESSION: Bibasilar atelectasis, with mild improvement in the interval. Small left pleural effusion, decreased in the interval. D/ / Blake Mcguire MD / Blake Mcguire MD Interpreting Provider: Blkae Mcguire MD - Attending Attestation Acute and metabolic encephalopathy likely secondary to hypoxia, may avoid narcotics CRX , small left pleural effusion Hyponatremia due to volume overload and poor oral intake, increase dose of NaCl salt tablets to 2 g BID may continue diuresis with lasix 20 mg BID Acute blood loss anemia due to surgery transfused 1 unti of RBCs consider CPAP History of chronic kidney disease stage III I examined this patient and my medical decision-making was reviewed with the Resident Physician. I agree with the documented findings, disposition and treatment plan as described except to the extent set forth below.
--- NOTE | 2017-12-26 09:17 | Cardiothoracic Progress Note ---
Date of Encounter: 12/26/17 Time of Encounter: 09:16 - Assessment and plan (1) CAD (coronary artery disease) Current Visit: Yes Status: Acute The patient is recovering well from his CABG2, modified Maze procedure, and left atrial appendage stapling. He remains in atrial fibrillation with a controlled rate. He will continue with his amiodarone and beta de medical management for his atrial fibrillation. He is anticoagulated with Coumadin and his INR is 2.1. He will be transferred to inpatient rehabilitation center tomorrow if a bed is available. The assessment and plan as outlined above was discussed with the patient and/or family members who expressed understanding and agreement. All questions were answered. Qualifiers: Coronary Disease-Associated Artery/Lesion type: [place] artery [place] vs. transplanted heart: [place] heart Associated angina: with unstable angina Qualified Code(s): I25.110 - Atherosclerotic heart disease of [place] coronary artery with unstable angina pectoris - Subjective Procedure(s) Performed: POD#18 S/P CABG2, modified Maze procedure Interval history: The patient remained hemodynamically stable overnight. He has no complaints. Vital Signs, Last 4 Hours Temp Pulse Resp BP Pulse Ox 12/26/17 08:09 16 94 12/26/17 07:35 72 93 12/26/17 06:54 98.3 F 92 24 134/73 95 Oxgyen Flow Rate Oxygen Flow Rate (LPM) 2 Weight 12/24/17 12/25/17 12/26/17 23:59 23:59 23:59 Weight 90.6 kg 89.3 kg - Physical Examination General: Conversant, No Apparent Distress Neck: No JVD, Normal carotid pulses Cardiac: Normal S1 and S2, No Murmur, Other (Irregular rate and rhythm (atrial fibrillation)) Incision: No signs of infection, Dry/intact dressing Sternum: Stable Lungs: Normal Breath Sounds, No Wheeze, Rales, Rhonchi Neuro: Alert and responsive, No focal deficits noted Vascular: Normal capillary refill Musculoskeletal: No Chest Wall Tenderness Extremities: No Clubbing, No Cyanosis, No Edema - Labs 12/26/17 03:02 12/26/17 03:02 Lab Results, Last 24 hours 12/26/17 12/26/17 12/26/17 03:02 03:02 03:02 WBC 8.4 Hgb 9.4 L Hct 28.1 L Plt Count 464 H INR 2.1 Sodium 126 L Potassium 4.3 Chloride 95 L Carbon Dioxide 20 L BUN 21 Creatinine 1.05 Glucose 105 Calcium 8.6 - Imaging Chest Xray: image reviewed (No pneumothorax. Bibasilar atelectasis, improving. Small left pleural effusion, decreasing in size.) - VTE Documentation of Mechanical Device: Graduated compression elastic hosiery Consult Discharge Plan - Plan Additional Instructions: RISK FACTORS: STOP SMOKING: If you smoke, STOP. Smoking or tobacco use significantly increases your risk of heart disease because nicotine causes the arteries to narrow or constrict. It also causes fats to stick to the artery. Your chances of having a heart attack are greatly increased if you continue to smoke. For more information, call the education line for smoking cessation 8-976-DRMSGAD EAT A LOW FAT/CHOLESTEROL/SODIUM DIET: This diet may help reduce your chances of having a heart attack. LIFTING: Avoid lifting anything more than 10 pounds for 5-7 days Prior to straining, laughing, sneezing and/or coughing, apply manual pressure directly over insertion site. ACTIVITY: You may walk or climb stairs as tolerated You can resume sexual activity as tolerated In general, you are encouraged to engage in a minimum of 30 minutes or more of moderate intensity physical activity, such as brisk walking, daily or at least 3 -4 times weekly BATHING Do not submerge the site into water (bath tub, hot tub, swimming pool) for 1 week. This can be a source for infection into the blood stream. You may shower after 24 hours SITE CARE: After 24 hours, you may remove the dressing and leave the site open to air. Keep the site clean and dry. Clean gently and pat dry. You can expect bruising and tenderness that gradually resolve within a week or two. Return to work as instructed per your physician Resume driving as instructed per physician Keep all scheduled follow up appointments Resume medications as instructed IMPORTANT: If prescribed a Platelet Aggregation Inhibitor such as, Plavix, Brilinta or Effient: Duration of therapy is minimum one year These medications are often used in combination with Aspirin in prevention of future heart attacks Never discontinue unless consult with your Cherry Cutter STROKE (CVA) Risk factors for a stroke are: Age, cigarette smoking, diabetes, excessive alcohol consumption, family history, high blood pressure, overweight, physical inactivity, prior stroke, heart attack, diagnosis of carotid artery stenosis or other artery disease. Warning signs: Sudden numbness or weakness of the face, arm or leg; especially on one side of the body, sudden confusion, trouble speaking or understanding, sudden trouble seeing in one or both eyes, sudden trouble walking, dizziness, loss of balance or coordination, sudden severe headache with no cause. Call 911 or go to the Emergency Room. CONGESTIVE HEART FAILURE: If you have been diagnosed with Congestive Heart Failure (CHF) and your symptoms return, make an appointment with your physician Weigh yourself daily. Notify your physician if you have a weight gain of two or more pounds in one day or five or more pounds in one week. If you experience any difficulty breathing, please call 911 BLEEDING: Although the risk of bleeding is minimal, it can happen. If you have any bleeding from the site, apply firm pressure above the puncture site for 10-15 minutes. If the bleeding does not stop, continue manual pressure and call 911 Contact your physician if: You develop a fever greater than 101 degrees Fahrenheit Your site becomes reddened or has any drainage You have an increase in pain or burning at the site or if a large knot forms at the site. If you experience chest pain, shortness of breath, dizziness, or extreme tiredness, stop the activity and rest. Please notify your physicians office if you experience any of these symptoms and they are not relieved by rest please call 911! Restart coumadin tonight if no bleeding at cardiac catheterization site. Referrals: Jerome Tobias DO [Non-Partnered Physician] - (spoke with Dr. Tobias's office and they will call the patient at home with an appointment) Kailee Keating MD [Partnered Physician] - (office will call patient with follow up appointment) Yanira Mathias CNP [Advanced Practice Nurse] - (Patient is going to [facility] no PCP appointment needed) Jairo Diaz MD [Partnered Physician] - 01/05/18 1:15 am Nestor Sagastume MD [Partnered Physician] - 01/02/18 7:45 am
[2017-12-26] MEDS: *HR* Warfarin 2 MG TABLET PO SCH (16:48)
[2017-12-26] MEDS: Furosemide 20 MG TABLET PO SCH (16:48)
[2017-12-27] MEDS: Ipratropium/Albuterol Neb 3 ML IH SCH ×3 (03:55→11:18)
[2017-12-27 05:09] LABS: Basophils # 0.1 K/mcL (0.0-0.2); Basophils % 1.1 %; Eosinophils # 0.3 K/mcL (0.0-0.6); Eosinophils % 3.1 %; Hematocrit 27.1 % (37.5-50.1); Hemoglobin 9.4 g/dL (12.9-16.9); Immature Granulocytes % 0.4 % (0-4); Lymphocytes # 1.1 K/mcL (0.6-4.6); Mean Corpuscular HGB Conc 34.7 g/dL (31.6-35.5); Mean Corpuscular Hemoglobin 29.7 pg (28.0-33.3); Mean Corpuscular Volume 85.8 fL (83.0-100.0); Mean Platelet Volume 8.8 fL (9.4-12.4); Monocytes % 12.2 %; Neutrophils # 5.6 K/mcL (1.6-8.9); Platelet Count 408 K/mcL (140-400); Red Blood Count 3.16 M/mcL (4.19-5.50); Red Cell Distribution Width 13.4 % (11.5-14.5); Segmented Neutrophils % 69.2 %
[2017-12-27 05:28] LABS: BUN/Creatinine Ratio 18 (6-26); Blood Urea Nitrogen 18 mg/dL (8-23); Calcium 8.5 mg/dL (8.6-10.3); Carbon Dioxide 21 mEq/L (23-29); Chloride 94 mEq/L (98-107); Glucose 110 mg/dL (70-105); Osmolality,Calculated 263 (280-300); Potassium 4.1 mEq/L (3.5-5.1); Sodium 125 mEq/L (136-145); eGFR For African Americans > 60 (> 60); eGFR For Non-African Americans > 60 (> 60)
[2017-12-27 05:35] LABS: INR 2.3; Prothrombin Time 25.5 Seconds (9.4-12.1)
[2017-12-27] MEDS: Furosemide 20 MG TABLET PO SCH (07:50)
[2017-12-27] MEDS: *HR* Amiodarone 200 MG TABLET PO SCH (09:10)
[2017-12-27] MEDS: Aspirin Enteric Coated 81 MG Tablet PO SCH (09:10)
[2017-12-27] MEDS: Chlorhexidine Rinse 15 ML MOUTHWASH MM SCH (09:10)
--- NOTE | 2017-12-27 10:08 | Cardiothoracic Progress Note ---
Date of Encounter: 12/27/17 Time of Encounter: 10:05 - Assessment and plan (1) Afib Current Visit: Yes Status: Acute The patient is ready to be discharged when a rehabilitation bed is available. Qualifiers: Atrial fibrillation type: chronic Qualified Code(s): I48.2 - Chronic atrial fibrillation - Subjective Interval history: The patient has no complaints and is anxious to be discharged to an extended care facility. Vital Signs, Last 4 Hours Temp Pulse BP Pulse Ox 12/27/17 07:30 98.0 F 91 139/86 92 Oxgyen Flow Rate Oxygen Flow Rate (LPM) 2 Weight 12/25/17 12/26/17 12/27/17 23:59 23:59 23:59 Weight 90.6 kg 89.3 kg Lungs are clear to percussion and auscultation. Heart is in an atrial fibrillation with a controlled ventricular rate. All incisions are healing well without signs of infection and the sternum is stable. - Labs 12/27/17 04:47 12/27/17 04:47 Lab Results, Last 24 hours 12/27/17 12/27/17 12/27/17 04:47 04:47 04:47 WBC 8.0 Hgb 9.4 L Hct 27.1 L Plt Count 408 H INR 2.3 Sodium 125 L Potassium 4.1 Chloride 94 L Carbon Dioxide 21 L BUN 18 Creatinine 0.98 Glucose 110 H Calcium 8.5 L - VTE Documentation of Mechanical Device: Graduated compression elastic hosiery Consult Discharge Plan - Plan Additional Instructions: RISK FACTORS: STOP SMOKING: If you smoke, STOP. Smoking or tobacco use significantly increases your risk of heart disease because nicotine causes the arteries to narrow or constrict. It also causes fats to stick to the artery. Your chances of having a heart attack are greatly increased if you continue to smoke. For more information, call the education line for smoking cessation 0-269-PVIKOEW EAT A LOW FAT/CHOLESTEROL/SODIUM DIET: This diet may help reduce your chances of having a heart attack. LIFTING: Avoid lifting anything more than 10 pounds for 5-7 days Prior to straining, laughing, sneezing and/or coughing, apply manual pressure directly over insertion site. ACTIVITY: You may walk or climb stairs as tolerated You can resume sexual activity as tolerated In general, you are encouraged to engage in a minimum of 30 minutes or more of moderate intensity physical activity, such as brisk walking, daily or at least 3 -4 times weekly BATHING Do not submerge the site into water (bath tub, hot tub, swimming pool) for 1 week. This can be a source for infection into the blood stream. You may shower after 24 hours SITE CARE: After 24 hours, you may remove the dressing and leave the site open to air. Keep the site clean and dry. Clean gently and pat dry. You can expect bruising and tenderness that gradually resolve within a week or two. Return to work as instructed per your physician Resume driving as instructed per physician Keep all scheduled follow up appointments Resume medications as instructed IMPORTANT: If prescribed a Platelet Aggregation Inhibitor such as, Plavix, Brilinta or Effient: Duration of therapy is minimum one year These medications are often used in combination with Aspirin in prevention of future heart attacks Never discontinue unless consult with your Hand Model STROKE (CVA) Risk factors for a stroke are: Age, cigarette smoking, diabetes, excessive alcohol consumption, family history, high blood pressure, overweight, physical inactivity, prior stroke, heart attack, diagnosis of carotid artery stenosis or other artery disease. Warning signs: Sudden numbness or weakness of the face, arm or leg; especially on one side of the body, sudden confusion, trouble speaking or understanding, sudden trouble seeing in one or both eyes, sudden trouble walking, dizziness, loss of balance or coordination, sudden severe headache with no cause. Call 911 or go to the Emergency Room. CONGESTIVE HEART FAILURE: If you have been diagnosed with Congestive Heart Failure (CHF) and your symptoms return, make an appointment with your physician Weigh yourself daily. Notify your physician if you have a weight gain of two or more pounds in one day or five or more pounds in one week. If you experience any difficulty breathing, please call 911 BLEEDING: Although the risk of bleeding is minimal, it can happen. If you have any bleeding from the site, apply firm pressure above the puncture site for 10-15 minutes. If the bleeding does not stop, continue manual pressure and call 911 Contact your physician if: You develop a fever greater than 101 degrees Fahrenheit Your site becomes reddened or has any drainage You have an increase in pain or burning at the site or if a large knot forms at the site. If you experience chest pain, shortness of breath, dizziness, or extreme tiredness, stop the activity and rest. Please notify your physicians office if you experience any of these symptoms and they are not relieved by rest please call 911! Restart coumadin tonight if no bleeding at cardiac catheterization site. Referrals: Jerome Tobias DO [Non-Partnered Physician] - (spoke with Dr. Tobias's office and they will call the patient at home with an appointment) Kailee Keating MD [Partnered Physician] - (office will call patient with follow up appointment) Yanira Mathias CNP [Advanced Practice Nurse] - (Patient is going to [facility] no PCP appointment needed) Jairo Diaz MD [Partnered Physician] - 01/05/18 1:15 am Nestor Sagastume MD [Partnered Physician] - 01/02/18 7:45 am
--- NOTE | 2017-12-27 10:22 | Discharge Summary ---
Date of Encounter: 12/27/17 Time of Encounter: 10:15 - Discharge Diagnosis (1) Afib Priority: Primary Status: Acute Qualifiers: Atrial fibrillation type: chronic Qualified Code(s): I48.2 - Chronic atrial fibrillation - Hospital Course Hospital course: Mr. Quintana is a 77 year old male The patient is a 77-year-old gentleman who presented with coronary artery disease and atrial fibrillation. Cardiac catheterization revealed triple- vessel disease with left main disease and he was referred for surgery. He did have a history of a stroke in 2002. 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 On 12/08/2017, I took him to the operating room for coronary artery bypass grafting 2, utilizing the left internal mammary artery. He also underwent modified maze procedure with left atrial appendage stapling. Postoperatively, he was seen by the pulmonary service. He was also seen by the renal service. He had developed mild renal failure, but by the time of discharge his creatinine was normal. In addition, he had urinary retention and was seen by the urology service. A Parrish catheter was placed. Urology plans to remove it approximately 1 week after discharge in the office. The patient was placed back on his Coumadin and by the time of discharge his INR was therapeutic. Coumadin precautions were given. The patient did have some problems with constipation. A KUB revealed no dilated loops of bowel. This resolved upon stopping the narcotics in the patient's pain was well controlled with Tylenol. The patient otherwise did well and was discharged on December 27. At that time, he was afebrile. Lungs were clear to percussion and auscultation. Heart was and then irregular rate and rhythm. He was in atrial fibrillation with controlled ventricular rate. All incisions were healing well without signs of infection and the sternum was stable. Discharge medications are on the med rec. He was not given any narcotics. He was to walk as much as possible as his stroke would allow. He was to avoid heavy lifting for a total of 3 months after surgery. He no longer drives. He was returned to his previous and regular diet. He was to follow up and see me in the office in 4 weeks as directed. He was to follow-up with urology, cardiology and his primary care doctor as directed. He was to call sooner for any difficulties. - Time Spent with Patient Total time spent providing and/or coordinating discharge services: - Discharge Medications Prescriptions: Amiodarone [Cordarone] 200 mg PO DAILY #30 tablet Atenolol [Tenormin] 25 mg PO DAILY #30 tablet Furosemide [Lasix] 20 mg PO BIDDIURETIC #60 tablet Simvastatin [Zocor] 40 mg PO HS #30 tablet Home Medications: Aspirin [Lo-Dose Aspirin EC] 81 mg PO DAILY 12/07/17 [History] Acetaminophen [Tylenol] 325 mg PO Q6HR PRN tablet 12/27/17 [Rx] Amiodarone [Cordarone] 200 mg PO DAILY #30 tablet 12/27/17 [Rx] Atenolol [Tenormin] 25 mg PO DAILY #30 tablet 12/27/17 [Rx] DiphenhydraMINE [Benadryl] 25 mg PO HS PRN capsule 12/27/17 [Rx] Furosemide [Lasix] 20 mg PO BIDDIURETIC #60 tablet 12/27/17 [Rx] Simvastatin [Zocor] 40 mg PO HS #30 tablet 12/27/17 [Rx] Warfarin [Coumadin] 2 mg PO DAILY@1800 tablet 12/27/17 [Rx] Allergies/Adverse Reactions: 3 Allergy/AdvReac Type Severity Reaction Status Date / Time No Known Allergies Allergy Unverified 09/21/17 10:23 Date of admission: 12/07/17 14:43 Primary care physician: George Hobbs Consults: 12/06/17 12:40 Consult to Cardiothoracic Surgery [CONS] Routine Consulting Provider: Cardiothoracic Surgery [place] Reason for Consult: 3VCAD, eval for CABG Call Completed: Yes 12/08/17 11:44 Consult to Cardiac Rehabilitation-Phase1 [CONS] Routine Comment: Reason for Consult: Post open heart Call Completed: Yes Consult to Manufacturing Director [CONS] Routine Reason for SW Consult: open heart 12/11/17 08:49 Consult to Pulmonology [CONS] Routine Consulting Provider: Pulm [facility] Antonella Reason for Consult: Please evaluate for abrupt onset of increased oxygen requirements and concern for PE Time Notified: 08:50 Call Completed: Yes 12/12/17 16:12 Consult to Occupational Therapy [CONS] Routine Comment: Evaluate, develop and implement POC Reason for Consult: S/P CABG Consult to Physical Therapy [CONS] Routine Comment: Evaluate, develop and implement POC Reason for Consult: S/P CABG 12/18/17 17:21 Consult to Hospitalist [CONS] Stat Consulting Provider: Hospitalist Cordell Reason for Consult: LETHARGY Call Completed: Yes 12/18/17 20:25 Consult to Nephrology [CONS] Routine Consulting Provider: [facility] KEVIN Reason for Consult: ARF Call Completed: Yes 12/19/17 07:46 Consult to Urology [CONS] Routine Consulting Provider: Urology Antonella Reason for Consult: Urinary retention Time Notified: 07:37 Call Completed: Yes Procedure(s) Performed: 12/08/2017. Coronary artery bypass grafting 2, utilizing the left internal mammary artery. Modified Maze procedure with left atrial appendage stapling. Discharging clinician: Jairo Diaz Anticipated date of discharge: 12/27/17 Physical Examination Vital Signs, Last 4 Hours Temp Pulse BP Pulse Ox 12/27/17 07:30 98.0 F 91 139/86 92 - Patient Status Disposition: Transfer Inpatient Rehab Fac Condition: Fair Functional capacity at discharge: uses cane/walker Overall status at discharge: patient is progressing back to baseline - Discharge Instructions Follow Up With: Jerome Tobias DO [Non-Partnered Physician] - (spoke with Dr. Tobias's office and they will call the patient at home with an appointment) Kailee Keating MD [Partnered Physician] - (office will call patient with follow up appointment) Yanira Mathias CNP [Advanced Practice Nurse] - (Patient is going to [facility] no PCP appointment needed) Jairo Diaz MD [Partnered Physician] - 01/05/18 1:15 am Nestor Sagastume MD [Partnered Physician] - 01/02/18 7:45 am [facility] Aspirin Cont/Prescribed at DC: Yes Beta Isai Cont/Prescribed at DC: Yes Statin Cont/Prescribed at DC: Yes CHRISTY/ARB Cont/Prescribed at DC: Not indicated - VTE Documentation of Mechanical Device: Graduated compression elastic hosiery
--- NOTE | 2017-12-27 10:32 | Physician Discharge Referral ---
ExtendedCare Referral Info Provider in Charge after Transfer: PCP Institutional Level of Care: Intermediate - Diagnosis (1) Afib Priority: Primary Status: Acute - Transfer Medications Prescriptions: Amiodarone [Cordarone] 200 mg PO DAILY #30 tablet Atenolol [Tenormin] 25 mg PO DAILY #30 tablet Furosemide [Lasix] 20 mg PO BIDDIURETIC #60 tablet Simvastatin [Zocor] 40 mg PO HS #30 tablet Home Medications: Aspirin [Lo-Dose Aspirin EC] 81 mg PO DAILY 12/07/17 [History] Acetaminophen [Tylenol] 325 mg PO Q6HR PRN tablet 12/27/17 [Rx] Amiodarone [Cordarone] 200 mg PO DAILY #30 tablet 12/27/17 [Rx] Atenolol [Tenormin] 25 mg PO DAILY #30 tablet 12/27/17 [Rx] DiphenhydraMINE [Benadryl] 25 mg PO HS PRN capsule 12/27/17 [Rx] Furosemide [Lasix] 20 mg PO BIDDIURETIC #60 tablet 12/27/17 [Rx] Simvastatin [Zocor] 40 mg PO HS #30 tablet 12/27/17 [Rx] Warfarin [Coumadin] 2 mg PO DAILY@1800 tablet 12/27/17 [Rx] Allergies/Adverse Reactions: 3 Allergy/AdvReac Type Severity Reaction Status Date / Time No Known Allergies Allergy Unverified 09/21/17 10:23 - Respiratory Orders Smoking Cessation: Smoking cessation has been advised. For more information, call the [place] Tobacco Quit Line at 1-904-ZUEF-NOW. - Ancillary Orders May use pressure relief devices daily prn, May go on SONIDO w/family/respon green party w /meds at nurse discretion PRN, May have alcoholic beverages, May consult with Dentist, Claims Assistant, Electromedical Equipment Repairer PRN - Advance Directives Code Status: Full Code - Mobility Orders Ambulate - Rehabiliation Orders Rehab Potential: Good Rehab Orders: Sternal Precautions, ROM Exercises, Evaluation for Physical Therapy, Evaluation for Occupational Therapy - Treatments Skin tear care topically daily PRN per policy, May check for fecal impaction rectally daily PRN, Fleet enema rectally every other day PRN cleansing purposes - Diet Orders Regular CERTIFICATION: I certify that the transfer of the above named patient to an Extended Care Facility is necessary for the continuing treatment of the diagnosis listed. The above information is true and accurate reflection of patient's current condition. Confidential - Redisclosure prohibited without a patient's written consent.
[2017-12-27 11:44] VITALS: BP 141/66
--- NOTE | 2017-12-29 09:14 | Invasive Diagnostic Lab Proc ---
Name: Kojo Quintana Date of Study: 12/06/2017 Date: 1940 Ht: 71.0in Medical Record#: [id number] Age: 77 Wt: 188.00lb Gender: Male BSA: 2.05 Order #: [id number] BMI: 26.22 Physicians Procedure Physician: Kailee Keating MD, [facility] Referring MD: Faby Referring MD: Staff Name Position Time In Yanira Lyons RN Pre-Op Nurse Elma Boo RN Pre-Op Nurse Indications Indication Abnormal Test - Stress Procedures Performed Procedure L HRT ARTERY/VENTRICLE ANGIO Pre-Procedure Checklist Informed consent is complete signed and on chart. H&P is on chart. ID band is on and ID verified with patient. Patient NPO for procedure The procedure was described for the patient and questions were answered. Blood Pressure: 158/85 ECG is on chart. Rhythm: Atrial Fibrillation Plan of Care Patient will tolerate the procedure without complications. Adequate level of comfort will be maintained. Hemodynamics will remain stable Patient will recover from procedure without complications. Respiratory function will be maintained. Cardiac rhythm will remain stable. Patient temperature will be maintained. Patient and/or family have verbalized understanding of the procedure. Patient Education Chief Complaint/Reason for Test: Cardiac Cath Developmental Category: Geriatric (65+ years) Developmentally Appropriate for Age: Yes Learning Barriers: None Education Needs: Procedure Education Method: Verbal Information Taught: Cardiac Cath Educational Evaluation: Able to repeat information Intravenous Access Time IV Size Location DC'd Fluid/Drip Rate Units RN 09:49 AM Started with 20g 1 1/4" Rt Arm 0.9NaCl 100 ml/hr Yanira Lyons RN Allergies No Known Allergies Vital Signs Time BP (mmHg) HR (bpm) O2 Sat. RR (bpm) LOC 10:00 AM 158 / 85 62 96 % 15 5 = Fully awake and oriented or at pre-proc level 12:02 PM / % 5 = Fully awake and oriented or at pre-proc level 12:03 PM 177 / 92 59 99 % 15 12:08 PM 142 / 70 54 99 % 10 12:13 PM 140 / 76 65 96 % 13 12:18 PM 133 / 74 50 99 % 12 12:23 PM 132 / 80 66 96 % 12 12:28 PM 140 / 71 55 98 % 16 12:33 PM 136 / 79 53 92 % 13 12:47 PM 150 / 73 65 93 % 11 5 = Fully awake and oriented or at pre-proc level 01:00 PM 149 / 78 72 97 % 16 5 = Fully awake and oriented or at pre-proc level 01:15 PM 146 / 78 63 98 % 16 5 = Fully awake and oriented or at pre-proc level 01:29 PM 146 / 78 76 96 % 18 5 = Fully awake and oriented or at pre-proc level 02:05 PM 161 / 85 71 95 % 16 5 = Fully awake and oriented or at pre-proc level 02:58 PM 160 / 77 79 % 16 5 = Fully awake and oriented or at pre-proc level 03:40 PM 160 / 77 79 % 18 5 = Fully awake and oriented or at pre-proc level Procedural Medications Time Medication Dose Units Method Given By 12:02 PM Oxygen 2 L/min nasal cannula Maxine Devlin RN 12:05 PM Versed 2 mg Intravenous Maxine Devlin RN 12:05 PM Fentanyl 50 mcg Intravenous Maxine Devlin RN 12:17 PM Lidocaine 2% 15 ml Subcutaneous Kailee Keating MD, [facility] ASA Classification: CLASS II- Mild systemic disease (i.e. well-controlled diabetes, hypertension, asthma, cigarette smoking) Sana Score Preprocedure Postprocedure Activity 2- Moves 4 extremities sustained head lift Activity 2- Moves 4 extremities sustained head lift Circulation 2- SBP +/= 20 points of pre-anesthetic level Circulation 2- SBP +/= 20 points of pre-anesthetic level Consciousness 2- Awake and alert oriented x 3 Consciousness 2- Awake and alert oriented x 3 O2 Saturation 2- Able to maintain O2 satruation of 92% on room air O2 Saturation 2- Able to maintain O2 satruation of 92% on room air Respiratory 2- Able to deep breathe and cough well Respiratory 2- Able to deep breathe and cough well Total Score 10 Total Score 10 Contrast Agent: Isovue Diagnostic Contrast: 68 ml Total Contrast: 68 ml Fluoro Dose: 151 mGy Procedure Log Time Note Enter By 09:55 AM Risk for fall? Yes, Medications (change in amt./frequency,newly prescribed,potential combinations) [email or web address] 09:55 AM Evidence of mental, physical, or emotional abuse? No [email or web address] 09:55 AM Does patient have suicidal ideations? No [email or web address] 11:55 AM Pt arrived to laboratory development technician 2 at 11:55 scoates 11:55 AM Physician arrived 11:55 scoates 11:55 AM ASA Class CLASS II- Mild systemic disease (i.e. well-controlled diabetes, hypertension, asthma, cigarette smoking) scoates 11:55 AM Meet and greet completed scoates 11:55 AM Sign in performed according to hospital policy. scoates 11:56 AM Procedure start 11:56 scoates 12:01 PM neuro assessment complete. left grasp is slightly weaker than the right. All other push/pull assessments equal. Pupils equil and reactive scoates 12:02 PM Time: 12:02 Oxygen on at 2 L/min per nasal cannula by Maxine Devlin RN scoates 12:02 PM Time: 12:02 Patient comfortable and pain free: Yes scoates 12:02 PM Time: 12:02LOC: 5 = Fully awake and oriented or at pre-proc level scoates 12:02 PM CathStat 12:02 PM Vitals capture started with the following parameters, Patient=Adult, Interval=5 min, Initial Nxoehtco=989 mmHg, Deflation Rate=5 mmHg, Cuff placed on Right Arm 12:03 PM HR=59 bpm, FUDT=527/92 mmhg, SpO2=99.0 %, Resp=15 B/min, Comment=afib 12:05 PM Time: 12:05 Versed 2 mg Intravenous Given by Maxine Devlin RN scoates 12:05 PM Time: 12:05 Fentanyl 50 mcg Intravenous Given by Maxine Devlin RN scoates 12:05 PM Patient charges- Angio tray pack, Navilyst 3mm J, Pulse Oximetry and ACIST tubing and transducer scoates 12:05 PM IV Supplies used: J loop Angio Cath. scoates 12:05 PM Case Delayed Previous case ran long scoates 12:05 PM Hair removed from procedure site in holding area using clippers. Bilateral groin prepped with Chloraprep by Natanael Hill (R), then patient was draped. Skin intact. scoates 12:07 PM Clinical Presentation: Unstable angina scoates 12:08 PM HR=54 bpm, DGHO=273/70 mmhg, SpO2=99.0 %, Resp=10 B/min, Comment=afib 12:10 PM Pressure channel 1 zeroed. 12:13 PM HR=65 bpm, OFKP=704/76 mmhg, SpO2=96.0 %, Resp=13 B/min, Comment=afib 12:17 PM Time out performed according to hospital policy [email or web address] 12:18 PM HR=50 bpm, OYWI=985/74 mmhg, SpO2=99.0 %, Resp=12 B/min, Comment=afib 12:18 PM Time: 12:17 15 ml Lidocaine 2% to right groin Subcutaneous Given by [facility] Keating MD, [email or web address] 12:18 PM Access obtained by percutaneous puncture. 5Fr 10cm Terumo [place] sheath placed in right Femoral artery. [id number] [email or web address] 12:18 PM 0.035 145cm Navilyst 3mmJ [facility] [id number] [email or web address] 12[facility] PM 5Fr FL catheter inserted over the wire [id number] [email or web address] 12:19 PM LCA angiography performed in multiple views. [email or web address] 12:20 PM Recorded Pressure: Ao, HR=50, Condition=Condition 1 (Aorta) Ao 123/59/85 12:22 PM [facility]ter [email or web address] 12:22 PM 5Fr FR [email or web address] PM RCA angiography performed in multiple views. [email or web address] 12:23 PM HR=66 bpm, JUGM=858/80 mmhg, SpO2=96.0 %, Resp=12 B/min, Comment=afib 12:23 PM [email or web address] 12[facility]23 PM [facility]Fr Pigtail catheter [facility] over the wire [email or web address] 12[facility]25 PM Pressure channel 1 zeroed. 12:25 PM Recorded Pressure: LV, HR=61, Condition=Condition 1 (Left Ventricle) LV 110/9/15 12:25 PM Catheter selectively placed in left ventricle [email or web address] 12:25 PM Recorded Pressure: LV, Ao, HR=68, Condition=Condition 1 (Left Ventricle) LV 464/136/23, (Aorta) Ao 121/27/73 12:25 PM Bolus angiogram of left Ventricle complete: 10 ml/sec for a total of 20 mls [email or web address] 12:25 PM Catheter removed [email or web address] 12:26 PM Bolus angiogram of right Femoral complete: 4 ml/sec for a total of 7 mls [email or web address] 12:27 PM Procedure completed at 12:27 [email or web address] 12:27 PM Coronary Dominance: right [email or web address] 12:28 PM Sign out completed: Radiation Dose 150.74 mGy Fluoro Time: 1.1 Isovue 370 - 200ml contrast 67 ml given by Kailee Keating MD, FACC. Complications: NoneCardiac Rehab Consult needed: NoConfirmed administered medications: Yes [email or web address] 12:28 PM Isovue 370 - 200ml,1 Bottle(s) used. [email or web address] 12:28 PM HR=55 bpm, PDVC=201/71 mmhg, SpO2=98.0 %, Resp=16 B/min, Comment=afib 12:28 PM Arterial sheath pulled, Mynx closure device used and was Successful S/N. [email or web address] 12:28 PM Estimated Blood Loss: minimal [email or web address] 12:28 PM Post ECG Atrial Fibrillation [email or web address] 12:29 PM Post Blood Pressure 140/71 [email or web address] 12:29 PM 12:29 Post Pulses Bilateral DP & PT 1+ [email or web address] 12:29 PM Information taught Cardiac Cath and Mynx [email or web address] 12:29 PM Education needs Procedure, Plan of Care, and Disease Process [email or web address] 12:29 PM Learning barriers :None [email or web address] 12:29 PM Education Methods Verbal [email or web address] 12:33 PM HR=53 bpm, NKLI=556/79 mmhg, SpO2=92.0 %, Resp=13 B/min, Comment=afib 12:40 PM Family placed in consult room. [email or web address] 12:40 PM Complications: None [email or web address] 12:40 PM Fluoro Time: 1.1 [email or web address] 12:40 PM Isovue 370 - 200ml contrast 68 ml given by Kailee Keating MD, FACC. [email or web address] 12:40 PM Radiation Dose 150.74 mGy [email or web address] 12:40 PM Report given to Sheila AUGUSTINE Pt taken to Holding room Room #15. 12:40 [email or web address] 12:41 PM Site status No bleeding/hematoma - Rt Groin as reported by Argenis Ernst RT (R) at 12:41 [email or web address] 12:41 PM Patient out of room: 12:41 [email or web address] 12:47 PM Pt resting comfortably, no complaints of pain. [email or web address] 01:[address] Keating at bedside talking with family [email or web address] 01:[address] Diaz at bedside [email or web address] 02:05 PM FAWN Sutton at bedside talking with patient and family [email or web address] 02:50 PM mprater 03:00 PM Activity: 2 Circulation: 2 Consciousness: 2 O2 Saturation: 2 Respiration: 2 [email or web address] 03:00 PM Patient ambulated with assistance. Insertion site without bleeding or hematoma. Pulses unchanged. [email or web address] 04:00 PM report given to Nayeli on 2NE [email or web address] 04:05 PM patient transferred to [facility] mprater Complications Complication None None Hemodynamics Pressures Site Systolic/A Wave Diastolic/V Wave Mean AO 123 59 85 LV 110 9 15 LV 464 136 23 AO 121 27 73 Post Procedure Information Blood Pressure: 140/71 mmHg Rhythm: Atrial Fibrillation Closure Device Time Device Success/Fail 12/06/2017 12:41:00 PM MynxGrip yes Site Checks Time Location Status Staff Sheath In? Note 12:41 PM Rt Groin No bleeding/hematoma Argenis Ernst RT (R) 01:00 PM Rt Groin No bleeding/ No Hematoma Elma Boo RN 01:15 PM Rt Groin No bleeding/ No Hematoma Elma Boo RN 01:29 PM Rt Groin No bleeding/ No Hematoma Elma Boo RN 02:05 PM Rt Groin No bleeding/ No Hematoma Elma Boo RN 02:58 PM Rt Groin No bleeding/ No Hematoma Yanira Lyons RN 03:40 PM Rt Groin No bleeding/ No Hematoma Yanira Lyons RN 04:00 PM Rt Groin No bleeding/ No Hematoma Yanira Lyons RN Pulses Time Site Pre-Procedure Post-Procedure Note Bilateral radial 2+ Rt DP and PT 2+ Lt DP and PT Doppler 12:29:00 PM Bilateral DP & PT 1+ 12/06/2017 1:00:00 PM Rt DP & pt 2+ 12/06/2017 1:15:00 PM Rt DP & pt 2+ Updated by Yanira Lyons RN on 12/06/2017 4:06:01 PM Yanira Lyons RN electronically signed on 12/29/2017 9:09:11 AM with status of Final
== END 2017-12-27 13:13 | DRG 233 ==
LOC: INVDIALAB 09:16 → 2NENU 16:33 → SUATTDRO 12-07 14:43 → 2NENU 12-07 14:43 → ICNU 12-08 09:40 → 2NNU 12-14 14:44
PROVIDERS: ADMIT Thoracic Surgery (Cardiothoracic Vascular Surgery); ATTEND Internal Medicine

== ENCOUNTER 2017-12-28 16:24 | Inpatient (IN) ==
--- NOTE | 2017-12-28 16:58 | Emergency Department Note ---
Disposition Clinical Impression: Hyponatremia Disposition: Admitted As Inpatient Condition: Fair Referrals: George Hobbs DO [Primary Care Provider] - Forms: ED Satisfaction Letter Time of Disposition: 18:53 General Adult HPI - General Chief complaint: ED Recheck/Abnormal Lab/Rx Stated complaint: low NA Time Seen by Provider: 12/28/17 16:29 Source: patient, EMS Mode of arrival: ambulatory Limitations: no limitations Nursing Notes Reviewed: Yes Vital Signs Reviewed: Yes - History of Present Illness HPI Narrative: Patient is a 77-year-old male recently discharged from the hospital yesterday for a CABG sent in from the shelter for a low sodium level. [facility] states that they do not have the ability to replace the sodium. Patient states she was doing physical therapy traditions today and just felt weak. Otherwise, he denies any other symptoms such as fevers, chills, chest pain, shortness of breath or focal neurological deficits. Pain Scale: 0 - Related Data Home Medications Medication Instructions Recorded Confirmed Aspirin [Lo-Dose Aspirin EC] 81 mg PO DAILY 12/07/17 12/07/17 Acetaminophen [Tylenol] 325 mg PO Q6HR PRN 12/28/17 12/28/17 Furosemide [Lasix] 20 mg PO BID 12/28/17 12/28/17 Oxygen 2 l NS AD 12/28/17 12/28/17 Warfarin [Coumadin] 2 mg PO 1800 12/28/17 12/28/17 Previous Rx's Medication Instructions Recorded Amiodarone [Cordarone] 200 mg PO DAILY #30 tablet 12/27/17 Atenolol [Tenormin] 25 mg PO DAILY #30 tablet 12/27/17 DiphenhydraMINE [Benadryl] 25 mg PO HS PRN capsule 12/27/17 Simvastatin [Zocor] 40 mg PO HS #30 tablet 12/27/17 Allergies Allergy/AdvReac Type Severity Reaction Status Date / Time No Known Allergies Allergy Unverified 09/21/17 10:23 All systems ED: reviewed and negative except as stated. Review of Systems: As Per HPI Constitutional: Reports: weakness. Denies: fever, chills ENT ED: Denies: congestion, dysphagia Cardiovascular: Denies: chest pain, palpitations Respiratory: Denies: cough, dyspnea Gastrointestinal: Denies: abdominal pain, nausea, vomiting, diarrhea Genitourinary: Denies: urgency, dysuria Integumentary: Reports: other (She is an ulcer on his buttock's) Past Medical History - Past Medical History Attestation: Yes The following information was validated with the patient. Medical history: Reports: atrial fibrillation, CVA, hyperlipidemia, hypertension , renal disease Surgical history: Reports: coronary bypass (CABG) Psychiatric history: Reports: no psych history - Social History Smoking Status: Never smoker Alcohol use: Reports: none Drug use: Reports: none Physical Exam CONSTITUTIONAL: A&O X 3, in no apparent distress. Patient is holding a arlin bear which he was given on discharge for coughing. HEAD: Normocephalic; atraumatic EYES: PERRL, no scleral icterus NOSE: The nose is normal in appearance without rhinorrhea NECK: No JVD or distended neck veins RESP: Normal chest excursion with respiration; breath sounds clear and equal bilaterally; no wheezes, rhonchi, or rales CARD: Regular rhythm, without murmurs, rub or gallop ABD: Non-distended; non-tender, soft, without rigidity, rebound or guarding,no pulsatile mass CHEST: Patient has a fresh midline scar on his chest consistent with previous surgery. SKIN: Normal for age and race; warm and dry without diaphoresis ; no apparent lesions EXTREMITIES: Pulses are 2 plus and equal times 4 extremities, no peripheral edema or calf muscle pain - General Limitations: no limitations General appearance: alert, in no apparent distress Course Course Narrative: Plan at this time is to do a weakness workup of the patient will also check an EKG, chest x-ray for any possible signs of infection. Once patient's sodium level lab is returns we will initiate a 500 ML bolus of normal saline to begin sodium replacement however we will be cautious due to the patient's recent discharge which he did appear to have fluid overload. - Reevaluation(s) Reevaluation #1: Patient's EKG shows a left-sided pleural effusion but is increased from prior visit. However, patient has no white count and has no fever and does not complain of any new cough or do not suspect that this is an infectious process at this time. I suspect that this patient's weakness is due to his hyponatremia. I discussed these results and findings with the hospitalist on- call and they agree to accept the patient. Time: 18:51 Vital Signs Temperature 97.6 F 12/28/17 16:26 Pulse Rate 68 12/28/17 16:26 Respiratory Rate 19 12/28/17 16:26 Blood Pressure 134/74 12/28/17 16:26 O2 Sat by Pulse Oximetry 96 12/28/17 16:26 Temperature 97.6 F 12/28/17 16:26 Pulse Rate 57 12/28/17 17:30 Respiratory Rate 18 12/28/17 17:30 Blood Pressure 129/63 12/28/17 17:30 O2 Sat by Pulse Oximetry 96 12/28/17 17:30 Oxygen Delivery Oxygen Delivery Nasal Cannula Medical Decision Making - Medical Records Medical records reviewed: Yes I reviewed the patient's medical records. - Lab Data Lab results reviewed: Yes I reviewed the patient's lab results. Result diagrams: 12/28/17 16:34 12/28/17 16:34 Lab Results 12/28/17 12/28/17 12/28/17 Range/Units 16:34 16:34 17:03 WBC 8.1 (4.3-11.1) K/mcL RBC 3.57 L (4.19-5.50) M/mcL Hgb 10.5 L (12.9-16.9) g/dL Hct 30.6 L (37.5-50.1) % MCV 85.7 (83.0-100.0) fL MCH 29.4 (28.0-33.3) pg MCHC 34.3 (31.6-35.5) g/dL RDW 13.3 (11.5-14.5) % Plt Count 452 H (140-400) K/mcL MPV 8.9 L (9.4-12.4) fL Immature Gran % 0.2 (0-4) % Seg Neutrophils % 73.4 % Lymphocytes % 11.6 % Monocytes % 11.1 % Eosinophils % 3.0 % Basophils % 0.7 % Neutrophils # 6.0 (1.6-8.9) K/mcL Lymphocytes # 0.9 (0.6-4.6) K/mcL Monocytes # 0.9 (0.0-1.3) K/mcL Eosinophils # 0.2 (0.0-0.6) K/mcL Basophils # 0.1 (0.0-0.2) K/mcL Sodium 121 L (136-145) mEq/L Potassium 4.2 (3.5-5.1) mEq/L Chloride 92 L (98-107) mEq/L Carbon Dioxide 22 L (23-29) mEq/L BUN 17 (8-23) mg/dL Creatinine 1.03 (0.70-1.30) mg/dL Est GFR ( Amer) > 60 (> 60) Est GFR (Non-Af Amer) > 60 (> 60) BUN/Creatinine Ratio 17 (6-26) Glucose 120 H (70-105) mg/dL Calculated Osmolality 255 L (280-300) Calcium 8.4 L (8.6-10.3) mg/dL Troponin I 0.03 (< 0.04) ng/mL Urine Color Yellow (Yellow) Urine Clarity Clear (Clear) Urine pH 6.5 (5.0-8.0) pH Units Ur Specific [place] 1.018 (1.010-1.025) Urine Protein 30 H (Neg-Trace) mg/dL Urine Glucose (UA) Normal (Normal) mg/dL Urine Ketones Negative (Negative) mg/dL Urine Blood Large H (Negative) Urine Nitrite Negative (Negative) Urine Bilirubin Negative (Negative) Urine Urobilinogen Normal (Normal) mg/dL Ur Leukocyte Esterase Small H (Negative) Urine Microscopic RBC TNTC H (0-3) per hpf Urine Microscopic WBC 15-30 H (0-3) per hpf Ur Squamous Epith Cells Few (None-Few) per lpf Urine Bacteria Few (None-Few) per hpf Hyaline Casts None Seen (None-Few) per lpf Ur Culture Indicated? YES A (NO) - Radiology Data Radiology results reviewed: Yes I reviewed the patient's radiology results. Chest X-Ray 12/28/17 16:59 IMPRESSION: Atelectasis or infiltrate in the left lung base with a left pleural effusion. Follow up to resolution is suggested. D/ / 12/28/2017 17:41:34 Frannie Casanova MD / fior Interpreting Provider: Frannie Casanova MD - EKG Data EKG #1 EKG attestation: Yes I reviewed and interpreted this EKG. EKG results narrative: EKG done at 16:28 shows atrial fibrillation at a rate of 70 bpm. Normal axis. CA indeterminate, QRS is 106, QT is 4:15 and QTc is 336 these are within normal limits. This EKG appears improved from EKG done on 12/08/2017. Attestation Statement - Attestation Attestation: I examined this patient and my medical decision-making was reviewed with the Resident Physician. I agree with the documented findings, disposition and treatment plan as described except to the extent set forth below. Patient presents to the ED with a chief complaint of weakness. He was discharged yesterday after admission for open heart surgery. He states he felt weak during rehabilitation at the shelter. They checked his labs today and his sodium was 122 states in in for evaluation. Patient is in no acute distress on examination. Lungs clear. Plan. Generalized weakness workup. Likely admission.
[2017-12-28 17:14] LABS: Bilirubin,Urine Negative (Negative); Blood,Urine Large (Negative); Clarity,Urine Clear (Clear); Color,Urine Yellow (Yellow); Glucose,Urine (UA) Normal (Normal); Ketones,Urine Negative (Negative); Leukocyte Esterase,Urine Small (Negative); Nitrite,Urine Negative (Negative); PH,Urine 6.5 pH Units (5.0-8.0); Protein,Urine 30 mg/dL (Neg-Trace); Specific Gravity,Urine 1.018 (1.010-1.025); Urobilinogen,Urine Normal (Normal)
[2017-12-28 17:16] LABS: Basophils # 0.1 K/mcL (0.0-0.2); Basophils % 0.7 %; Eosinophils # 0.2 K/mcL (0.0-0.6); Hematocrit 30.6 % (37.5-50.1); Hemoglobin 10.5 g/dL (12.9-16.9); Immature Granulocytes % 0.2 % (0-4); Lymphocytes # 0.9 K/mcL (0.6-4.6); Lymphocytes % 11.6 %; Mean Corpuscular HGB Conc 34.3 g/dL (31.6-35.5); Mean Corpuscular Hemoglobin 29.4 pg (28.0-33.3); Mean Corpuscular Volume 85.7 fL (83.0-100.0); Mean Platelet Volume 8.9 fL (9.4-12.4); Monocytes # 0.9 K/mcL (0.0-1.3); Monocytes % 11.1 %; Platelet Count 452 K/mcL (140-400); Red Blood Count 3.57 M/mcL (4.19-5.50); Red Cell Distribution Width 13.3 % (11.5-14.5); Segmented Neutrophils % 73.4 %
[2017-12-28 17:16] LABS: Bacteria,Urine Few per hpf (None-Few); Hyaline Casts,Urine None Seen per lpf (None-Few); RBC,Urine TNTC per hpf (0-3); Squamous Epithelial Cell,Urine Few per lpf (None-Few); WBC,Urine 15-30 per hpf (0-3)
[2017-12-28 17:34] LABS: BUN/Creatinine Ratio 17 (6-26); Blood Urea Nitrogen 17 mg/dL (8-23); Calcium 8.4 mg/dL (8.6-10.3); Carbon Dioxide 22 mEq/L (23-29); Chloride 92 mEq/L (98-107); Glucose 120 mg/dL (70-105); Osmolality,Calculated 255 (280-300); Potassium 4.2 mEq/L (3.5-5.1); Sodium 121 mEq/L (136-145); eGFR For African Americans > 60 (> 60); eGFR For Non-African Americans > 60 (> 60)
[2017-12-28] MEDS ORDERED: 0.9 % Sodium Chloride 500 ML IVC ONE (17:43)
[2017-12-28 18:14] LABS: Troponin I 0.03 ng/mL (< 0.04)
[2017-12-28] MEDS ORDERED: *HR* FentaNYL (PF) 100 MCG/2 ML VIAL IVP ONE (18:48)
--- NOTE | 2017-12-28 20:05 | Internal Med History&Physical ---
Date of Encounter: 12/28/17 Time of Encounter: 20:05 Assessment and Plan (1) Acute metabolic encephalopathy Current visit: Yes Status: Acute Multi-factorial. Optimize issues below (2) Pyuria Current visit: Yes Status: Acute Pyuria, nitrates negative, leuk esterase positive Pending urine culture Monitor further tests and symptoms. Evaluate candidacy for Antibiotic therapy pending hospital course and culture data (3) Hyponatremia Current visit: Yes Status: Acute Subacute worsening. Could be related to Lasix which we will hold. Might have contributed to encephalopathy along with medical comorbidities and elderly state Hold lasix. Receive IV fluids in the ER Would trend daily sodium (4) Chronic a-fib Current visit: Yes Status: Acute On Coumadin, check INR for dosing, rate control with beta blockers, amiodarone We will check free T4 and TSH screen (5) CAD (coronary artery disease) Current visit: No Status: Acute Status post CABG. Visits with Dr. Diaz of surgery and Dr. Keating of cardiology Qualifiers: Coronary Disease-Associated Artery/Lesion type: [place] artery [place] vs. transplanted heart: [place] heart Associated angina: with unstable angina Qualified Code(s): I25.110 - Atherosclerotic heart disease of [place] coronary artery with unstable angina pectoris (6) CKD (chronic kidney disease) stage 3, GFR 30-59 ml/min Current visit: No Status: Acute Monitor for now Internal Medicine - H&P: HPI Chief complaint: Confusion, low sodium History of present illness: Mr. Quintana is a 77 year old male who [facility] with hyponat[facility] and clinical features of delirium/metabolic encephalopathy. Patient was [facility] after a prolonged hospitalization stay where he was found to have significant CAD disease on left heart cath and had completed CABG on December 08 approximately 3 weeks ago. He had been doing well since surgery and was sent to penitentiary yesterday. However since transitioning to penitentiary, he had developed worsening confusion, hallucination, weakness manifesting as needing maximal nursing assist. Of note his report that he has bedsores. To investigate the confusion that did not get better with time and, penitentiary staff performed blood work showing hyponatremia which prompted hospital admission. EKG personally reviewed with rate of 70, atrial fibrillation. XR/XR chest 1V portable IMPRESSION: Atelectasis or infiltrate in the left lung base with a left pleural effusion. Follow up to resolution is suggested. Past Med Surg Social Fam HX - Past Medical History Medical history: atrial fibrillation, CVA, hyperlipidemia, hypertension, renal disease Psychiatric history: no psych history - Past Surgical History Surgical History: coronary bypass (CABG) - Social History Smoking Status: Never smoker Alcohol use: none Drug use: none Internal Medicine - H&P: Meds Aspirin [Lo-Dose Aspirin EC] 81 mg PO DAILY 12/07/17 [History] Amiodarone [Cordarone] 200 mg PO DAILY #30 tablet 12/27/17 [Rx] Atenolol [Tenormin] 25 mg PO DAILY #30 tablet 12/27/17 [Rx] DiphenhydraMINE [Benadryl] 25 mg PO HS PRN capsule 12/27/17 [Rx] Simvastatin [Zocor] 40 mg PO HS #30 tablet 12/27/17 [Rx] Acetaminophen [Tylenol] 325 mg PO Q6HR PRN 12/28/17 [History] Furosemide [Lasix] 20 mg PO BID 12/28/17 [History] Oxygen 2 l NS AD 12/28/17 [History] Warfarin [Coumadin] 2 mg PO 1800 12/28/17 [History] 3 Allergy/AdvReac Type Severity Reaction Status Date / Time No Known Allergies Allergy Unverified 09/21/17 10:23 All Systems PM: A 10-system review of systems was performed and is negative for pertinent findings except as documented above in the HPI. Review of systems: ROS 14 point review of systems reviewed as best as possible given presentation. Pertinent positive or negative as per HPI or otherwise reviewed as negative - Constitutional Vitals: Temp Pulse Resp BP Pulse Ox 97.6 F 62 18 119/77 98 12/28/17 16:26 12/28/17 18:52 12/28/17 18:52 12/28/17 18:52 12/28/17 18:52 Exam: General - AAO x 3 Psych - Appropriate affect/speech. No agitation Eyes - STEPHIE. Eye lids intact. No scleral icterus Neuro - No gross peripheral or central neuro deficits on inspection Heart - Sinus. RRR. S1 and S2 present. No added HS/murmurs appreciated. No elevated JVD appreciated. Lung - median sternotomy scar. Adequate air entry b/l, No crackles/wheezes appreciated GI - Soft, non-tender. No hepatosplenomegaly/ascites. BS+ - No CVA/suprapubic tenderness or palpable bladder distension Skin - Intact. No rash/petechiae/ecchymosis. Warm extremities. trace bilateral lower extremity edema Internal Med - H&P Results - Labs CBC & Chem 7: 12/28/17 16:34 12/28/17 16:34
[2017-12-28] MEDS ORDERED: Naloxone 0.4 MG/ML INJ IVP PRN (20:17)
[2017-12-28] MEDS ORDERED: Acetaminophen 325 MG TABLET PO PRN (20:17)
[2017-12-28] MEDS ORDERED: 0.9 % Sodium Chloride 250 ML IVC ONE (21:28)
[2017-12-29 04:50] LABS: Basophils # 0.1 K/mcL (0.0-0.2); Basophils % 0.8 %; Eosinophils # 0.3 K/mcL (0.0-0.6); Eosinophils % 4.1 %; Hematocrit 28.3 % (37.5-50.1); Hemoglobin 9.5 g/dL (12.9-16.9); Immature Granulocytes % 0.4 % (0-4); Lymphocytes # 1.2 K/mcL (0.6-4.6); Lymphocytes % 15.6 %; Mean Corpuscular HGB Conc 33.6 g/dL (31.6-35.5); Mean Corpuscular Hemoglobin 28.7 pg (28.0-33.3); Mean Corpuscular Volume 85.5 fL (83.0-100.0); Mean Platelet Volume 9.1 fL (9.4-12.4); Monocytes # 0.8 K/mcL (0.0-1.3); Platelet Count 430 K/mcL (140-400); Red Blood Count 3.31 M/mcL (4.19-5.50); Red Cell Distribution Width 13.2 % (11.5-14.5); Segmented Neutrophils % 68.1 %
[2017-12-29 04:58] LABS: INR 2.6; Prothrombin Time 28.8 Seconds (9.4-12.1)
[2017-12-29 05:10] LABS: BUN/Creatinine Ratio 16 (6-26); Blood Urea Nitrogen 16 mg/dL (8-23); Calcium 8.3 mg/dL (8.6-10.3); Carbon Dioxide 21 mEq/L (23-29); Chloride 94 mEq/L (98-107); Glucose 95 mg/dL (70-105); Osmolality,Calculated 257 (280-300); Potassium 3.8 mEq/L (3.5-5.1); Sodium 123 mEq/L (136-145); eGFR For African Americans > 60 (> 60); eGFR For Non-African Americans > 60 (> 60)
[2017-12-29 05:26] LABS: Thyroid Stimulating Hormone 5.851 mcIU/mL (0.340-5.600)
--- NOTE | 2017-12-29 07:52 | Internal Med Progress Note ---
<RianJ Luis - Last Filed: 12/29/17 17:06> Date of Encounter: 12/29/17 - Constitutional Vitals: Temp Pulse Resp BP Pulse Ox 97.8 F 61 18 155/75 98 12/29/17 16:00 12/29/17 16:00 12/29/17 16:00 12/29/17 16:00 12/29/17 16:00 Internal Medicine: Result - Labs CBC & Chem 7: 12/29/17 04:25 12/29/17 04:25 Labs: Short CBC 12/29/17 Range/Units 04:25 WBC 7.4 (4.3-11.1) K/mcL Hgb 9.5 L (12.9-16.9) g/dL Hct 28.3 L (37.5-50.1) % Plt Count 430 H (140-400) K/mcL Neutrophils # 5.0 (1.6-8.9) K/mcL BMP 12/28/17 12/29/17 22:49 04:25 Sodium 122 L 123 L Potassium 3.8 Chloride 94 L Carbon Dioxide 21 L BUN 16 Creatinine 0.98 Glucose 95 Calcium 8.3 L - ABG Interpretation ABG results: PT/INR, D-dimer PT 28.8 Seconds (9.4-12.1) H 12/29/17 04:25 Consult Discharge Plan - Plan Referrals: George Hobbs DO [Primary Care Provider] - - Attending Attestation I performed an independent interview and examine this patient. I agree with the findings, assessment, and plan of Dr Bowles, internal medicine international account manager. His note reflects extensive discussion on rounds. No obvious infection identified. Patient's sodium remains low and we are replacing salt with normal saline and salt tablets. I will need to monitor for signs of CHF. When sodium is improved will likely require ongoing salt replacement and fluid restriction. We will continue to closely monitor. Am not convinced he has a UTI. All else was outlined per his note. <Jono Bowles - Last Filed: 12/29/17 17:38> Date of Encounter: 12/29/17 Time of Encounter: 09:00 - Assessment and plan (1) UTI (urinary tract infection) Current Visit: Yes Status: Acute Assessment and plan: Urinary tract infection with GNR species Final culture and sensitivity pending, GNR prelim Do not swap ramos per urology Start Ceftriaxone Qualifiers: Urinary tract infection type: acute cystitis Hematuria presence: with hematuria Qualified Code(s): N30.01 - Acute cystitis with hematuria (2) Hematuria Current Visit: Yes Status: Acute Assessment and plan: Gross hematuria per ramos catheter, Minimal clots Likely traumatic in nature I called Dr. Maldonado who said that at this time, assuming the bleeding does not continue, irrigation of the bladder is sufficient. He does not recommend cessation of coumadin at this time. Qualifiers: Hematuria type: gross Qualified Code(s): R31.0 - Gross hematuria (3) Hyponatremia Current Visit: Yes Status: Acute Assessment and plan: Hyponatremia, Sodium 123 Urine sodium elevated, likely salt wasting We will give salt tabs (4) Urinary retention Current Visit: Yes Status: Acute Assessment and plan: Acute urinary retention, management per Urology (5) Afib Current Visit: Yes Status: Chronic Assessment and plan: Afib, chronic Appropriately rate controlled, anticoagulated with coumadin, INR 2.6 Qualifiers: Atrial fibrillation type: chronic Qualified Code(s): I48.2 - Chronic atrial fibrillation (6) CAD (coronary artery disease) Current Visit: No Status: Chronic Assessment and plan: S/p CABG on 12/08 No acute complaints Qualifiers: Coronary Disease-Associated Artery/Lesion type: bypass graft [place] vs. transplanted heart: [place] heart Associated angina: with unstable angina Qualified Code(s): I25.700 - Atherosclerosis of coronary artery bypass graft(s) , unspecified, with unstable angina pectoris (7) DVT prophylaxis Current Visit: No Status: Acute Assessment and plan: Patient is anticoagulated with coumadin (8) Acute metabolic encephalopathy Current Visit: Yes Status: Resolved - Subjective Interval history: The patient is resting comfortably in bed at the time of examination. He says that ultimately he is feeling very well and has no acute complaints. He does admit that he had some issues with confusion at the time that he was brought to the hospital, however he believes that this has improved. - Constitutional Vitals: Temp Pulse Resp BP Pulse Ox 98.1 F 84 18 156/86 98 12/29/17 07:09 12/29/17 07:09 12/29/17 07:09 12/29/17 07:09 12/29/17 07:09 Exam: Gen.: Vitals noted. No acute distress. AAOx3. Frail appearing gentleman HEENT: PERRL/EOMI, oropharynx clear, Normocephalic, atraumatic Neck: Supple. No adenopathy. Cardiac: RRR, no murmur, +S1/S2 Pulmonary: CTA bilaterally, no wheezes, rales or rhonchi, equal chest expansion Abdomen: soft, nontender, BS noted, no guarding Back: Nontender throughout. MSK: ROM intact, no joint swelling noted Extremities: no BLE edema, nontender calf, no cyanosis or clubbing Neuro: A&Ox3, moves all extremities, no focal deficits Psych: Appropriate mood and behavior Internal Medicine: Result - Labs CBC & Chem 7: 12/29/17 04:25 12/29/17 04:25 Labs: Short CBC 12/29/17 Range/Units 04:25 WBC 7.4 (4.3-11.1) K/mcL Hgb 9.5 L (12.9-16.9) g/dL Hct 28.3 L (37.5-50.1) % Plt Count 430 H (140-400) K/mcL Neutrophils # 5.0 (1.6-8.9) K/mcL BMP 12/28/17 12/29/17 22:49 04:25 Sodium 122 L 123 L Potassium 3.8 Chloride 94 L Carbon Dioxide 21 L BUN 16 Creatinine 0.98 Glucose 95 Calcium 8.3 L - ABG Interpretation ABG results: PT/INR, D-dimer PT 28.8 Seconds (9.4-12.1) H 12/29/17 04:25
[2017-12-29] MEDS: Aspirin Enteric Coated 81 MG Tablet PO SCH (09:30)
[2017-12-29] MEDS: *HR* Amiodarone 200 MG TABLET PO SCH (09:30)
--- NOTE | 2017-12-29 11:07 | Cardiothoracic Progress Note ---
Date of Encounter: 12/29/17 Time of Encounter: 11:04 - Assessment and plan (1) CAD (coronary artery disease) Current Visit: No Status: Acute The assessment and plan as outlined above was discussed with the patient and/or family members who expressed understanding and agreement. All questions were answered. I agree with stopping the Lasix at this time. His serum sodium has begun to improve. Fluid restriction might also be reasonable. Urine culture is pending. Urology is going to see him about possibly removing the Parrish catheter. Qualifiers: Coronary Disease-Associated Artery/Lesion type: [place] artery [place] vs. transplanted heart: [place] heart Associated angina: with unstable angina Qualified Code(s): I25.110 - Atherosclerotic heart disease of [place] coronary artery with unstable angina pectoris - Subjective Interval history: The patient is a 77-year-old gentleman who had a stroke in 2002. This resulted in left-sided hemiplegia. Earlier this month he had undergone open heart surgery. Postoperatively he had urinary retention and went to a rehabilitation facility with a Parrish catheter in place. Urology had seen him and planned to remove it as an outpatient. The patient had been discharged to an extended care facility. However, he was readmitted with low sodium, confusion and a urinary tract infection. Vital Signs, Last 4 Hours Temp Pulse Resp BP Pulse Ox 12/29/17 07:09 98.1 F 84 18 156/86 98 Oxgyen Flow Rate Oxygen Flow Rate (LPM) 3 Weight 12/27/17 12/28/17 12/29/17 23:59 23:59 23:59 Weight 91 kg Lungs are clear to percussion and auscultation. Heart is in an atrial fibrillation with a controlled ventricular rate. All incisions are healing well without signs of infection and the sternum is stable. Chest x-ray is clear and reveals only a very small effusion. - Labs 12/29/17 04:25 12/29/17 04:25 Lab Results, Last 24 hours 12/28/17 12/29/17 12/29/17 22:49 04:25 04:25 WBC 7.4 Hgb 9.5 L Hct 28.3 L Plt Count 430 H INR 2.6 Sodium 122 L Potassium Chloride Carbon Dioxide BUN Creatinine Glucose Calcium TSH 12/29/17 12/29/17 04:25 04:25 WBC Hgb Hct Plt Count INR Sodium 123 L Potassium 3.8 Chloride 94 L Carbon Dioxide 21 L BUN 16 Creatinine 0.98 Glucose 95 Calcium 8.3 L TSH 5.851 H Consult Discharge Plan - Plan Referrals: George Hobbs DO [Primary Care Provider] -
[2017-12-29] MEDS: 0.9 % Sodium Chloride 1,000 ML IVC SCH (14:30)
[2017-12-29] MEDS: Fluticasone Propionate Nasal 50 MCG/SPRAY BOTTLE NS SCH (14:30)
--- NOTE | 2017-12-29 15:18 | Urology - Consult Note ---
Date of Encounter: 12/29/17 Time of Encounter: 15:16 - Assessment and Plan (1) Urinary retention Current Visit: No Status: Acute Assessment and plan: At this point I recommend to keep the catheter in place. Would not recommend voiding trial on the hospital. Possible the patient is having symptomatically UTI and do recommend treating this current positive culture. Patient's confusion could be explained solely by the low sodium. We will continue to follow along. Urology CN:HPI Consult date: 12/29/17 Reason for consult Urology: Other (urinary retention) Requesting physician: Lanny Yadav History of present illness: Kojo is a 77-year-old male who was recently readmitted secondary to confusion. He was found to be significantly hyponatremic. Urine culture was sent from his indwelling urethral catheter from his prior admission which is growing gram-negative rods. Unsure if this is truly symptomatically infection or just colonization. Patient seems a little bit confused when asking questions and answering questions today.. No pain at this time. Past Med Surg Social Fam HX - Past Medical History Medical history: atrial fibrillation, CVA, hyperlipidemia, hypertension, renal disease Psychiatric history: no psych history - Past Surgical History Surgical History: coronary bypass (CABG) - Social History Smoking Status: Never smoker Alcohol use: none Drug use: none - Family History Mother Living Status: Cause of : Stomach cancer Hx Family Cancer: Yes Medications and Allergies Aspirin [Lo-Dose Aspirin EC] 81 mg PO DAILY 12/07/17 [History] Amiodarone [Cordarone] 200 mg PO DAILY #30 tablet 12/27/17 [Rx] Atenolol [Tenormin] 25 mg PO DAILY #30 tablet 12/27/17 [Rx] DiphenhydraMINE [Benadryl] 25 mg PO HS PRN capsule 12/27/17 [Rx] Simvastatin [Zocor] 40 mg PO HS #30 tablet 12/27/17 [Rx] Acetaminophen [Tylenol] 325 mg PO Q6HR PRN 12/28/17 [History] Furosemide [Lasix] 20 mg PO BID 12/28/17 [History] Oxygen 2 l NS AD 12/28/17 [History] Warfarin [Coumadin] 2 mg PO 1800 12/28/17 [History] 3 Allergy/AdvReac Type Severity Reaction Status Date / Time No Known Allergies Allergy Unverified 09/21/17 10:23 Review of Systems ROS unobtainable: due to mental status Exam Initial Vital Signs Temp Pulse Resp BP Pulse Ox 97.6 F 68 19 134/74 96 12/28/17 16:26 12/28/17 16:26 12/28/17 16:26 12/28/17 16:26 12/28/17 16:26 - General physical appearance Present: well developed, well nourished - Eyes Present: PERRL. Absent: icteric - Respiratory Present: normal respiratory effort, clear to auscultation - Cardiovascular Cardiovascular exam IM: RRR - Abdomen Abdomen: Present: soft. Absent: suprapubic tenderness - Genitourinary normal penis with no external lesions (Clear urine in the catheter tubing) - Integumentary Present: no rash, no growths Urology Results - Labs 12/29/17 04:25 12/29/17 04:25 Abnormal lab results RBC 3.31 M/mcL (4.19-5.50) L 12/29/17 04:25 Hgb 9.5 g/dL (12.9-16.9) L 12/29/17 04:25 Hct 28.3 % (37.5-50.1) L 12/29/17 04:25 Plt Count 430 K/mcL (140-400) H 12/29/17 04:25 MPV 9.1 fL (9.4-12.4) L 12/29/17 04:25 PT 28.8 Seconds (9.4-12.1) H 12/29/17 04:25 Sodium 123 mEq/L (136-145) L 12/29/17 04:25 Chloride 94 mEq/L (98-107) L 12/29/17 04:25 Carbon Dioxide 21 mEq/L (23-29) L 12/29/17 04:25 Calculated Osmolality 257 (280-300) L 12/29/17 04:25 Calcium 8.3 mg/dL (8.6-10.3) L 12/29/17 04:25 TSH 5.851 mcIU/mL (0.340-5.600) H 12/29/17 04:25 Urine Protein 30 mg/dL (Neg-Trace) H 12/28/17 17:03 Urine Blood Large (Negative) H 12/28/17 17:03 Ur Leukocyte Esterase Small (Negative) H 12/28/17 17:03 Urine Microscopic RBC TNTC per hpf (0-3) H 12/28/17 17:03 Urine Microscopic WBC 15-30 per hpf (0-3) H 12/28/17 17:03 Ur Culture Indicated? YES (NO) A 12/28/17 17:03 Diabetes panel 12/28/17 12/29/17 Range/Units 22:49 04:25 Sodium 122 L 123 L (136-145) mEq/L Potassium 3.8 (3.5-5.1) mEq/L Chloride 94 L (98-107) mEq/L Carbon Dioxide 21 L (23-29) mEq/L BUN 16 (8-23) mg/dL Creatinine 0.98 (0.70-1.30) mg/dL Glucose 95 (70-105) mg/dL Calcium 8.3 L (8.6-10.3) mg/dL Thyroid panel 12/29/17 Range/Units 04:25 TSH 5.851 H (0.340-5.600) mcIU/mL Calcium panel 12/29/17 Range/Units 04:25 Calcium 8.3 L (8.6-10.3) mg/dL Pituitary panel 12/28/17 12/29/17 12/29/17 Range/Units 22:49 04:25 04:25 Sodium 122 L 123 L (136-145) mEq/L Potassium 3.8 (3.5-5.1) mEq/L Chloride 94 L (98-107) mEq/L Carbon Dioxide 21 L (23-29) mEq/L BUN 16 (8-23) mg/dL Creatinine 0.98 (0.70-1.30) mg/dL Glucose 95 (70-105) mg/dL Calcium 8.3 L (8.6-10.3) mg/dL TSH 5.851 H (0.340-5.600) mcIU/mL Adrenal panel 12/28/17 12/29/17 Range/Units 22:49 04:25 Sodium 122 L 123 L (136-145) mEq/L Potassium 3.8 (3.5-5.1) mEq/L Chloride 94 L (98-107) mEq/L Carbon Dioxide 21 L (23-29) mEq/L BUN 16 (8-23) mg/dL Creatinine 0.98 (0.70-1.30) mg/dL Glucose 95 (70-105) mg/dL Calcium 8.3 L (8.6-10.3) mg/dL All other labs normal. Consult Discharge Plan - Plan Referrals: George Hobbs DO [Primary Care Provider] -
[2017-12-29] MEDS ORDERED: *HR* Warfarin 2 MG TABLET PO SCH (18:00)
[2017-12-29] MEDS ORDERED: Warfarin perPT PO PRN (18:00)
[2017-12-29] MEDS ORDERED: cefTRIAXone 2,000 MG in Water for inj. (sterile) 20 ML 20 ML IVP SCH (18:00)
--- NOTE | 2017-12-29 22:40 | Electrocardiograph Report ---
[place] [id number] Test Date: 2017-12-28 Pat Name: Kojo Quintana Department: 102 Room: 2NE33 Gender: M Polisher Hand: : 1940 Requested By: Sheng Malone Order Number: [id number] Reading MD: Orion Carrillo DO Measurements Intervals [place] Rate: 70 P: NM: 0 QRS: -18 QRSD: 106 T: 198 QT: 415 QTc: 436 Interpretive Statements ATRIAL FIBRILLATION MODERATE INTRAVENTRICULAR CONDUCTION DELAY Electronically Signed On 12-29-2017 22:38:52 EDT by Orion Carrillo DO
[2017-12-30] MEDS: 0.9 % Sodium Chloride 1,000 ML IVC SCH (00:37)
[2017-12-30 05:10] LABS: INR 2.6; Prothrombin Time 28.9 Seconds (9.4-12.1)
[2017-12-30 05:15] LABS: BUN/Creatinine Ratio 17 (6-26); Blood Urea Nitrogen 15 mg/dL (8-23); Calcium 8.1 mg/dL (8.6-10.3); Carbon Dioxide 20 mEq/L (23-29); Chloride 96 mEq/L (98-107); Glucose 95 mg/dL (70-105); Osmolality,Calculated 261 (280-300); Potassium 3.8 mEq/L (3.5-5.1); Sodium 125 mEq/L (136-145); eGFR For African Americans > 60 (> 60); eGFR For Non-African Americans > 60 (> 60)
[2017-12-30] MEDS ORDERED: Levothyroxine 25 MCG TABLET PO SCH (06:30)
--- NOTE | 2017-12-30 07:03 | Urology Progress Note ---
Date of Encounter: 12/30/17 Time of Encounter: 07:02 - Assessment and Plan (1) Urinary retention Current Visit: Yes Status: Acute Assessment and plan: urine clear at this time. no new recs. Progress Note Narrative: patient seen. urine clear this am in tubing. Objective Initial Vital Signs Temp Pulse Resp BP Pulse Ox 97.6 F 68 19 134/74 96 12/28/17 16:26 12/28/17 16:26 12/28/17 16:26 12/28/17 16:26 12/28/17 16:26 - General physical appearance Present: well developed - Respiratory Present: normal expansion, normal respiratory effort - Abdomen Present: soft - Genitourinary Present: other (urine clear ) - Labs 12/29/17 04:25 12/30/17 04:24 Diabetes panel 12/30/17 Range/Units 04:24 Sodium 125 L (136-145) mEq/L Potassium 3.8 (3.5-5.1) mEq/L Chloride 96 L (98-107) mEq/L Carbon Dioxide 20 L (23-29) mEq/L BUN 15 (8-23) mg/dL Creatinine 0.90 (0.70-1.30) mg/dL Glucose 95 (70-105) mg/dL Calcium 8.1 L (8.6-10.3) mg/dL Calcium panel 12/30/17 Range/Units 04:24 Calcium 8.1 L (8.6-10.3) mg/dL Pituitary panel 12/30/17 Range/Units 04:24 Sodium 125 L (136-145) mEq/L Potassium 3.8 (3.5-5.1) mEq/L Chloride 96 L (98-107) mEq/L Carbon Dioxide 20 L (23-29) mEq/L BUN 15 (8-23) mg/dL Creatinine 0.90 (0.70-1.30) mg/dL Glucose 95 (70-105) mg/dL Calcium 8.1 L (8.6-10.3) mg/dL Adrenal panel 12/30/17 Range/Units 04:24 Sodium 125 L (136-145) mEq/L Potassium 3.8 (3.5-5.1) mEq/L Chloride 96 L (98-107) mEq/L Carbon Dioxide 20 L (23-29) mEq/L BUN 15 (8-23) mg/dL Creatinine 0.90 (0.70-1.30) mg/dL Glucose 95 (70-105) mg/dL Calcium 8.1 L (8.6-10.3) mg/dL - VTE Documentation of Mechanical Device: Intermittent pneumatic compression device Consult Discharge Plan - Plan Referrals: George Hobbs DO [Primary Care Provider] -
--- NOTE | 2017-12-30 08:21 | Cardiothoracic Progress Note ---
Date of Encounter: 12/30/17 Time of Encounter: 08:19 - Assessment and plan (1) CAD (coronary artery disease) Current Visit: No Status: Chronic The patient continues to improve and his hyponatremia is slowly resolving. His sternotomy incision is healing well and he has no discomfort with deep breathing or coughing. The patient may be discharged to the extended care facility at the discretion of the hospitalist service. Dr. Jairo Diaz will see the patient in the office for his originally scheduled postoperative visit. The assessment and plan as outlined above was discussed with the patient and/ or family members who expressed understanding and agreement. All questions were answered. Qualifiers: Coronary Disease-Associated Artery/Lesion type: bypass graft [place] vs. transplanted heart: [place] heart Associated angina: with unstable angina Qualified Code(s): I25.700 - Atherosclerosis of coronary artery bypass graft(s) , unspecified, with unstable angina pectoris - Subjective Interval history: The patient is resting comfortably in his hospital bed. He has no complaints. Vital Signs, Last 4 Hours Temp Pulse Resp BP Pulse Ox 12/30/17 07:17 97.8 F 66 18 149/81 97 12/30/17 05:16 97.6 F 66 20 172/87 98 Oxgyen Flow Rate Oxygen Flow Rate (LPM) 4 Clinical Data, last 8 Hours Output, Urine Amount 890 Weight 12/28/17 12/29/17 12/30/17 23:59 23:59 23:59 Weight 91 kg 91 kg - Physical Examination General: Conversant, No Apparent Distress Neck: No JVD, Normal carotid pulses Cardiac: Normal S1 and S2, No Murmur, Other (Irregular rate and rhythm (atrial fibrillation)) Incision: No signs of infection, Dry/intact dressing Sternum: Stable Lungs: Normal Breath Sounds, No Wheeze, Rales, Rhonchi Neuro: Alert and responsive, No focal deficits noted Vascular: Normal capillary refill Musculoskeletal: No Chest Wall Tenderness Extremities: No Clubbing, No Cyanosis, No Edema - Labs 12/29/17 04:25 12/30/17 04:24 Lab Results, Last 24 hours 12/30/17 12/30/17 04:24 04:24 INR 2.6 Sodium 125 L Potassium 3.8 Chloride 96 L Carbon Dioxide 20 L BUN 15 Creatinine 0.90 Glucose 95 Calcium 8.1 L - VTE Documentation of Mechanical Device: Intermittent pneumatic compression device Consult Discharge Plan - Plan Referrals: George Hobbs DO [Primary Care Provider] -
[2017-12-30] MEDS: *HR* Amiodarone 200 MG TABLET PO SCH (08:44)
[2017-12-30] MEDS: Aspirin Enteric Coated 81 MG Tablet PO SCH (08:45)
[2017-12-30] MEDS: Fluticasone Propionate Nasal 50 MCG/SPRAY BOTTLE NS SCH (08:46)
--- NOTE | 2017-12-30 13:57 | Discharge Summary ---
<ModiJ Luis R - Last Filed: 12/30/17 15:13> Date of Encounter: 12/30/17 Hospital course: Mr. Quintana is a 77 year old male - Time Spent with Patient Total time spent providing and/or coordinating discharge services: - Discharge Medications Prescriptions: cephALEXin [Keflex] 500 mg PO BID 3 Days #6 capsule Furosemide [Lasix] 40 mg PO DAILY #1 tablet Home Medications: Aspirin [Lo-Dose Aspirin EC] 81 mg PO DAILY 12/07/17 [History] Amiodarone [Cordarone] 200 mg PO DAILY #30 tablet 12/27/17 [Rx] Atenolol [Tenormin] 25 mg PO DAILY #30 tablet 12/27/17 [Rx] DiphenhydraMINE [Benadryl] 25 mg PO HS PRN capsule 12/27/17 [Rx] Simvastatin [Zocor] 40 mg PO HS #30 tablet 12/27/17 [Rx] Acetaminophen [Tylenol] 325 mg PO Q6HR PRN 12/28/17 [History] Oxygen 2 l NS AD 12/28/17 [History] Warfarin [Coumadin] 2 mg PO 1800 12/28/17 [History] Fluticasone Propionate Nasal [Flonase] 50 mcg NS DAILY bottle 12/30/17 [Rx] Furosemide [Lasix] 40 mg PO DAILY #1 tablet 12/30/17 [Rx] Levothyroxine [Synthroid] 50 mcg PO 0630 tablet 12/30/17 [Rx] Sodium Chloride 1 gm PO BID tablet 12/30/17 [Rx] cephALEXin [Keflex] 500 mg PO BID 3 Days #6 capsule 12/30/17 [Rx] Allergies/Adverse Reactions: 3 Allergy/AdvReac Type Severity Reaction Status Date / Time No Known Allergies Allergy Unverified 09/21/17 10:23 Date of admission: 12/28/17 20:17 Primary care physician: George Hobbs Consults: 12/29/17 00:36 Consult to Wound Care [CONS] Routine Reason for Consult: right knee wound Call Completed: No 12/29/17 00:38 Consult to Urology [CONS] Routine Consulting Provider: Urology Antonella Reason for Consult: consult urology for voiding trials Call Completed: No 12/29/17 11:19 Consult to Business Account Manager [CONS] Routine Reason for SW Consult: Patient just d/c'd 12/27/17 from [facility] to [facility] rehab 12/29/17 14:54 Consult to Occupational Therapy [CONS] Routine Comment: Evaluate, develop and implement POC Reason for Consult: Mandatory for pre-auth to return to SNF/insurance requirement Does patient have active BEDREST order?: No Is patient medically & hemodynamically stable?: Yes Consult to Physical Therapy [CONS] Routine Comment: Evaluate, develop and implement POC Reason for Consult: Mandatory for pre-auth to return to SNF per insurance Does patient have active BEDREST order?: No Is patient medically & hemodynamically stable?: Yes - Constitutional Vitals: Temp Pulse Resp BP Pulse Ox 97.8 F 61 16 114/78 98 12/30/17 11:18 12/30/17 11:18 12/30/17 11:18 12/30/17 11:18 12/30/17 11:18 - Patient Status Disposition: Transfer SNF Condition: Fair - Ambulatory Orders Ambulatory Orders: Basic Metabolic Panel [CHEM] Time Frame: 1 Week, Location: any Basic Metabolic Panel [CHEM] Time Frame: 01/06/18, Location: any Basic Metabolic Panel [CHEM] Time Frame: 01/09/18, Location: any - Discharge Instructions Follow Up With: George Hobbs DO [Primary Care Provider] - Additional Instructions: The patient should follow with primary care in 3-5 days Repeat BMP Q3 days x2 Take medicine as prescribed Return to ED for recurrent symptoms, seizure activity, or new chest pain - Attending Attestation I performede an independent interview and exam of this pt. I agree with the findings, assessment and plan of Dr. Bowles, internal medicine r d intern. Patient's sodium is improved. Clinically he is improved. We did start him on Keflex for urinary tract infection for which she will receive a short course, probably 5 days. Patient will continue on salt replacement therapy, and 1 dose of oral Lasix daily. Otherwise all his other issues appear to be fairly stable. Patient is stable for transfer. 39 minutes spent on discharge and coordination of care. Placement. He will need a follow-up BMP in about 4-5 days. <Jono Bowles - Last Filed: 12/30/17 20:28> - NOTES TO OUTPATIENT PROVIDER Notes to Outpatient Provider: The patient does have baseline hyponatremia which is apparently getting better. We did start him on salt tabs, and we have started him on Lasix. He should have follow-up BMPs as needed to monitor electrolytes. Date of Encounter: 12/30/17 Time of Encounter: 09:00 - Discharge Diagnosis (1) Acute metabolic encephalopathy Priority: Primary Status: Resolved (2) Hyponatremia Priority: Primary Status: Acute (3) UTI (urinary tract infection) Priority: Primary Status: Acute Qualifiers: Urinary tract infection type: acute cystitis Hematuria presence: with hematuria Qualified Code(s): N30.01 - Acute cystitis with hematuria (4) Hematuria Priority: Secondary Status: Acute Qualifiers: Hematuria type: gross Qualified Code(s): R31.0 - Gross hematuria (5) Urinary retention Priority: Secondary Status: Acute (6) Afib Priority: Secondary Status: Chronic Qualifiers: Atrial fibrillation type: chronic Qualified Code(s): I48.2 - Chronic atrial fibrillation (7) CAD (coronary artery disease) Priority: Secondary Status: Chronic Qualifiers: Coronary Disease-Associated Artery/Lesion type: bypass graft [place] vs. transplanted heart: [place] heart Associated angina: with unstable angina Qualified Code(s): I25.700 - Atherosclerosis of coronary artery bypass graft(s) , unspecified, with unstable angina pectoris Hospital course: Mr. Quintana is a 77 year old male with history of atrial fibrillation, CVA, hyperlipidemia, hypertension, renal disease who waas recently in [facility] for a long hospital stay following CABG on 12/08. The patient was discharged earlier this [facility], but returned the next day due to acute metabolic encephalopathy. At the time of readmission, the patient was found to have hyponatremia and a possible UTI complicated by indwelling catheter use. The patient's hyponatremia was evaluated and found to be due to loss of sodium. We repleted the sodium with salt tabs, and treated the UTI. He improved quickly , and no longer had any acute complaints. He was seen by Urology who recommended continued use of [place] at this time due to acute urinary retention, and they will see him as an outpatient. He had one short episode of gross hematuria which resolved with bladder irrigation and did not recur. He was re- evaluated by PT/OT who recommended placement at inpatient rehab facility. He will require close follow-up with primary care provider. I have provided an order for outpatient labs to monitor sodium throughout the week. Discharge discussed with: patient, nurse, social work, case management, [employer] consultant - Time Spent with Patient Total time spent providing and/or coordinating discharge services: Date of admission: 12/28/17 20:17 Primary care physician: George Hobbs Consults: 12/29/17 00:36 Consult to Wound Care [CONS] Routine Reason for Consult: right knee wound Call Completed: No 12/29/17 00:38 Consult to Urology [CONS] Routine Consulting Provider: Urology Antonella Reason for Consult: consult urology for voiding trials Call Completed: No 12/29/17 11:19 Consult to Business Account Manager [CONS] Routine Reason for SW Consult: Patient just d/c'd 12/27/17 from [facility] to [facility] re[facility] 12/29/17 14:54 Consult to Occupational Therapy [CONS] Routine Comment: Evaluate, develop and implement POC Reason for Consult: Mandatory for pre-auth to return to SNF/insurance requirement Does patient have active BEDREST order?: No Is patient medically & hemodynamically stable?: Yes Consult to Physical Therapy [CONS] Routine Comment: Evaluate, develop and implement POC Reason for Consult: Mandatory for pre-auth to return to SNF per insurance Does patient have active BEDREST order?: No Is patient medically & hemodynamically stable?: Yes Discharging clinician: Jono Bowles Anticipated date of discharge: 12/30/17 - Constitutional Vitals: Temp Pulse Resp BP Pulse Ox 97.8 F 61 16 114/78 98 12/30/17 11:18 12/30/17 11:18 12/30/17 11:18 12/30/17 11:18 12/30/17 11:18 Exam: Gen.: Vitals noted. No acute distress. AAOx3. Frail appearing gentleman HEENT: PERRL/EOMI, oropharynx clear, Normocephalic, atraumatic Neck: Supple. No adenopathy. Cardiac: RRR, no murmur, +S1/S2 Pulmonary: CTA bilaterally, no wheezes, rales or rhonchi, equal chest expansion Abdomen: soft, nontender, BS noted, no guarding Back: Nontender throughout. MSK: ROM intact, no joint swelling noted Extremities: no BLE edema, nontender calf, no cyanosis or clubbing Neuro: A&Ox3, moves all extremities, no focal deficits Psych: Appropriate mood and behavior - Patient Status Functional capacity at discharge: uses cane/walker Overall status at discharge: patient is progressing back to baseline - Diet and Activity Activity: as per physical therapy Diet: regular diet (Until Sodium normalizes, then cardiac.) - VTE Documentation of Mechanical Device: Intermittent pneumatic compression device
--- NOTE | 2017-12-30 14:05 | Physician Discharge Referral ---
ExtendedCare Referral Info Transfer To: [facility] Provider in Charge: Rian Provider in Charge after Transfer: PCP Institutional Level of Care: Skilled - Diagnosis (1) Hyponatremia Priority: Primary Status: Acute (2) UTI (urinary tract infection) Priority: Primary Status: Acute (3) Hematuria Priority: Secondary Status: Acute (4) Urinary retention Priority: Secondary Status: Acute (5) Afib Priority: Secondary Status: Chronic (6) CAD (coronary artery disease) Priority: Secondary Status: Chronic (7) Acute metabolic encephalopathy Priority: Secondary Status: Resolved Prognosis: Good Aware of Diagnosis: Patient Aware of Prognosis: Patient - Transfer Medications Prescriptions: Potassium Chloride [Klor-Con] 40 meq PO DAILY 30 Days packet Home Medications: Aspirin [Lo-Dose Aspirin EC] 81 mg PO DAILY 12/07/17 [History] Amiodarone [Cordarone] 200 mg PO DAILY #30 tablet 12/27/17 [Rx] Atenolol [Tenormin] 25 mg PO DAILY #30 tablet 12/27/17 [Rx] DiphenhydraMINE [Benadryl] 25 mg PO HS PRN capsule 12/27/17 [Rx] Simvastatin [Zocor] 40 mg PO HS #30 tablet 12/27/17 [Rx] Acetaminophen [Tylenol] 325 mg PO Q6HR PRN 12/28/17 [History] Furosemide [Lasix] 20 mg PO BID 12/28/17 [History] Oxygen 2 l NS AD 12/28/17 [History] Warfarin [Coumadin] 2 mg PO 1800 12/28/17 [History] Fluticasone Propionate Nasal [Flonase] 50 mcg NS DAILY bottle 12/30/17 [Rx] Levothyroxine [Synthroid] 50 mcg PO 0630 tablet 12/30/17 [Rx] Potassium Chloride [Klor-Con] 40 meq PO DAILY 30 Days packet 12/30/17 [Rx] Sodium Chloride 1 gm PO BID tablet 12/30/17 [Rx] Allergies/Adverse Reactions: 3 Allergy/AdvReac Type Severity Reaction Status Date / Time No Known Allergies Allergy Unverified 09/21/17 10:23 - Respiratory Orders Oxygen / L per min Smoking Cessation: Smoking cessation has been advised. For more information, call the [employer] Tobacco Quit Line at 6-441-UMUG-NOW. - Advance Directives Living Will: No Power of Repulping Supervisor: No Code Status: Full Code CERTIFICATION: I certify that the transfer of the above named patient to an Extended Care Facility is necessary for the continuing treatment of the diagnosis listed. The above information is true and accurate reflection of patient's current condition. Confidential - Redisclosure prohibited without a patient's written consent.
[2017-12-30 15:38] VITALS: BP 136/85
[2017-12-31] MEDS ORDERED: cephALEXin 500 MG CAPSULE PO SCH (09:00)
== END 2017-12-30 17:20 | DRG 640 ==
LOC: EMEROO 16:24 → 2NENU 16:24
PROVIDERS: ADMIT Internal Medicine; ATTEND Internal Medicine